=== PATIENT | male | born 1955 | race Caucasian/White ===

== ENCOUNTER 2019-11-07 12:30 | Outpatient (RCR) | payer MEDICARE, OTHER, SELFPAY ==
[2019-09-12 13:31] VITALS: BP_SYST 85
--- NOTE | 2019-09-12 14:54 | OTOPEVAL ---
OT EVALUATION SUMMARY 09/12/19 Thank you for referring this patient to [facility]. Skilled OT is recommended 2x/week for 4 weeks. Please review, sign, date and return this plan of care СВЕТЛАНА. I agree with and certify that the following plan of care is medically necessary. Referring Physician Date Attending Provider: Dwaine Soria, MD *OT Outpatient Evaluation Therapy Assessment Status Assessment Status Assessment Status Evaluation Evaluation Information Problem Diagnosis CVA, left side affected Onset 2016 Subjective Information Yair experienced a CVA in 2017. 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 Prior Level of Function Activity Level (Last 3 Months) Hand Dominance Right Home Setting Home Type House,Single Level Environmental Barriers Ramp Living Situation With Spouse Support Available Local Family Support Cargiver Responsibilities Comment (Jeanie), their son, and her siblings help in the care of this patient. Mobility Assistive Devices (Used Last 3 [place] cane,Wheelchair (Manual) Months) Toileting Equipment Commode, 3-in-1,Grab Bars Comments Additional Prior Level of Function - Patient is able to feed Comments himself and brush his teeth. Patient's assists with: sponge baths, toileting, all transfers, bed mobility, cutting up food with fork and knife, and dressing (LB completed in bed). - If he's leaving the house there are always two people with him to help with the car transfers. They are looking into getting a handicap van. - Hobbies: watching tv, coloring, playing with his dog Lionel, sitting outside when the weather permits, goes to [employer] with his Pain Assessment Pain Scale Pain Scale Used Numeric (1 - 10) Self Report Pain Assessment Left Shoulder(s) Reported Pain Level 2 Pain Description Tightness Pain Score Pain Score 2: Self Report Upper Extremity Range of Motion Scapular/ Shoulder Range of Motion Left Shoulder Flexio
--- NOTE | 2019-09-12 18:09 | PTOPEVAL ---
PHYSICAL THERAPY EVALUATION AND PLAN OF CARE Thank you for referring this patient to [facility]. Yair is scheduled to be seen 2x/week for 4 weeks. Please review, sign, date and return this plan of care СВЕТЛАНА. I agree with and certify that the following plan of care is medically necessary. Referring Physician Date Attending Provider: Dwaine Soria, MD Evaluation Outpatient Past Medical History Neurological History Hx Cerebrovascular Accident (CVA) Yes Hx Other Neurological Disorders Yes: frequent headaches: Tylenol; hemianopia left Cardiovascular History Hx Hypertension Yes: medication as well as aspirin Endocrine History Hx Diabetes Yes: medication Psychosocial History Hx Psychiatric Disorders depression/anxiety Pain History Evaluation Information Problem Diagnosis CVA affecting left limbs Onset 2017 Subjective Information Yair experienced a CVA in 2017 Query Text:As Reported By Patient/ . 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 He was most recently at [facility] where he states he was able to do a little walking in the parallel bars, walked a little with a lobo-walker. At home he states he tries to stand as much as he can with a little bit of help. 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 Hand Dominance Right Activity of Daily Living Ability Needs Some Help Indoor/Home Mobility Dependent Pain Assessment Self Report Pain Level 0 Hip Strength Left Hip Flexion Strength 2+ Poor + Hip Extension Strength 2 Poor Right Hip Flexion Strength 5 Normal Hip Extension Strength 4- Good - Knee Strength Left Knee Flexion Strength 2- Poor - Knee Extension Strength 2- Poor - Right Knee Flexion Strength 5 Normal Knee Extension Strength 5 Normal Posture Sitting Position Posture Evaluation View Anterior Head/C-Spine Posture Rotated Right,Side Bent Right Thoracic Spine Posture Flexible Scoliosis on (R), Increased Kyphosis Lumbar Spine Posture Flexed Shoulder Posture (R) Rounded Hip Posture (R) Neutral,(R) Externally
[2019-09-19 13:51] VITALS: BMI 10.0
--- NOTE | 2019-10-02 14:27 | PCPTNOTE ---
Patient did not show up for scheduled appointment this date. Called & spoke to patient's , and she stated she thought he only had Wednesday this week.
--- NOTE | 2019-10-02 14:55 | PCOTNOTE ---
Pt did not show for regular scheduled appt this date. Pt nor spouse called or cancelled appt.
[2019-10-06 11:56] VITALS: BMI 10.0
[2019-10-12 11:13] VITALS: BP_SYST 110
--- NOTE | 2019-10-12 12:03 | OTOPEVAL ---
OT DISCHARGE NOTE 10/12/19 Thank you for referring this patient to [facility]. No further skilled OT is indicated at this time. Please review, sign, date and return this plan of care СВЕТЛАНА. I agree with and certify that the following plan of care is medically necessary. Referring Physician Date Attending Provider: Dwaine Soria, *OT Outpatient Re-Evaluation Re-Evaluation Information Problem Diagnosis s/p CVA Onset 2016 Additional Evaluation Detail Yair has participated in outpatient OT x1 month. OT has focused on PROM and splinting to increase ROM and reduce tone. Patient has an elbow extension splint and a prefabricated resting hand splint that was modified to increase comfort and wear compliance. Goals for splinting were to increase armit, elbow crease, and hand hygiene as these areas are moist with skin maceration. At this time he and his are independent with PROM HEP and splint schedule. Subjective Information Patient reports improvements Query Text:As Reported By Patient/ since SOC. He no longer having Family left shoulder pain all the time , but occasionally . He states his has been doing their PROM HEP and he feels as though his left hand is more flexible. Pain Assessment Timing of Pain Assessment Timing of Pain Assessment Re-assessment Self Report Self Report Pain Level 0 Pain Scale Pain Scale Used Numeric (1 - 10) Self Report Pain Assessment Right Shoulder(s) Reported Pain Level 0 Pain Score Pain Score 0: Self Report Upper Extremity Range of Motion Scapular/ Shoulder Range of Motion Left Shoulder Flexion - Active 0 Shoulder Flexion - Passive 110 Shoulder Extension - Active 0 Shoulder Extension - Passive 35 Shoulder Abduction - Active 0 Shoulder Abduction - Passive 110 Scapular/Shoulder Range of Motion (L) UE rests in: shoulder Comments adduction and IR with elbow flexed, forearm pronated, wrist and hand flexed. Improvements noted in passive shoulder flexion and abduction
--- NOTE | 2019-10-12 12:51 | PTOPEVAL ---
PHYSICAL THERAPY PLAN OF CARE UPDATE AND PROGRESS REPORT Thank you for referring this patient to [facility]. Yair is scheduled to continue PT 2x/week for 4 weeks. Please review, sign, date and return this plan of care СВЕТЛАНА. I agree with and certify that the following plan of care is medically necessary. Referring Physician Date Attending Provider: Dwaine Soria, Re-evaluation Outpatient Past Medical History Neurological History Hx Cerebrovascular Accident (CVA) Yes Hx Seizures Yes Hx Other Neurological Disorders Yes: frequent headaches: Tylenol; hemianopia left Cardiovascular History Hx Hypertension Yes: medication as well as aspirin Endocrine History Hx Diabetes Yes: medication Evaluation Information Problem Diagnosis s/p CVA Onset 2016 Additional Evaluation Detail Yair has been participating in PT 2x/week for 4 weeks with several cancellations resulting in a total of 1 evaluation and 3 treatments. He is having a difficult time managing his bowels and he often feels sick to his stomach limiting his ability to come to PT. Subjective Information Is able to report to PT his OT Query Text:As Reported By Patient/ HEP. Otherwise is not able to Family describe changes. Self Report Self Report Pain Level 0 Pain Score Pain Score 0: Self Report Lower Extremity Muscle Strength Testing Hip Strength Left Hip Flexion Strength 2- Poor - Hip Extension Strength 2 Poor Right Hip Flexion Strength 5 Normal Hip Extension Strength 4- Good - Knee Strength Left Knee Flexion Strength 2- Poor - Knee Extension Strength 2- Poor - Knee Strength Comments likely all strength is residual from increased tone Right Knee Flexion Strength 5 Normal Knee Extension Strength 5 Normal Posture Sitting Position Posture Evaluation View Anterior Head/C-Spine Posture Rotated Right,Side Bent Right Thoracic Spine Posture Flexible Scoliosis on (R), Increased Kyphosis Lumbar Spine Posture Flexed Shoulder Posture (R) Elevated Hip Posture (R) Externally Rotated,(R) Abducted Additional Posture Comments all posture is flexible except left knee posturing which is
--- NOTE | 2019-11-01 14:57 | PCPTNOTE ---
PHYSICAL THERAPY WHEELCHAIR EVALUATION Attending Provider: Dwaine Soria, Patient:Yair Philippe Date of :1955 Yair Philippe is currently participating in PT for rehabilitation following CVA affecting left extremities. He arrived today to participate in a wheelchair evaluation in conjunction with [facility] in order to determine best needs for patient. His current seating arrangement is ill-fitting and inappropriate for pressure distribution, edema management, and patient posturing. He would benefit from a new seating device, the details of which can be seen in the scanned wheelchair evaluation. Yair will otherwise continue care in physical therapy for rehabilitation purposes to gain and promote optimal independence despite current limitations. Thank you for referring this patient to [facility]. Please review, sign, date and return this wheelchair evaluation summary СВЕТЛАНА. I have been updated about the patient's current status and I agree with wheelchair recommendations at this time. Referring Physician Date
--- NOTE | 2019-11-07 14:49 | PTOPEVAL ---
PHYSICAL THERAPY DISCHARGE REPORT Thank you for referring this patient to [facility]. Yair will be discharged from our facility at this time. If there is a change in status in which we are able to provide further assistance we would be happy to work with him again. Please review, sign, date and return this plan of care СВЕТЛАНА. I agree with and certify that the following plan of care is medically necessary. Referring Physician Date Attending Provider: Dwaine Soria, MD Diagnosis s/p CVA Onset 2016 Subjective Information Yair and report no Query Text:As Reported By Patient/ changes in status at this time Family . Saw the neurologist yesterday and reports good health. Reports that neurologist confirmed that seizures are not caused by looking to the left, but by other overstimulation events. Yair does report he has fairly high anxiety and panic toward balance and gait and standing activiities. He and are trying to find a counselo and/ or pyschiatrist in order to reduce anxieties, but due to insurance changes they have not found one yet. is with us during re- evaluation. Previous Treatments Previous Treatments For This Problem physical therapy and rehab in [place], PT, OP PT Pain Assessment Timing of Pain Assessment Timing of Pain Assessment Post-Treatment Self Report Self Report Pain Level 0 Pain Score Pain Score 0: Self Report Additional Pain Score Comments Pt reported pain at 3/10 at end of tx session. Posture Posture Sitting Position Posture Evaluation View Anterior Head/C-Spine Posture Rotated Right,Side Bent Right Thoracic Spine Posture Flexible Scoliosis on (R), Increased Kyphosis Lumbar Spine Posture Flexed Shoulder Posture (R) Elevated Hip Posture (R) Externally Rotated,(R) Abducted Additional Posture Comments all posture is flexible except left knee posturing which is influenced by tone - left knee posturing can be overcome with passive placement, but he is unable to correct positioning; while sitting with wide base of support, he is able to correct head posture and shoulder posture for <20second before needing next cue to correct Yair's perception, as stated, is that he feels he is crooked to the left therefore, it can be said that he is pushing to the right in orde
== END 2019-11-08 08:55 | disposition home or self-care (01) ==
LOC: ANHPT 12:30
PROVIDERS: PCP Internal Medicine; Visit Provider Internal Medicine
DX: I63.9 Cerebral infarction, unspecified (principal)
CPT/HCPCS: 97110; 97140; 97163; 97165; 97530; 97535; 97760; L3702

== ENCOUNTER 2020-05-12 11:31 | Emergency (ER) | payer MEDICARE, OTHER, SELFPAY ==
--- NOTE | ~2020-05-12 | XR_ITS ---
EXAMINATION: XR chest 1V portable EXAM DATE: 05/12/2020 12:22 INDICATION: Cough. TECHNIQUE: Portable AP frontal chest x-ray was obtained. Comparison is made to prior examination from 10/04/2019. FINDINGS: The The lungs are clear. There are no pleural effusions. Cardiac silhouette is prominent but magnified on this AP technique. There is no pneumothorax suspected. The bones and soft tissues are unremarka ble. IMPRESSION: No acute cardiopulmonary findings. Reviewed, dictated and finalized at location A.
[2020-05-12 11:35] VITALS: BP 125/80; PULSE 88; RESP 18; TEMP 37.9; O2SAT 96
[2020-05-12 11:54] VITALS: BP 135/88; PULSE 90; RESP 26; TEMP 37.9; O2SAT 96
--- NOTE | 2020-05-12 11:56 | ED.URI ---
HPI - URI/Sore Throat General Chief Complaint: Upper Respiratory Infection Stated Complaint: cough/covid exposure Time Seen by Provider: 05/12/20 11:46 History of Present Illness HPI Narrative: Exposed to someone with COVID previously. Cough for the past week. Associated with fatigue and malaise. Developed fever today. No SOB Related Data Home Medications Medication Instructions Recorded Confirmed atorvastatin 80 mg PO DAILY 05/12/20 clonazepam 05/12/20 escitalopram oxalate mg 05/12/20 esomeprazole magnesium mg 05/12/20 gabapentin 05/12/20 glipizide mg PO 05/12/20 hydrochlorothiazide 05/12/20 levetiracetam [Keppra] 1,000 mg PO DAILY 05/12/20 levetiracetam [Keppra] 2,000 mg PO HS 05/12/20 metoprolol succinate PO 05/12/20 nystatin [Nystop] TOPICAL 05/12/20 pramipexole mg 05/12/20 Allergies Allergy/AdvReac Type Severity Reaction Status Date / Time Penicillins Allergy Unknown Rash Verified 05/12/20 11:47 Review of Systems Review of Systems: All systems reviewed & are unremarkable except as noted in HPI and below Constitutional: Constitutional: Reports fever(s) Cardiovascular: Cardiovascular: Denies chest pain Respiratory: Respiratory: Reports cough, Denies dyspnea and Denies wheezing Gastrointestinal: Gastrointestinal: Denies abdominal pain PMF Past Medical History Medical History Anxiety Carcinoid tumor 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 Occurred on 09/30/17. HTN (hypertension) Hyperlipidemia Ruptured aneurysm of intracranial region Seizure since his CVA Sleep apnea Type II diabetes mellitus Surgical History Surgical History History of colon resection 18 inches Social History Social History Smoking status: Never smoker Gender identity (if verbalized by the patient): Male Exam Const: General: no acute distress and alert Orientation/consciousness: patient oriented x3 HENMT: Head: normal to inspection Resp: Effort & Inspection: normal respiratory effort Auscultation: clear to auscultation bilaterally Cardio: Rate: regular rate Rhythm: regular rhythm GI: GI Palp: Yes Soft to palpation and No Tenderness to palpation present (GI) Skin: General skin exam: normal color Rashes: no rashes Neuro: General: patient oriented x3 Extrem: General: normal to inspection Course Vital Signs Vital signs: Vital Signs Temperature 37.9 C H 05/12/20 11:35 Pulse Rate 88 05/12/20 11:35 Respiratory Rate 18 05/12/20 11:35 Blood Pressure 125/80 05/12/20 11:35 Pulse Oximetry 96 05/12/20 11:35 Temperature 37.4 C 05/12/20 14:58 Pulse Rate 87 05/12/20 14:58 Respiratory Rate 18 05/12/20 14:58 Blood Pressure 141/87 H 05/12/20 14:58 Pulse Oximetry 96 05/12/20 14:58 MDM - URI/Sore Throat MDM Narrative Medical decision making narrative: He likely has COVID-19. No indication for admission at this time. Medical Records Attestation: I reviewed the patient's medical records. Lab Data Attestation: I reviewed the patient's lab results. Result diagrams: 05/12/20 11:57 05/12/20 11:57 Labs: Lab Results 05/12/20 05/12/20 05/12/20 Range/Units 11:57 11:57 11:57 WBC 5.4 (4.5-10.0) K/mm3 RBC 5.13 (4.6-6.20) M/mm3 Hgb 15.9 (14.0-18.0) g/dL Hct 44.9 (42.0-52.0) % MCV 87.5 (80-100) fl MCH 31.0 (26-34) pg MCHC 35.4 (32-36) g/dl RDW 12.5 (11.5-14.5) % Plt Count 189 (150-375) k/mm3 MPV 10.7 H (7.4-10.4) fl Immature Gran % (Auto) 0.2 (0-0.5) % Neut % (Auto) 75.5 H (45.5-73.1) % Lymph % (Auto) 11.5 L (18.3-44.2) % [place] % (Auto) 12.2 H (2.6-8.5) % Eos % (Auto) 0.4 (0-4.4) % Baso % (Auto) 0.2 (0.2-1.2) % Lymph # (Auto) 0.62 L (0.9-3.2) K/mm3 [place] # (Auto
[2020-05-12 12:27] LABS: Basophils Percent Auto 0.2 % (0.2-1.2); Eosinophils Percent Auto 0.4 % (0-4.4); Hematocrit 44.9 % (42.0-52.0); Hemoglobin 15.9 g/dL (14.0-18.0); Immature Granulocyte Absolute 0.01 K/mm3 (0.00-0.031); Immature Granulocyte Percent A 0.2 % (0-0.5); Lymphocytes Absolute Auto 0.62 K/mm3 (0.9-3.2); Lymphocytes Percent Auto 11.5 % (18.3-44.2); Mean Corpuscular HGB Conc 35.4 g/dl (32-36); Mean Corpuscular Volume 87.5 fl (80-100); Mean Platelet Volume 10.7 fl (7.4-10.4); Monocytes Absolute Auto 0.7 K/mm3 (0.1-0.6); Monocytes Percent Auto 12.2 % (2.6-8.5); Neutrophils Absolute Auto 4.1 K/mm3 (1.3-6.7); Neutrophils Percent Auto 75.5 % (45.5-73.1); Platelet Count Result 189 k/mm3 (150-375); Red Blood Count 5.13 M/mm3 (4.6-6.20); Red Cell Distribution Width 12.5 % (11.5-14.5); White Blood Count 5.4 K/mm3 (4.5-10.0)
[2020-05-12 12:32] LABS: INR 1.1; Partial Thromboplastin Time 26.3 SECONDS (22.3-36.8); Prothrombin Time 13.5 Seconds (11.1-14.7)
[2020-05-12 12:37] LABS: Lactic Acid Reflex 2.4 mmol/L (0.7-2.1)
[2020-05-12 12:39] LABS: Alanine Aminotransferase 43 U/L (4-50); Albumin Level 3.8 g/dL (3.5-5.1); Alkaline Phosphatase 95 U/L (38-126); Anion Gap 11.3 mmol/L (7-16); Aspartate Amino Transferase 44 U/L (17-59); Bilirubin,Total 0.9 mg/dL (0.2-1.3); Blood Urea Nitrogen 16 mg/dL (9-20); CRP 2.6 mg/dL (<1.0); Calcium 8.6 mg/dL (8.4-10.2); Carbon Dioxide 29 mmol/L (22-30); Chloride 99 mmol/L (98-107); Estimated CRCL calculation 98 ml/min; Estimated Glomerular Filt Rate > 60; Glucose 236 mg/dL (75-110); Potassium 3.3 mmol/L (3.4-5.0); Sodium 136 mmol/L (137-145)
[2020-05-12 12:41] LABS: Add Urine Microscopic? YES; Appearance Urine Clear (Clear); Bacteria Urine Trace /hpf; Bilirubin Urine Negative (Negative); Blood Urine 1+ (Negative); Color Urine Yellow (Yellow); Glucose Urine UA Negative (Negative); Ketones Urine Negative (Negative); Leukocyte Esterase Ur Negative LEU/UL (Negative); Mucus Urine Few /lpf; Nitrate Urine Negative (Negative); Protein Urine 1+ mg/dL (Negative); Specific Grav Ur 1.028 (1.001-1.035); Squamous Epithelial Cell Urine Rare /hpf (Few); Urobilinogen Urine Negative mg/dL (<2.0)
[2020-05-12 13:05] VITALS: BP 125/99; PULSE 88; RESP 18; O2SAT 94
[2020-05-12 13:48] VITALS: BP 129/87; PULSE 87; RESP 16; O2SAT 95
--- NOTE | 2020-05-12 14:26 | PC.NURSE ---
MARIBEL Moulton at bedside to update pt.
[2020-05-12 14:58] VITALS: BP 141/87; PULSE 87; RESP 18; TEMP 37.4; O2SAT 96
[2020-05-12 15:27] LABS: Reflex Lactic Acid Yes or No Add Lactic
[2020-05-13 12:00] LABS: SARS-CoV-2 RNA PCR Positive
== END 2020-05-12 14:59 | disposition home or self-care (01) ==
PROVIDERS: Physician Assistant; Emergency Provider Emergency Medicine; PCP Internal Medicine
DX: U07.1 COVID-19 (principal); F41.9 Anxiety disorder, unspecified; E78.5 Hyperlipidemia, unspecified; I69.954 Hemiplegia and hemiparesis following unspecified cerebrovascular disease affecting left non-dominant side; G47.30 Sleep apnea, unspecified; E11.9 Type 2 diabetes mellitus without complications; Z79.84 Long term (current) use of oral hypoglycemic drugs; Z79.82 Long term (current) use of aspirin
CPT/HCPCS: 36415; 71045; 80053; 81001; 83605; 85025; 85610; 85730; 86140; 87040; 87635; 99283; C9803; U0003

== ENCOUNTER 2020-05-16 20:12 | Inpatient (IN) | payer MEDICARE, OTHER, SELFPAY ==
--- NOTE | ~2020-05-16 | XR_ITS ---
EXAMINATION: XR chest 1V portable EXAM DATE: 05/18/2020 16:20 INDICATION: COVID follow-up. TECHNIQUE: Portable AP frontal chest x-ray was obtained. Comparison is made to prior examination from 05/16/2020. FINDINGS: The lungs are clear. There are no pleural effusions. Cardiac silhouette is prominent but magnified on this AP technique. There is no pneumothorax suspected. The bones and soft tissues are unremarkable. IMPRESSION: No acute cardiopulmonary findings. Reviewed, dictated and finalized at location A.
--- NOTE | ~2020-05-16 | XR_ITS ---
EXAMINATION: XR chest 1V portable DATE: 05/20/2020 06:33 INDICATION: COVID 19 TECHNIQUE: frontal view of the chest was obtained. COMPARISON: Chest radiograph dated 05/18/2020 FINDINGS: Vertical band of linear discoid atelectasis at the right lower lung zone. No other airspace opacities , pulmonary edema, pleural effusion or pneumothorax. The cardiomediastinal silhouette is normal. Visu alized bones and soft tissues are unremarkable. IMPRESSION: 1. Mild discoid atelectasis in the right lower lung zone. Reviewed, dictated and finalized at location A.
--- NOTE | ~2020-05-16 | CT_ITS ---
EXAMINATION: CT brain wo con EXAM DATE: 05/16/2020 21:48 INDICATION: Fever, cough, shortness of breath. Stroke. TECHNIQUE: Spiral CT of the head was performed without contrast. Axial, coronal and sagittal images were reviewed. The dose-length product (DLP) for this examination was 756.67 mGy-cm. The exposure w as tailored according to patient size, and iterative reconstruction (ASIR) was used as additional dos e reduction technique. Comparison is made to prior examination from 06/23/2018. FINDINGS: There is no acute intraparenchymal hemorrhage. No evidence of intraparenchymal brain mass lesion. No evidence of acute infarction. Please note that initial head CT has limited sensitivity f or small or acute infarctions. There is large old right middle cerebral artery distribution infarcti on. There is mild to moderate periventricular and subcortical hypodensity, nonspecific but probably related to small vessel ischemic disease. There is mild prominence of the sulci and ventricles rela rodo to cerebral atrophy. There is intracranial carotid arteriosclerosis. There are no extra-axial collections. There is no mass effect or midline shift. The orbits are unremarkable. Soft tissue is unremarkable. The visualized sinuses and mastoid air cells are well aerated. IMPRESSION: 1. Large old right MCA distribution infarction. 2. Chronic age related findings. Reviewed, dictated and finalized at location A.
--- NOTE | ~2020-05-16 | XR_ITS ---
EXAMINATION: XR chest 1V portable EXAM DATE: 05/16/2020 21:46 INDICATION: COVID 19. TECHNIQUE: Portable AP frontal chest x-ray was obtained. Comparison is made to prior examination from 05/12/2020. FINDINGS: The lungs are clear. There are no pleural effusions. Cardiac silhouette is prominent but magnified on this AP technique. There is no pneumothorax suspected. The bones and soft tissues are unremarkable. IMPRESSION: No acute cardiopulmonary findings. Reviewed, dictated and finalized at location A.
[2020-05-16 20:11] VITALS: BP 133/88; PULSE 98; RESP 27; TEMP 37.7; O2SAT 99
--- NOTE | 2020-05-16 20:14 | ED.SOB ---
HPI - SOB/Dyspnea General Chief Complaint: Shortness of Breath/Dyspnea Stated Complaint: sob, fever Time Seen by Provider: 05/16/20 20:14 History of Present Illness HPI Narrative: Brought in by EMS from home for altered mental status and generalized weakness. He was seen here 4 days ago for fever and cough. COVID testing was done at that time. They say that they never heard the result and has not been isolating. On review of the chart he is COVID positive. Since last time he was here he has had increasing weakness. No SOB. Today his could not get him out of bed so she called EMS. Related Data Home Medications Medication Instructions Recorded Confirmed aspirin 81 mg PO QAM 05/16/20 05/17/20 atorvastatin 80 mg PO HS 05/16/20 05/17/20 clonazepam 0.5 mg PO QPM 05/16/20 05/17/20 escitalopram oxalate 40 mg PO QAM 05/16/20 05/17/20 esomeprazole magnesium 40 mg PO QAM 05/16/20 05/17/20 gabapentin 300 mg PO HS 05/16/20 05/17/20 glipizide 5 mg PO DAILY 05/16/20 05/17/20 hydrochlorothiazide 25 mg PO QAM 05/16/20 05/17/20 levetiracetam 1,000 mg PO QAM 05/16/20 05/17/20 metoprolol succinate 50 mg PO BID 05/16/20 05/17/20 pramipexole 0.75 mg PO QPM 05/16/20 05/17/20 cholecalciferol (vitamin D3) 50 mcg PO DAILY 05/17/20 05/17/20 [Vitamin D3] cyanocobalamin (vitamin B-12) 1,000 mcg PO BID 05/17/20 05/17/20 [Vitamin B-12] levetiracetam 2,000 mg PO QPM 05/17/20 05/17/20 Allergies Allergy/AdvReac Type Severity Reaction Status Date / Time Penicillins Allergy Unknown Verified 05/16/20 20:51 Review of Systems Review of Systems: ROS unobtainable: Yes unobtainable due to medical condition PMFSH Past Medical History Medical History (Updated 05/17/20 @ 06:22 by Vj Moulton MD) COVID-19 virus detected CVA (cerebral vascular accident) Family History Family History (Updated 05/17/20 @ 02:58 by Amanda Metcalf RN) Other Unknown family medical history Social History Social History Smoking status: Never smoker Alcohol intake: never Substance use: never Gender identity (if verbalized by the patient): Male Spiritual care concerns: No Exam Const: General: ill appearing Nutritional Appearance: obese Other: oriented x2. Somnolent, but arousable. HENMT: Head: normal to inspection Eyes: Pupils: Equal, round and reactive pupils present Resp: Effort & Inspection: normal respiratory effort Auscultation: clear to auscultation bilaterally Cardio: Rate: regular rate Rhythm: regular rhythm GI: Inspection: non-distended GI Palp: Yes Soft to palpation and No Tenderness to palpation present (GI) Skin: General skin exam: normal color Rashes: no rashes Wounds: no wounds Neuro: Other: Chronic paraplegia Extrem: General: normal to inspection Course Vital Signs Vital signs: Vital Signs Temperature 37.7 C H 05/16/20 20:11 Pulse Rate 98 05/16/20 20:11 Respiratory Rate 27 H 05/16/20 20:11 Blood Pressure 133/88 05/16/20 20:11 Pulse Oximetry 99 05/16/20 20:11 Temperature 38.1 C H 05/17/20 01:40 Pulse Rate 88 05/17/20 04:00 Respiratory Rate 28 H 05/17/20 01:40 Blood Pressure 125/70 05/17/20 01:40 Pulse Oximetry 95 05/17/20 01:40 MDM - SOB/Dyspnea Lab Data Attestation: I reviewed the patient's lab results. Result diagrams: 05/16/20 21:11 05/16/20 21:11 Labs: Lab Results 05/16/20 05/16/20 05/16/20 Range/Units 21:11 21:11 21:11 WBC (4.5-10.0) K/mm3 RBC (4.6-6.20) M/mm3 Hgb (14.0-18.0) g/dL Hct (42.0-52.0) % MCV (80-100) fl MCH (26-34) pg MCHC (32-36) g/dl RDW (11.5-14.5) % Plt Count (150-375) k/mm3 MPV (7.4-10.4) fl Immature Gran % (Auto) (0-0.5) % Neut % (Auto) (45.5-73.1) % Lymph % (Auto) (18.3-44.2) % [place] % (Auto) (2.6-8.5) % Eos % (Auto) (0-4.4) % Baso % (Auto) (0.2-1.2) % Ly
--- NOTE | 2020-05-16 20:25 | ECG_ITS ---
Measurements Intervals [place] Rate: 97 P: -30 OK: 144 QRS: -28 QRSD: 117 T: -30 QT: 382 QTc: 487 Interpretive Statements SINUS OR ECTOPIC ATRIAL RHYTHM ATRIAL PREMATURE COMPLEX INTRAVENTRICULAR CONDUCTION DELAY POOR R WAVE PROGRESSION, ANTERIOR LEADS NONSPECIFIC T-WAVE ABNORMALITY- ANT/INF LEADS BASELINE WANDER- I, II, AVR, AVL, AVF, V1-V6 ABNORMAL ECG Electronically Signed On 05-20-2020 11:37:25 CDT by Harsha Prieto D.O.
--- NOTE | 2020-05-16 21:04 | PC.NURSE ---
pt history is in his other chart.
[2020-05-16 21:34] LABS: Basophils Percent Auto 0.2 % (0.2-1.2); Eosinophils Percent Auto 0.2 % (0-4.4); Hematocrit 44.4 % (42.0-52.0); Hemoglobin 15.9 g/dL (14.0-18.0); Immature Granulocyte Absolute 0.02 K/mm3 (0.00-0.031); Immature Granulocyte Percent A 0.3 % (0-0.5); Lymphocytes Absolute Auto 0.84 K/mm3 (0.9-3.2); Lymphocytes Percent Auto 12.8 % (18.3-44.2); Mean Corpuscular HGB Conc 35.8 g/dl (32-36); Mean Corpuscular Hemoglobin 31.2 pg (26-34); Mean Corpuscular Volume 87.2 fl (80-100); Mean Platelet Volume 10.3 fl (7.4-10.4); Monocytes Absolute Auto 0.6 K/mm3 (0.1-0.6); Neutrophils Absolute Auto 5.1 K/mm3 (1.3-6.7); Neutrophils Percent Auto 77.5 % (45.5-73.1); Platelet Count Result 177 k/mm3 (150-375); Red Blood Count 5.09 M/mm3 (4.6-6.20); Red Cell Distribution Width 12.4 % (11.5-14.5); White Blood Count 6.6 K/mm3 (4.5-10.0)
[2020-05-16 21:44] LABS: INR 1.1
[2020-05-16 21:45] LABS: Partial Thromboplastin Time 26.8 SECONDS (22.3-36.8)
[2020-05-16 21:49] LABS: Lactate Dehydrogenase 466 U/L (313-618)
[2020-05-16 21:52] LABS: Alanine Aminotransferase 30 U/L (4-50); Albumin Level 3.8 g/dL (3.5-5.1); Alkaline Phosphatase 99 U/L (38-126); Anion Gap 10.9 mmol/L (7-16); Aspartate Amino Transferase 23 U/L (17-59); Bilirubin,Total 0.9 mg/dL (0.2-1.3); Blood Urea Nitrogen 14 mg/dL (9-20); CRP 4.2 mg/dL (<1.0); Calcium 8.7 mg/dL (8.4-10.2); Carbon Dioxide 30 mmol/L (22-30); Chloride 100 mmol/L (98-107); Estimated CRCL calculation 91 ml/min; Estimated Glomerular Filt Rate > 60; Glucose 142 mg/dL (75-110); Potassium 2.9 mmol/L (3.4-5.0); Sodium 138 mmol/L (137-145)
[2020-05-16 22:20] LABS: Add Urine Microscopic? YES; Appearance Urine Clear (Clear); Bacteria Urine Trace /hpf; Bilirubin Urine Negative (Negative); Blood Urine 1+ (Negative); Color Urine Yellow (Yellow); Glucose Urine UA Negative (Negative); Ketones Urine Negative (Negative); Leukocyte Esterase Ur Negative LEU/UL (Negative); Mucus Urine Few /lpf; Nitrate Urine Negative (Negative); Protein Urine 1+ mg/dL (Negative); Specific Grav Ur 1.025 (1.001-1.035); Squamous Epithelial Cell Urine Rare /hpf (Few); Urobilinogen Urine Negative mg/dL (<2.0)
[2020-05-16 23:03] VITALS: BP 120/91; PULSE 100; RESP 36; O2SAT 96
[2020-05-16] MEDS: SODIUM CHLORIDE 0.9% IV 500 ML 999 ML IV CONT (23:10)
--- NOTE | 2020-05-16 23:12 | PC.NURSE ---
vorb from dr ko 2 mg ativan to be administered to patient, the original order was for 1 mg. pt was actively seizing.
[2020-05-16 23:56] VITALS: BP 103/80; PULSE 102; RESP 30; TEMP 38.8; O2SAT 97
[2020-05-17] VITALS (14 sets, daily range): BP systolic 115–141; BP diastolic 70–91; PULSE 88–110; RESP 18–28; TEMP 37.2–38.7; O2SAT 92–100; BMI 41.6
[2020-05-17 00:04] LABS: Alveolar/Arterial O2 Gradient 97.4 mmHg; Base Excess ABG 4.8 mEq/l (+/-2.0); Fractional Inspired Oxygen 32 %; HCO3 ABG 29.6 mEq/l (22.0-26.0); Oxygen Content ABG 20.9 %vol (16.0-22.0); Oxygen Saturation ABG 96.2 % (95.0-100.0); Oxyhemoglobin 94.8 % THb (90.0-100.0); PCO2 ABG 43.7 mmHg (35.0-45.0); PO2 ABG 79.6 mmHg (80.0-100.0); PO2 FiO2 Ratio Arterial Blood 2.49 %; Total Hemoglobin 15.7 g/dL (12.0-18.0); pH ABG 7.448 (7.350-7.450)
[2020-05-17 00:07] LABS: Device NASAL CANNULA; Modified Allen's Test Pass; Site Drawn RIGHT RADIAL
--- NOTE | 2020-05-17 02:34 | ADMGEN ---
This patient, Yair Philippe, was admitted to [facility] Surg Room 329-01. Patient/family oriented to hospital policies and general routines including ID bracelet, bed and alarms, visiting hours, pain management, procedures, bathroom and other care routines, personal items, smoking policy, room service/diet, and visiting hours. Valuables list has been completed. Information on how to activate the Rapid Response Team has been discussed. Patient/Family are encouraged to report perceived risks to care and to ask questions if they do not understand what they are told or what they should do.
[2020-05-17 06:16] LABS: Hematocrit 41.7 % (42.0-52.0); Hemoglobin 14.6 g/dL (14.0-18.0); Mean Corpuscular Volume 88.5 fl (80-100); Mean Platelet Volume 10.3 fl (7.4-10.4); Platelet Count Result 143 k/mm3 (150-375); Red Blood Count 4.71 M/mm3 (4.6-6.20); Red Cell Distribution Width 12.4 % (11.5-14.5); White Blood Count 5.1 K/mm3 (4.5-10.0)
[2020-05-17 06:25] LABS: D Dimer 0.24 ug/mL (<0.48)
[2020-05-17 06:58] LABS: Alanine Aminotransferase 26 U/L (4-50); Albumin Level 3.4 g/dL (3.5-5.1); Alkaline Phosphatase 79 U/L (38-126); Anion Gap 10.7 mmol/L (7-16); Aspartate Amino Transferase 22 U/L (17-59); Blood Urea Nitrogen 16 mg/dL (9-20); Carbon Dioxide 29 mmol/L (22-30); Chloride 100 mmol/L (98-107); Estimated CRCL calculation 96 ml/min; Estimated Glomerular Filt Rate > 60; Glucose 228 mg/dL (75-110); Lactate Dehydrogenase 502 U/L (313-618); Potassium 3.7 mmol/L (3.4-5.0); Sodium 136 mmol/L (137-145)
[2020-05-17] MEDS: ONDANSETRON INJ 4 MG/2 ML VIAL IV PUSH (11:36)
--- NOTE | 2020-05-17 15:16 | PM.IMHP ---
H&P: HPI History of Present Illness Date/Time: 05/17/20 15:16 Chief complaint: COVID-19 Narrative: Yair Philippe is a 64 year old male with hx of CVA and left hemiplegia here for weakness after being diagnosed with COVID. Patient states he became ill last week. He was exposed to someone with COVID. He has been having a headache and fever. She also complains of nausea and diarrhea. No abdominal pain. No sore throat. He has a nonproductive cough. Also having malaise and taste disturbance. Mild shortness of breath. He presented to the emergency room on May 12 with these symptoms. He was noted to have a low-grade fever. Chest x-ray was clear. He was tested for COVID and discharged with diagnosis of URI. He states he never received a call about the results. The COVID test was positive. Patient's symptoms have worsened. He is very weak and tired. He falls asleep easily during the day. He does have sleep apnea and is compliant with wearing his mask. Some mild right otalgia but that symptom has improved. No dysuria or hematuria. No Chest pain. No palpitations. He presented back to the emergency room due to generalized weakness, continued fevers and malaise. His has been having difficulty getting him out of bed. Patient normally helps with transfers to the wheelchair. He has been unable to do so since being ill. In the emergency room, patient was tachypneic, febrile and tachycardic. CBC was normal. ABG was normal with the exception of a PO2 of 80 on 3 L. Potassium was low and this was replaced. CRP is 4.2. Mild changes noted in the urinalysis. CT of the brain showed large old right MCA distribution infarct. Chest x-ray again shows no acute cardiopulmonary disease. Patient admitted for further care Review of Systems Review of Systems: Narrative: Checks glucose once in the morning and it is well controlled. He has crying spells that he feels may be worsening. 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 Occurred on 09/30/17. Depression with anxiety HTN (hypertension) Hyperlipidemia Ruptured aneurysm of intracranial region Seizure since his CVA Sleep apnea Type II diabetes mellitus Surgical History Surgical History (Updated 05/17/20 @ 17:31 by Smooth Leiva MD) History of colon resection 18 inches due to carcinoid tumor Hx of tonsillectomy Family History Family History (Updated 05/17/20 @ 17:36 by Smooth Leiva MD) Mother Hypertension Social History Social History (Updated 05/17/20 @ 17:35 by Smooth Leiva MD) Social History: lifelong nonsmoker. Rare alcohol use. No drug use. Lives at home with his and [id number]. Full code. He nominates his to be the individual would make medical decisions for him if he is not able. Smoking status: Never smoker Alcohol intake: never Substance use: never Gender identity (if verbalized by the patient): Male Spiritual care concerns: No Meds Home Medications and Allergies Home Medications Medication Instructions Recorded Confirmed Type aspirin 81 mg PO QAM 05/16/20 05/17/20 History atorvastatin 80 mg PO HS 05/16/20 05/17/20 History clonazepam 0.5 mg PO QPM 05/16/20 05/17/20 History escitalopram oxalate 40 mg PO QAM 05/16/20 05/17/20 History esomeprazole magnesium 40 mg PO QAM 05/16/20 05/17/20 History gabapentin 300 mg PO HS 05/16/20 05/17/20 History glipizide 5 mg PO DAILY 05/16/20 05/17/20 History hydrochlorothiazide 25 mg PO QAM 05/16/20 05/17/20 History levetiracetam 1,000 mg PO QAM 05/16/20 05/17/20 History metoprolol succinate 50 mg PO BID 05/16/20 05/17/20 History pramipexole 0.75 mg PO QPM 05/16/20 05/17/20 History cholecalciferol (vitamin D3) 50 mcg PO DAILY 05/17/20 0
[2020-05-17] MEDS: PRAMIPEXOLE 0.25 MG TABLET 0.75 MG PO (18:11)
[2020-05-17] MEDS: ENOXAPARIN 40 MG/0.4 ML SYRINGE SUB-Q (18:11)
[2020-05-17] MEDS: clonazePAM 0.5 MG TABLET PO (18:11)
[2020-05-17 18:27] LABS: Glucose Point of Care 156 (65-105)
[2020-05-17] MEDS: CYANOCOBALAMIN 1,000 MCG TABLET 1000 MCG PO (21:28)
[2020-05-17] MEDS: levETIRAcetam 500 MG TABLET 2000 MG PO (21:28)
[2020-05-17] MEDS: METOPROLOL SUCCINATE EXT REL 50 MG TABCR PO (21:28)
[2020-05-17] MEDS: ATORVASTATIN 40 MG TABLET 80 MG PO (21:28)
[2020-05-17] MEDS: GABAPENTIN 300 MG CAPSULE PO (21:28)
[2020-05-17 21:31] LABS: Glucose Point of Care 193 (65-105)
[2020-05-18] VITALS (11 sets, daily range): BP systolic 113–135; BP diastolic 74–95; PULSE 85–102; RESP 18–22; TEMP 36.9–38.9; O2SAT 92–94; BMI 11.0
[2020-05-18] MEDS: ACETAMINOPHEN 325 MG TABLET 650 MG PO ×3 (01:49→20:53)
[2020-05-18 06:42] LABS: Hematocrit 43.1 % (42.0-52.0); Mean Corpuscular HGB Conc 34.8 g/dl (32-36); Mean Corpuscular Hemoglobin 31.1 pg (26-34); Mean Corpuscular Volume 89.4 fl (80-100); Mean Platelet Volume 10.6 fl (7.4-10.4); Platelet Count Result 158 k/mm3 (150-375); Red Blood Count 4.82 M/mm3 (4.6-6.20); Red Cell Distribution Width 12.5 % (11.5-14.5); White Blood Count 5.5 K/mm3 (4.5-10.0)
[2020-05-18 06:45] LABS: Hemoglobin A1C 7.6 % (<5.7)
[2020-05-18 06:47] LABS: Anion Gap 6 mmol/L (8-16); Blood Urea Nitrogen 15 mg/dL (9-20); CRP 6.6 mg/dL (<1.0); Calcium 8.2 mg/dL (8.4-10.2); Carbon Dioxide 33 mmol/L (22-30); Chloride 98 mmol/L (98-107); Estimated CRCL calculation 78 ml/min; Estimated Glomerular Filt Rate > 60; Glucose 188 mg/dL (75-110); Magnesium 1.7 mg/dL (1.6-2.3); Potassium 3.7 mmol/L (3.4-5.0); Sodium 137 mmol/L (137-145)
[2020-05-18 08:37] LABS: Glucose Point of Care 164 (65-105)
[2020-05-18] MEDS: ESCITALOPRAM OXALATE 10 MG TABLET 40 MG PO (09:01)
[2020-05-18] MEDS: glipiZIDE 5 MG TABLET PO (09:01)
[2020-05-18] MEDS: ASPIRIN 81 MG CHEWABLE TABLET PO (09:01)
[2020-05-18] MEDS: CHOLECALCIFEROL 1,000 UNIT TABLET 2000 UNITS PO (09:01)
[2020-05-18] MEDS: METOPROLOL SUCCINATE EXT REL 50 MG TABCR PO ×2 (09:01→20:53)
[2020-05-18] MEDS: levETIRAcetam 500 MG TABLET 1000 MG PO (09:02)
[2020-05-18] MEDS: CYANOCOBALAMIN 1,000 MCG TABLET 1000 MCG PO ×2 (09:02→20:52)
[2020-05-18] MEDS: ENOXAPARIN 40 MG/0.4 ML SYRINGE SUB-Q (09:02)
[2020-05-18] MEDS: hydroCHLOROthiazide 25 MG TABLET PO (09:02)
[2020-05-18] MEDS: PANTOPRAZOLE 40 MG TABLET PO (09:02)
[2020-05-18 11:46] LABS: Glucose Point of Care 210 (65-105)
[2020-05-18] MEDS: INSULIN ASPART (*BKC) 100 UNITS/ML SUB-Q (12:03)
--- NOTE | 2020-05-18 15:09 | PM.IMPN ---
Progress Note: A&P Assessment and Plan (1) Generalized weakness: Code(s): R53.1 - Weakness Status: Acute Assessment and Plan: Patient with generalized weakness related to his history of CVA and now COVID. Continue PT and OT. Increase activity as he tolerates. Care coordination to arrange for SNF placement. (2) Hypokalemia: Code(s): E87.6 - Hypokalemia Status: Acute Assessment and Plan: Patient with mild hypokalemia related to his hydrochlorothiazide. This has been replaced. HCTZ stopped per family wishes. Repeat potassium normal. Continue to monitor. Okay to stop tele. (3) COVID-19 virus detected: Code(s): U07.1 - COVID-19 Status: Acute Assessment and Plan: Patient began to have symptoms sometime last week. He is probably about 7-8 days out from onset of symptoms. Chest x-ray clear on admission (05/16). Still not requiring oxygen at this time. Ferritin 484 but LDH normal on admission. CRP 4.2 on admission but now at 6.6. Will continue to monitor. Repeat chest x-ray given the persistent fevers. Dexamethasone and Remdesivir not given due to no O2 requirement. Continue supportive care CXR clear still (4) HTN (hypertension): Code(s): I10 - Essential (primary) hypertension Status: Acute Assessment and Plan: Patient's blood pressure was reviewed on 05/18/20. Blood pressure remains well controlled. Will continue current medications with Metoprolol. HCTZ stopped per family wishes. (5) Type II diabetes mellitus: Code(s): E11.9 - Type 2 diabetes mellitus without complications Status: Acute Assessment and Plan: A1c 7.6. The patient's blood glucose was reviewed on 05/18/20. Glucose remains reasonably well controlled. Continue AccuCheks covering with sliding scale. Hypoglycemia protocol available as needed. Continue current medications with Glipizide. (6) Seizure: Code(s): R56.9 - Unspecified convulsions Status: Acute Assessment and Plan: Last seizure was in September. He has been stable on his Keppra. Keppra resumed. (7) Sleep apnea: Code(s): G47.30 - Sleep apnea, unspecified Status: Acute Assessment and Plan: Patient is compliant with his CPAP. This will be on hold because he is COVID positive. (8) DVT prophylaxis: Code(s): Z29.9 - Encounter for prophylactic measures, unspecified Status: Acute Assessment and Plan: [place] Subjective Date/time seen: 05/18/20 15:09 Interval history: 64yo male with hx of CVA here for weakness and known to be recently diagnosed with COVID. patient slept well last night. Feels better today. He was up the chair earlier. He states he is helping with the therapist when he transfers from bed to chair. he denies any chest pain or shortness of breath. No nausea, vomiting or diarrhea. Discussed with by phone with patient permission. She is requesting he go to a rehab facility prior to coming back. Exam Narrative: Exam Narrative: Tm 102.1 98.9 134/79 85 18 93% ra Gen - NARD sititng up in bed feeding himself lunch Chest - distant but clear BS anteriorly and in the flanks CV - RRR S1/S2; Tele showing no dysrhythmias or alarms Abd - Soft, obese, NT, +BS Ext - Left pitting pedal edema Psych - depressed mood Skin - Warm and dry Objective Data Vital Signs Vital Signs: Vital Signs - 24 hr 05/17/20 16:00 05/17/20 16:06 05/17/20 17:00 Temperature 101.6 F H Pulse Rate 100 104 H 101 H Respiratory Rate 19 18 Blood Pressure 138/89 Pulse Oximetry 96 95 05/17/20 17:23 05/17/20 18:23 05/17/20 20:00 Temperature 101.6 F H 100.3 F H Pulse Rate 108 H Respiratory Rate Blood Pressure Pulse Oximetry 05/17/20 21:28 05/17/20 22:00 05/18/20 00:00 Temperature 99.4 F 102.1 F H Pulse Rate 110 H 109 H 99 Respiratory Rate 20 20 Blood Pressure 141/91 H 135/91 H Pulse Oximetr
[2020-05-18] MEDS: clonazePAM 0.5 MG TABLET PO (17:36)
[2020-05-18] MEDS: PRAMIPEXOLE 0.25 MG TABLET 0.75 MG PO (17:36)
[2020-05-18 17:59] LABS: Glucose Point of Care 107 (65-105)
[2020-05-18] MEDS: levETIRAcetam 500 MG TABLET 2000 MG PO (20:52)
[2020-05-18] MEDS: GABAPENTIN 300 MG CAPSULE PO (20:52)
[2020-05-18] MEDS: ATORVASTATIN 40 MG TABLET 80 MG PO (20:52)
[2020-05-18 21:15] LABS: Glucose Point of Care 146 (65-105)
[2020-05-19] VITALS (10 sets, daily range): BP systolic 108–143; BP diastolic 45–84; PULSE 86–95; RESP 19–20; TEMP 37.1–38.6; O2SAT 90–98
[2020-05-19 06:53] LABS: Anion Gap 9 mmol/L (8-16); Blood Urea Nitrogen 16 mg/dL (9-20); CRP 7.5 mg/dL (<1.0); Calcium 8.1 mg/dL (8.4-10.2); Carbon Dioxide 29 mmol/L (22-30); Chloride 97 mmol/L (98-107); Estimated CRCL calculation 86 ml/min; Estimated Glomerular Filt Rate > 60; Glucose 149 mg/dL (75-110); Magnesium 1.7 mg/dL (1.6-2.3); Potassium 3.3 mmol/L (3.4-5.0); Sodium 135 mmol/L (137-145)
[2020-05-19] MEDS: CYANOCOBALAMIN 1,000 MCG TABLET 1000 MCG PO ×2 (08:24→21:02)
[2020-05-19] MEDS: levETIRAcetam 500 MG TABLET 1000 MG PO (08:24)
[2020-05-19] MEDS: ESCITALOPRAM OXALATE 10 MG TABLET 40 MG PO (08:24)
[2020-05-19] MEDS: ASPIRIN 81 MG CHEWABLE TABLET PO (08:24)
[2020-05-19] MEDS: glipiZIDE 5 MG TABLET PO (08:24)
[2020-05-19] MEDS: CHOLECALCIFEROL 1,000 UNIT TABLET 2000 UNITS PO (08:24)
[2020-05-19] MEDS: PANTOPRAZOLE 40 MG TABLET PO (08:25)
[2020-05-19] MEDS: ENOXAPARIN 40 MG/0.4 ML SYRINGE SUB-Q (08:25)
[2020-05-19] MEDS: METOPROLOL SUCCINATE EXT REL 50 MG TABCR PO ×2 (08:25→21:02)
[2020-05-19] MEDS: ACETAMINOPHEN 325 MG TABLET 650 MG PO ×3 (08:35→21:04)
[2020-05-19 09:33] LABS: Glucose Point of Care 152 (65-105)
[2020-05-19 13:25] LABS: Glucose Point of Care 126 (65-105)
[2020-05-19 14:01] LABS: Procalcitonin <0.10 ng/mL (<0.10)
--- NOTE | 2020-05-19 14:05 | PM.IMPN ---
Progress Note: A&P Assessment and Plan (1) Generalized weakness: Code(s): R53.1 - Weakness Status: Acute Assessment and Plan: Patient with generalized weakness related to his history of CVA and now COVID. Patient also depressed wit crying spells. Continue PT and OT. Increase activity as he tolerates. Care coordination to arrange for SNF placement. Add Remeron low dose (2) Hypokalemia: Code(s): E87.6 - Hypokalemia Status: Acute Assessment and Plan: Patient with mild hypokalemia related to his hydrochlorothiazide. This has been replaced. HCTZ stopped per family wishes. Repeat potassium3.3 and replacement ordered again. Continue to monitor. (3) COVID-19 virus detected: Code(s): U07.1 - COVID-19 Status: Acute Assessment and Plan: Patient began to have symptoms sometime last week. He is probably about 8-9 days out from onset of symptoms. Chest x-ray clear on admission (05/16). Still not requiring oxygen at this time but still having fevers. Ferritin 484 but LDH normal on admission. CRP 4.2 on admission but now at 7.5. Repeat CXR clear (05/18). Will continue to monitor. Repeat chest x-ray tomorrow. Dexamethasone and Remdesivir not given due to no O2 requirement. Continue supportive care (4) HTN (hypertension): Code(s): I10 - Essential (primary) hypertension Status: Acute Assessment and Plan: Patient's blood pressure was reviewed on 05/19/20. Blood pressure remains well controlled. Will continue current medications with Metoprolol. HCTZ stopped per family wishes. (5) Type II diabetes mellitus: Code(s): E11.9 - Type 2 diabetes mellitus without complications Status: Acute Assessment and Plan: A1c 7.6. The patient's blood glucose was reviewed on 05/19/20. Glucose remains well controlled. Continue AccuCheks covering with sliding scale. Hypoglycemia protocol available as needed. Continue current medications with Glipizide. (6) Seizure: Code(s): R56.9 - Unspecified convulsions Status: Acute Assessment and Plan: Last seizure was in September. He has been stable on his Keppra. Keppra has been resumed. (7) Sleep apnea: Code(s): G47.30 - Sleep apnea, unspecified Status: Acute Assessment and Plan: Patient is compliant with his CPAP. This will be on hold because he is COVID positive. (8) DVT prophylaxis: Code(s): Z29.9 - Encounter for prophylactic measures, unspecified Status: Acute Assessment and Plan: Lovenox Subjective Date/time seen: 05/19/20 14:05 Interval history: 64yo male with hx of CVA here for weakness and known to be recently diagnosed with COVID. No issues. No n/v. Tmax 100. Feels depressed. no CP or SOB. Decreased appetitie. Exam Narrative: Exam Narrative: Tm 100.5 99.5 125/80 94 91% RA Gen - NARD Chest - distant but clear BS anteriorly and in the flanks CV - RRR S1/S2 Abd - Soft, obese, NT, +BS Ext - rodo hose in place Psych - depressed mood Neuro - left hemiplegia Skin - Warm and dry Objective Data Vital Signs Vital Signs: Vital Signs - 24 hr 05/18/20 16:00 05/18/20 20:00 05/18/20 20:53 Temperature 99.4 F 100.5 F H 100.5 F H Pulse Rate 96 96 98 Respiratory Rate 20 20 Blood Pressure 130/91 H 113/74 Pulse Oximetry 92 92 05/18/20 21:53 05/19/20 00:00 05/19/20 04:00 Temperature 98.9 F 98.7 F 98.9 F Pulse Rate 86 86 Respiratory Rate 20 20 Blood Pressure 116/45 L 127/73 Pulse Oximetry 92 92 05/19/20 08:00 05/19/20 08:25 Temperature 99.5 F Pulse Rate 95 94 Respiratory Rate 20 Blood Pressure 125/80 Pulse Oximetry 91 Intake/Output Intake/Output: Intake & Output 05/16/20 05/17/20 05/18/20 05/19/20 23:59 23:59 23:59 23:59 Intake Total 500 1150 510 370 Output Total 200 Balance 500 1150 310 370 Meds/Results Medications: Active Medications Generic Name Dose
[2020-05-19] MEDS: DOCUSATE SODIUM 100 MG CAPSULE PO ×2 (14:45→21:02)
[2020-05-19] MEDS: POTASSIUM CHLORIDE 20 MEQ TABLET PO (14:45)
[2020-05-19] MEDS: PRAMIPEXOLE 0.25 MG TABLET 0.75 MG PO (17:32)
[2020-05-19] MEDS: clonazePAM 0.5 MG TABLET PO (17:32)
[2020-05-19 18:14] LABS: Glucose Point of Care 108 (65-105)
[2020-05-19] MEDS: levETIRAcetam 500 MG TABLET 2000 MG PO (21:01)
[2020-05-19] MEDS: ATORVASTATIN 40 MG TABLET 80 MG PO (21:02)
[2020-05-19] MEDS: GABAPENTIN 300 MG CAPSULE PO (21:03)
[2020-05-19] MEDS: MIRTAZAPINE 7.5 MG TABLET PO (21:48)
[2020-05-19 22:02] LABS: Glucose Point of Care 142 (65-105)
[2020-05-20] VITALS (10 sets, daily range): BP systolic 106–134; BP diastolic 61–74; PULSE 84–109; RESP 16–24; TEMP 36.9–39.4; O2SAT 91–95
[2020-05-20] MEDS: ACETAMINOPHEN 325 MG TABLET 650 MG PO ×3 (01:22→21:55)
[2020-05-20 07:37] LABS: Hematocrit 41.7 % (42.0-52.0); Hemoglobin 14.7 g/dL (14.0-18.0); Immature Platelet Fraction Pct 6.6 % (0.9-11.2); Mean Corpuscular HGB Conc 35.3 g/dl (32-36); Mean Corpuscular Hemoglobin 30.9 pg (26-34); Mean Corpuscular Volume 87.8 fl (80-100); Platelet Count Result 123 k/mm3 (150-375); Red Blood Count 4.75 M/mm3 (4.6-6.20); Red Cell Distribution Width 12.7 % (11.5-14.5); White Blood Count 4.4 K/mm3 (4.5-10.0)
[2020-05-20 07:50] LABS: Alanine Aminotransferase 22 U/L (4-50); Albumin Level 3.3 g/dL (3.5-5.1); Alkaline Phosphatase 73 U/L (38-126); Anion Gap 8 mmol/L (8-16); Aspartate Amino Transferase 35 U/L (17-59); Bilirubin,Total 0.8 mg/dL (0.2-1.3); Blood Urea Nitrogen 14 mg/dL (9-20); CRP 7.6 mg/dL (<1.0); Carbon Dioxide 28 mmol/L (22-30); Chloride 97 mmol/L (98-107); Estimated CRCL calculation 109 ml/min; Estimated Glomerular Filt Rate > 60; Glucose 145 mg/dL (75-110); Lactate Dehydrogenase 687 U/L (313-618); Magnesium 1.8 mg/dL (1.6-2.3); Potassium 3.1 mmol/L (3.4-5.0); Sodium 133 mmol/L (137-145)
[2020-05-20] MEDS: POTASSIUM CHLORIDE 20 MEQ TABLET 40 MEQ PO (08:58)
[2020-05-20] MEDS: PANTOPRAZOLE 40 MG TABLET PO (08:59)
[2020-05-20] MEDS: ESCITALOPRAM OXALATE 10 MG TABLET 40 MG PO (08:59)
[2020-05-20] MEDS: CHOLECALCIFEROL 1,000 UNIT TABLET 2000 UNITS PO (08:59)
[2020-05-20] MEDS: levETIRAcetam 500 MG TABLET 1000 MG PO (09:00)
[2020-05-20] MEDS: ENOXAPARIN 40 MG/0.4 ML SYRINGE SUB-Q (09:00)
[2020-05-20] MEDS: METOPROLOL SUCCINATE EXT REL 50 MG TABCR PO ×2 (09:00→21:55)
[2020-05-20] MEDS: CYANOCOBALAMIN 1,000 MCG TABLET 1000 MCG PO ×2 (09:01→21:54)
[2020-05-20] MEDS: ASPIRIN 81 MG CHEWABLE TABLET PO (09:01)
[2020-05-20] MEDS: DOCUSATE SODIUM 100 MG CAPSULE PO (09:01)
[2020-05-20] MEDS: glipiZIDE 5 MG TABLET PO (09:01)
--- NOTE | 2020-05-20 12:13 | PM.IMPN ---
Progress Note: A&P Assessment and Plan (1) Generalized weakness: Code(s): R53.1 - Weakness Status: Acute Assessment and Plan: Patient with generalized weakness related to his history of CVA and now COVID. Patient also depressed wit crying spells. Continue PT and OT. Increase activity as he tolerates. Care coordination to arrange for SNF placement. Add Remeron low dose (2) Hypokalemia: Code(s): E87.6 - Hypokalemia Status: Acute Assessment and Plan: Patient with mild hypokalemia related to his hydrochlorothiazide. This has been replaced. HCTZ stopped per family wishes. Repeat potassium still low at times requiring replacement. Contnue to supplement. Mag 1.8 so will replace this as well. Continue to monitor. (3) COVID-19 virus detected: Code(s): U07.1 - COVID-19 Status: Acute Assessment and Plan: Patient began to have symptoms sometime around May 11. He is probably about 9-10 days out from onset of symptoms. Chest x-ray clear on admission (05/16). Still not requiring oxygen at this time but still having fevers. Ferritin 484 on admission and higher at 585 today. LDH normal on admission(466) but higher today at 687. CRP 4.2 on admission but now at 7.6 (but appears to be at a plateau. Repeat CXR clear (05/18) with RLL atelectasis noted 05/20. Dexamethasone and Remdesivir not given due to no O2 requirement. Will continue to monitor. Continue supportive care. (4) HTN (hypertension): Code(s): I10 - Essential (primary) hypertension Status: Acute Assessment and Plan: Patient's blood pressure was reviewed on 05/20/20. Blood pressure remains well controlled. Will continue current medications with Metoprolol. HCTZ stopped per family wishes. (5) Type II diabetes mellitus: Code(s): E11.9 - Type 2 diabetes mellitus without complications Status: Acute Assessment and Plan: A1c 7.6. The patient's blood glucose was reviewed on 05/20/20. Glucose remains well controlled. Continue AccuCheks covering with sliding scale. Hypoglycemia protocol available as needed. Continue current medications with Glipizide. (6) Seizure: Code(s): R56.9 - Unspecified convulsions Status: Acute Assessment and Plan: Last seizure was in September. He has been stable on his Keppra. Keppra has been resumed. (7) Sleep apnea: Code(s): G47.30 - Sleep apnea, unspecified Status: Acute Assessment and Plan: Patient is compliant with his CPAP. This will be on hold because he is COVID positive. (8) DVT prophylaxis: Code(s): Z29.9 - Encounter for prophylactic measures, unspecified Status: Acute Assessment and Plan: Lovenox Subjective Date/time seen: 05/20/20 12:13 Interval history: 64yo male with hx of CVA here for weakness and known to be recently diagnosed with COVID. Slept okay. Eating well. Mood better today. Complains of right shoulder pain but this is chronic. Having loose stool today. Exam Narrative: Exam Narrative: Tm 101.5 100.6 107/65 84 16 95% ra Gen - NARD Chest - distant but clear BS, nml RR CV - RRR S1/S2 Abd - Soft, obese, NT, +BS Ext - rodo hose in place, L>R LE edema Psych - slightly more interactive today. Neuro - left hemiplegia Objective Data Vital Signs Vital Signs: Vital Signs - 24 hr 05/19/20 16:00 05/19/20 16:08 05/19/20 17:08 Temperature 101.5 F H 101.5 F H 100.1 F H Pulse Rate 92 Respiratory Rate 20 Blood Pressure 132/84 Pulse Oximetry 95 05/19/20 20:00 05/19/20 21:02 05/20/20 00:00 Temperature 99.3 F 99.5 F Pulse Rate 95 95 87 Respiratory Rate 20 20 Blood Pressure 143/70 H 110/61 Pulse Oximetry 98 92 05/20/20 04:00 05/20/20 08:00 05/20/20 09:00 Temperature 98.4 F 100.6 F H Pulse Rate 88 95 84 Respiratory Rate 20 16 Blood Pressure 128/73 107/65 Pulse Oximetry 92 95 05/20/20 09:39 T
[2020-05-20 12:42] LABS: Glucose Point of Care 138 (65-105)
[2020-05-20] MEDS: MAGNESIUM SULF 2 GM/WATER 50ML 2 GM/50 ML BAG IVPB (13:14)
[2020-05-20] MEDS: clonazePAM 0.5 MG TABLET PO (17:52)
[2020-05-20] MEDS: PRAMIPEXOLE 0.25 MG TABLET 0.75 MG PO (17:53)
[2020-05-20 18:49] LABS: Glucose Point of Care 134 (65-105)
[2020-05-20] MEDS: GABAPENTIN 300 MG CAPSULE PO (21:54)
[2020-05-20] MEDS: levETIRAcetam 500 MG TABLET 2000 MG PO (21:54)
[2020-05-20] MEDS: ATORVASTATIN 40 MG TABLET 80 MG PO (21:54)
[2020-05-20] MEDS: MIRTAZAPINE 7.5 MG TABLET PO (21:55)
[2020-05-20 23:24] LABS: Glucose Point of Care 158 (65-105)
[2020-05-21] VITALS (8 sets, daily range): BP systolic 121–157; BP diastolic 57–94; PULSE 91–103; RESP 18–22; TEMP 37.1–39.5; O2SAT 93–98; BMI 11.0
[2020-05-21] MEDS: ACETAMINOPHEN 325 MG TABLET 650 MG PO ×2 (01:58→12:42)
[2020-05-21 05:22] LABS: Glucose Point of Care 158 (65-105)
[2020-05-21 07:14] LABS: Anion Gap 7 mmol/L (8-16); Blood Urea Nitrogen 14 mg/dL (9-20); CRP 14.4 mg/dL (<1.0); Calcium 8.2 mg/dL (8.4-10.2); Carbon Dioxide 26 mmol/L (22-30); Chloride 99 mmol/L (98-107); Estimated CRCL calculation 109 ml/min; Estimated Glomerular Filt Rate > 60; Glucose 165 mg/dL (75-110); Magnesium 2.2 mg/dL (1.6-2.3); Potassium 3.6 mmol/L (3.4-5.0); Sodium 132 mmol/L (137-145)
[2020-05-21] MEDS: glipiZIDE 5 MG TABLET PO (08:10)
[2020-05-21] MEDS: ASPIRIN 81 MG CHEWABLE TABLET PO (08:11)
[2020-05-21] MEDS: ENOXAPARIN 40 MG/0.4 ML SYRINGE SUB-Q ×2 (08:12→20:09)
[2020-05-21] MEDS: CHOLECALCIFEROL 1,000 UNIT TABLET 2000 UNITS PO (08:12)
[2020-05-21] MEDS: DOCUSATE SODIUM 100 MG CAPSULE PO ×2 (08:12→20:09)
[2020-05-21] MEDS: CYANOCOBALAMIN 1,000 MCG TABLET 1000 MCG PO ×2 (08:12→20:09)
[2020-05-21] MEDS: ESCITALOPRAM OXALATE 10 MG TABLET 40 MG PO (08:13)
[2020-05-21] MEDS: PANTOPRAZOLE 40 MG TABLET PO (08:33)
[2020-05-21] MEDS: METOPROLOL SUCCINATE EXT REL 50 MG TABCR PO ×2 (08:33→20:10)
[2020-05-21] MEDS: levETIRAcetam 500 MG TABLET 1000 MG PO (08:33)
[2020-05-21] MEDS: POTASSIUM CHLORIDE 20 MEQ TABLET 40 MEQ PO (12:41)
--- NOTE | 2020-05-21 16:39 | PM.IMPN ---
Progress Note: A&P Assessment and Plan (1) Generalized weakness: Code(s): R53.1 - Weakness Status: Acute Assessment and Plan: Patient with generalized weakness related to his history of CVA and now COVID. Patient also depressed . Continue PT and OT. Increase activity as he tolerates. Care coordination to arrange for SNF placement. Remeron low dose (2) Hypokalemia: Code(s): E87.6 - Hypokalemia Status: Acute Assessment and Plan: Patient with mild hypokalemia related to his hydrochlorothiazide. This has been replaced. HCTZ stopped per family wishes. Repeat potassium still low at times requiring replacement. Contnue to supplement. Mag 1.8 so will replace this as well. Continue to monitor. (3) COVID-19 virus detected: Code(s): U07.1 - COVID-19 Status: Acute Assessment and Plan: Patient began to have symptoms sometime around May 11. He is probably about 10 days out from onset of symptoms. Chest x-ray clear on admission (05/16). Still not requiring oxygen at this time but still having fevers. Repeat CXR clear (05/18) with RLL atelectasis noted 05/20. Dexamethasone and Remdesivir not given due to no O2 requirement. Will continue to monitor. Continue supportive care. repeat markers (4) HTN (hypertension): Code(s): I10 - Essential (primary) hypertension Status: Acute Assessment and Plan: Patient's blood pressure was reviewed on 05/21/20. Blood pressure remains well controlled. Will continue current medications with Metoprolol. HCTZ stopped per family wishes. (5) Type II diabetes mellitus: Code(s): E11.9 - Type 2 diabetes mellitus without complications Status: Acute Assessment and Plan: A1c 7.6. The patient's blood glucose was reviewed on 05/21/20. Glucose remains well controlled. Continue AccuCheks covering with sliding scale. Hypoglycemia protocol available as needed. Continue current medications . FBS 158 (6) Seizure: Code(s): R56.9 - Unspecified convulsions Status: Acute Assessment and Plan: Last seizure was in September. He has been stable on his Keppra. Keppra has been resumed. (7) Sleep apnea: Code(s): G47.30 - Sleep apnea, unspecified Status: Acute Assessment and Plan: Patient is compliant with his CPAP. This will be on hold because he is COVID positive. (8) DVT prophylaxis: Code(s): Z29.9 - Encounter for prophylactic measures, unspecified Status: Acute Assessment and Plan: [place] Subjective Date/time seen: 05/21/20 16:39 Interval history: DAte of visit 05/21. 64yo male with hx of CVA here for weakness and known to be recently diagnosed with COVID. Slept okay. Eating fair . spiked temp this am and feelling bad.. . Exam Narrative: Exam Narrative: Tm 39.9 39.3 154/60 100 16 95% ra Gen - NARD Chest - distant but clear BS, nml RR CV - RRR S1/S2 Abd - Soft, obese, NT, +BS Ext - rodo hose in place, L>R LE edema Psych - withdrawn Neuro - left hemiplegia Objective Data Vital Signs Vital Signs: Vital Signs - 24 hr 05/20/20 20:00 05/20/20 21:55 05/20/20 22:55 Temperature 39.4 C H 39.4 C H 38.4 C H Pulse Rate 109 H 109 H Respiratory Rate 24 H Blood Pressure 113/63 Pulse Oximetry 94 05/21/20 00:00 05/21/20 01:58 05/21/20 04:00 Temperature 38.3 C H 38.3 C H 37.4 C Pulse Rate 93 91 Respiratory Rate 22 H 20 Blood Pressure 121/75 151/88 H Pulse Oximetry 94 94 05/21/20 08:00 05/21/20 12:00 Temperature 37.1 C 39.5 C H Pulse Rate 94 103 H Respiratory Rate 18 18 Blood Pressure 157/94 H 155/57 H Pulse Oximetry 98 98 Intake/Output Intake/Output: Intake & Output 05/18/20 05/19/20 05/20/20 05/21/20 23:59 23:59 23:59 23:59 Intake Total 510 1045 950 660 Output Total 200 Balance 310 1045 950 660 Meds/Results Medications: Active Medications Generic Name Dose Route S
[2020-05-21 17:25] LABS: Glucose Point of Care 139 (65-105)
[2020-05-21] MEDS: clonazePAM 0.5 MG TABLET PO (17:27)
[2020-05-21] MEDS: PRAMIPEXOLE 0.25 MG TABLET 0.75 MG PO (17:27)
[2020-05-21] MEDS: traMADol HCL 50 MG TABLET PO (19:20)
[2020-05-21] MEDS: levETIRAcetam 500 MG TABLET 2000 MG PO (20:09)
[2020-05-21] MEDS: ATORVASTATIN 40 MG TABLET 80 MG PO (20:09)
[2020-05-21] MEDS: GABAPENTIN 300 MG CAPSULE PO (20:09)
[2020-05-21] MEDS: MIRTAZAPINE 7.5 MG TABLET PO (20:10)
[2020-05-21 21:33] LABS: Glucose Point of Care 145 (65-105)
[2020-05-22] VITALS (13 sets, daily range): BP systolic 100–162; BP diastolic 57–89; PULSE 82–94; RESP 18–22; TEMP 36.7–37.8; O2SAT 91–96
[2020-05-22] MEDS: ACETAMINOPHEN 325 MG TABLET 650 MG PO ×2 (03:15→15:10)
[2020-05-22 04:11] LABS: Glucose Point of Care 173 (65-105)
[2020-05-22 06:06] LABS: Basophils Percent Auto 0.2 % (0.2-1.2); Hematocrit 40.6 % (42.0-52.0); Immature Granulocyte Absolute 0.02 K/mm3 (0.00-0.031); Immature Granulocyte Percent A 0.4 % (0-0.5); Lymphocytes Absolute Auto 0.87 K/mm3 (0.9-3.2); Lymphocytes Percent Auto 15.8 % (18.3-44.2); Mean Corpuscular HGB Conc 34.5 g/dl (32-36); Mean Corpuscular Hemoglobin 30.4 pg (26-34); Mean Corpuscular Volume 88.3 fl (80-100); Mean Platelet Volume 11.1 fl (7.4-10.4); Monocytes Absolute Auto 0.3 K/mm3 (0.1-0.6); Monocytes Percent Auto 6.2 % (2.6-8.5); Neutrophils Absolute Auto 4.3 K/mm3 (1.3-6.7); Neutrophils Percent Auto 77.4 % (45.5-73.1); Platelet Count Result 169 k/mm3 (150-375); Red Cell Distribution Width 12.9 % (11.5-14.5); White Blood Count 5.5 K/mm3 (4.5-10.0)
[2020-05-22 06:17] LABS: D Dimer 0.28 ug/mL (<0.48)
[2020-05-22 06:21] LABS: Anion Gap 7 mmol/L (8-16); Blood Urea Nitrogen 16 mg/dL (9-20); Calcium 8.1 mg/dL (8.4-10.2); Carbon Dioxide 29 mmol/L (22-30); Chloride 98 mmol/L (98-107); Estimated CRCL calculation 78 ml/min; Estimated Glomerular Filt Rate > 60; Glucose 168 mg/dL (75-110); Potassium 3.7 mmol/L (3.4-5.0); Sodium 134 mmol/L (137-145)
[2020-05-22 06:35] LABS: Lactate Dehydrogenase 779 U/L (313-618)
[2020-05-22 06:45] LABS: CRP 15.8 mg/dL (<1.0)
[2020-05-22] MEDS: DOCUSATE SODIUM 100 MG CAPSULE PO ×2 (09:30→21:07)
[2020-05-22] MEDS: CHOLECALCIFEROL 1,000 UNIT TABLET 2000 UNITS PO (09:30)
[2020-05-22] MEDS: levETIRAcetam 500 MG TABLET 1000 MG PO (09:30)
[2020-05-22] MEDS: CYANOCOBALAMIN 1,000 MCG TABLET 1000 MCG PO ×2 (09:31→21:07)
[2020-05-22] MEDS: ASPIRIN 81 MG CHEWABLE TABLET PO (09:31)
[2020-05-22] MEDS: ENOXAPARIN 40 MG/0.4 ML SYRINGE SUB-Q ×2 (09:32→21:09)
[2020-05-22] MEDS: PANTOPRAZOLE 40 MG TABLET PO (09:32)
[2020-05-22] MEDS: ESCITALOPRAM OXALATE 10 MG TABLET 40 MG PO (09:32)
[2020-05-22] MEDS: METOPROLOL SUCCINATE EXT REL 50 MG TABCR PO ×2 (09:33→21:07)
[2020-05-22 10:27] LABS: Glucose Point of Care 172 (65-105)
--- NOTE | 2020-05-22 15:59 | PM.IMPN ---
Progress Note: A&P Assessment and Plan (1) Generalized weakness: Code(s): R53.1 - Weakness Status: Acute Assessment and Plan: Patient with generalized weakness related to his history of CVA and now COVID. Patient also depressed . Continue PT and OT. Increase activity as he tolerates. Care coordination to arrange for SNF placement. Remeron low dose added 05/20 (2) Hypokalemia: Code(s): E87.6 - Hypokalemia Status: Acute Assessment and Plan: Patient with mild hypokalemia related to his hydrochlorothiazide. This has been replaced. HCTZ stopped per family wishes. Repeat potassium still low at times requiring replacement. Contnue to supplement. Mag 1.8 so will replace this as well. Continue to monitor. (3) COVID-19 virus detected: Code(s): U07.1 - COVID-19 Status: Acute Assessment and Plan: Patient began to have symptoms sometime around May 11. He is probably about 10 days out from onset of symptoms. Chest x-ray clear on admission (05/16). Still not requiring oxygen at this time but still having fevers. Repeat CXR clear (05/18) with RLL atelectasis noted 05/20. Dexamethasone and Remdesivir not given due to no O2 requirement. Will continue to monitor. Continue supportive care. repeat markers 05/24 stable to slight increased today 05/22 (4) HTN (hypertension): Code(s): I10 - Essential (primary) hypertension Status: Acute Assessment and Plan: Patient's blood pressure was reviewed on 05/22/20. Blood pressure remains well controlled. Will continue current medications with Metoprolol. HCTZ stopped per family wishes. (5) Type II diabetes mellitus: Code(s): E11.9 - Type 2 diabetes mellitus without complications Status: Acute Assessment and Plan: A1c 7.6. The patient's blood glucose was reviewed on 05/22/20. Glucose remains well controlled. Continue AccuCheks covering with sliding scale. Hypoglycemia protocol available as needed. Continue current medications . FBS 168 (6) Seizure: Code(s): R56.9 - Unspecified convulsions Status: Acute Assessment and Plan: Last seizure was in September. He has been stable on his Keppra. Keppra has been resumed. (7) Sleep apnea: Code(s): G47.30 - Sleep apnea, unspecified Status: Acute Assessment and Plan: Patient is compliant with his CPAP. This will be on hold because he is COVID positive. (8) DVT prophylaxis: Code(s): Z29.9 - Encounter for prophylactic measures, unspecified Status: Acute Assessment and Plan: Lovenox q12h with covid Subjective Date/time seen: 05/22/20 15:59 Interval history: DAte of visit 05/22. 64yo male with hx of CVA here for weakness and known to be recently diagnosed with COVID. Slept okay. Eating fair . Feels a little better today.. . Exam Narrative: Exam Narrative: Tm 39.5 37 now 156/60 84 16 93% ra Gen - NARD Chest - distant but clear BS, nml RR CV - RRR S1/S2 Abd - Soft, obese, NT, +BS Ext - rodo hose in place, L>R LE edema Psych - withdrawn but states feels better today Neuro - left hemiplegia Objective Data Vital Signs Vital Signs: Vital Signs - 24 hr 05/21/20 16:00 05/21/20 20:00 05/21/20 20:10 Temperature 38.2 C H 38.2 C H Pulse Rate 101 H 97 98 Respiratory Rate 20 20 Blood Pressure 138/64 135/74 Pulse Oximetry 94 93 05/22/20 00:00 05/22/20 03:15 05/22/20 04:00 Temperature 37.8 C H 37.8 C H 37.0 C Pulse Rate 94 89 Respiratory Rate 22 H 22 H Blood Pressure 162/89 H 157/62 H Pulse Oximetry 96 91 05/22/20 04:15 05/22/20 08:00 05/22/20 09:33 Temperature 37.0 C 36.8 C Pulse Rate 89 88 Respiratory Rate 18 Blood Pressure 100/60 Pulse Oximetry 93 05/22/20 10:30 05/22/20 15:10 Temperature 37.6 C H Pulse Rate Respiratory Rate Blood Pressure Pulse Oximetry 94 Intake/Output Intake/Output: Intak
[2020-05-22] MEDS: clonazePAM 0.5 MG TABLET PO (17:46)
[2020-05-22] MEDS: PRAMIPEXOLE 0.25 MG TABLET 0.75 MG PO (17:52)
[2020-05-22 17:58] LABS: Glucose Point of Care 168 (65-105)
[2020-05-22] MEDS: traMADol HCL 50 MG TABLET PO (18:53)
[2020-05-22] MEDS: ATORVASTATIN 40 MG TABLET 80 MG PO (21:07)
[2020-05-22] MEDS: MIRTAZAPINE 7.5 MG TABLET PO (21:08)
[2020-05-22] MEDS: levETIRAcetam 500 MG TABLET 2000 MG PO (21:09)
[2020-05-22] MEDS: GABAPENTIN 300 MG CAPSULE PO (21:09)
[2020-05-22 23:20] LABS: Glucose Point of Care 180 (65-105)
[2020-05-23] VITALS (10 sets, daily range): BP systolic 87–125; BP diastolic 51–77; PULSE 68–86; RESP 16–20; TEMP 36.7–37.5; O2SAT 91–97
[2020-05-23 02:23] LABS: Glucose Point of Care 157 (65-105)
[2020-05-23] MEDS: traMADol HCL 50 MG TABLET PO ×2 (06:50→22:54)
[2020-05-23] MEDS: CHOLECALCIFEROL 1,000 UNIT TABLET 2000 UNITS PO (10:13)
[2020-05-23] MEDS: levETIRAcetam 500 MG TABLET 1000 MG PO (10:13)
[2020-05-23] MEDS: ASPIRIN 81 MG CHEWABLE TABLET PO (10:13)
[2020-05-23] MEDS: ESCITALOPRAM OXALATE 10 MG TABLET 40 MG PO (10:14)
[2020-05-23] MEDS: PANTOPRAZOLE 40 MG TABLET PO (10:14)
[2020-05-23] MEDS: ENOXAPARIN 40 MG/0.4 ML SYRINGE SUB-Q ×2 (10:14→22:00)
[2020-05-23] MEDS: METOPROLOL SUCCINATE EXT REL 50 MG TABCR PO ×2 (10:15→22:00)
[2020-05-23] MEDS: CYANOCOBALAMIN 1,000 MCG TABLET 1000 MCG PO ×2 (10:15→22:00)
[2020-05-23] MEDS: DOCUSATE SODIUM 100 MG CAPSULE PO ×2 (10:19→22:00)
[2020-05-23 11:55] LABS: Glucose Point of Care 156 (65-105)
[2020-05-23] MEDS: INSULIN ASPART (*BKC) 100 UNITS/ML SUB-Q ×2 (13:07→17:37)
[2020-05-23] MEDS: ACETAMINOPHEN 325 MG TABLET 650 MG PO (13:09)
--- NOTE | 2020-05-23 16:39 | PM.IMPN ---
Progress Note: A&P Assessment and Plan (1) Generalized weakness: Code(s): R53.1 - Weakness Status: Acute Assessment and Plan: Patient with generalized weakness related to his history of CVA and now COVID. Patient also depressed . Continue PT and OT. Increase activity as he tolerates. Care coordination to arrange for SNF placement possibly 05/24. Remeron low dose added 05/20 (2) Hypokalemia: Code(s): E87.6 - Hypokalemia Status: Acute Assessment and Plan: Patient with mild hypokalemia related to his hydrochlorothiazide. This has been replaced. HCTZ stopped per family wishes. Repeat potassium still low at times requiring replacement. Contnue to supplement. Mag 1.8 so will replace this as well. Continue to monitor. (3) COVID-19 virus detected: Code(s): U07.1 - COVID-19 Status: Acute Assessment and Plan: Patient began to have symptoms sometime around May 11. He is probably about 10 days out from onset of symptoms. Chest x-ray clear on admission (05/16). Still not requiring oxygen at this time but still having fevers. Repeat CXR clear (05/18) with RLL atelectasis noted 05/20. Dexamethasone and Remdesivir not given due to no O2 requirement. Will continue to monitor. Continue supportive care. repeat markers 05/24 stable to slight increased 05/22 (4) HTN (hypertension): Code(s): I10 - Essential (primary) hypertension Status: Acute Assessment and Plan: Patient's blood pressure was reviewed on 05/23/20. Blood pressure remains well controlled. Will continue current medications with Metoprolol. HCTZ stopped per family wishes. (5) Type II diabetes mellitus: Code(s): E11.9 - Type 2 diabetes mellitus without complications Status: Acute Assessment and Plan: A1c 7.6. The patient's blood glucose was reviewed on 05/23/20. Glucose remains well controlled. Continue AccuCheks covering with sliding scale. Hypoglycemia protocol available as needed. Continue current medications . FBS 172 (6) Seizure: Code(s): R56.9 - Unspecified convulsions Status: Acute Assessment and Plan: Last seizure was in September. He has been stable on his Keppra. Keppra has been resumed. (7) Sleep apnea: Code(s): G47.30 - Sleep apnea, unspecified Status: Acute Assessment and Plan: Patient is compliant with his CPAP. This will be on hold because he is COVID positive. (8) DVT prophylaxis: Code(s): Z29.9 - Encounter for prophylactic measures, unspecified Status: Acute Assessment and Plan: Lovenox q12h with covid Subjective Date/time seen: 05/23/20 16:39 Interval history: DAte of visit 05/23 . 64yo male with hx of CVA here for weakness and known to be recently diagnosed with COVID. Slept okay. Eating better and . Feels a little better today.. . Exam Narrative: Exam Narrative: Tm 37.8 37 now 112/74 84 16 94% ra Gen - NARD Chest - distant but clear BS, nml RR CV - RRR S1/S2 Abd - Soft, obese, NT, +BS Ext - rodo hose in place, L>R LE edema Psych - withdrawn but states feels a little better each day Neuro - left hemiplegia Objective Data Vital Signs Vital Signs: Vital Signs - 24 hr 05/22/20 19:45 05/22/20 20:00 05/22/20 21:07 Temperature 36.7 C Pulse Rate 82 90 Respiratory Rate 20 Blood Pressure 101/57 L Pulse Oximetry 93 93 05/23/20 00:00 05/23/20 04:00 05/23/20 08:00 Temperature 37.5 C 37.2 C 36.8 C Pulse Rate 79 75 72 Respiratory Rate 20 20 16 Blood Pressure 110/64 112/66 87/51 L Pulse Oximetry 93 97 91 05/23/20 10:00 05/23/20 10:15 05/23/20 12:00 Temperature 36.7 C Pulse Rate 68 68 86 Respiratory Rate 16 18 Blood Pressure 111/74 Pulse Oximetry 91 94 Intake/Output Intake/Output: Intake & Output 05/20/20 05/21/20 05/22/20 05/23/20 23:59 23:59 23:59 23:59 Intake Total 950 1135 1230 560 Output Tota
[2020-05-23] MEDS: PRAMIPEXOLE 0.25 MG TABLET 0.75 MG PO (17:38)
[2020-05-23] MEDS: clonazePAM 0.5 MG TABLET PO (17:41)
[2020-05-23] MEDS: levETIRAcetam 500 MG TABLET 2000 MG PO (22:00)
[2020-05-23] MEDS: ATORVASTATIN 40 MG TABLET 80 MG PO (22:00)
[2020-05-23] MEDS: GABAPENTIN 300 MG CAPSULE PO (22:00)
[2020-05-23] MEDS: MIRTAZAPINE 7.5 MG TABLET PO (22:00)
[2020-05-23 23:28] LABS: Glucose Point of Care 205 (65-105)
[2020-05-24] VITALS: BP 109/76; PULSE 76; RESP 20; TEMP 36.5; O2SAT 91
[2020-05-24 02:22] LABS: Glucose Point of Care 205 (65-105)
[2020-05-24 02:22] LABS: Glucose Point of Care 271 (65-105)
[2020-05-24 04:00] VITALS: BP 123/77; PULSE 74; RESP 20; TEMP 37.2; O2SAT 94
[2020-05-24 06:33] LABS: Basophils Percent Auto 0.3 % (0.2-1.2); Eosinophils Percent Auto 1.1 % (0-4.4); Hematocrit 41.2 % (42.0-52.0); Hemoglobin 14.2 g/dL (14.0-18.0); Immature Granulocyte Absolute 0.01 K/mm3 (0.00-0.031); Immature Granulocyte Percent A 0.3 % (0-0.5); Lymphocytes Absolute Auto 1.12 K/mm3 (0.9-3.2); Lymphocytes Percent Auto 30.4 % (18.3-44.2); Mean Corpuscular HGB Conc 34.5 g/dl (32-36); Mean Corpuscular Hemoglobin 30.8 pg (26-34); Mean Corpuscular Volume 89.4 fl (80-100); Mean Platelet Volume 11.1 fl (7.4-10.4); Monocytes Absolute Auto 0.3 K/mm3 (0.1-0.6); Monocytes Percent Auto 7.3 % (2.6-8.5); Neutrophils Absolute Auto 2.2 K/mm3 (1.3-6.7); Neutrophils Percent Auto 60.6 % (45.5-73.1); Platelet Count Result 226 k/mm3 (150-375); Red Blood Count 4.61 M/mm3 (4.6-6.20); Red Cell Distribution Width 12.8 % (11.5-14.5); White Blood Count 3.7 K/mm3 (4.5-10.0)
[2020-05-24 06:46] LABS: D Dimer 0.33 ug/mL (<0.48)
[2020-05-24 06:49] LABS: Anion Gap 7 mmol/L (8-16); Blood Urea Nitrogen 17 mg/dL (9-20); Calcium 8.4 mg/dL (8.4-10.2); Carbon Dioxide 29 mmol/L (22-30); Chloride 100 mmol/L (98-107); Estimated CRCL calculation 109 ml/min; Estimated Glomerular Filt Rate > 60; Glucose 164 mg/dL (75-110); Lactate Dehydrogenase 866 U/L (313-618); Potassium 3.1 mmol/L (3.4-5.0); Sodium 136 mmol/L (137-145)
[2020-05-24 08:00] VITALS: BP 107/63; PULSE 77; RESP 16; TEMP 36.2; O2SAT 94
[2020-05-24] MEDS: POTASSIUM CHLORIDE 20 MEQ TABLET 40 MEQ PO (09:05)
[2020-05-24] MEDS: ASPIRIN 81 MG CHEWABLE TABLET PO (09:05)
[2020-05-24 09:06] VITALS: PULSE 77
[2020-05-24] MEDS: ESCITALOPRAM OXALATE 10 MG TABLET 40 MG PO (09:06)
[2020-05-24] MEDS: DOCUSATE SODIUM 100 MG CAPSULE PO (09:06)
[2020-05-24] MEDS: ENOXAPARIN 40 MG/0.4 ML SYRINGE SUB-Q (09:06)
[2020-05-24] MEDS: METOPROLOL SUCCINATE EXT REL 50 MG TABCR PO (09:06)
[2020-05-24] MEDS: CYANOCOBALAMIN 1,000 MCG TABLET 1000 MCG PO (09:06)
[2020-05-24] MEDS: levETIRAcetam 500 MG TABLET 1000 MG PO (09:06)
[2020-05-24] MEDS: PANTOPRAZOLE 40 MG TABLET PO (09:07)
[2020-05-24 12:00] VITALS: BP 116/73; PULSE 75; RESP 16; TEMP 36.8; O2SAT 92
--- NOTE | 2020-05-24 12:47 | PCNWS ---
Weekly nutritional screen. Patient is tolerating current diet with adequate intake. BMI:41.6. No nutritional needs at this time.
[2020-05-24] MEDS: CHOLECALCIFEROL 1,000 UNIT TABLET 2000 UNITS PO (13:06)
[2020-05-24 13:21] LABS: Glucose Point of Care 156 (65-105)
[2020-05-24 13:21] LABS: Glucose Point of Care 183 (65-105)
[2020-05-24 14:00] LABS: SARS-CoV-2 RNA PCR Negative
--- NOTE | 2020-05-24 14:05 | PCPTNOTE ---
PT attempted to see patient in A.M., however patient on phone with his . Attempt made this afternoon and patient with OT. PT will continue to follow per plan of care.
--- NOTE | 2020-05-30 10:23 | PM.DS ---
DS: Admitting Diagnosis Admitting Diagnosis Admitting Diagnosis: COVID-19 DS: Discharge Diagnosis Discharge Diagnosis (1) Generalized weakness: Code(s): R53.1 - Weakness Status: Acute Assessment and Plan: Patient with generalized weakness related to his history of CVA and now COVID. Patient also depressed . Continued PT and OT while here. Increased activity as he tolerates. Care coordination arranged for SNF placement 05/24. (2) Hypokalemia: Code(s): E87.6 - Hypokalemia Status: Acute Assessment and Plan: Patient with mild hypokalemia related to his hydrochlorothiazide. This has been replaced. HCTZ stopped per family wishes. Repeat potassium still low at times requiring replacement. BMP nest week at SNF (3) COVID-19 virus detected: Code(s): U07.1 - COVID-19 Status: Acute Assessment and Plan: Patient began to have symptoms sometime around May 11. He is probably about 10 days out from onset of symptoms. Chest x-ray clear on admission (05/16). Still not requiring oxygen any time here and fevers subsided 36-48 hrs prior to d/c. Repeat CXR clear (05/18) with RLL atelectasis noted 05/20. Dexamethasone and Remdesivir not given due to no O2 requirement. Will continue to monitor. repeat markers 05/24 stable and significantly repeat covid test negative before d/c (4) HTN (hypertension): Code(s): I10 - Essential (primary) hypertension Status: Acute Assessment and Plan: Patient's blood pressure was reviewed each day. Blood pressure remained well controlled. Will continue current medications with Metoprolol. HCTZ stopped per family wishes and bp good without. (5) Type II diabetes mellitus: Code(s): E11.9 - Type 2 diabetes mellitus without complications Status: Acute Assessment and Plan: A1c 7.6. The patient's blood glucose was reviewed each day. Glucose remained well controlled. Continud AccuCheks covering with sliding scale. continued glipizide on discharge (6) Seizure: Code(s): R56.9 - Unspecified convulsions Status: Acute Assessment and Plan: Last seizure was in September. He has been stable on his Keppra. Keppra was continued. (7) Sleep apnea: Code(s): G47.30 - Sleep apnea, unspecified Status: Acute Assessment and Plan: Patient is compliant with his CPAP. This will be on hold because he is COVID positive. but can be restarted at N (8) DVT prophylaxis: Code(s): Z29.9 - Encounter for prophylactic measures, unspecified Status: Acute Assessment and Plan: Lovenox q12h with covid while here DS: Summary Hospital Course Hospital Course: 64-year-old hypertensive type 2 diabetic recent CVA admitted with COVID infection. Chest x-ray was clear and he never developed any hypoxia in did not receive any medication Specifically for the COVID. he was afebrile some 36-48 hours prior to discharge taking a diet well and significantly repeat COVID testing was negative. he returned to SNF for further rehab Time Spent with Patient Time attestation: Total time spent providing and/or coordinating discharge services: 35 minutes Exam Narrative: Exam Narrative: condition on discharge blood pressure 120/50 pulse is 60 saturating 92% on room air afebrile lungs clear CV regular rate rhythm abdomen soft nontender no masses extremities without edema neuro alert taking a diet fairly well with still left hemiparesis Discharge Plan Discharge Attending physician on discharge: Luis F Martinez Consulting providers: Smooth Leiva ; Jorge Leija ; Oz Hurley ; Harsha Prieto Discharging Clinician: Luis F Martinez Patient Disposition: SNF Activity: as tolerated Diet: diabetic and low sodium Patient Instructions: Antibiotic Form, Pain Management in Older Adults (DC), How To Wash Your Hands (DC), Droplet Preca
== END 2020-05-24 16:35 | DRG 178 ==
LOC: ANHED 05-17 00:25 → ANH3MEDSUR 05-17 06:22
PROVIDERS: Internal Medicine; Admitting Provider Internal Medicine; Emergency Provider Emergency Medicine; PCP Internal Medicine; Visit Provider Internal Medicine
DX: U07.1 COVID-19 (principal); I69.354 Hemiplegia and hemiparesis following cerebral infarction affecting left non-dominant side; G40.89 Other seizures; I69.398 Other sequelae of cerebral infarction; E87.6 Hypokalemia; T50.2X5A Adverse effect of carbonic-anhydrase inhibitors, benzothiadiazides and other diuretics, initial encounter; I10 Essential (primary) hypertension; E11.9 Type 2 diabetes mellitus without complications; G47.30 Sleep apnea, unspecified; F41.8 Other specified anxiety disorders; E78.5 Hyperlipidemia, unspecified
CPT/HCPCS: 36415; 36600; 51701; 70450; 71045; 80048; 80053; 81001; 82728; 82805; 83036; 83605; 83615; 83735; 84145; 85025; 85027; 85055; 85380; 85610; 85730; 86140; 87040; 87635; 93005; 96361; 96365; 96375; 97110; 97162; 97166; 97530; 97535; 99285; A9270; C9803; J0131; J1650; J1815; J2405; J3475; J3480; J7040; U0003

== ENCOUNTER 2020-07-30 07:10 | Inpatient (IN) | payer MEDICARE, OTHER, SELFPAY ==
[2020-07-30] VITALS (15 sets, daily range): BP systolic 114–156; BP diastolic 78–100; PULSE 91–144; RESP 15–36; TEMP 36.3–40; O2SAT 91–98; BMI 36.9
--- NOTE | ~2020-07-30 | CT_ITS ---
EXAMINATION: CT abdomen pelvis wo/w con DATE: 08/03/2020 09:49 INDICATION: Klebsiella bacteremia. Renal abnormality on prior CT. TECHNIQUE: Computed tomography (CT) of the abdomen and pelvis was performed without intravenous contr ast. CT of the abdomen and pelvis was then performed with a total of 130 mL Omnipaque-350 intravenous contrast using a double-bolus technique for simultaneous opacification of the renal parenchyma and r enal collecting system. Automated exposure control and iterative reconstruction technique were employ ed. The dose-length product was 2793.23 mGy-cm. COMPARISON: CT dated 07/31/2020 FINDINGS: Small bilateral pleural effusions with dependent atelectasis in the bilateral lower lobes. Cardiomega ly with small pericardial effusion. There are a few low-attenuation nonenhancing hepatic cysts the la rgest measuring 3.5 cm in the left hepatic lobe. There are few gallstones in the dependent aspect of the normal gallbladder with no wall thickening or pericholecystic inflammatory change to suggest acut e cholecystitis. No intra or extrahepatic biliary ductal dilation. Spleen, pancreas and left adrenal gland are normal. 1.5 cm low density right adrenal adenoma. Postoperative change of prior right hemic olectomy with ileocolic anastomosis in the right abdomen. No abnormal bowel wall thickening or obstru ction. Randolph catheter in the bladder. Bilateral nephrolithiasis. There is a collection of obstructing stones extending for approximately 2.5 cm in the distal left ureter which includes up to [address] and most caudal measuring 8 mm in maximal diameter. There is moderate left hydroureteronephrosis w ith delay in contrast excretion with only minimal excreted contrast in the dependent aspect of the di lated calyces and with no contrast in the ureter as compared to the right renal collecting system and ureter which are fully opacified with contrast as is a portion of the bladder on the delayed images. There is swelling of the left kidney with thickened parenchyma with geographic regions demonstrating decreased attenuation and with prominent surrounding inflammatory stranding which given the clinical history of septicemia this concerning for urosepsis with left pyelonephritis. There is however some superimposed streak artifact which exaggerates the decreased attenuation in the posterior left kidney . No enhancement at a soft tissue density 2.5 cm lesion at the upper pole of the left kidney consiste nt with a proteinaceous/hemorrhagic cyst. No right-sided hydronephrosis or definitive urothelial irre gularities in the contrast opacified right renal collecting system and ureter although sensitivity is decreased by some motion artifact which also limits assessment for the size of the at least 3 stones in the right kidney. Prostate is unremarkable. There is retroperitoneal edema tracking inferiorly fr om the left pararenal space into the pelvis. No abscess, free intraperitoneal gas or fluid. No pathol ogically enlarged abdominal or pelvic lymphadenopathy. Mild scattered degenerative skeletal changes. IMPRESSION: 1. Bilateral nephrolithiasis with collection of obstructing stones in the distal left ureter steinst rasse resulting in moderate left hydroureteronephrosis and likely left pyelonephritis. Recommend uro logic consultation. 2. 2.5 cm left renal lesion of concern without evident enhancement consistent with benign complex pro teinaceous/hemorrhagic cyst. 3. 1.5 cm right adrenal adenoma with diagnostic low-attenuation on noncontrast imaging. 4. Small bilateral pleural effusions with dependent compressive atelectasis in the bilateral lower lo bes. 5. Mild cardiomegaly with small pericardial effusion. Reviewed, dictated and finalized at location A. IMPRESSION: 1.
--- NOTE | ~2020-07-30 | XR_ITS ---
EXAMINATION: XR chest 1V portable EXAM DATE: 07/30/2020 23:04 INDICATION: Shortness of breath, tachypnea TECHNIQUE: Portable AP frontal chest x-ray was obtained. Comparison is made to prior examination from earlier same date. FINDINGS: No confluent consolidation, pneumothorax or pleural effusion suspected. The cardiomediastin al silhouette is prominent but magnified on this AP technique. Cardiac silhouette is stable in size c ompared to prior exam. There are mild bony degenerative changes. There is no significant interval chiara nge. IMPRESSION: No acute cardiopulmonary findings. Reviewed, dictated and finalized at location G.
--- NOTE | ~2020-07-30 | CT_ITS ---
EXAMINATION: CTA chest PE protocol DATE: 07/31/2020 01:55 INDICATION: Shortness of breath. Tachycardia. TECHNIQUE: Computed tomography (CT) pulmonary angiogram of the chest was performed with 100 mL Omnipa que-350 intravenous contrast. Additional 3D reconstructions utilizing coronal maximum intensity proje ction (MIP) were performed. Automated exposure control and iterative reconstruction technique were em ployed. The dose-length product was 919.99 mGy-cm. COMPARISON: None FINDINGS: Good contrast opacification of the pulmonary arteries. There is mild streak artifact from dense contr ast in the superior vena cava and right atrium. Prominent scattered motion artifact which significant ly decreases sensitivity in the segmental and subsegmental pulmonary arteries. No definitive pulmonar y emboli identified. Mild dependent atelectasis in bilateral lower lobes. No pneumonia, pulmonary omaira ma, pleural effusion or pneumothorax. Cardiomegaly. Small pericardial effusion. Ectatic ascending tho racic aorta measuring up to 4.1 cm in maximal diameter. No dissection. No pathologically enlarged tho racic lymphadenopathy. A couple cysts in the left hepatic lobe, the largest measuring 3.7 cm. Bilater al nephrolithiasis largest on the right measuring up to 10 mm although persistent measurement is limi rodo by motion. The left kidney appears enlarged with moderate hydronephrosis and prominent perinephric stranding sug gesting distal ureteral stone. There is increased attenuation within the renal collecting system and pelvis which could be related to hematuria or pyonephrosis. Indeterminate 2.5 cm soft tissue density exophytic lesion at the anterior upper pole of the right kidney which could represent either a protei naceous/hemorrhagic cyst or renal cell carcinoma. Small fluid collection at the anterior left pararen al space near the tail of the pancreas most likely related to the renal disease but would correlate w ith amylase and lipase levels. Air-fluid levels in the visualized colon consistent with diarrhea. 1.5 cm right adrenal nodule statistically most likely to represent an adenoma. Thoracic kyphosis with mi ld anterior wedging of multiple mid and lower thoracic vertebral bodies. There is also mild thoracic dextrocurvature with moderate spondylosis and bridging osteophytes at multiple levels consistent with diffuse idiopathic skeletal hyperostosis (DISH). IMPRESSION: 1. No definitive pulmonary emboli. Evaluation significantly limited in the segmental and subsegmental pulmonary arteries due to prominent respiratory motion. 2. Cardiomegaly with small pericardial effusion. 3. Bilateral nephrolithiasis with left hydronephrosis with dense material within the dilated collecti ng system and pelvis which could be due to hematuria, pyonephrosis or less likely neoplasm. Correlate with urinalysis and with amylase/lipase levels is a small collection of fluid along the anterior lef t pararenal space does abut the tail of the pancreas. 4. Indeterminant 2.5 cm soft tissue density right renal lesion which could represent a complex cyst o r renal cell carcinoma. Recommend follow-up pre and postcontrast MRI or CT. 5. 1.5 cm right adrenal nodule statistically most likely to represent an adenoma. This could be furth er evaluated at the same time as the renal lesion with pre and postcontrast CT or MRI. Reviewed, dictated and finalized at location A. IMPRESSION: 1. No definitive pulmonary emboli. Evaluation significantly limited in the segm ental and subsegmental pulmonary arteries due to prominent respiratory motion. 2. Cardiomegaly with small pericardial effusion. 3. Bilateral nephrolithiasis with left hydronephrosis with dense material withi n the dilated collecting system and pelvis which could be due to hemat
--- NOTE | ~2020-07-30 | XR_ITS ---
EXAMINATION: XR chest port-a-cath/central DATE: 08/01/2020 14:45 INDICATION: Central line placement TECHNIQUE: frontal view of the chest was obtained. COMPARISON: Chest radiograph dated 07/31/2020 FINDINGS: Right internal jugular central venous catheter with distal tip in the right atrium approximately 2 cm below the expected location of the superior cavoatrial junction. Lungs are clear. No airspace opacit ies, pulmonary edema, pleural effusion or pneumothorax. The cardiomediastinal silhouette is normal. IMPRESSION: 1. Right internal jugular central venous catheter in the right atrium. Consider withdrawal by [address] the tip near the superior cavoatrial junction. 2. No pneumothorax or other acute cardiopulmonary disease. Reviewed, dictated and finalized at location A.
--- NOTE | ~2020-07-30 | XR_ITS ---
EXAMINATION: XR chest 1V DATE: 07/30/2020 07:39 INDICATION: Fever. Altered mental status. TECHNIQUE: frontal view of the chest was obtained. COMPARISON: Chest radiograph dated 05/20/2020 FINDINGS: Mild elevation of the left hemidiaphragm. Minimal streaky opacity left costophrenic angle. No other a irspace opacities, pulmonary edema, pleural effusion or pneumothorax. Cardiomegaly. Visualized bones and soft tissues are unremarkable. IMPRESSION: 1. Minimal opacities at the left costophrenic angle and favor atelectasis over pneumonia. 2. Cardiomegaly. Reviewed, dictated and finalized at location A.
--- NOTE | ~2020-07-30 | XR_ITS ---
EXAMINATION: XR abdomen NG/feed tube insert EXAM DATE: 08/03/2020 15:02 INDICATION: Feeding tube placement. TECHNIQUE: Frontal projection(s) of the abdomen for interpretation. Comparison is made to prior exami nation from 08/01/2020. FINDINGS: Feeding tube tip and side-port project over gastric bubble, expected position. Moderate am ount of transverse colonic gas in the upper abdomen. No evidence of small bowel obstruction. Evidence of right infrahilar atelectasis. IMPRESSION: Feeding tube in position. Reviewed, dictated and finalized at location A. IMPRESSION: Feeding tube in position.
--- NOTE | ~2020-07-30 | XR_ITS ---
EXAMINATION: XR chest 1V portable EXAM DATE: 07/31/2020 17:20 INDICATION: Shortness of breath and sweating. TECHNIQUE: Portable AP frontal chest x-ray was obtained. Comparison is made to prior examination from 07/30/2020. FINDINGS: Suspect developing small amount of right-sided nonspecific airspace disease, could be acute infectious process. Early acute lung injury from SARS-CoV-2 not excludable. No confluent consolidation, pneumothorax or pleural effusion suspected. The cardiomediastinal silhoue tte is prominent but magnified on this AP technique. Relatively low lung volume. There are bony degen erative changes. IMPRESSION: Suspect small amount of developing acute right-sided airspace disease. Clinical correlati on indicated. COVID-19 not excludable. Reviewed, dictated and finalized at location A. IMPRESSION: Suspect small amount of developing acute right-sided airspace disea se. Clinical correlation indicated. COVID-19 not excludable.
--- NOTE | ~2020-07-30 | US_ITS ---
EXAMINATION: US venous doppler LE EXAM DATE: 07/31/2020 16:37 INDICATION: Bilateral leg edema. TECHNIQUE: Multiple grayscale, color flow and Doppler images of the lower extremity deep venous syste ms bilaterally were obtained and reviewed. There is no prior study for comparison. FINDINGS: Right side: The right common femoral, femoral and profunda veins demonstrate normal color flow, respi ratory variation, augmentation and compressibility. Compressibility, color flow confirmed within the right popliteal, posterior tibial, peroneal, and greater saphenous veins. Left side: The left common femoral, femoral and profunda veins demonstrate normal color flow, respira tory variation, augmentation and compressibility. Compressibility, color flow confirmed within the l eft popliteal, posterior tibial, peroneal, and greater saphenous veins. IMPRESSION: No lower extremity deep venous thrombosis bilaterally. Reviewed, dictated and finalized at location A.
--- NOTE | ~2020-07-30 | XR_ITS ---
EXAMINATION: XR abdomen NG/feed tube insert EXAM DATE: 08/01/2020 18:03 INDICATION: NG tube placement TECHNIQUE: Frontal projection(s) of the abdomen for interpretation. Comparison is made to prior exami nation from 03/13/2019. FINDINGS: Feeding tube tip and side-port both project over the gastric body, gastric bubble, expecte d location. Unremarkable upper abdominal bowel gas pattern. Low lung volume. IMPRESSION: Feeding tube in position. Reviewed, dictated and finalized at location A. IMPRESSION: Feeding tube in position.
--- NOTE | ~2020-07-30 | CT_ITS ---
EXAMINATION: CT brain wo con DATE: 07/30/2020 07:35 INDICATION: Altered mental status TECHNIQUE: Computed tomography (CT) of the head was performed without intravenous contrast. Sagittal and coronal reconstructions were performed. The mA was adjusted according to patient size. Iterative reconstruction technique was employed. The dose-length product was 681.00 mGy-cm. COMPARISON: head CT dated 05/16/2020 FINDINGS: Large region of encephalomalacia involving the right middle cerebral artery vascular distribution con sistent with chronic infarct. There is associated wallerian degeneration with asymmetric decrease in size of the right thalamus and cerebral peduncle. Additional small old infarct in the left cerebellar hemisphere. No acute intracranial hemorrhage, acute infarction or abnormal extra axial fluid collect ion. There is mild to moderate scattered white matter hypoattenuation consistent with chronic small v essel ischemic disease. Symmetric prominence of the sulci and ventricles consistent with mild age-ap propriate diffuse cerebral volume loss. No mass/mass effect. Changes of left intraocular lens replace ment. The orbits, paranasal sinuses and mastoid air cells are normal. IMPRESSION: 1. Stable appearance of large old infarct involving the right middle cerebral artery vascular distrib ution with secondary atrophy of the right thalamus and right cerebral peduncle. 2. Additional small old left cerebellar infarct. 3. Age-related changes including mild diffuse volume loss and mild to moderate scattered white matter hypoattenuation consistent with chronic small vessel ischemic disease. Reviewed, dictated and finalized at location A. IMPRESSION: 1. Stable appearance of large old infarct involving the right middle cerebral a rtery vascular distribution with secondary atrophy of the right thalamus and ri ght cerebral peduncle. 2. Additional small old left cerebellar infarct. 3. Age-related changes including mild diffuse volume loss and mild to moderate scattered white matter hypoattenuation consistent with chronic small vessel isc hemic disease.
--- NOTE | ~2020-07-30 | XR_ITS ---
EXAMINATION: XR retrograde pyelo w/stent LT DATE: 08/05/2020 12:32 INDICATION: Left ureteral stones with hydronephrosis. TECHNIQUE: 49 fluoroscopic images of the abdomen and pelvis were obtained during procedure performed by Dr. Caba. Radiologist was not present for the imaging or procedure. The amount of fluoroscopy t shirin used during this procedure was 0.5 minutes. COMPARISON: CT dated 08/03/2020 FINDINGS: Images demonstrate cannulation of the left ureter which is mildly dilated with cluster of stones in t he distal most aspect of the ureter. Subsequent images demonstrate moderate left hydronephrosis and a wire and catheter advanced into the superior calyx of the left kidney. Final images demonstrate plac ement of a left internal ureteral stent with loops formed in a superior calyx of the left kidney and in the bladder. Surgical clip in the inferior left pelvis. Retained oral contrast material in the col on from prior modified barium swallow study. IMPRESSION: 1. Distal left ureteral stones resulting in moderate left hydroureteronephrosis with placement of a l eft internal ureteral stent in expected position. See procedure note for further detail. Reviewed, dictated and finalized at location B. IMPRESSION: 1. Distal left ureteral stones resulting in moderate left hydroureteronephrosis with placement of a left internal ureteral stent in expected position. See pro cedure note for further detail.
--- NOTE | ~2020-07-30 | XR_ITS ---
MODIFIED ESOPHAGRAM HISTORY: Possible aspiration TECHNIQUE: Modified barium esophagram was performed on 08/04/2020. I administered fluoroscopy and per formed the exam with speech pathologist. Patient was seated for lateral fluoroscopic imaging for ing estion of thin liquids, pudding, solids and quantified amounts, followed by thin liquids in uncontrol led amounts. This was recorded on tape. A single fluoroscopic spot image was also recorded. The DAP f or this procedure was 2.114 Gycm2. The amount of fluoroscopy time used during this procedure was 1.6 minutes. FINDINGS: Nasogastric tube extends through the pharynx into the esophagus. Oral stage: Adequate function. Pharyngeal stage: Laryngeal penetration without aspiration with larger volumes of thin liquids. Cervical/esophageal stage: Adequate function. IMPRESSION: Laryngeal penetration without aspiration. Please correlate with speech pathologist findi ngs and specific feeding recommendations. Reviewed, dictated and finalized at location A. IMPRESSION: Laryngeal penetration without aspiration. Please correlate with sp eech pathologist findings and specific feeding recommendations.
--- NOTE | ~2020-07-30 | MR_ITS ---
EXAMINATION: MR brain/brain stem wo/w con EXAM DATE: 07/30/2020 15:16 INDICATION: Stroke. Altered mental status. Seizure. TECHNIQUE: Magnetic resonance imaging (MRI) of the brain/brain stem obtained without contrast. Sagit clementina T1, axial diffusion, gradient echo (T2*), T1, T2, FLAIR sequences obtained. Patient was then inj ected with 20 cc intravenous Multihance contrast. Axial and coronal postcontrast T1 weighted sequence s obtained. Correlation is made to Head CT from earlier same date FINDINGS: Small old left cerebellar infarction. There is large old right middle cerebral artery distr ibution infarction. There are no areas of restricted diffusion to suggest acute infarction. There is no acute hemorrhage seen on the T2*, a hemosiderin sensitive sequence. No intraparenchymal brain ma ss lesion. There is mild periventricular and subcortical T2/FLAIR signal hyperintensity, nonspecific but probably related to small vessel ischemic disease (microangiopathy). There is mild prominence o f the sulci and ventricles related to cerebral atrophy. There are no extra-axial collections. Flow voids are seen in the cerebral arteries on the T2-weighted sequences consistent with their expected patency. The orbits are unremarkable. Soft tissue is unremarkable. There are no areas of abnormal enhancement on the postcontrast images. IMPRESSION: 1. Old infarctions. 2. Chronic age related findings. Reviewed, dictated and finalized at location A.
--- NOTE | 2020-07-30 07:12 | ECG_ITS ---
Measurements Intervals [place] Rate: 122 P: 25 NV: 174 QRS: -71 QRSD: 114 T: 8 QT: 355 QTc: 507 Interpretive Statements SINUS TACHYCARDIA INCOMPLETE RIGHT BUNDLE BRANCH BLOCK LEFT ANTERIOR FASCICULAR BLOCK BORDERLINE T WAVE ABNORMALITY- INFERIOR LEADS BASELINE WANDER- V1-V4, V6 ABNORMAL ECG Electronically Signed On 07-30-2020 8:34:07 CDT by Harsha Prieto D.O.
--- NOTE | 2020-07-30 07:14 | ED.AMS ---
HPI - Altered Mental Status General Chief Complaint: Seizure Stated Complaint: ALTERED MS History of Present Illness HPI narrative: 64 yo male w/ h/o stroke, COVID-19 brought in by EMS from home for altered mental status. apparently noticed at about 2 AM that he was not acting normal. At that time she awoke to find that he had vomited into his CPAP and was unresponsive. She thought that he had probably had a seizure, because he recently had his keppra dose reduced. He reportedly had COVID-19 about 1 1/2 months ago. On arrival here he is awake, but not able to provide history. History limited by medical cndition. Related Data Home Medications Medication Instructions Recorded Confirmed aspirin 81 mg PO QAM 05/16/20 07/30/20 atorvastatin 80 mg PO HS 05/16/20 07/30/20 escitalopram oxalate 40 mg PO QAM 05/16/20 07/30/20 esomeprazole magnesium 40 mg PO QAM 05/16/20 07/30/20 gabapentin 300 mg PO HS 05/16/20 07/30/20 levetiracetam 1,000 mg PO QAM 05/16/20 07/30/20 metoprolol succinate 50 mg PO BID 05/16/20 07/30/20 pramipexole 1 mg PO QPM 05/16/20 07/30/20 cholecalciferol (vitamin D3) 25 mcg PO DAILY 05/17/20 07/30/20 [Vitamin D3] cyanocobalamin (vitamin B-12) 1,000 mcg PO DAILY 05/17/20 07/30/20 [Vitamin B-12] levetiracetam 2,000 mg PO QPM 05/17/20 07/30/20 clonazepam 0.5 mg PO QPM PRN 07/30/20 07/30/20 glipizide 5 mg PO QAM 07/30/20 07/30/20 hydrochlorothiazide 25 mg PO DAILY 07/30/20 07/30/20 tamsulosin 0.4 mg PO DAILY 07/30/20 07/30/20 venlafaxine 75 mg PO DAILY 07/30/20 07/30/20 Allergies Allergy/AdvReac Type Severity Reaction Status Date / Time Penicillins Allergy Severe Stopped Verified 07/30/20 11:14 Breathing Review of Systems Review of Systems: ROS unobtainable: Yes unobtainable due to medical condition and unobtainable due to mental status [facility] Past Medical History Medical History Carcinoid tumor COVID-19 virus detected 05/12/20 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 Occurred on 09/30/17. Depression with anxiety HTN (hypertension) Hyperlipidemia Ruptured aneurysm of intracranial region Seizure since his CVA Sleep apnea Type II diabetes mellitus Surgical History Surgical History History of colon resection 18 inches due to carcinoid tumor Hx of tonsillectomy Family History Family History Mother Hypertension Social History Social History Social History: lifelong nonsmoker. Rare alcohol use. No drug use. Lives at home with his and [id number]. Full code. He nominates his to be the individual would make medical decisions for him if he is not able. Smoking status: Unknown if ever smoked Second hand tobacco smoke exposure: Yes Alcohol intake: never Substance use: never Gender identity (if verbalized by the patient): Male Spiritual care concerns: No Exam Const: General: ill appearing Nutritional Appearance: well nourished Limitations: altered mental status HENMT: Head: normal to inspection Eyes: Pupils: Equal, round and reactive pupils present Resp: Effort & Inspection: tachypneic Auscultation: clear to auscultation bilaterally Cardio: Rate: tachycardic Rhythm: regular rhythm GI: Inspection: non-distended GI Palp: Yes Soft to palpation Skin: General skin exam: normal color Neuro: Other: Leaning to the left. Left gaze preference. Not following commands. Extrem: General: no edema Course Vital Signs Vital signs: Vital Signs Temperature 40.0 C H 07/30/20 07:28 Pulse Rate 143 H 07/30/20 07:28 Respiratory Rate 20 07/30/20 07:28 Blood Pressure 156/100 H 07/30/20 07:28 Pulse Oximetry 91 07/30/20 07:28 Temperature 36.3 C L 07/30/20 11:38 Pulse Rate 118 H 07/30/20 11:38 Resp
[2020-07-30] MEDS: SODIUM CHLORIDE 0.9% IV 1,000 ML 999 ML IV CONT ×2 (07:26→09:41)
[2020-07-30 07:27] LABS: Alveolar/Arterial O2 Gradient 104.5 mmHg; Base Excess ABG -0.4 mEq/l (+/-2.0); Device NASAL CANNULA; Fractional Inspired Oxygen 28 %; HCO3 ABG 21.1 mEq/l (22.0-26.0); Modified Allen's Test Pass; Oxygen Content ABG 20.7 %vol (16.0-22.0); Oxygen Saturation ABG 94.3 % (95.0-100.0); Oxyhemoglobin 92.1 % THb (90.0-100.0); PCO2 ABG 27.2 mmHg (35.0-45.0); PO2 FiO2 Ratio Arterial Blood 2.25 %; Site Drawn RIGHT RADIAL; pH ABG 7.507 (7.350-7.450)
[2020-07-30 08:20] LABS: Basophils Percent Auto 0.2 % (0.2-1.2); Eosinophils Percent Auto 0.1 % (0-4.4); Hematocrit 46.6 % (42.0-52.0); Hemoglobin 15.9 g/dL (14.0-18.0); Immature Granulocyte Absolute 0.05 K/mm3 (0.00-0.031); Immature Granulocyte Percent A 0.4 % (0-0.5); Lymphocytes Percent Auto 5.1 % (18.3-44.2); Mean Corpuscular HGB Conc 34.1 g/dl (32-36); Mean Corpuscular Hemoglobin 31.2 pg (26-34); Mean Corpuscular Volume 91.6 fl (80-100); Mean Platelet Volume 11.3 fl (7.4-10.4); Monocytes Absolute Auto 0.2 K/mm3 (0.1-0.6); Monocytes Percent Auto 1.9 % (2.6-8.5); Neutrophils Percent Auto 92.3 % (45.5-73.1); Platelet Count Result 206 k/mm3 (150-375); Red Blood Count 5.09 M/mm3 (4.6-6.20); Red Cell Distribution Width 13.2 % (11.5-14.5); White Blood Count 11.9 K/mm3 (4.5-10.0)
[2020-07-30 08:29] LABS: INR 1.3; Partial Thromboplastin Time 31.7 SECONDS (22.3-36.8); Prothrombin Time 15.5 Seconds (11.1-14.7)
[2020-07-30 08:45] LABS: Alanine Aminotransferase 101 U/L (4-50); Albumin Level 3.4 g/dL (3.5-5.1); Alkaline Phosphatase 220 U/L (38-126); Anion Gap 9 mmol/L (8-16); Aspartate Amino Transferase 45 U/L (17-59); Bilirubin,Total 1.8 mg/dL (0.2-1.3); Blood Urea Nitrogen 14 mg/dL (9-20); Calcium 9.2 mg/dL (8.4-10.2); Carbon Dioxide 24 mmol/L (22-30); Chloride 107 mmol/L (98-107); Estimated CRCL calculation 95 ml/min; Estimated Glomerular Filt Rate > 60; Glucose 183 mg/dL (75-110); Potassium 3.4 mmol/L (3.4-5.0); Sodium 140 mmol/L (137-145)
[2020-07-30 08:47] LABS: Add Urine Microscopic? YES; Appearance Urine Clear (Clear); Bilirubin Urine Negative (Negative); Blood Urine Negative (Negative); Color Urine Yellow (Yellow); Glucose Urine UA Negative (Negative); Ketones Urine Negative (Negative); Leukocyte Esterase Ur Negative LEU/UL (Negative); Mucus Urine Rare /lpf; Nitrate Urine Negative (Negative); Protein Urine 1+ mg/dL (Negative); RBC Urine 0-2 /hpf (0-2); Specific Grav Ur 1.018 (1.001-1.035); Squamous Epithelial Cell Urine Rare /hpf (Few); Urobilinogen Urine Negative mg/dL (<2.0)
[2020-07-30 08:50] LABS: Troponin I 0.027 ng/mL (0.000-0.034)
[2020-07-30 08:53] LABS: CRP 16.7 mg/dL (<1.0)
[2020-07-30] MEDS: levETIRAcetam 1000MG/NACL100ML 1,000 MG/100 ML BAG 400 MG IVPB ×2 (09:01→20:00)
--- NOTE | 2020-07-30 11:13 | PC.NURSE ---
This patient, Yair Philippe, was admitted to IMU Room 204-01. Patient/family oriented to hospital policies and general routines including ID bracelet, bed and alarms, visiting hours, pain management, procedures, bathroom and other care routines, personal items, smoking policy, room service/diet, and visiting hours. Information on how to activate the Rapid Response Team has been discussed. Patient/Family are encouraged to report perceived risks to care and to ask questions if they do not understand what they are told or what they should do.
--- NOTE | 2020-07-30 14:02 | WPDNEURCNPN ---
Assessment and Plan Assessment and plan (1) Sepsis: Qualifiers: Sepsis acute organ dysfunction status: without acute organ dysfunction Sepsis type: sepsis due to unspecified organism Qualified Code(s): A41.9 - Sepsis, unspecified organism Code(s): A41.9 - Sepsis, unspecified organism Status: Acute (2) Type II diabetes mellitus: Code(s): E11.9 - Type 2 diabetes mellitus without complications Status: Acute (3) Sleep apnea: Code(s): G47.30 - Sleep apnea, unspecified Status: Acute (4) Seizure: Code(s): R56.9 - Unspecified convulsions Status: Acute (5) DVT prophylaxis: Code(s): Z29.9 - Encounter for prophylactic measures, unspecified Status: Acute (6) HTN (hypertension): Code(s): I10 - Essential (primary) hypertension Status: Acute (7) Generalized weakness: Code(s): R53.1 - Weakness Status: Acute (8) Hypokalemia: Code(s): E87.6 - Hypokalemia Status: Acute (9) COVID-19 virus antibody negative: Code(s): Z01.84 - Encounter for antibody response examination Status: Acute (10) COVID-19 virus detected: Code(s): U07.1 - COVID-19 Status: Acute Additional Plan patient's COVID-19 was negative in May 23 it was positive on May 12 however once we find out the exact dose of the Keppra that can be resumed a brain MRI with and without contrast will be obtained and depending upon his clinical course further management according Consult date: 07/30/20 Time Seen: 13:30 HPI: Yair Philippe is a 64 year old male who is either postictal or else he might have suffered from an other stroke was admitted because of probable seizure for which she has a history of and also with a history of having had stroke which has left him with a rather large encephalomalacia in the right middle cerebral artery distribution the patient is unable to offer much of a history his eyes are deviated to the left which is the spastic paralysis side and that makes me think that this could be a postictal phenomenon related to seizure while the eyes are deviated to the left or else it could be a brainstem stroke the patient looking to the paralyzed side in any event he does not seem to be any distress I have reviewed his previous record when he was admitted a few months ago when he was initially May 12 was positive for COVID-19 however was negative on May 23 Diligently nurse Geovanna is looking into the Keppra [facility] which I am told it was reduced does something was changed that might have prompted the seizure it will not be unusual for person who have had a rather large stroke of the right or left so cerebral hemisphere to have seizures somewhere down the line whether or not he has underlying sepsis or aspiration pneumonia we will figure it out however I told Geovanna to go head and os for a brain MRI with and without contrast and once we find out the exact dose of Keppra we can resume it he already received a gram of Keppra in the emergency room and his renal function is quite good Review of Systems Review of Systems: All systems reviewed & are unremarkable except as noted in HPI and below PMFSH Past Medical History Medical History Carcinoid tumor COVID-19 virus detected 05/12/20 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 Occurred on 09/30/17. Depression with anxiety HTN (hypertension) Hyperlipidemia Ruptured aneurysm of intracranial region Seizure since his CVA Sleep apnea Type II diabetes mellitus Surgical History Surgical History History of colon resection 18 inches due to carcinoid tumor Hx of tonsillectomy Family History Family History Mother Hypertension Social History Social History (Reviewed 07/30/20 @ 14:05 by Carlos Watkins
--- NOTE | 2020-07-30 15:10 | PCOTNOTE ---
Attempted OT evaluation, but unable to complete as patient gone for a MRI. Will attempt again at another time.
[2020-07-30] MEDS: METOPROLOL TARTRATE INJ 5 MG/5 ML VIAL IV PUSH ×2 (16:01→23:13)
--- NOTE | 2020-07-30 16:05 | PC.NURSE ---
This patient, Yair Philippe, was transferred to [[id number] ] on 07/30/20 at 1605. Personal belongings sent with patient. Report given to [ ]. Appropriate documentation sent with patient. Report given to ERLIN Frazier @ [phone]
--- NOTE | 2020-07-30 16:12 | PC.NURSE ---
This patient, Yair Philippe, was received from ICU on 07/30/20 at 1600. Personal belongings list checked and signed. Patient/family oriented to unit policies and routines
--- NOTE | 2020-07-30 16:28 | PCSTNOTE ---
Please refer to the Bedside Swallow Evaluation in the EMR. Please note, silent aspiration cannot be ruled out at bedside.
--- NOTE | 2020-07-30 16:31 | PM.IMHP ---
H&P: HPI History of Present Illness Date/Time: 07/30/20 16:31 Chief complaint: Sepsis/Aspiration/possible seizure Narrative: Yair Philippe is a 64 year old male with a past medical history of recent stroke CT scan of the head showed significant injury. Stable appearance of large old infarct involving the right middle cerebral artery vascular distribution with secondary atrophy of the right thalamus and right cerebral peduncle. and patient has history of seizure had been taking Keppra 1000 mg t.i.d. patient is unable to provide any history or review of symptom, history is recorded from after discussing with the ER physician and patient's unfortunately she is a poor historian, [facility] his medications were changed, patient states the last night patient did not feel very well, he went to bed early, and this morning patient's put the patient on CPAP later he was breathing erratically and when his went to see patient had vomited any CPAP and he was quite somnolent and confused and patient was brought to the emergency department for further evaluation, most likely patient had aspirated and and suspect has a aspiration pneumonia, patient states that patient had been taking Keppra 1000 mg t.i.d. for quite some however recently dose was reduced to 1000 mg b.i.d. and this may have led the patient to have a seizure, and currently patient is a postictal was unable to communicate. patient is quite somnolent. patient was seen by neurologist MRI of the brain was ordered to further evaluate which did not show any acute injury, however neurologist suspect patient had a seizure is currently postictal. patient is treated with Zosyn for aspiration pneumonia. Review of Systems Review of Systems: ROS unobtainable: Yes unobtainable due to medical condition [facility] Past Medical History Medical History Carcinoid tumor COVID-19 virus detected 05/12/20 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 Occurred on 09/30/17. Depression with anxiety HTN (hypertension) Hyperlipidemia Ruptured aneurysm of intracranial region Seizure since his CVA Sleep apnea Type II diabetes mellitus Surgical History Surgical History History of colon resection 18 inches due to carcinoid tumor Hx of tonsillectomy Family History Family History Mother Hypertension Social History Social History Social History: lifelong nonsmoker. Rare alcohol use. No drug use. Lives at home with his and [id number]. Full code. He nominates his to be the individual would make medical decisions for him if he is not able. Smoking status: Unknown if ever smoked Second hand tobacco smoke exposure: Yes Alcohol intake: never Substance use: never Gender identity (if verbalized by the patient): Male Spiritual care concerns: No Meds Home Medications and Allergies Home Medications Medication Instructions Recorded Confirmed Type aspirin 81 mg PO QAM 05/16/20 07/30/20 History atorvastatin 80 mg PO HS 05/16/20 07/30/20 History escitalopram oxalate 40 mg PO QAM 05/16/20 07/30/20 History esomeprazole magnesium 40 mg PO QAM 05/16/20 07/30/20 History gabapentin 300 mg PO HS 05/16/20 07/30/20 History levetiracetam 1,000 mg PO QAM 05/16/20 07/30/20 History metoprolol succinate 50 mg PO BID 05/16/20 07/30/20 History pramipexole 1 mg PO QPM 05/16/20 07/30/20 History cholecalciferol (vitamin D3) 25 mcg PO DAILY 05/17/20 07/30/20 History [Vitamin D3] cyanocobalamin (vitamin B-12) 1,000 mcg PO DAILY 05/17/20 07/30/20 History [Vitamin B-12] levetiracetam 1,000 mg PO QPM 05/17/20 07/30/20 History clonazepam 0.5 mg PO QPM PRN 07/30/20 07/30/20 History glipizide 5 mg PO QAM 07/30/20 07/30/20 Hist
[2020-07-30 18:26] LABS: Glucose Point of Care 179 (65-105)
[2020-07-30] MEDS: metroNIDAZOLE 500 MG/ISO 100ML 500 MG/100 ML BAG 100 MG IVPB (18:56)
[2020-07-30] MEDS: PANTOPRAZOLE SODIUM IV 40 MG VIAL IV PUSH (20:00)
--- NOTE | 2020-07-30 22:53 | ECG_ITS ---
Measurements Intervals [place] Rate: 124 P: 39 NE: 154 QRS: -66 QRSD: 88 T: 20 QT: 321 QTc: 462 Interpretive Statements SINUS TACHYCARDIA LEFT ANTERIOR FASCICULAR BLOCK BASELINE ARTIFACT- I, II, III, AVR, AVL, AVF, V1-V6 ABNORMAL ECG Electronically Signed On 07-31-2020 6:46:11 CDT by Harsha Prieto D.O.
[2020-07-30] MEDS: IPRATROPIUM BR 0.02% INH SOLN 0.5 MG/2.5 ML VIAL INHALATION (23:13)
--- NOTE | 2020-07-30 23:30 | P.PNCROSS_ITS ---
Event Note Event Note Event Note: S: I received a call from the patient's nurse at approximately 22: 45 with an update on condition. She went to check on the patient he was noted to be diaphoretic and tachypneic. Telemetry demonstrated tachycardia in the low 100s. Patient is alert but has underlying cognitive deficit and expressive aphasia as well as left hemiparesis from previous stroke and thus he is not a great historian. He reports feeling warm, nauseated, and slightly short of breath. He denies other complaints, specifically denying fever, headache, chest pain, and abdominal pain. O: Nontoxic-appearing male lying in the semi-Brown position in bed. He seems to have right lobo-neglect. He is oriented to name. He speaks in 1 to 2 word sentences but I believe that is his baseline. Respiration seem nonlabored but he is tachypneic with shallow respirations. He does not appear anxious. Faint expiratory wheezing. Heart is tachycardic with S1-S2. Abdomen is protuberant and obese. Bladder does not seem distended. He has good coloring and is slightly diaphoretic. Left upper extremity contracted. Pitting edema of the legs bilaterally. Equivocal [place] sign. A: Tachycardia and tachypnea. Etiology unclear with a differential to include aspiration, pulmonary embolism, anxiety, urinary retention, pain, OR. P: Stat nebulizer treatment, chest x-ray, labs, EKG, and possible chest CTA pending D-dimer.
[2020-07-31] VITALS (29 sets, daily range): BP systolic 98–121; BP diastolic 62–88; PULSE 91–144; RESP 20–40; TEMP 35.6–39.4; O2SAT 88–100
[2020-07-31] MEDS: metroNIDAZOLE 500 MG/ISO 100ML 500 MG/100 ML BAG 100 MG IVPB ×3 (00:39→12:51)
[2020-07-31 00:43] LABS: D Dimer 3.68 ug/mL (<0.48)
[2020-07-31 00:57] LABS: Alanine Aminotransferase 81 U/L (4-50); Albumin Level 3.4 g/dL (3.5-5.1); Alkaline Phosphatase 164 U/L (38-126); Anion Gap 18 mmol/L (8-16); Aspartate Amino Transferase 41 U/L (17-59); Bilirubin,Total 1.2 mg/dL (0.2-1.3); Blood Urea Nitrogen 18 mg/dL (9-20); Calcium 8.8 mg/dL (8.4-10.2); Carbon Dioxide 18 mmol/L (22-30); Chloride 107 mmol/L (98-107); Estimated CRCL calculation 62 ml/min; Estimated Glomerular Filt Rate > 60; Glucose 110 mg/dL (75-110); Magnesium 1.4 mg/dL (1.6-2.3); NT Pro B Type Natriuretic Pept 6330 PG/ML (5-100); Potassium 3.3 mmol/L (3.4-5.0); Sodium 143 mmol/L (137-145); Troponin I 0.052 ng/mL (0.000-0.034)
--- NOTE | 2020-07-31 01:35 | PC.NURSE ---
Updated on patient's current status. was very thankful
[2020-07-31] MEDS: SODIUM CHLORIDE 0.9% IV 500 ML IV CONT (03:01)
[2020-07-31] MEDS: MAGNESIUM SULFATE 3GM/D5W100ML 3 GM/100 ML BAG IVPB (03:07)
[2020-07-31] MEDS: KCL 20 MEQ/SW 100 ML 100 ML 50 MEQ IVPB (03:44)
[2020-07-31 04:26] LABS: Troponin I 0.051 ng/mL (0.000-0.034)
[2020-07-31] MEDS: METOPROLOL TARTRATE INJ 5 MG/5 ML VIAL IV PUSH ×5 (04:35→23:16)
--- NOTE | 2020-07-31 04:45 | PM.SEPSIS ---
Severe Sepsis Evaluation Current stage of sepsis: severe sepsis If septic shock, document one of the following three assessments within 6 hrs of determining septic shock. 2) Focused Exam Need to answer all in this section. Vital signs: Vital Signs Temp Pulse Resp BP Pulse Ox 07/31/20 04:37 38.2 C H 07/31/20 04:35 140 H 07/31/20 04:00 32 H 93 07/31/20 03:50 38.2 C H 140 H 32 H 121/88 94 07/31/20 00:00 134 H 07/30/20 23:22 125 H 28 H 07/30/20 23:14 144 H 36 H 07/30/20 23:13 134 H 07/30/20 21:46 36.9 C 106 H 18 114/78 94 07/30/20 20:00 109 H 07/30/20 18:26 37.6 C 07/30/20 16:55 38.4 C H Reviewed patient cart. He is found to be bacteremic with GNR. Will move patient to IMU for closer observation and start sepsis protocol, labs drawn, obtaining CBC, BMP, lactic acid. Patient has significant penicillin allergy, will start meropenam. LA elevated at 5. Starting fluid sepsis bundle 30ml/kg, 3L total, starting meropenam antibiotic as he has severe PCN allergy with anaphylaxis, drawing new blood cultures. Date exam was performed: 07/31/20 Time exam was performed: 05:33
[2020-07-31 04:59] LABS: Anion Gap 12 mmol/L (8-16); Blood Urea Nitrogen 21 mg/dL (9-20); Carbon Dioxide 18 mmol/L (22-30); Chloride 111 mmol/L (98-107); Estimated CRCL calculation 62 ml/min; Estimated Glomerular Filt Rate > 60; Glucose 140 mg/dL (75-110); Magnesium 2.2 mg/dL (1.6-2.3); Potassium 3.2 mmol/L (3.4-5.0); Sodium 141 mmol/L (137-145)
[2020-07-31] MEDS: SODIUM CHLORIDE 0.9% IV 1,000 ML 999 ML IV CONT (05:08)
--- NOTE | 2020-07-31 05:20 | PC.NURSE ---
Patient transferred to [facility] [place] via bed. was notified of transfer.
[2020-07-31 05:53] LABS: Glucose Point of Care 140 (65-105)
[2020-07-31] MEDS: SODIUM CHLORIDE 0.9% IV 1,500 ML 999 ML IV CONT (06:16)
[2020-07-31 06:28] LABS: Hemoglobin 14.4 g/dL (14.0-18.0); Immature Platelet Fraction Pct 5.1 % (0.9-11.2); Mean Corpuscular HGB Conc 34.3 g/dl (32-36); Mean Corpuscular Hemoglobin 31.4 pg (26-34); Mean Corpuscular Volume 91.5 fl (80-100); Mean Platelet Volume 11.2 fl (7.4-10.4); Platelet Count Result 74 k/mm3 (150-375); Red Blood Count 4.59 M/mm3 (4.6-6.20); Red Cell Distribution Width 13.5 % (11.5-14.5); White Blood Count 14.2 K/mm3 (4.5-10.0)
[2020-07-31 06:46] LABS: Troponin I 0.062 ng/mL (0.000-0.034)
[2020-07-31 07:22] LABS: Band Neutrophils Percent 8 % (0-6); Lymphocytes Absolute Manual 0.71 K/mm3 (1.1-4.5); Monocytes Absolute Manual 0.99 K/mm3 (0.1-0.90); Monocytes Percent Manual 7 % (3-9); Neutrophils Absolute Manual 12.49 K/mm3 (1.3-6.7); Neutrophils Percent Manual 80 % (46-73); Total Cells Counted 100
[2020-07-31 07:24] LABS: Burr Cells 2+ (NORMAL); Ovalocytes 1+ (NORMAL)
[2020-07-31 07:25] LABS: Platelet Estimate Decreased (Adequate); Poikilocytosis 1+ (NORMAL)
[2020-07-31 07:39] LABS: Reflex Lactic Acid Yes or No Add Lactic
[2020-07-31 08:03] LABS: Lactic Acid 3.4 mmol/L (0.7-2.1)
[2020-07-31 08:16] LABS: Anion Gap 10 mmol/L (8-16); Blood Urea Nitrogen 20 mg/dL (9-20); Calcium 7.1 mg/dL (8.4-10.2); Carbon Dioxide 17 mmol/L (22-30); Chloride 115 mmol/L (98-107); Estimated CRCL calculation 68 ml/min; Estimated Glomerular Filt Rate > 60; Glucose 142 mg/dL (75-110); Magnesium 1.7 mg/dL (1.6-2.3); Potassium 3.1 mmol/L (3.4-5.0); Sodium 142 mmol/L (137-145)
--- NOTE | 2020-07-31 08:59 | PCOTNOTE ---
Hold OT evaluation this AM per RN due to patient medical status. Will attempt OT evaluation when medically appropriate.
--- NOTE | 2020-07-31 09:04 | PCPTNOTE ---
Hold PT evaluation this AM per RN due to patient medical status. Will attempt PT evaluation when medically appropriate.
[2020-07-31] MEDS: PANTOPRAZOLE SODIUM IV 40 MG VIAL IV PUSH ×2 (09:39→20:56)
[2020-07-31] MEDS: levETIRAcetam 1000MG/NACL100ML 1,000 MG/100 ML BAG 400 MG IVPB ×2 (10:17→20:55)
[2020-07-31 11:34] LABS: Glucose Point of Care 158 (65-105)
--- NOTE | 2020-07-31 11:47 | PC.NURSE ---
Spoke with Dr. Carmen notified of consult
--- NOTE | 2020-07-31 13:09 | WPDNEUROPN ---
Progress Note: A&P Assessment and Plan (1) Aspiration pneumonia due to gastric secretions: Code(s): J69.0 - Pneumonitis due to inhalation of food and vomit Status: Acute (2) COVID-19 virus antibody negative: Code(s): Z01.84 - Encounter for antibody response examination Status: Acute (3) Sepsis: Qualifiers: Sepsis acute organ dysfunction status: without acute organ dysfunction Sepsis type: sepsis due to unspecified organism Qualified Code(s): A41.9 - Sepsis, unspecified organism Code(s): A41.9 - Sepsis, unspecified organism Status: Acute (4) Type II diabetes mellitus: Code(s): E11.9 - Type 2 diabetes mellitus without complications Status: Acute (5) Sleep apnea: Code(s): G47.30 - Sleep apnea, unspecified Status: Acute (6) Seizure: Code(s): R56.9 - Unspecified convulsions Status: Acute (7) DVT prophylaxis: Code(s): Z29.9 - Encounter for prophylactic measures, unspecified Status: Acute (8) HTN (hypertension): Code(s): I10 - Essential (primary) hypertension Status: Acute (9) Generalized weakness: Code(s): R53.1 - Weakness Status: Acute (10) Hypokalemia: Code(s): E87.6 - Hypokalemia Status: Acute (11) COVID-19 virus detected: Code(s): U07.1 - COVID-19 Status: Acute Additional Plan I discussed with the the continuation of the Keppra his renal status needs to be monitored as the Keppra is mostly cleared from the kidneys and if need be it might have to be increased with previous dosages in not too distant past when he was taking total of 3000 milligram per day of the Keppra rest of the management will be by the hospitalist and the other physicians involved with his care Review of Systems Review of Systems: All systems reviewed & are unremarkable except as noted in HPI and below Exam Narrative: Exam Narrative: patient is awake alert oriented partially fluent speech left-sided hemiparesis otherwise the examination of the chest heart and abdomen his as per the other physicians who have seeing him he is on antibiotic for possible sepsis and aspiration pneumonia Objective Data Vital Signs Vital Signs: Vital Signs - 24 hr 07/30/20 16:01 07/30/20 16:07 07/30/20 16:25 Temperature 39.4 C H 39.4 C H Pulse Rate 135 H 135 H Respiratory Rate 24 H Blood Pressure 119/82 Pulse Oximetry 92 07/30/20 16:55 07/30/20 18:26 07/30/20 20:00 Temperature 38.4 C H 37.6 C Pulse Rate 109 H Respiratory Rate Blood Pressure Pulse Oximetry 07/30/20 21:46 07/30/20 23:13 07/30/20 23:14 Temperature 36.9 C Pulse Rate 106 H 134 H 144 H Respiratory Rate 18 36 H Blood Pressure 114/78 Pulse Oximetry 94 07/30/20 23:22 07/31/20 00:00 07/31/20 03:50 Temperature 38.2 C H Pulse Rate 125 H 134 H 140 H Respiratory Rate 28 H 32 H Blood Pressure 121/88 Pulse Oximetry 94 07/31/20 04:00 07/31/20 04:35 07/31/20 04:37 Temperature 38.2 C H Pulse Rate 144 H 140 H Respiratory Rate 32 H Blood Pressure Pulse Oximetry 93 07/31/20 05:20 07/31/20 05:43 07/31/20 06:00 Temperature 37.7 C H Pulse Rate 125 H 123 H 106 H Respiratory Rate 40 H Blood Pressure 111/62 Pulse Oximetry 96 07/31/20 08:33 07/31/20 12:34 07/31/20 12:52 Temperature 35.8 C L 36.6 C Pulse Rate 102 H 103 H 103 H Respiratory Rate 20 22 H Blood Pressure 98/66 L 102/72 Pulse Oximetry 97 96 Intake/Output Intake/Output: Intake & Output 07/28/20 07/29/20 07/30/20 07/31/20 23:59 23:59 23:59 23:59 Intake Total 2650 3000 Output Total 200 5 Balance 2450 2995 Meds/Results Medications: Active Medications Generic Name Dose Route Start Last Admin Trade Name Freq PRN Reason Stop Dose Admin Levetiracetam 1,000 mg in 100 mls @ 400 mls/hr 07/30/20 21:00 07/31/20 10:17 Keppra Iv IVPB 400 mls/hr Q12HR HUDSON Administration Acetamino
--- NOTE | 2020-07-31 14:39 | PM.IMPN ---
Progress Note: A&P Assessment and Plan (1) Aspiration pneumonia due to gastric secretions: Code(s): J69.0 - Pneumonitis due to inhalation of food and vomit Status: Acute Assessment and Plan: 07/31/20 14:39 Yair Philippe is a 64 year old male with a past medical history of recent stroke CT scan of the head showed significant injury. Stable appearance of large old infarct involving the right middle cerebral artery vascular distribution with secondary atrophy of the right thalamus and right cerebral peduncle. and patient has history of seizure had been taking Keppra 1000 mg t.i.d. patient is unable to provide any history or review of symptom, history is recorded from after discussing with the ER physician and patient's unfortunately she is a poor historian, [facility], his medications were changed, patient states the last night patient did not feel very well, he went to bed early, and this morning patient's put the patient on CPAP later he was breathing erratically and when his went to see patient had vomited any CPAP and he was quite somnolent and confused and patient was brought to the emergency department for further evaluation, most likely patient had aspirated and and suspect has a aspiration pneumonia, patient states that patient had been taking Keppra 1000 mg t.i.d. for quite some however recently dose was reduced to 1000 mg b.i.d. and this may have led the patient to have a seizure, and currently patient is a postictal was unable to communicate. patient is quite somnolent. patient was seen by neurologist MRI of the brain was ordered to further evaluate which did not show any acute injury, however neurologist suspect patient had a seizure is currently postictal. patient is treated with levaquin and flagyl. on early of 07/31 patient was seen by digital marketing lead and suspected patient as developed sepsis due to Gram-negative bacilli, patient lactic acid was 5 and patient was hydrated and received over 3L fluids and lactic acid is trending down, patient had been treated with Levaquin and Flagyl, imipenem was added, unfortunately patient is very somnolent and unable to provide any review of system, will consult Dr. sims further recommendation, patient was seen by neurologist recommended to possibly increase Keppra to 3000 mg daily if patient can tolerate, will continue to monitor (2) Seizure: Code(s): R56.9 - Unspecified convulsions Status: Acute Assessment and Plan: plan is above (3) HTN (hypertension): Code(s): I10 - Essential (primary) hypertension Status: Acute Assessment and Plan: continue home regimen and monitor (4) Generalized weakness: Code(s): R53.1 - Weakness Status: Acute Assessment and Plan: will have a PT OT evaluate the patient (5) Sepsis: Qualifiers: Sepsis acute organ dysfunction status: without acute organ dysfunction Sepsis type: sepsis due to unspecified organism Qualified Code(s): A41.9 - Sepsis, unspecified organism Code(s): A41.9 - Sepsis, unspecified organism Status: Acute Assessment and Plan: plan is above most likely secondary to aspiration pneumonia Subjective Date/time seen: 07/31/20 14:39 Yair Philippe is a 64 year old male with a past medical history of recent stroke CT scan of the head showed significant injury. Stable appearance of large old infarct involving the right middle cerebral artery vascular distribution with secondary atrophy of the right thalamus and right cerebral peduncle. and patient has history of seizure had been taking Keppra 1000 mg t.i.d. patient is unable to provide any history or review of symptom, history is recorded from after discussing with the ER physician and patient's unfortunately she is a poor historian, [facility], his medications were c
[2020-07-31] MEDS: SODIUM CHLORIDE 0.9% IV 1,000 ML 125 ML IV CONT (15:36)
--- NOTE | 2020-07-31 15:43 | WPDINFPN2 ---
Progress Note: A&P Assessment and Plan (1) Gram negative septicemia: Code(s): A41.50 - Gram-negative sepsis, unspecified Status: Acute Assessment and Plan: gram negative bacteremia with infection, I suspect urine source despite UA REC Aztreonam # 1 and f/u Subjective Date/time seen: 07/31/20 15:43 Objective Data Vital Signs Vital Signs: Vital Signs - 24 hr 07/30/20 16:01 07/30/20 16:07 07/30/20 16:25 Temperature 39.4 C H 39.4 C H Pulse Rate 135 H 135 H Respiratory Rate 24 H Blood Pressure 119/82 Pulse Oximetry 92 07/30/20 16:55 07/30/20 18:26 07/30/20 20:00 Temperature 38.4 C H 37.6 C Pulse Rate 109 H Respiratory Rate Blood Pressure Pulse Oximetry 07/30/20 21:46 07/30/20 23:13 07/30/20 23:14 Temperature 36.9 C Pulse Rate 106 H 134 H 144 H Respiratory Rate 18 36 H Blood Pressure 114/78 Pulse Oximetry 94 07/30/20 23:22 07/31/20 00:00 07/31/20 03:50 Temperature 38.2 C H Pulse Rate 125 H 134 H 140 H Respiratory Rate 28 H 32 H Blood Pressure 121/88 Pulse Oximetry 94 07/31/20 04:00 07/31/20 04:35 07/31/20 04:37 Temperature 38.2 C H Pulse Rate 144 H 140 H Respiratory Rate 32 H Blood Pressure Pulse Oximetry 93 07/31/20 05:20 07/31/20 05:43 07/31/20 06:00 Temperature 37.7 C H Pulse Rate 125 H 123 H 106 H Respiratory Rate 40 H Blood Pressure 111/62 Pulse Oximetry 96 07/31/20 08:33 07/31/20 12:34 07/31/20 12:52 Temperature 35.8 C L 36.6 C Pulse Rate 102 H 103 H 103 H Respiratory Rate 20 22 H Blood Pressure 98/66 L 102/72 Pulse Oximetry 97 96 Intake/Output Intake/Output: Intake & Output 07/28/20 07/29/20 07/30/20 07/31/20 23:59 23:59 23:59 23:59 Intake Total 2650 3000 Output Total 200 5 Balance 2450 2995 Meds/Results Medications: Active Medications Generic Name Dose Route Start Last Admin Trade Name Freq PRN Reason Stop Dose Admin Levetiracetam 1,000 mg in 100 mls @ 400 mls/hr 07/30/20 21:00 07/31/20 10:17 Keppra Iv IVPB 400 mls/hr Q12HR HUDSON Administration Acetaminophen 1,000 mg in 100 mls @ 400 mls/hr 07/30/20 16:09 07/31/20 04:52 Ofirmev 1,000 Mg Ivpb IVPB 07/31/20 16:10 Infused Q6H PRN Infusion Fever Sodium Chloride 1,000 mls @ 125 mls/hr 07/31/20 09:20 07/31/20 15:36 Normal Saline Iv IV CONT 125 mls/hr .Q8H HUDSON Administration Metoprolol Tartrate 5 mg 07/30/20 18:00 07/31/20 12:52 Metoprolol Tartrate Inj 5 Mg/5 Ml Vial IV PUSH 5 mg Q6HR HUDSON Administration Pantoprazole Sodium 40 mg 07/30/20 21:00 07/31/20 09:39 Pantoprazole Sodium Iv 40 Mg Vial IV PUSH 40 mg Q12HR HUDSON Administration Radiology Results: ITS Impressions Head CT 07/30/20 07:44 IMPRESSION: 1. Stable appearance of large old infarct involving the right middle cerebral artery vascular distribution with secondary atrophy of the right thalamus and right cerebral peduncle. 2. Additional small old left cerebellar infarct. 3. Age-related changes including mild diffuse volume loss and mild to moderate scattered white matter hypoattenuation consistent with chronic small vessel ischemic disease. Brain MRI 07/30/20 15:36 IMPRESSION: 1. Old infarctions. 2. Chronic age related findings. Chest X-Ray 07/30/20 23:12 IMPRESSION: No acute cardiopulmonary findings. Chest CTA 07/31/20 07:41 IMPRESSION: 1. No definitive pulmonary emboli. Evaluation significantly limited in the segmental and subsegmental pulmonary arteries due to prominent respiratory motion. 2. Cardiomegaly with small pericardial effusion. 3. Bilateral nephrolithiasis with left hydronephrosis with dense material within the dilated collecting system and pelvis which could be due to hematuria, pyonephrosis or less likely neoplasm. Correlate with urinalysis and with amylase/lipase levels is a small collection of fluid along the anterior left pararenal space does abut the tail
--- NOTE | 2020-07-31 16:41 | PCSTNOTE ---
The patient treatment was not able to be completed on 07/31/20 due to scheduling conflicts. Will plan to continue treatment per plan of care.
[2020-07-31 16:58] LABS: Alveolar/Arterial O2 Gradient 55.3 mmHg; Base Excess ABG -3.9 mEq/l (+/-2.0); Fractional Inspired Oxygen 21 %; HCO3 ABG 17.3 mEq/l (22.0-26.0); Oxygen Content ABG 20.1 %vol (16.0-22.0); Oxygen Saturation ABG 94.9 % (95.0-100.0); Oxyhemoglobin 93.3 % THb (90.0-100.0); PO2 ABG 66.5 mmHg (80.0-100.0); PO2 FiO2 Ratio Arterial Blood 3.17 %; Total Hemoglobin 15.3 g/dL (12.0-18.0); pH ABG 7.488 (7.350-7.450)
[2020-07-31 17:01] LABS: Device ROOM AIR; Modified Allen's Test Pass; PCO2 ABG 23.3 mmHg (35.0-45.0); Site Drawn RIGHT RADIAL
[2020-07-31] MEDS: AZTREONAM 1 GM in DEXTROSE 5% IN WATER 50 ML IVPB ×2 (17:22→23:16)
[2020-07-31 18:53] LABS: Glucose Point of Care 136 (65-105)
--- NOTE | 2020-07-31 20:29 | CONS_ITS ---
DATE OF CONSULTATION: 07/31/2020 REASON FOR CONSULTATION: Gram-negative bacteremia. HISTORY OF PRESENT ILLNESS: A 64-year-old male who cannot provide a comprehensive history. His is at the bedside and provides information. The patient had a stroke several years ago and also in the last 2 years, he has had known nephrolithiasis, undergoing lithotripsy when he still lives in [place]. He moved here in early 2018 with his , he developed hathaway virus infection at the end of April, was living in the hospitals and nursing homes until he was admitted here on the . At that time, he had several hours of an intermittent seizure activity and followed by decreased level of consciousness and witnessed vomiting in his CPAP mask. His had removed the mask and then called an ambulance. The patient denies any discomfort. The patient has been on tamsulosin, but is unaware of the reason for that medication. He has never had any prostate difficulties he is aware of. No recent hematuria. The patient earlier in the month reportedly had some type of bladder outlet obstruction requiring brief catheterization. In the 8 days to 9 days at home since arrival from the senior living, the patient has urinated only once or twice a day, very small amounts. No fever, chills, or sweats. The seizures are not new. ALLERGIES: PENICILLIN CAUSED HIM TO STOP BREATHING. HABITS: Rare alcohol, nonsmoker. PRESENT MEDICATIONS: List reviewed in full. PAST MEDICAL HISTORY: Tonsillectomy, colon resection, diabetes mellitus, sleep apnea, seizure disorder, intracranial aneurysm, hyperlipidemia, hypertension, depression, anxiety, and carcinoid tumor. Has mesh in his abdominal wall. FAMILY HISTORY: Not pertinent to his present illness. SOCIAL HISTORY: He is a retired and lives with his and [id number]. REVIEW OF SYSTEMS: A 14-point review otherwise negative though compromised by the patient's memory, which is less than normal. PHYSICAL EXAMINATION: GENERAL: This is an elderly male who appears his actual age. No acute distress. VITAL SIGNS: Temperature on arrival was 40.0 and last 24 hours up to 39.4, now afebrile, 103, 22, 102/72. SKIN: No rashes. No skin breakdown or ulcerations. EENT: The conjunctivae are normal. LUNGS: Clear to auscultation and percussion. NECK: No masses, thyromegaly, or bruits. No meningismus. CARDIAC: Distant S1, S2. Regular rate and rhythm. No murmurs or gallops. ABDOMEN: Morbidly obese, nontender. No masses. EXTREMITIES: No clubbing, cyanosis, or edema. NEUROLOGIC: He is awake and responds to simple questions appropriately. LABORATORY DATA: Blood cultures 2/2 sets gram-negative rods to be identified and these have been repeated. Blood cultures from May 12 and May 16 found no growth. White blood cell count 14.2, 11.9 on admission, hemoglobin 14.4, platelets are 74, down from 206. Differential with a left shift, 8 bands. His blood gases 7.51, 27, 63 that is on new 2 L. Normal sodium, low potassium, BUN and creatinine normal. Glucose 142, A1c was 7.6 on 05/18/2020. Troponin elevated. BNP elevated. Urinalysis 1+ protein, 4 to 6 white cells, 3 to 4 hyaline casts. RADIOLOGY DATA: I personally reviewed his chest x-rays. This is a portable technique filmed. He shows no abnormalities. I also reviewed the radiologist's interpretation of the brain MRI and chest CT as well as a chest x-ray. ASSESSMENT: 1. Fever due to gram-negative bacteremia with infection. I suspect urinary source despite the urinalysis findings being relatively benign. Other sources of his fever are unlikely. Other source of the bacteremia could include carcinoid tumor, hepatobiliary infection, or lung infection. His exam and chest x-ray do not support as
[2020-07-31 23:34] LABS: Glucose Point of Care 120 (65-105)
[2020-07-31 23:44] LABS: Alveolar/Arterial O2 Gradient 122.5 mmHg; Base Excess ABG -5.4 mEq/l (+/-2.0); Fractional Inspired Oxygen 36 %; HCO3 ABG 17.6 mEq/l (22.0-26.0); Oxygen Content ABG 18.3 %vol (16.0-22.0); Oxygen Saturation ABG 97.9 % (95.0-100.0); Oxyhemoglobin 96.3 % THb (90.0-100.0); PCO2 ABG 27.5 mmHg (35.0-45.0); PO2 ABG 102.3 mmHg (80.0-100.0); PO2 FiO2 Ratio Arterial Blood 2.84 %; Total Hemoglobin 13.4 g/dL (12.0-18.0); pH ABG 7.423 (7.350-7.450)
[2020-07-31 23:45] LABS: Device NASAL CANNULA; Modified Allen's Test Pass; Site Drawn LEFT RADIAL
[2020-08-01] VITALS (18 sets, daily range): BP systolic 108–114; BP diastolic 55–79; PULSE 85–105; RESP 16–28; TEMP 35.7–36.8; O2SAT 93–100; BMI 10.0; BMI 40.1
[2020-08-01 04:48] LABS: Hematocrit 39.5 % (42.0-52.0); Hemoglobin 12.9 g/dL (14.0-18.0); Immature Platelet Fraction Pct 7.7 % (0.9-11.2); Mean Corpuscular HGB Conc 32.7 g/dl (32-36); Mean Corpuscular Hemoglobin 31.1 pg (26-34); Mean Corpuscular Volume 95.2 fl (80-100); Mean Platelet Volume 11.6 fl (7.4-10.4); Platelet Count Result 59 k/mm3 (150-375); Red Blood Count 4.15 M/mm3 (4.6-6.20); Red Cell Distribution Width 13.8 % (11.5-14.5)
[2020-08-01 05:50] LABS: Glucose Point of Care 106 (65-105)
[2020-08-01] MEDS: AZTREONAM 1 GM in DEXTROSE 5% IN WATER 50 ML IVPB ×3 (06:04→21:36)
[2020-08-01] MEDS: METOPROLOL TARTRATE INJ 5 MG/5 ML VIAL IV PUSH ×3 (06:04→23:06)
[2020-08-01 08:19] LABS: Anion Gap 6 mmol/L (8-16); Blood Urea Nitrogen 24 mg/dL (9-20); Calcium 7.4 mg/dL (8.4-10.2); Carbon Dioxide 20 mmol/L (22-30); Chloride 119 mmol/L (98-107); Estimated CRCL calculation 85 ml/min; Estimated Glomerular Filt Rate > 60; Glucose 114 mg/dL (75-110); Potassium 4.5 mmol/L (3.4-5.0); Sodium 145 mmol/L (137-145)
[2020-08-01] MEDS: SODIUM CHLORIDE 0.9% IV 1,000 ML 125 ML IV CONT (08:25)
[2020-08-01] MEDS: PANTOPRAZOLE SODIUM IV 40 MG VIAL IV PUSH ×2 (08:26→20:26)
[2020-08-01] MEDS: levETIRAcetam 1000MG/NACL100ML 1,000 MG/100 ML BAG 400 MG IVPB ×2 (08:28→20:25)
[2020-08-01 12:23] LABS: Glucose Point of Care 115 (65-105)
--- NOTE | 2020-08-01 13:29 | PCSTNOTE ---
Patient, Nursing, and ST discussed completing an MBS on patient. Nursing and ST agreed patient is too weak to tolerate a MBS as he couldn't even participate in tx; discussed alternate method of nutrition to help regain strength to tolerate a MBS.
[2020-08-01] MEDS: LIDOCAINE HCL 1% LOCAL INJ 2 ML AMPUL 5 ML INFILTRATE (14:20)
--- NOTE | 2020-08-01 16:59 | PM.IMPN ---
Progress Note: A&P Assessment and Plan (1) Aspiration pneumonia due to gastric secretions: Code(s): J69.0 - Pneumonitis due to inhalation of food and vomit Status: Acute Assessment and Plan: Yair Philippe is a 64 year old male with a past medical history of recent stroke CT scan of the head showed significant injury. Stable appearance of large old infarct involving the right middle cerebral artery vascular distribution with secondary atrophy of the right thalamus and right cerebral peduncle. and patient has history of seizure had been taking Keppra 1000 mg t.i.d. patient is unable to provide any history or review of symptom, history is recorded from after discussing with the ER physician and patient's unfortunately she is a poor historian, [facility], his medications were changed, patient states the last night patient did not feel very well, he went to bed early, and this morning patient's put the patient on CPAP later he was breathing erratically and when his went to see patient had vomited any CPAP and he was quite somnolent and confused and patient was brought to the emergency department for further evaluation, most likely patient had aspirated and and suspect has a aspiration pneumonia, patient states that patient had been taking Keppra 1000 mg t.i.d. for quite some however recently dose was reduced to 1000 mg b.i.d. and this may have led the patient to have a seizure, and currently patient is a postictal was unable to communicate. patient is quite somnolent. patient was seen by neurologist MRI of the brain was ordered to further evaluate which did not show any acute injury, however neurologist suspect patient had a seizure is currently postictal. patient is treated with levaquin and flagyl. Dr. sims further recommendation, for abx, as per previous notes. pt can start nutrition with ng tube and tube feeds. pt did not tolerate swallow test because if was so solment (2) Seizure: Code(s): R56.9 - Unspecified convulsions Status: Acute Assessment and Plan: plan is above (3) HTN (hypertension): Code(s): I10 - Essential (primary) hypertension Status: Acute Assessment and Plan: continue home regimen and monitor (4) Generalized weakness: Code(s): R53.1 - Weakness Status: Acute Assessment and Plan: will have a PT OT evaluate the patient (5) Sepsis: Qualifiers: Sepsis acute organ dysfunction status: without acute organ dysfunction Sepsis type: sepsis due to unspecified organism Qualified Code(s): A41.9 - Sepsis, unspecified organism Code(s): A41.9 - Sepsis, unspecified organism Status: Acute Assessment and Plan: plan is above most likely secondary to aspiration pneumonia Subjective Date/time seen: 08/01/20 16:59 Interval history: Yair Philippe is a 64 year old male with a past medical history of recent stroke CT scan of the head showed significant injury. Stable appearance of large old infarct involving the right middle cerebral artery vascular distribution with secondary atrophy of the right thalamus and right cerebral peduncle. and patient has history of seizure had been taking Keppra 1000 mg t.i.d. patient is unable to provide any history or review of symptom, history is recorded from after discussing with the ER physician and patient's unfortunately she is a poor historian, [facility], his medications were changed, patient states the last night patient did not feel very well. Pt continues to be unwell, tired fatigued. unable to tolerate swallow test today. Review of Systems Review of Systems: All systems reviewed & are unremarkable except as noted in HPI and below Exam Narrative: Exam Narrative: patient is quite somnolent HEENT: neck no retraction LUNGS:CTA HEART: RR S1S2 ABD: BS+, So
[2020-08-01 17:08] LABS: Glucose Point of Care 95 (65-105)
[2020-08-01] MEDS: CENTRAL LINE FLUSH 10 ML IV PUSH (23:04)
[2020-08-02] VITALS (22 sets, daily range): BP systolic 112–131; BP diastolic 71–81; PULSE 76–104; RESP 16–24; TEMP 36.1–38.3; O2SAT 99–100
[2020-08-02 00:04] LABS: Glucose Point of Care 109 (65-105)
[2020-08-02] MEDS: SODIUM CHLORIDE 0.9% IV 1,000 ML 125 ML IV CONT ×3 (02:19→20:29)
[2020-08-02] MEDS: METOPROLOL TARTRATE INJ 5 MG/5 ML VIAL IV PUSH ×4 (05:24→23:56)
[2020-08-02] MEDS: AZTREONAM 1 GM in DEXTROSE 5% IN WATER 50 ML IVPB ×3 (05:25→22:18)
[2020-08-02] MEDS: CENTRAL LINE FLUSH 10 ML IV PUSH ×4 (05:26→21:07)
[2020-08-02 05:38] LABS: Glucose Point of Care 103 (65-105)
[2020-08-02] MEDS: PANTOPRAZOLE SODIUM IV 40 MG VIAL IV PUSH ×2 (08:50→21:03)
[2020-08-02] MEDS: levETIRAcetam 1000MG/NACL100ML 1,000 MG/100 ML BAG 400 MG IVPB ×2 (08:50→21:01)
[2020-08-02 11:35] LABS: Glucose Point of Care 113 (65-105)
--- NOTE | 2020-08-02 11:52 | PCDIET ---
Nutrition Follow-Up Complete: Nutrition Diagnosis: Inadequate oral intake related to dysphagia as evidenced by NPO status. Nutrition Goal: Patient to meet estimated nutritional needs. Goal in progress. Patient tolerating Glucerna 1.2 which is currently at 40mL/hr - advancing toward goal of 65mL/hr. Patient reports not feeling well, but denies GI c/o. Sleeping throughout much of discussion; spoke with . Last recorded weight is 113.4 kg which is stable. Bowel Motility: Last documented BM on 07/31/20. Labs Reviewed: Glu (103) Meds Noted: Aztreonam, Protonix, NS at 125mL/hr Additional Notes: No documented skin breakdown. Will continue to monitor with same goal. Nutrition Monitoring and Evaluation: Follow up every Wednesday/Wednesday.
[2020-08-02 13:18] LABS: Hematocrit 33.3 % (42.0-52.0); Hemoglobin 11.1 g/dL (14.0-18.0); Immature Platelet Fraction Pct 5.3 % (0.9-11.2); Mean Corpuscular HGB Conc 33.3 g/dl (32-36); Mean Corpuscular Hemoglobin 31.4 pg (26-34); Mean Corpuscular Volume 94.1 fl (80-100); Mean Platelet Volume 11.9 fl (7.4-10.4); Platelet Count Result 54 k/mm3 (150-375); Red Blood Count 3.54 M/mm3 (4.6-6.20); Red Cell Distribution Width 14.2 % (11.5-14.5); White Blood Count 7.9 K/mm3 (4.5-10.0)
--- NOTE | 2020-08-02 13:25 | WPDNEUROPN ---
Progress Note: A&P Assessment and Plan (1) Gram negative septicemia: Code(s): A41.50 - Gram-negative sepsis, unspecified Status: Acute (2) Aspiration pneumonia due to gastric secretions: Code(s): J69.0 - Pneumonitis due to inhalation of food and vomit Status: Acute (3) COVID-19 virus antibody negative: Code(s): Z01.84 - Encounter for antibody response examination Status: Acute (4) Sepsis: Qualifiers: Sepsis acute organ dysfunction status: without acute organ dysfunction Sepsis type: sepsis due to unspecified organism Qualified Code(s): A41.9 - Sepsis, unspecified organism Code(s): A41.9 - Sepsis, unspecified organism Status: Acute (5) Type II diabetes mellitus: Code(s): E11.9 - Type 2 diabetes mellitus without complications Status: Acute (6) Sleep apnea: Code(s): G47.30 - Sleep apnea, unspecified Status: Acute (7) Seizure: Code(s): R56.9 - Unspecified convulsions Status: Acute (8) DVT prophylaxis: Code(s): Z29.9 - Encounter for prophylactic measures, unspecified Status: Acute (9) HTN (hypertension): Code(s): I10 - Essential (primary) hypertension Status: Acute (10) Generalized weakness: Code(s): R53.1 - Weakness Status: Acute (11) Hypokalemia: Code(s): E87.6 - Hypokalemia Status: Acute (12) COVID-19 virus detected: Code(s): U07.1 - COVID-19 Status: Acute Additional Plan the management needs to be continued as such I will follow him periodically Review of Systems Review of Systems: All systems reviewed & are unremarkable except as noted in HPI and below Exam Narrative: Exam Narrative: patient is a little bit sleepy arousable with left-sided spastic hemiparesis does not seem to be postictal lungs reveal little rhonchi cardiovascular examination is stable abdomen soft tender extremities revealed contracture of the left upper extremity and developing contracture of the left lower extremity from the previous stroke Objective Data Vital Signs Vital Signs: Vital Signs - 24 hr 08/01/20 14:00 08/01/20 16:00 08/01/20 16:22 Temperature 35.7 C L Pulse Rate 97 96 Respiratory Rate 16 Blood Pressure 114/71 Pulse Oximetry 98 93 08/01/20 18:00 08/01/20 19:38 08/01/20 20:00 Temperature 36.3 C L Pulse Rate 101 H 98 105 H Respiratory Rate 22 H 22 H Blood Pressure 113/79 Pulse Oximetry 94 94 08/01/20 21:32 08/01/20 22:00 08/01/20 23:06 Temperature Pulse Rate 85 98 Respiratory Rate Blood Pressure Pulse Oximetry 95 08/02/20 00:00 08/02/20 02:00 08/02/20 03:54 Temperature 36.3 C L 36.9 C Pulse Rate 88 97 100 Respiratory Rate 16 18 Blood Pressure 120/79 112/75 Pulse Oximetry 99 99 08/02/20 04:00 08/02/20 05:24 08/02/20 06:00 Temperature Pulse Rate 100 85 83 Respiratory Rate 18 Blood Pressure Pulse Oximetry 99 08/02/20 07:48 08/02/20 08:00 08/02/20 10:00 Temperature 36.3 C L Pulse Rate 90 92 104 H Respiratory Rate 24 H Blood Pressure 118/71 Pulse Oximetry 100 08/02/20 11:26 08/02/20 13:15 Temperature 36.1 C L Pulse Rate 100 82 Respiratory Rate 22 H Blood Pressure 130/76 Pulse Oximetry 100 Intake/Output Intake/Output: Intake & Output 07/30/20 07/31/20 08/01/20 08/02/20 23:59 23:59 23:59 23:59 Intake Total 2650 4500 1480 1458 Output Total 200 423 406 5175 Balance 2450 4040 915 98 Meds/Results Medications: Active Medications Generic Name Dose Route Start Last Admin Trade Name Freq PRN Reason Stop Dose Admin Levetiracetam 1,000 mg in 100 mls @ 400 mls/hr 07/30/20 21:00 08/02/20 09:05 Keppra Iv IVPB Infused Q12HR HUDSON Infusion Sodium Chloride 1,000 mls @ 125 mls/hr 07/31/20 09:20 08/02/20 10:20 Normal Saline Iv IV CONT 125 mls/hr .Q8H HUDSON Administration Aztreonam 1 gm/ Dextrose 50 mls @ 100 mls/hr 07/31/20 15:45
[2020-08-02 13:28] LABS: Anion Gap 2 mmol/L (8-16); Blood Urea Nitrogen 22 mg/dL (9-20); Calcium 7.4 mg/dL (8.4-10.2); Carbon Dioxide 26 mmol/L (22-30); Chloride 119 mmol/L (98-107); Estimated CRCL calculation 85 ml/min; Estimated Glomerular Filt Rate > 60; Glucose 123 mg/dL (75-110); Potassium 3.5 mmol/L (3.4-5.0); Sodium 147 mmol/L (137-145)
--- NOTE | 2020-08-02 14:13 | PM.IMPN ---
Progress Note: A&P Assessment and Plan (1) Aspiration pneumonia due to gastric secretions: Code(s): J69.0 - Pneumonitis due to inhalation of food and vomit Status: Acute Assessment and Plan: Yair Philippe is a 64 year old male with a past medical history of recent stroke CT scan of the head showed significant injury. Stable appearance of large old infarct involving the right middle cerebral artery vascular distribution with secondary atrophy of the right thalamus and right cerebral peduncle. and patient has history of seizure had been taking Keppra 1000 mg t.i.d. patient is unable to provide any history or review of symptom, history is recorded from after discussing with the ER physician and patient's unfortunately she is a poor historian, [facility], his medications were changed, patient states the last night patient did not feel very well, he went to bed early, and this morning patient's put the patient on CPAP later he was breathing erratically and when his went to see patient had vomited any CPAP and he was quite somnolent and confused and patient was brought to the emergency department for further evaluation, most likely patient had aspirated and and suspect has a aspiration pneumonia, patient states that patient had been taking Keppra 1000 mg t.i.d. for quite some however recently dose was reduced to 1000 mg b.i.d. and this may have led the patient to have a seizure, and currently patient is a postictal was unable to communicate. patient is quite somnolent. patient was seen by neurologist MRI of the brain was ordered to further evaluate which did not show any acute injury, however neurologist suspect patient had a seizure is currently postictal. patient is treated with levaquin and flagyl. Dr. sims further recommendation, for abx, as per previous notes. pt doing better today after starting tube feeds. (2) Seizure: Code(s): R56.9 - Unspecified convulsions Status: Acute Assessment and Plan: plan is above (3) HTN (hypertension): Code(s): I10 - Essential (primary) hypertension Status: Acute Assessment and Plan: continue home regimen and monitor (4) Generalized weakness: Code(s): R53.1 - Weakness Status: Acute Assessment and Plan: will have a PT OT evaluate the patient (5) Sepsis: Qualifiers: Sepsis acute organ dysfunction status: without acute organ dysfunction Sepsis type: sepsis due to unspecified organism Qualified Code(s): A41.9 - Sepsis, unspecified organism Code(s): A41.9 - Sepsis, unspecified organism Status: Acute Assessment and Plan: plan is above most likely secondary to aspiration pneumonia Subjective Date/time seen: 08/02/20 14:13 Interval history: Yair Philippe is a 64 year old male with a past medical history of recent stroke CT scan of the head showed significant injury. Stable appearance of large old infarct involving the right middle cerebral artery vascular distribution with secondary atrophy of the right thalamus and right cerebral peduncle. and patient has history of seizure had been taking Keppra 1000 mg t.i.d. patient is unable to provide any history or review of symptom, history is recorded from after discussing with the ER physician and patient's unfortunately she is a poor historian, [facility], his medications were changed, patient states the last night patient did not feel very well. Pt looks better, after starting tube feeds. Review of Systems Review of Systems: All systems reviewed & are unremarkable except as noted in HPI and below Exam Narrative: Exam Narrative: patient is quite somnolent HEENT: neck no retraction LUNGS:CTA HEART: RR S1S2 ABD: BS+, Soft and nontender Lower extremities: no edema SKIN: nonjaundiced Neuro: quite somnolent. Object
--- NOTE | 2020-08-02 16:51 | WPDINFPN2 ---
Progress Note: A&P Assessment and Plan (1) Gram negative septicemia: Code(s): A41.50 - Gram-negative sepsis, unspecified Status: Acute Assessment and Plan: 1. Klebsiella bacteremia with infection, I suspect urine source despite UA. Persistent + BCs. I doubt pulmonary source. 2. Prior CT with hydronephrosis and a renal abnormality -- cyst vs mass 3. Recent UTI as his NH, per REC Aztreonam # 3, proceed with CT with and without contrast as suggested by radiologist. Subjective Date/time seen: 08/02/20 16:51 Interval history: no new complaints, thirsty, on ice chips, NG TF in process Exam Narrative: Exam Narrative: afebrile Const: General: no acute distress Eyes: General: appearance normal, both eyes and all related structures Resp: Effort & Inspection: normal respiratory effort Auscultation: clear to auscultation bilaterally Cardio: Rate: regular rate Rhythm: regular rhythm Heart sounds: no gallops and no murmurs GI: Inspection: non-distended GI Palp: Yes Soft to palpation, No Tenderness to palpation present (GI) and No Guarding due to palpation present (GI) Auscultation: normal bowel sounds Skin: General skin exam: no rashes or lesions noted Objective Data Vital Signs Vital Signs: Vital Signs - 24 hr 08/01/20 18:00 08/01/20 19:38 08/01/20 20:00 Temperature 36.3 C L Pulse Rate 101 H 98 105 H Respiratory Rate 22 H 22 H Blood Pressure 113/79 Pulse Oximetry 94 94 08/01/20 21:32 08/01/20 22:00 08/01/20 23:06 Temperature Pulse Rate 85 98 Respiratory Rate Blood Pressure Pulse Oximetry 95 08/02/20 00:00 08/02/20 02:00 08/02/20 03:54 Temperature 36.3 C L 36.9 C Pulse Rate 88 97 100 Respiratory Rate 16 18 Blood Pressure 120/79 112/75 Pulse Oximetry 99 99 08/02/20 04:00 08/02/20 05:24 08/02/20 06:00 Temperature Pulse Rate 100 85 83 Respiratory Rate 18 Blood Pressure Pulse Oximetry 99 08/02/20 07:48 08/02/20 08:00 08/02/20 10:00 Temperature 36.3 C L Pulse Rate 90 92 104 H Respiratory Rate 24 H Blood Pressure 118/71 Pulse Oximetry 100 08/02/20 11:26 08/02/20 13:15 08/02/20 15:57 Temperature 36.1 C L 37.7 C H Pulse Rate 100 82 89 Respiratory Rate 22 H 22 H Blood Pressure 130/76 128/75 Pulse Oximetry 100 100 Intake/Output Intake/Output: Intake & Output 07/30/20 07/31/20 08/01/20 08/02/20 23:59 23:59 23:59 23:59 Intake Total 2650 4500 1480 1458 Output Total 200 624 499 5278 Balance 2450 4040 915 -402 Meds/Results Medications: Active Medications Generic Name Dose Route Start Last Admin Trade Name Freq PRN Reason Stop Dose Admin Levetiracetam 1,000 mg in 100 mls @ 400 mls/hr 07/30/20 21:00 08/02/20 09:05 Keppra Iv IVPB Infused Q12HR HUDSON Infusion Sodium Chloride 1,000 mls @ 125 mls/hr 07/31/20 09:20 08/02/20 10:20 Normal Saline Iv IV CONT 125 mls/hr .Q8H HUDSON Administration Aztreonam 1 gm/ Dextrose 50 mls @ 100 mls/hr 07/31/20 15:45 08/02/20 05:55 IVPB Infused Q8HR HUDSON Infusion Metoprolol Tartrate 5 mg 07/30/20 18:00 08/02/20 13:15 Metoprolol Tartrate Inj 5 Mg/5 Ml Vial IV PUSH 5 mg Q6HR HUDSON Administration Pantoprazole Sodium 40 mg 07/30/20 21:00 08/02/20 08:50 Pantoprazole Sodium Iv 40 Mg Vial IV PUSH 40 mg Q12HR HUDSON Administration Sodium Chloride 10 ml 08/01/20 22:00 08/02/20 05:26 Central Line Flush IV PUSH 10 ml Q8HR HUDSON Administration Sodium Chloride 10 ml 08/01/20 18:00 08/01/20 18:54 Central Line Flush IV PUSH Not Given DAILY@1800 HUDSON Sodium Chloride 20 ml 08/01/20 15:13 Central Line Flush IV PUSH PRN PRN after blood draws Radiology Results: ITS Impressions Head CT 07/30/20 07:44 IMPRESSION: 1. Stable appearance of large old infarct involving the right middle cerebral artery vascular distribution with secondary atrophy of the right thalamus and right cerebral peduncle. 2. Additional sma
[2020-08-02 17:18] LABS: Glucose Point of Care 103 (65-105)
[2020-08-03] VITALS (22 sets, daily range): BP systolic 121–146; BP diastolic 72–88; PULSE 75–101; RESP 18–28; TEMP 35.9–36.5; O2SAT 96–100; BMI 10.0
[2020-08-03 00:25] LABS: Glucose Point of Care 116 (65-105)
[2020-08-03] MEDS: CENTRAL LINE FLUSH 20 ML IV PUSH (04:24)
[2020-08-03 04:46] LABS: Hematocrit 33.1 % (42.0-52.0); Hemoglobin 10.7 g/dL (14.0-18.0); Immature Platelet Fraction Pct 5.7 % (0.9-11.2); Mean Corpuscular HGB Conc 32.3 g/dl (32-36); Mean Corpuscular Hemoglobin 30.7 pg (26-34); Mean Corpuscular Volume 95.1 fl (80-100); Mean Platelet Volume 11.9 fl (7.4-10.4); Platelet Count Result 49 k/mm3 (150-375); Red Blood Count 3.48 M/mm3 (4.6-6.20); Red Cell Distribution Width 14.5 % (11.5-14.5); White Blood Count 5.9 K/mm3 (4.5-10.0)
[2020-08-03] MEDS: SODIUM CHLORIDE 0.9% IV 1,000 ML 125 ML IV CONT ×2 (04:50→15:47)
[2020-08-03 05:06] LABS: Anion Gap 2 mmol/L (8-16); Blood Urea Nitrogen 20 mg/dL (9-20); Calcium 7.5 mg/dL (8.4-10.2); Carbon Dioxide 26 mmol/L (22-30); Chloride 119 mmol/L (98-107); Estimated CRCL calculation 86 ml/min; Estimated Glomerular Filt Rate > 60; Glucose 124 mg/dL (75-110); Potassium 3.5 mmol/L (3.4-5.0); Sodium 147 mmol/L (137-145)
[2020-08-03] MEDS: AZTREONAM 1 GM in DEXTROSE 5% IN WATER 50 ML IVPB ×3 (06:27→22:29)
[2020-08-03] MEDS: METOPROLOL TARTRATE INJ 5 MG/5 ML VIAL IV PUSH ×3 (06:27→23:43)
[2020-08-03] MEDS: CENTRAL LINE FLUSH 10 ML IV PUSH ×4 (06:27→21:44)
[2020-08-03 06:35] LABS: Glucose Point of Care 111 (65-105)
--- NOTE | 2020-08-03 09:26 | PCOTNOTE ---
Practitioner attempted to have patient perform therapy this date, but patient was gone for a test/procedure according to nursing. Will attempt therapy session at a later date.
--- NOTE | 2020-08-03 09:33 | PCSTNOTE ---
No treatment completed this date; patient was sleeping and not alert for safe swallow treatment
[2020-08-03] MEDS: levETIRAcetam 1000MG/NACL100ML 1,000 MG/100 ML BAG 400 MG IVPB ×2 (10:50→21:32)
[2020-08-03] MEDS: PANTOPRAZOLE SODIUM IV 40 MG VIAL IV PUSH ×2 (10:56→21:32)
[2020-08-03 11:52] LABS: Glucose Point of Care 90 (65-105)
--- NOTE | 2020-08-03 15:18 | PM.IMPN ---
Progress Note: A&P Assessment and Plan (1) Aspiration pneumonia due to gastric secretions: Code(s): J69.0 - Pneumonitis due to inhalation of food and vomit Status: Acute Assessment and Plan: Yair Philippe is a 64 year old male with a past medical history of recent stroke CT scan of the head showed significant injury. Stable appearance of large old infarct involving the right middle cerebral artery vascular distribution with secondary atrophy of the right thalamus and right cerebral peduncle. and patient has history of seizure had been taking Keppra 1000 mg t.i.d. patient is unable to provide any history or review of symptom, history is recorded from after discussing with the ER physician and patient's unfortunately she is a poor historian, [facility], his medications were changed. bacteriemia ? cause. believed intially to be related to aspiration, but now felt to be uti and renal abnormality. See ct abdo and pelvis for details. (2) Seizure: Code(s): R56.9 - Unspecified convulsions Status: Acute Assessment and Plan: plan is above (3) HTN (hypertension): Code(s): I10 - Essential (primary) hypertension Status: Acute Assessment and Plan: continue home regimen and monitor (4) Generalized weakness: Code(s): R53.1 - Weakness Status: Acute Assessment and Plan: will have a PT OT evaluate the patient (5) Sepsis: Qualifiers: Sepsis acute organ dysfunction status: without acute organ dysfunction Sepsis type: sepsis due to unspecified organism Qualified Code(s): A41.9 - Sepsis, unspecified organism Code(s): A41.9 - Sepsis, unspecified organism Status: Acute Assessment and Plan: plan is above most likely secondary to uti and renal abnormality - klebseilla in blood culture- pt is seen by id pt is on Aztreonam Subjective Date/time seen: 08/03/20 15:18 Interval history: Yair Philippe is a 64 year old male with a past medical history of recent stroke CT scan of the head showed significant injury. Stable appearance of large old infarct involving the right middle cerebral artery vascular distribution with secondary atrophy of the right thalamus and right cerebral peduncle. and patient has history of seizure had been taking Keppra 1000 mg t.i.d. patient is unable to provide any history or review of symptom, history is recorded from after discussing with the ER physician and patient's unfortunately she is a poor historian, patient was [facility], his medications were changed. bacteriemia ? cause. believed intially to be related to aspiration likely to be uti and renal abnormality. see ct abdo and pelvis for details. Pt was very lethargic had NG placed and tube feeds started, unfortunately NG tube fell out. Pt can have barium swallow test and ng tube reinserted and tube feeds restarted, discussion with in the room. Review of Systems Review of Systems: ROS unobtainable: Yes unobtainable due to mental status Exam Narrative: Exam Narrative: patient is quite somnolent HEENT: neck no retraction LUNGS:CTA HEART: RR S1S2 ABD: BS+, Soft and nontender Lower extremities: no edema SKIN: nonjaundiced Neuro: quite somnolent. Objective Data Vital Signs Vital Signs: Vital Signs - 24 hr 08/02/20 15:57 08/02/20 16:00 08/02/20 17:32 Temperature 37.7 C H Pulse Rate 89 82 98 Respiratory Rate 22 H Blood Pressure 128/75 Pulse Oximetry 100 08/02/20 18:00 08/02/20 19:22 08/02/20 20:00 Temperature 38.3 C H Pulse Rate 85 84 84 Respiratory Rate 22 H 22 H Blood Pressure 131/78 Pulse Oximetry 99 99 08/02/20 22:00 08/02/20 23:55 08/02/20 23:56 Temperature 36.4 C L Pulse Rate 76 91 93 Respiratory Rate 20 Blood Pressure 120/81 Pulse Oximetry 100 08/03/20 00:00 08/03/20 01:54 08/03/20 04:00 Temperature P
[2020-08-03 16:55] LABS: Glucose Point of Care 95 (65-105)
[2020-08-03 23:50] LABS: Glucose Point of Care 111 (65-105)
[2020-08-04] VITALS (17 sets, daily range): BP systolic 119–129; BP diastolic 65–74; PULSE 63–91; RESP 18–24; TEMP 35.8–36.9; O2SAT 97–100
[2020-08-04] MEDS: SODIUM CHLORIDE 0.9% IV 1,000 ML 125 ML IV CONT ×3 (01:24→20:41)
[2020-08-04] MEDS: AZTREONAM 1 GM in DEXTROSE 5% IN WATER 50 ML IVPB (05:22)
[2020-08-04] MEDS: CENTRAL LINE FLUSH 10 ML IV PUSH ×4 (05:23→20:44)
[2020-08-04] MEDS: CENTRAL LINE FLUSH 20 ML IV PUSH (05:23)
[2020-08-04] MEDS: METOPROLOL TARTRATE INJ 5 MG/5 ML VIAL IV PUSH ×4 (05:25→23:57)
[2020-08-04 05:36] LABS: Glucose Point of Care 131 (65-105)
[2020-08-04 05:47] LABS: Hematocrit 32.9 % (42.0-52.0); Hemoglobin 10.5 g/dL (14.0-18.0); Immature Platelet Fraction Pct 5.2 % (0.9-11.2); Mean Corpuscular HGB Conc 31.9 g/dl (32-36); Mean Corpuscular Hemoglobin 30.8 pg (26-34); Mean Corpuscular Volume 96.5 fl (80-100); Mean Platelet Volume 11.6 fl (7.4-10.4); Platelet Count Result 68 k/mm3 (150-375); Red Blood Count 3.41 M/mm3 (4.6-6.20); Red Cell Distribution Width 14.5 % (11.5-14.5); White Blood Count 4.8 K/mm3 (4.5-10.0)
[2020-08-04 05:58] LABS: Anion Gap 0 mmol/L (8-16); Blood Urea Nitrogen 20 mg/dL (9-20); Calcium 7.4 mg/dL (8.4-10.2); Carbon Dioxide 28 mmol/L (22-30); Chloride 120 mmol/L (98-107); Estimated CRCL calculation 78 ml/min; Estimated Glomerular Filt Rate > 60; Glucose 135 mg/dL (75-110); Potassium 3.5 mmol/L (3.4-5.0); Sodium 148 mmol/L (137-145)
[2020-08-04] MEDS: PANTOPRAZOLE SODIUM IV 40 MG VIAL IV PUSH ×2 (08:37→20:42)
[2020-08-04] MEDS: levETIRAcetam 1000MG/NACL100ML 1,000 MG/100 ML BAG 400 MG IVPB ×2 (08:37→20:44)
--- NOTE | 2020-08-04 11:15 | PCSTNOTE ---
Please refer to the Modified Barium Swallow Evaluation in the EMR.
--- NOTE | 2020-08-04 11:54 | PC.NURSE ---
Pt passed swallow study and is on a full liquid diet. No straws. Dr. Bhatti ordered NG tube to be removed.
[2020-08-04 12:33] LABS: Glucose Point of Care 129 (65-105)
[2020-08-04] MEDS: AZTREONAM 1 GM in DEXTROSE 5% IN WATER 50 ML 100 ML IVPB ×2 (13:22→20:42)
--- NOTE | 2020-08-04 15:05 | PM.IMPN ---
Progress Note: A&P Assessment and Plan (1) Seizure: Code(s): R56.9 - Unspecified convulsions Status: Acute Assessment and Plan: plan is below (2) HTN (hypertension): Code(s): I10 - Essential (primary) hypertension Status: Acute Assessment and Plan: continue home regimen and monitor (3) Generalized weakness: Code(s): R53.1 - Weakness Status: Acute Assessment and Plan: will have a PT OT evaluate the patient (4) Sepsis: Qualifiers: Sepsis acute organ dysfunction status: without acute organ dysfunction Sepsis type: sepsis due to unspecified organism Qualified Code(s): A41.9 - Sepsis, unspecified organism Code(s): A41.9 - Sepsis, unspecified organism Status: Acute Assessment and Plan: Yair Philippe is a 64 year old male with a past medical history of recent stroke CT scan of the head showed significant injury. Stable appearance of large old infarct involving the right middle cerebral artery vascular distribution with secondary atrophy of the right thalamus and right cerebral peduncle. and patient has history of seizure had been taking Keppra 1000 mg t.i.d. patient is unable to provide any history or review of symptom, history is recorded from after discussing with the ER physician and patient's unfortunately she is a poor historian, [facility], his medications were changed. bacteriemia ? cause. believed intially to be related to aspiration, but now felt to be uti and renal abnormality. See ct abdo and pelvis for details. Sepsis most likely secondary to uti and renal abnormality - klebseilla in blood culture- pt is seen by ID pt is on Aztreonam Pt passed swallow test can start full liquid diet Subjective Date/time seen: 08/04/20 15:05 Interval history: Yair Philippe is a 64 year old male with a past medical history of recent stroke CT scan of the head showed significant injury. Stable appearance of large old infarct involving the right middle cerebral artery vascular distribution with secondary atrophy of the right thalamus and right cerebral peduncle. and patient has history of seizure had been taking Keppra 1000 mg t.i.d. patient is unable to provide any history or review of symptom, history is recorded from after discussing with the ER physician and patient's unfortunately she is a poor historian, [facility], his medications were changed. bacteriemia ? cause. believed intially to be related to aspiration likely to be uti and renal abnormality. see ct abdo and pelvis for details. Pt was very lethargic had NG placed and tube feeds started, unfortunately NG tube fell out. Pt had barium swallow when he passed pt can try full liquid diet today. Review of Systems Review of Systems: All systems reviewed & are unremarkable except as noted in HPI and below Exam Narrative: Exam Narrative: patient is fatigued HEENT: neck no retraction LUNGS:CTA HEART: RR S1S2 ABD: BS+, Soft and nontender Lower extremities: no edema Neuro: fatigued but able to move Objective Data Vital Signs Vital Signs: Vital Signs - 24 hr 08/03/20 15:50 08/03/20 16:00 08/03/20 16:59 Temperature 36.2 C L Pulse Rate 75 80 80 Respiratory Rate 22 H Blood Pressure 130/72 Pulse Oximetry 97 08/03/20 17:42 08/03/20 18:00 08/03/20 18:55 Temperature 36.2 C L Pulse Rate 89 84 88 Respiratory Rate 28 H Blood Pressure 122/80 Pulse Oximetry 98 08/03/20 20:00 08/03/20 22:00 08/03/20 23:43 Temperature Pulse Rate 88 75 97 Respiratory Rate 28 H Blood Pressure Pulse Oximetry 98 08/03/20 23:48 08/04/20 00:00 08/04/20 02:00 Temperature 36.5 C Pulse Rate 101 H 74 87 Respiratory Rate 18 18 Blood Pressure 121/74 Pulse Oximetry 97 97 08/04/20 04:00 08/04/20 05:25 08/04/20 06:00 Temperature 35.8 C L Pulse Rate 63 74 63
[2020-08-04 16:41] LABS: Glucose Point of Care 141 (65-105)
[2020-08-04 20:24] LABS: Glucose Point of Care 118 (65-105)
[2020-08-04 23:58] LABS: Glucose Point of Care 108 (65-105)
[2020-08-05] VITALS (17 sets, daily range): BP systolic 126–146; BP diastolic 62–111; PULSE 61–128; RESP 16–24; TEMP 35.8–37.1; O2SAT 90–99
[2020-08-05] MEDS: AZTREONAM 1 GM in DEXTROSE 5% IN WATER 50 ML 100 ML IVPB ×3 (05:18→21:24)
[2020-08-05] MEDS: METOPROLOL TARTRATE INJ 5 MG/5 ML VIAL IV PUSH ×2 (05:19→17:33)
[2020-08-05] MEDS: SODIUM CHLORIDE 0.9% IV 1,000 ML 125 ML IV CONT ×3 (05:20→18:50)
[2020-08-05] MEDS: CENTRAL LINE FLUSH 10 ML IV PUSH ×4 (05:20→21:24)
[2020-08-05 05:34] LABS: Hematocrit 30.9 % (42.0-52.0); Hemoglobin 10.3 g/dL (14.0-18.0); Mean Corpuscular HGB Conc 33.3 g/dl (32-36); Mean Corpuscular Hemoglobin 30.8 pg (26-34); Mean Corpuscular Volume 92.5 fl (80-100); Mean Platelet Volume 11.5 fl (7.4-10.4); Platelet Count Result 90 k/mm3 (150-375); Red Blood Count 3.34 M/mm3 (4.6-6.20); Red Cell Distribution Width 13.8 % (11.5-14.5); White Blood Count 5.7 K/mm3 (4.5-10.0)
[2020-08-05 06:02] LABS: Anion Gap 3 mmol/L (8-16); Blood Urea Nitrogen 18 mg/dL (9-20); Calcium 7.4 mg/dL (8.4-10.2); Carbon Dioxide 25 mmol/L (22-30); Chloride 116 mmol/L (98-107); Estimated CRCL calculation 89 ml/min; Estimated Glomerular Filt Rate > 60; Glucose 120 mg/dL (75-110); Potassium 3.3 mmol/L (3.4-5.0); Sodium 144 mmol/L (137-145)
[2020-08-05] MEDS: PANTOPRAZOLE SODIUM IV 40 MG VIAL IV PUSH ×2 (09:25→20:45)
[2020-08-05] MEDS: levETIRAcetam 1000MG/NACL100ML 1,000 MG/100 ML BAG 400 MG IVPB ×2 (09:25→20:45)
--- NOTE | 2020-08-05 11:14 | WPDANESEPPF ---
Anes - Initial Pre Proc Eval Procedure: Operation Date: 08/05/20 12:00 Proposed Procedures p Cystoscopy Left Stent Placement - Tino Caba MD Date/Time: 08/05/20 11:14 Surgeon: Kyara Wu MD Pre Op Diagnosis: Sepsis/Aspiration/possible seizure Patient Data Age: 64 Gender: M Height: 1.68 m Weight: 124 kg Last Vital Signs Temp 36.2 C L 08/05/20 08:00 Pulse 73 08/05/20 08:00 Resp 22 H 08/05/20 08:00 BP 140/80 08/05/20 08:00 Pulse Ox 97 08/05/20 08:00 Allergies Allergy/AdvReac Type Severity Reaction Status Date / Time Penicillins Allergy Severe Stopped Verified 07/30/20 11:14 Breathing Home Medications Medication Instructions Recorded Confirmed Type aspirin 81 mg PO QAM 05/16/20 07/30/20 History atorvastatin 80 mg PO HS 05/16/20 07/30/20 History escitalopram oxalate 40 mg PO QAM 05/16/20 07/30/20 History esomeprazole magnesium 40 mg PO QAM 05/16/20 07/30/20 History gabapentin 300 mg PO HS 05/16/20 07/30/20 History levetiracetam 1,000 mg PO QAM 05/16/20 07/30/20 History metoprolol succinate 50 mg PO BID 05/16/20 07/30/20 History pramipexole 1 mg PO QPM 05/16/20 07/30/20 History cholecalciferol (vitamin D3) 25 mcg PO DAILY 05/17/20 07/30/20 History [Vitamin D3] cyanocobalamin (vitamin B-12) 1,000 mcg PO DAILY 05/17/20 07/30/20 History [Vitamin B-12] levetiracetam 1,000 mg PO QPM 05/17/20 07/30/20 History clonazepam 0.5 mg PO QPM PRN 07/30/20 07/30/20 History glipizide 5 mg PO QAM 07/30/20 07/30/20 History hydrochlorothiazide 25 mg PO DAILY 07/30/20 07/30/20 History tamsulosin 0.4 mg PO DAILY 07/30/20 07/30/20 History venlafaxine 75 mg PO DAILY 07/30/20 07/30/20 History Laboratory Tests 08/04/20 08/04/20 08/04/20 12:30 16:28 20:17 WBC RBC Hgb Hct MCV MCH MCHC RDW Plt Count MPV Sodium Potassium Chloride Carbon Dioxide Anion Gap BUN Creatinine Estim Creat Clear Calc Estimated GFR Glucose POC Capillary Glucose 129 mg/dl H mg/dl 141 mg/dl H mg/dl 118 mg/dl H mg/dl (65-105) (65-105) (65-105) Calcium 08/04/20 08/05/20 08/05/20 23:55 05:24 05:24 WBC 5.7 K/mm3 K/mm3 (4.5-10.0) RBC 3.34 M/mm3 L M/mm3 (4.6-6.20) Hgb 10.3 g/dL L g/dL (14.0-18.0) Hct 30.9 % L % (42.0-52.0) MCV 92.5 fl fl (80-100) MCH 30.8 pg pg (26-34) MCHC 33.3 g/dl g/dl (32-36) RDW 13.8 % % (11.5-14.5) Plt Count 90 k/mm3 L k/mm3 (150-375) MPV 11.5 fl H fl (7.4-10.4) Sodium 144 mmol/L mmol/L (137-145) Potassium 3.3 mmol/L L mmol/L (3.4-5.0) Chloride 116 mmol/L H mmol/L (98-107) Carbon Dioxide 25 mmol/L mmol/L (22-30) Anion Gap 3 mmol/L L mmol/L (8-16) BUN 18 mg/dL mg/dL (9-20) Creatinine 0.90 mg/dL mg/dL (0.7-1.3) Estim Creat Clear Calc 89 ml/min ml/min Estimated GFR > 60 (59 - ) Glucose 120 mg/dL H mg/dL (75-110) POC Capillary Glucose 108 mg/dl mg/dl (65-105) Calcium 7.4 mg/dL L mg/dL (8.4-10.2) ECG: Date of Service: 07/30/20 Procedure(s): CA 12 lead EKG Accession Number(s): [id number] cc: ~ Measurements Intervals [place] Rate: 124 P: 39 VT: 154 QRS: -66 QRSD: 88 T: 20 QT: 321 QTc: 462 Interpretive Statements SINUS TACHYCARDIA LEFT ANTERIOR FASCICULAR BLOCK
[2020-08-05 11:33] LABS: Glucose Point of Care 200 (65-105)
--- NOTE | 2020-08-05 11:43 | WPDURCON ---
Assessment and Plan Assessment and plan (1) Sepsis: Qualifiers: Sepsis acute organ dysfunction status: without acute organ dysfunction Sepsis type: sepsis due to unspecified organism Qualified Code(s): A41.9 - Sepsis, unspecified organism Code(s): A41.9 - Sepsis, unspecified organism Status: Acute Assessment and Plan: Continue broad-spectrum antibiotics based on Klebsiella in his blood culture (2) Bilateral kidney stones: Code(s): N20.0 - Calculus of kidney Status: Acute (3) Left ureteral stone: Code(s): N20.1 - Calculus of ureter Status: Acute Assessment and Plan: Will be taken to the operating room today for cysto and left ureteral stent placement to hopefully drain any undrained pyelonephritis. I spoke with him and his . They understand the risks, benefits, and alternatives. They also understand he may again get febrile. (4) Hydronephrosis: Code(s): N13.30 - Unspecified hydronephrosis Status: Acute Assessment and Plan: Secondary to several obstructing stones. (5) Renal lesion: Code(s): N28.9 - Disorder of kidney and ureter, unspecified Status: Acute Assessment and Plan: Further workup after acute situation resolves. Urology Consult Note HPI Date Seen: 08/05/20 Requesting Physician: Kyara Wu MD Primary Care Provider: Non applicable Consult Narrative Narrative: Yair Philippe is a 64 year old male with a history of nephrolithiasis. He has had stones treated at [facility] before. It sounds like he was treated with lithotripsy. He has a history of stroke. He is a poor historian. He was in the hospital over the summer with COVID-19. He was discharged to a care home. His recently took him home. He returned to the hospital 6 days ago with fever and sepsis. The thought was that it was aspiration. He has positive blood cultures for Klebsiella. CT scan done yesterday shows bilateral nephrolithiasis. Shows an intermediate renal lesion. More importantly it shows left hydronephrosis with several obstructing distal ureteral stones. There was also inflammation and stranding around the kidney concerning for pyelonephritis that is not being adequately drained. He has been in the hospital for several days on IV antibiotics. He overall appears stable at this point but again I suspect infection is not being adequately drained. I spoke to him and his . He be taken the operating room for left ureteral stent with definitive stone management to follow. His understands the risks of bleeding, worsening infection, inability to place the stent. His understands that manipulation with stent placement may exacerbate his septic state. They agreed to proceed. Review of Systems Review of Systems: All systems reviewed & are unremarkable except as noted in HPI and below PMFSH Past Medical History Medical History (Updated 08/05/20 @ 11:50 by Tino Caba MD) Anxiety Carcinoid tumor COVID-19 virus detected 05/12/20 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 Occurred on 09/30/17. 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 Rare alcohol use. No drug use. Lives at home with his and [id number]. Full code. He nominates his to be the individual would make medical decisions for him if he is not able. Smoking status: Unknown if ever smoked Second
[2020-08-05] MEDS: LACTATED RINGERS 1,000 ML 30 ML IV CONT (11:46)
--- NOTE | 2020-08-05 12:01 | PC.NURSE ---
This patient, Yair Philippe, was transferred to [facility] on 08/05/20 at 1155. Personal belongings sent to patient's room since patient is still having procdure with urology. Report given to No KERN. Appropriate documentation sent with patient.
[2020-08-05] MEDS: LIDOCAINE HCL 2% GEL UROJET 10 ML PKG MUCOUS MEM (12:14)
--- NOTE | 2020-08-05 12:29 | P.OP_ITS ---
Procedure Note - Detailed Date of procedure: 08/05/20 Pre-op diagnosis: Sepsis/Aspiration/possible seizure Left ureteral stones Hydronephrosis Post-op diagnosis: same Procedure performed: Cystoscopy, left retrograde pyelogram, left ureteral stent placement Description of procedure: He was correctly identified inform this is obtained. From the operating room. He is given general anesthesia. Placed in dorsal thigh position. Pressure points were padded. He was already on antibiotics. Time-out performed. Cystoscopy revealed a loculated. appearing bladder. He had a Samir tree pattern consistent with possible neurogenic bladder. There is also some redness consistent with infection. I did a gentle retrograde pyelogram on the left. He had hydronephrosis to the level of the bladder. I placed an angled Glidewire to the kidney. I placed the 8 Italian dilator over the Glidewire. I did retrograde pyelogram to outline renal anatomy. I placed a 4.8 variable length stent. Proximal coil was in the full kidney. Distal coil in the bladder. A Randolph catheter was placed. He was awakened and transferred to the PACU in stable condition. Implants: 4.8 variable length stent Anesthesia: GLMA Surgeon: Tino Caba MD Drains: Yes (Stent and Randolph) Complications: No immediate complications Condition: stable Disposition: PACU
--- NOTE | 2020-08-05 12:33 | PM.IMPN ---
Progress Note: A&P Assessment and Plan (1) Seizure: Code(s): R56.9 - Unspecified convulsions Status: Acute Assessment and Plan: plan is below (2) HTN (hypertension): Code(s): I10 - Essential (primary) hypertension Status: Acute Assessment and Plan: continue home regimen and monitor (3) Generalized weakness: Code(s): R53.1 - Weakness Status: Acute Assessment and Plan: will have a PT OT evaluate the patient (4) Sepsis: Qualifiers: Sepsis acute organ dysfunction status: without acute organ dysfunction Sepsis type: sepsis due to unspecified organism Qualified Code(s): A41.9 - Sepsis, unspecified organism Code(s): A41.9 - Sepsis, unspecified organism Status: Acute Assessment and Plan: Yair Philippe is a 64 year old male with a past medical history of recent stroke CT scan of the head showed significant injury. Stable appearance of large old infarct involving the right middle cerebral artery vascular distribution with secondary atrophy of the right thalamus and right cerebral peduncle. and patient has history of seizure had been taking Keppra 1000 mg t.i.d. patient is unable to provide any history or review of symptom, history is recorded from after discussing with the ER physician and patient's unfortunately she is a poor historian, [facility], his medications were changed. bacteriemia ? cause. believed intially to be related to aspiration, but now felt to be uti and renal abnormality. See ct abdo and pelvis for details. Sepsis most likely secondary to uti and renal abnormality - klebseilla in blood culture- pt is seen by ID pt is on Aztreonam Pt passed swallow test can start full liquid diet 08/05 interval history patient with Klebsiella bacteremia infection seen by Dr. sims suspect urinary source pt is on Aztreonam further evaluate patient had CT scan of the abdomen which showed 1. Bilateral nephrolithiasis with collection of obstructing stones in the distal left ureter steinstrasse resulting in moderate left hydroureteronephrosis and likely left pyelonephritis. Recommend urologic consultation. 2. 2.5 cm left renal lesion of concern without evident enhancement consistent with benign complex proteinaceous/hemorrhagic cyst. patient seen by Urology and is taken to urology lab for cystoscopy and further evaluation managed and further recommendation to follow. in terms of seizure patient is seen by neurologist and continue Keppra 1000 mg b.i.d. patient remained stable while in the hospital, today patient is able to provide some history states not feeling very well, his is present room, states he is feeling much better compared to when he arrived, Subjective Date/time seen: 08/05/20 12:33 Interval history: Yair Philippe is a 64 year old male with a past medical history of recent stroke CT scan of the head showed significant injury. Stable appearance of large old infarct involving the right middle cerebral artery vascular distribution with secondary atrophy of the right thalamus and right cerebral peduncle. and patient has history of seizure had been taking Keppra 1000 mg t.i.d. patient is unable to provide any history or review of symptom, history is recorded from after discussing with the ER physician and patient's unfortunately she is a poor historian, [facility], his medications were changed. bacteriemia ? cause. believed intially to be related to aspiration likely to be uti and renal abnormality. see ct abdo and pelvis for details. Pt was very lethargic had NG placed and tube feeds started, unfortunately NG tube fell out. Pt had barium swallow when he passed pt can try full liquid diet today. 08/05 interval history patient with Klebsiella bacteremia infection seen by Dr. sims suspect urinary source pt is on Aztreonam further evaluate pat
[2020-08-05 12:49] LABS: Glucose Point of Care 136 (65-105)
--- NOTE | 2020-08-05 13:36 | SUR.PHASEI ---
326 sbar faxed floor notified
--- NOTE | 2020-08-05 13:51 | PCSTNOTE ---
Attempted ST tx in room 259 however, pt went down to surgery and will be going to IMU after. Pt not available to tx.
--- NOTE | 2020-08-05 14:33 | PCDIET ---
Nutrition Follow-Up Complete: Nutrition Diagnosis: Inadequate oral intake related to dysphagia as evidenced by NPO status. Nutrition Goal: Patient to meet estimated nutritional needs. Goal in progress. Patient passed swallow evaluation, and diet has advanced to full liquid with intakes 10-100%. Recommend adding Glucerna Shake (220kcal, 10g protein) TID with meals until intakes consistently >75%. Recommend diabetic, carbohydrate controlled diet and potassium replacement, if medically appropriate. Last recorded weight is 124 kg which is increased from last review. I/O significantly positive. Recommend close tracking of I/O. Bowel Motility: Liquid BM documented this morning. Labs Reviewed: Hgb (10.3), Hct (30.9), Glu (120), K (3.3) Meds Noted: Aztreonam, Lopressor, Protonix, NS at 125mL/hr Additional Notes: POD #0 s/p cystoscopy, left retrograde pyelogram and left ureteral stent placement. No documented skin breakdown. Will continue to monitor with same goal. Nutrition Monitoring and Evaluation: Follow up every 3 days.
--- NOTE | 2020-08-05 15:07 | WPDINFPN2 ---
Progress Note: A&P Assessment and Plan (1) Gram negative septicemia: Code(s): A41.50 - Gram-negative sepsis, unspecified Status: Acute Assessment and Plan: 1. Klebsiella bacteremia with infection, urine source. CT reviewed. POD # 0 stent . 2. Renal cyst, probably not infected 3. Kidney stones --> ureter 4. Recent UTI as his NH, per 5. PCN --> apnea REC Aztreonam # 6, continue at least 2 days more. Disc with patient and at bedside. Subjective Date/time seen: 08/05/20 15:07 Interval history: post op, earlier noted some bladder irritation with the catheter Exam Narrative: Exam Narrative: afebrile Const: General: no acute distress Eyes: General: appearance normal, both eyes and all related structures Resp: Effort & Inspection: normal respiratory effort Auscultation: clear to auscultation bilaterally Cardio: Rate: regular rate Rhythm: regular rhythm Heart sounds: no gallops and no murmurs GI: Inspection: non-distended GI Palp: Yes Soft to palpation and No Tenderness to palpation present (GI) Skin: General skin exam: normal color and no rashes or lesions noted Objective Data Vital Signs Vital Signs: Vital Signs - 24 hr 08/04/20 16:00 08/04/20 16:22 08/04/20 17:21 Temperature 36.9 C Pulse Rate 75 71 73 Respiratory Rate 24 H Blood Pressure 124/65 Pulse Oximetry 97 08/04/20 18:00 08/04/20 20:00 08/04/20 22:00 Temperature 36.3 C L Pulse Rate 75 79 80 Respiratory Rate 22 H Blood Pressure 123/70 Pulse Oximetry 97 08/04/20 23:57 08/05/20 00:00 08/05/20 02:00 Temperature 36.1 C L Pulse Rate 91 76 90 Respiratory Rate 22 H Blood Pressure 132/72 Pulse Oximetry 90 08/05/20 04:00 08/05/20 05:19 08/05/20 06:00 Temperature 36.4 C L Pulse Rate 61 80 79 Respiratory Rate 22 H Blood Pressure 126/62 Pulse Oximetry 97 08/05/20 08:00 08/05/20 12:45 08/05/20 12:55 Temperature 36.2 C L 37.1 C Pulse Rate 73 128 H 113 H Respiratory Rate 22 H 22 H 24 H Blood Pressure 140/80 130/111 H Pulse Oximetry 97 99 98 08/05/20 13:10 08/05/20 13:25 08/05/20 13:40 Temperature Pulse Rate 114 H 111 H 110 H Respiratory Rate 20 20 16 Blood Pressure 135/97 H 128/92 H 137/90 Pulse Oximetry 95 92 96 08/05/20 14:10 Temperature 36.8 C Pulse Rate 101 H Respiratory Rate 24 H Blood Pressure 145/104 H Pulse Oximetry 98 Intake/Output Intake/Output: Intake & Output 08/02/20 08/03/20 08/04/20 08/05/20 23:59 23:59 23:59 23:59 Intake Total 3405 4024 4063 1570 Output Total 1860 1450 890 Balance 1545 2574 4063 680 Meds/Results Medications: Active Medications Generic Name Dose Route Start Last Admin Trade Name Freq PRN Reason Stop Dose Admin Artificial Tears 1 drop 08/04/20 16:57 08/04/20 18:09 Artificial Tears Op Soln 15 Ml Bottle EACH EYE 1 drop QID PRN Administration Dry Eye(s) Fentanyl Citrate 25 mcg 08/05/20 11:13 Fentanyl Citrate Inj (*Crx) 100 Mcg/2 Ml Vial IV PUSH Q2M PRN Pain Hydromorphone HCl 0.25 mg 08/05/20 11:13 Hydromorphone Hcl Inj (*Crx) 1 Mg/Ml Syr IV PUSH Q5M PRN Pain Levetiracetam 1,000 mg in 100 mls @ 400 mls/hr 07/30/20 21:00 08/05/20 09:25 Keppra Iv IVPB 400 mls/hr Q12HR HUDSON Administration Sodium Chloride 1,000 mls @ 125 mls/hr 07/31/20 09:20 08/05/20 05:20 Normal Saline Iv IV CONT 125 mls/hr .Q8H HUDSON Administration Aztreonam 1 gm/ Dextrose 50 mls @ 100 mls/hr 08/04/20 14:00 08/05/20 05:18 IVPB 100 mls/hr Q8HR HUDSON Administration Lactated Ringer's 1,000 mls @ 30 mls/hr 08/05/20 11:15 08/05/20 13:58 Lr - Lactated Ringers Iv IV CONT Infused .Q24H HUDSON Infusion Lactated Ringer's 1,000 mls @ 30 mls/hr 08/05/20 11:15 Lr - Lactated Ringers Iv IV CONT .Q24H HUDSON Metoprolol Tartrate 5 mg 07/30/20 18:00 08/05/20 05:19 Metoprolol Tartrate Inj 5 Mg/5 Ml Vial IV PUSH 5 mg Q6HR HUDSON Administration Ondansetron
[2020-08-05 15:52] LABS: Glucose Point of Care 144 (65-105)
[2020-08-06] VITALS (19 sets, daily range): BP systolic 110–140; BP diastolic 67–84; PULSE 49–88; RESP 18–24; TEMP 35.8–36.5; O2SAT 96–100
[2020-08-06 00:08] LABS: Glucose Point of Care 149 (65-105)
[2020-08-06] MEDS: SODIUM CHLORIDE 0.9% IV 1,000 ML 125 ML IV CONT ×3 (02:54→22:35)
[2020-08-06 05:35] LABS: Hematocrit 31.8 % (42.0-52.0); Hemoglobin 10.3 g/dL (14.0-18.0); Mean Corpuscular HGB Conc 32.4 g/dl (32-36); Mean Corpuscular Hemoglobin 30.5 pg (26-34); Mean Corpuscular Volume 94.1 fl (80-100); Mean Platelet Volume 11.1 fl (7.4-10.4); Platelet Count Result 123 k/mm3 (150-375); Red Blood Count 3.38 M/mm3 (4.6-6.20); Red Cell Distribution Width 13.6 % (11.5-14.5); White Blood Count 7.5 K/mm3 (4.5-10.0)
[2020-08-06] MEDS: AZTREONAM 1 GM in DEXTROSE 5% IN WATER 50 ML 100 ML IVPB ×2 (05:39→22:36)
[2020-08-06] MEDS: METOPROLOL TARTRATE INJ 5 MG/5 ML VIAL IV PUSH ×3 (05:39→18:18)
[2020-08-06] MEDS: CENTRAL LINE FLUSH 10 ML IV PUSH ×4 (05:39→22:37)
[2020-08-06 05:50] LABS: Anion Gap 2 mmol/L (8-16); Blood Urea Nitrogen 14 mg/dL (9-20); Calcium 7.2 mg/dL (8.4-10.2); Carbon Dioxide 29 mmol/L (22-30); Chloride 113 mmol/L (98-107); Estimated CRCL calculation 112 ml/min; Estimated Glomerular Filt Rate > 60; Glucose 114 mg/dL (75-110); Potassium 3.3 mmol/L (3.4-5.0); Sodium 144 mmol/L (137-145)
[2020-08-06 06:13] LABS: Glucose Point of Care 99 (65-105)
--- NOTE | 2020-08-06 07:25 | WPDUROPN2 ---
Progress Note: A&P Assessment and Plan (1) Sepsis: Qualifiers: Sepsis acute organ dysfunction status: without acute organ dysfunction Sepsis type: sepsis due to unspecified organism Qualified Code(s): A41.9 - Sepsis, unspecified organism Code(s): A41.9 - Sepsis, unspecified organism Status: Acute Assessment and Plan: Continue broad-spectrum antibiotics based on Klebsiella in his blood culture (2) Bilateral kidney stones: Code(s): N20.0 - Calculus of kidney Status: Acute (3) Left ureteral stone: Code(s): N20.1 - Calculus of ureter Status: Acute Assessment and Plan: Will be taken to the operating room today for cysto and left ureteral stent placement to hopefully drain any undrained pyelonephritis. I spoke with him and his . They understand the risks, benefits, and alternatives. They also understand he may again get febrile. (4) Hydronephrosis: Code(s): N13.30 - Unspecified hydronephrosis Status: Acute Assessment and Plan: Secondary to several obstructing stones. (5) Renal lesion: Code(s): N28.9 - Disorder of kidney and ureter, unspecified Status: Acute Assessment and Plan: Further workup after acute situation resolves. Additional Plan 08/06/2020 Tolerating stent well. Definitive mgmt. left ureteral stone (ESWL or ureteroscopy) once more medically stable. Repeat imaging 4-months for minimally atypical left renal cyst Subjective Subjective Date/Time Seen: 08/06/20 07:25 Tolerating stent with minimal dysuria Review of Systems Cardiovascular: Cardiovascular: Denies chest pain, Denies lightheadedness, Denies palpitations and Denies dyspnea Respiratory: Respiratory: Denies dyspnea Gastrointestinal: Gastrointestinal: Denies diarrhea, Denies nausea and Denies vomiting Genitourinary: Genitourinary: Denies hematuria and Denies dysuria Endocrine: Endocrine: Denies palpitations Exam Const: General: no acute distress Resp: Effort & Inspection: normal respiratory effort GI: Inspection: non-distended GI Palp: No abdominal tenderness and No Guarding due to palpation present (GI) Auscultation: normal bowel sounds Objective Data Vital Signs Vital Signs: Vital Signs - 24 hr 08/05/20 08:00 08/05/20 12:45 08/05/20 12:55 Temperature 97.2 F L 98.7 F Pulse Rate 73 128 H 113 H Respiratory Rate 22 H 22 H 24 H Blood Pressure 140/80 130/111 H Pulse Oximetry 97 99 98 08/05/20 13:10 08/05/20 13:25 08/05/20 13:40 Temperature Pulse Rate 114 H 111 H 110 H Respiratory Rate 20 20 16 Blood Pressure 135/97 H 128/92 H 137/90 Pulse Oximetry 95 92 96 08/05/20 14:10 08/05/20 16:00 08/05/20 17:33 Temperature 98.2 F 96.4 F L Pulse Rate 101 H 77 81 Respiratory Rate 24 H 24 H Blood Pressure 145/104 H 146/103 H Pulse Oximetry 98 99 08/05/20 18:00 08/05/20 20:00 08/05/20 22:00 Temperature Pulse Rate 88 76 62 Respiratory Rate Blood Pressure Pulse Oximetry 08/06/20 00:00 08/06/20 00:16 08/06/20 00:41 Temperature 97.7 F Pulse Rate 57 L 57 L 49 L Respiratory Rate 24 H 24 H Blood Pressure 140/84 Pulse Oximetry 100 100 08/06/20 02:00 08/06/20 04:00 08/06/20 05:39 Temperature 96.9 F L Pulse Rate 54 L 61 59 L Respiratory Rate 22 H Blood Pressure 124/74 Pulse Oximetry 100 08/06/20 06:00 Temperature Pulse Rate 64 Respiratory Rate Blood Pressure Pulse Oximetry Intake/Output Intake/Output: Intake & Output 08/03/20 08/04/20 08/05/20 08/06/20 23:59 23:59 23:59 23:59 Intake Total 4024 4063 3920 1557 Output Total 2877 658 4431 Balance 2574 4063 3030 557 Meds/Results Medications: Active Medications Generic Name Dose Route Start Last Admin Trade Name Freq PRN Reason Stop Dose Admin Artificial Tears 1 drop 08/04/20 16:57 08/04/20 18:09 Artificial Tears Op Soln 15 Ml Bottle EACH EYE 1 drop QID PRN Administration Dry Eye(s
--- NOTE | 2020-08-06 07:40 | WPDANESPN ---
Anes - Prog Note Post-Op Date/Time: 08/06/20 07:40 Cardiovascular status: normal Respiratory status: normal Airway patency: baseline Mental status: baseline Post-Op hydration status: normal Vital Signs: Last Vital Signs Temp 36.1 C L 08/06/20 04:00 Pulse 64 08/06/20 06:00 Resp 22 H 08/06/20 04:00 BP 124/74 08/06/20 04:00 Pulse Ox 100 08/06/20 04:00 Pain Score (VAS): 0/10. Patient resting in bed at time of assessment, appears comfortable. No additional issues or concerns identified by patient at time of assessment, all questions answered. I/O: Intake & Output 08/05/20 08/05/20 08/06/20 15:59 23:59 07:59 Intake Total 1670 1200 1557 Output Total 140 1000 Balance 1530 1200 557 Laboratory Tests 08/06/20 05:16 08/06/20 05:16 08/05/20 08/05/20 08/05/20 11:31 12:46 15:50 WBC RBC Hgb Hct MCV MCH MCHC RDW Plt Count MPV Sodium Potassium Chloride Carbon Dioxide Anion Gap BUN Creatinine Estim Creat Clear Calc Estimated GFR Glucose POC Capillary Glucose 200 H 136 H 144 H Calcium 08/06/20 08/06/20 08/06/20 00:05 05:16 05:16 WBC 7.5 RBC 3.38 L Hgb 10.3 L Hct 31.8 L MCV 94.1 MCH 30.5 MCHC 32.4 RDW 13.6 Plt Count 123 L MPV 11.1 H Sodium 144 Potassium 3.3 L Chloride 113 H Carbon Dioxide 29 Anion Gap 2 L BUN 14 Creatinine 0.70 Estim Creat Clear Calc 112 Estimated GFR > 60 Glucose 114 H POC Capillary Glucose 149 H Calcium 7.2 L 08/06/20 06:10 WBC RBC Hgb Hct MCV MCH MCHC RDW Plt Count MPV Sodium Potassium Chloride Carbon Dioxide Anion Gap BUN Creatinine Estim Creat Clear Calc Estimated GFR Glucose POC Capillary Glucose 99 Calcium Microbiology 07/31/20 06:10 Blood Blood Culture - Final Klebsiella pnemoniae 07/31/20 05:55 Blood Blood Culture - Final Klebsiella pnemoniae Post-procedural complaints: none Patient Feedback: Patient satisfied with anesthetic care.
[2020-08-06] MEDS: PANTOPRAZOLE SODIUM IV 40 MG VIAL IV PUSH ×2 (09:35→22:33)
[2020-08-06] MEDS: levETIRAcetam 1000MG/NACL100ML 1,000 MG/100 ML BAG 400 MG IVPB ×2 (09:43→22:36)
--- NOTE | 2020-08-06 11:25 | WPDINFPN2 ---
Progress Note: A&P Assessment and Plan (1) Gram negative septicemia: Code(s): A41.50 - Gram-negative sepsis, unspecified Status: Acute Assessment and Plan: 1. Klebsiella bacteremia with infection, urine source. POD # 1 stent . 2. Renal cyst, probably not infected 3. Kidney stones --> ureter 4. Recent UTI at his NH, per 5. PCN --> apnea REC Aztreonam # 7, continue at least 1 day more. Disc with patient and at bedside. Subjective Date/time seen: 08/06/20 11:25 Interval history: no abd pain no back pain no n/v Exam Narrative: Exam Narrative: afebrile, mild hypothermia at times Const: General: no acute distress Eyes: General: appearance normal, both eyes and all related structures Resp: Effort & Inspection: normal respiratory effort Auscultation: clear to auscultation bilaterally Cardio: Rate: regular rate Rhythm: regular rhythm Heart sounds: no gallops and no murmurs GI: Inspection: distended GI Palp: Yes Soft to palpation, No Tenderness to palpation present (GI) and No Guarding due to palpation present (GI) Auscultation: normal bowel sounds Urinary Catheter: Urinary Catheter: patent and draining and urine clear Skin: General skin exam: normal color and no rashes or lesions noted Objective Data Vital Signs Vital Signs: Vital Signs - 24 hr 08/05/20 12:45 08/05/20 12:55 08/05/20 13:10 Temperature 37.1 C Pulse Rate 128 H 113 H 114 H Respiratory Rate 22 H 24 H 20 Blood Pressure 130/111 H 135/97 H Pulse Oximetry 99 98 95 08/05/20 13:25 08/05/20 13:40 08/05/20 14:10 Temperature 36.8 C Pulse Rate 111 H 110 H 101 H Respiratory Rate 20 16 24 H Blood Pressure 128/92 H 137/90 145/104 H Pulse Oximetry 92 96 98 08/05/20 16:00 08/05/20 17:33 08/05/20 18:00 Temperature 35.8 C L Pulse Rate 77 81 88 Respiratory Rate 24 H Blood Pressure 146/103 H Pulse Oximetry 99 08/05/20 20:00 08/05/20 22:00 08/06/20 00:00 Temperature Pulse Rate 76 62 57 L Respiratory Rate 24 H Blood Pressure Pulse Oximetry 100 10/27/20 00:16 08/06/20 00:41 08/06/20 02:00 Temperature 36.5 C Pulse Rate 57 L 49 L 54 L Respiratory Rate 24 H Blood Pressure 140/84 Pulse Oximetry 100 08/06/20 04:00 08/06/20 05:39 08/06/20 06:00 Temperature 36.1 C L Pulse Rate 61 59 L 64 Respiratory Rate 22 H Blood Pressure 124/74 Pulse Oximetry 100 08/06/20 08:20 Temperature 35.9 C L Pulse Rate 66 Respiratory Rate 24 H Blood Pressure 130/71 Pulse Oximetry 99 Intake/Output Intake/Output: Intake & Output 08/03/20 08/04/20 08/05/20 08/06/20 23:59 23:59 23:59 23:59 Intake Total 4024 4063 3920 2800 Output Total 8267 200 6839 Balance 2574 4063 3030 1800 Meds/Results Medications: Active Medications Generic Name Dose Route Start Last Admin Trade Name Freq PRN Reason Stop Dose Admin Artificial Tears 1 drop 08/04/20 16:57 08/04/20 18:09 Artificial Tears Op Soln 15 Ml Bottle EACH EYE 1 drop QID PRN Administration Dry Eye(s) Fentanyl Citrate 25 mcg 08/05/20 11:13 Fentanyl Citrate Inj (*Crx) 100 Mcg/2 Ml Vial IV PUSH Q2M PRN Pain Hydromorphone HCl 0.25 mg 08/05/20 11:13 Hydromorphone Hcl Inj (*Crx) 1 Mg/Ml Syr IV PUSH Q5M PRN Pain Levetiracetam 1,000 mg in 100 mls @ 400 mls/hr 07/30/20 21:00 08/06/20 09:43 Keppra Iv IVPB 400 mls/hr Q12HR HUDSON Administration Sodium Chloride 1,000 mls @ 125 mls/hr 07/31/20 09:20 08/06/20 09:48 Normal Saline Iv IV CONT 125 mls/hr .Q8H HUDSON Administration Aztreonam 1 gm/ Dextrose 50 mls @ 100 mls/hr 08/04/20 14:00 08/06/20 09:36 IVPB Infused Q8HR HUDSON Infusion Lactated Ringer's 1,000 mls @ 30 mls/hr 08/05/20 11:15 08/05/20 13:58 Lr - Lactated Ringers Iv IV CONT Infused .Q24H HUDSON Infusion Lactated Ringer's 1,000 mls @ 30 mls/hr 08/05/20 11:15 08/05/20 15:55 Lr - Lactated Ringers Iv IV CONT Not Given .Q24H HUDSON Potassium
[2020-08-06 11:41] LABS: Glucose Point of Care 163 (65-105)
[2020-08-06] MEDS: AZTREONAM 1 GM in DEXTROSE 5% IN WATER 50 ML IVPB (13:15)
[2020-08-06 16:38] LABS: Glucose Point of Care 148 (65-105)
--- NOTE | 2020-08-06 17:47 | PM.IMPN ---
Progress Note: A&P Assessment and Plan (1) Seizure: Code(s): R56.9 - Unspecified convulsions Status: Acute Assessment and Plan: plan is below (2) HTN (hypertension): Code(s): I10 - Essential (primary) hypertension Status: Acute Assessment and Plan: continue home regimen and monitor (3) Generalized weakness: Code(s): R53.1 - Weakness Status: Acute Assessment and Plan: will have a PT OT evaluate the patient (4) Sepsis: Qualifiers: Sepsis acute organ dysfunction status: without acute organ dysfunction Sepsis type: sepsis due to unspecified organism Qualified Code(s): A41.9 - Sepsis, unspecified organism Code(s): A41.9 - Sepsis, unspecified organism Status: Acute Assessment and Plan: 08/06/20 17:47 Yair Philippe is a 64 year old male with a past medical history of recent stroke CT scan of the head showed significant injury. Stable appearance of large old infarct involving the right middle cerebral artery vascular distribution with secondary atrophy of the right thalamus and right cerebral peduncle. and patient has history of seizure had been taking Keppra 1000 mg t.i.d. patient is unable to provide any history or review of symptom, history is recorded from after discussing with the ER physician and patient's unfortunately she is a poor historian, [facility], his medications were changed. bacteriemia ? cause. believed intially to be related to aspiration, but now felt to be uti and renal abnormality. See ct abdo and pelvis for details. Sepsis most likely secondary to uti and renal abnormality - klebseilla in blood culture- pt is seen by ID pt is on Aztreonam Pt passed swallow test can start full liquid diet 08/06 interval history patient with Klebsiella bacteremia infection seen by Dr. sims suspect urinary source pt is on Aztreonam further evaluate patient had CT scan of the abdomen which showed 1. Bilateral nephrolithiasis with collection of obstructing stones in the distal left ureter steinstrasse resulting in moderate left hydroureteronephrosis and likely left pyelonephritis. Recommend urologic consultation. 2. 2.5 cm left renal lesion of concern without evident enhancement consistent with benign complex proteinaceous/hemorrhagic cyst. on 08/05 patient seen by Urology and was taken to urology lab for cystoscopy and further evaluation stent was placed and kidney was drained, patient is feeling much better, patient was seen by Dr. sims and patient will complete IV antibiotics tomorrow, in terms of seizure patient is seen by neurologist and continue Keppra 1000 mg b.i.d. patient remained stable while in the hospital, today patient is able to provide some history states not feeling very well, his is present room, states he is feeling much better compared to when he arrived, may possibly discharge the patient home tomorrow. Subjective Date/time seen: 08/06/20 17:47 Yair Philippe is a 64 year old male with a past medical history of recent stroke CT scan of the head showed significant injury. Stable appearance of large old infarct involving the right middle cerebral artery vascular distribution with secondary atrophy of the right thalamus and right cerebral peduncle. and patient has history of seizure had been taking Keppra 1000 mg t.i.d. patient is unable to provide any history or review of symptom, history is recorded from after discussing with the ER physician and patient's unfortunately she is a poor historian, [facility], his medications were changed. bacteriemia ? cause. believed intially to be related to aspiration, but now felt to be uti and renal abnormality. See ct abdo and pelvis for details. Sepsis most likely secondary to uti and renal abnormality - klebseilla in blood culture- pt is seen by ID pt is on Aztreonam Pt passed swallow
[2020-08-06 20:39] LABS: Glucose Point of Care 143 (65-105)
[2020-08-07] VITALS (19 sets, daily range): BP systolic 96–132; BP diastolic 53–73; PULSE 40–102; RESP 16–24; TEMP 35.6–36.2; O2SAT 95–98
[2020-08-07] MEDS: METOPROLOL TARTRATE INJ 5 MG/5 ML VIAL IV PUSH ×2 (00:42→05:34)
[2020-08-07] MEDS: AZTREONAM 1 GM in DEXTROSE 5% IN WATER 50 ML 100 ML IVPB (05:32)
[2020-08-07] MEDS: CENTRAL LINE FLUSH 10 ML IV PUSH ×4 (05:34→20:58)
[2020-08-07 07:50] LABS: Glucose Point of Care 111 (65-105)
[2020-08-07] MEDS: FUROSEMIDE INJ 40 MG/4 ML VIAL IV PUSH (08:49)
[2020-08-07] MEDS: levETIRAcetam 1000MG/NACL100ML 1,000 MG/100 ML BAG 400 MG IVPB (08:49)
[2020-08-07] MEDS: PANTOPRAZOLE SODIUM IV 40 MG VIAL IV PUSH ×2 (08:55→20:58)
[2020-08-07 11:59] LABS: Glucose Point of Care 160 (65-105)
[2020-08-07 12:18] LABS: Hematocrit 32.8 % (42.0-52.0); Hemoglobin 10.7 g/dL (14.0-18.0); Mean Corpuscular HGB Conc 32.6 g/dl (32-36); Mean Corpuscular Hemoglobin 30.5 pg (26-34); Mean Corpuscular Volume 93.4 fl (80-100); Platelet Count Result 171 k/mm3 (150-375); Red Blood Count 3.51 M/mm3 (4.6-6.20); Red Cell Distribution Width 13.4 % (11.5-14.5); White Blood Count 7.8 K/mm3 (4.5-10.0)
[2020-08-07 12:30] LABS: Anion Gap 3 mmol/L (8-16); Blood Urea Nitrogen 11 mg/dL (9-20); Calcium 7.2 mg/dL (8.4-10.2); Carbon Dioxide 28 mmol/L (22-30); Chloride 109 mmol/L (98-107); Estimated CRCL calculation 114 ml/min; Estimated Glomerular Filt Rate > 60; Glucose 164 mg/dL (75-110); Magnesium 1.5 mg/dL (1.6-2.3); Sodium 140 mmol/L (137-145)
--- NOTE | 2020-08-07 13:25 | WPDINFPN2 ---
Progress Note: A&P Assessment and Plan (1) Gram negative septicemia: Code(s): A41.50 - Gram-negative sepsis, unspecified Status: Acute Assessment and Plan: 1. Klebsiella bacteremia with infection, urine source. POD # 2 stent . 2. Renal cyst, probably not infected 3. Kidney stones --> ureter 4. Recent UTI at his NH, per 5. PCN --> apnea REC Aztreonam # 8, stop. Place on TMP-SMX DS x 5 days. Ok discharge. Subjective Date/time seen: 08/07/20 13:25 Interval history: eager for discharge Exam Narrative: Exam Narrative: afebrile Const: General: no acute distress Eyes: General: appearance normal, both eyes and all related structures Resp: Auscultation: clear to auscultation bilaterally Cardio: Rate: regular rate Rhythm: regular rhythm Heart sounds: no murmurs GI: Inspection: non-distended GI Palp: Yes Soft to palpation and No Tenderness to palpation present (GI) Skin: General skin exam: no rashes or lesions noted Extrem: General: edema Objective Data Vital Signs Vital Signs: Vital Signs - 24 hr 08/06/20 16:52 08/06/20 18:18 08/06/20 19:15 Temperature 35.9 C L 36.0 C L Pulse Rate 81 79 72 Respiratory Rate 24 H 21 H Blood Pressure 110/69 124/72 Pulse Oximetry 100 97 08/06/20 20:00 08/06/20 20:32 08/06/20 22:00 Temperature Pulse Rate 72 75 Respiratory Rate 21 H Blood Pressure Pulse Oximetry 96 96 08/06/20 23:53 08/07/20 00:00 08/07/20 00:42 Temperature 35.8 C L Pulse Rate 75 63 58 L Respiratory Rate 18 18 Blood Pressure 127/67 Pulse Oximetry 96 96 08/07/20 02:00 08/07/20 04:00 08/07/20 05:34 Temperature 35.6 C L Pulse Rate 40 L 73 52 L Respiratory Rate 16 Blood Pressure 118/65 Pulse Oximetry 95 08/07/20 06:00 08/07/20 08:40 08/07/20 12:05 Temperature 35.9 C L 36.1 C L Pulse Rate 60 70 91 Respiratory Rate 22 H 24 H Blood Pressure 132/73 105/53 L Pulse Oximetry 96 96 Intake/Output Intake/Output: Intake & Output 08/04/20 08/05/20 08/06/20 08/07/20 23:59 23:59 23:59 23:59 Intake Total 4063 3920 4460 2090 Output Total 890 2555 3730 Balance 4063 3030 1905 -1428 Meds/Results Medications: Active Medications Generic Name Dose Route Start Last Admin Trade Name Freq PRN Reason Stop Dose Admin Artificial Tears 1 drop 08/04/20 16:57 08/04/20 18:09 Artificial Tears Op Soln 15 Ml Bottle EACH EYE 1 drop QID PRN Administration Dry Eye(s) Fentanyl Citrate 25 mcg 08/05/20 11:13 Fentanyl Citrate Inj (*Crx) 100 Mcg/2 Ml Vial IV PUSH Q2M PRN Pain Glipizide 5 mg 08/08/20 08:00 Glipizide Xl 5 Mg Tabcr PO DAILY@0800 HUDSON Hydrochlorothiazide 25 mg 08/08/20 09:00 Hydrochlorothiazide 25 Mg Tablet PO DAILY HUDSON Hydromorphone HCl 0.25 mg 08/05/20 11:13 Hydromorphone Hcl Inj (*Crx) 1 Mg/Ml Syr IV PUSH Q5M PRN Pain Aztreonam 1 gm/ Dextrose 50 mls @ 100 mls/hr 08/04/20 14:00 08/07/20 06:05 IVPB Infused Q8HR HUDSON Infusion Lactated Ringer's 1,000 mls @ 30 mls/hr 08/05/20 11:15 08/07/20 08:16 Lr - Lactated Ringers Iv IV CONT Not Given .Q24H HUDSON Lactated Ringer's 1,000 mls @ 30 mls/hr 08/05/20 11:15 08/07/20 08:17 Lr - Lactated Ringers Iv IV CONT Not Given .Q24H HUDSON Levetiracetam 1,000 mg 08/07/20 18:00 Levetiracetam 500 Mg Tablet PO QPM HUDSON Levetiracetam 1,000 mg 08/08/20 09:00 Levetiracetam 500 Mg Tablet PO QAM HUDSON Metoprolol Tartrate 5 mg 08/07/20 08:30 Metoprolol Tartrate Inj 5 Mg/5 Ml Vial IV PUSH PRN PRN Heart Rate- High Ondansetron HCl 4 mg 08/05/20 11:13 Ondansetron Inj 4 Mg/2 Ml Vial IV PUSH ONCE PRN Nausea Pantoprazole Sodium 40 mg 07/30/20 21:00 08/07/20 08:55 Pantoprazole Sodium Iv 40 Mg Vial IV PUSH 40 mg Q12HR HUDSON Administration Sodium Chloride 10 ml 08/01/20 22:00 08/07/20 05:34 Central Line Flush IV PUSH 10 ml Q8HR HUDSON Administrat
[2020-08-07] MEDS: POTASSIUM CHLORIDE 20 MEQ PACKET (FOR LIQUID) 40 MEQ PO (16:07)
[2020-08-07 16:14] LABS: Glucose Point of Care 162 (65-105)
--- NOTE | 2020-08-07 17:39 | PM.IMPN ---
Progress Note: A&P Assessment and Plan (1) Seizure: Code(s): R56.9 - Unspecified convulsions Status: Acute Assessment and Plan: plan is below (2) HTN (hypertension): Code(s): I10 - Essential (primary) hypertension Status: Acute Assessment and Plan: continue home regimen and monitor (3) Generalized weakness: Code(s): R53.1 - Weakness Status: Acute Assessment and Plan: will have a PT OT evaluate the patient (4) Sepsis: Qualifiers: Sepsis acute organ dysfunction status: without acute organ dysfunction Sepsis type: sepsis due to unspecified organism Qualified Code(s): A41.9 - Sepsis, unspecified organism Code(s): A41.9 - Sepsis, unspecified organism Status: Acute Assessment and Plan: 08/07/20 17:39 Yair Philippe is a 64 year old male with a past medical history of recent stroke CT scan of the head showed significant injury. Stable appearance of large old infarct involving the right middle cerebral artery vascular distribution with secondary atrophy of the right thalamus and right cerebral peduncle. and patient has history of seizure had been taking Keppra 1000 mg t.i.d. patient is unable to provide any history or review of symptom, history is recorded from after discussing with the ER physician and patient's unfortunately she is a poor historian, [facility] his medications were changed. bacteriemia ? cause. believed intially to be related to aspiration, but now felt to be uti and renal abnormality. See ct abdo and pelvis for details. Sepsis most likely secondary to uti and renal abnormality - klebseilla in blood culture- pt is seen by ID pt is on Aztreonam Pt passed swallow test can start full liquid diet 08/07 interval history patient with Klebsiella bacteremia infection seen by Dr. sims suspect urinary source pt is on Aztreonam further evaluate patient had CT scan of the abdomen which showed 1. Bilateral nephrolithiasis with collection of obstructing stones in the distal left ureter steinstrasse resulting in moderate left hydroureteronephrosis and likely left pyelonephritis. Recommend urologic consultation. 2. 2.5 cm left renal lesion of concern without evident enhancement consistent with benign complex proteinaceous/hemorrhagic cyst. on 08/05 patient seen by Urology and was taken to urology lab for cystoscopy and further evaluation stent was placed and kidney was drained, patient is feeling much better, patient was seen by Dr. sims and patient will complete IV antibiotics tomorrow, in terms of seizure patient is seen by neurologist and continue Keppra 1000 mg b.i.d. patient remained stable while in the hospital, today 08/07 patient is able to provide some history states not feeling very well, his is not present room today , today patient was seen by Dr. sims and stop the IV antibiotic is started the patient on Bactrim for next 5 days, and is ready to be discharged, we waiting logistic from his possibly will discharge the patient tomorrow. Subjective Date/time seen: 08/07/20 17:39 Yair Philippe is a 64 year old male with a past medical history of recent stroke CT scan of the head showed significant injury. Stable appearance of large old infarct involving the right middle cerebral artery vascular distribution with secondary atrophy of the right thalamus and right cerebral peduncle. and patient has history of seizure had been taking Keppra 1000 mg t.i.d. patient is unable to provide any history or review of symptom, history is recorded from after discussing with the ER physician and patient's unfortunately she is a poor historian, [facility], his medications were changed. bacteriemia ? cause. believed intially to be related to aspiration, but now felt to be uti and renal abnormality. See ct abdo and pelvis for details. Sepsis
[2020-08-07] MEDS: levETIRAcetam 500 MG TABLET 1000 MG PO (18:49)
[2020-08-07 20:04] LABS: Glucose Point of Care 198 (65-105)
[2020-08-08] VITALS (8 sets, daily range): BP systolic 118–147; BP diastolic 54–100; PULSE 69–102; RESP 18–20; TEMP 35.6–36.6; O2SAT 95–98
[2020-08-08] MEDS: CENTRAL LINE FLUSH 10 ML IV PUSH (05:42)
[2020-08-08 08:33] LABS: Glucose Point of Care 114 (65-105)
[2020-08-08] MEDS: glipiZIDE XL 5 MG TABCR PO (09:49)
[2020-08-08] MEDS: levETIRAcetam 500 MG TABLET 1000 MG PO (09:49)
[2020-08-08] MEDS: hydroCHLOROthiazide 25 MG TABLET PO (09:49)
[2020-08-08] MEDS: PANTOPRAZOLE SODIUM IV 40 MG VIAL IV PUSH (09:49)
--- NOTE | 2020-08-08 12:21 | PM.DS ---
DS: Admitting Diagnosis Admitting Diagnosis Admitting Diagnosis: Sepsis/Aspiration/possible seizure DS: Discharge Diagnosis Discharge Diagnosis (1) Seizure: Code(s): R56.9 - Unspecified convulsions Status: Acute Assessment and Plan: plan is below (2) HTN (hypertension): Code(s): I10 - Essential (primary) hypertension Status: Acute Assessment and Plan: continue home regimen and monitor (3) Generalized weakness: Code(s): R53.1 - Weakness Status: Acute Assessment and Plan: will have a PT OT evaluate the patient (4) Sepsis: Qualifiers: Sepsis acute organ dysfunction status: without acute organ dysfunction Sepsis type: sepsis due to unspecified organism Qualified Code(s): A41.9 - Sepsis, unspecified organism Code(s): A41.9 - Sepsis, unspecified organism Status: Acute Assessment and Plan: 08/07/20 17:39 Yair Philippe is a 64 year old male with a past medical history of recent stroke CT scan of the head showed significant injury. Stable appearance of large old infarct involving the right middle cerebral artery vascular distribution with secondary atrophy of the right thalamus and right cerebral peduncle. and patient has history of seizure had been taking Keppra 1000 mg t.i.d. patient is unable to provide any history or review of symptom, history is recorded from after discussing with the ER physician and patient's unfortunately she is a poor historian, [facility], his medications were changed. bacteriemia ? cause. believed intially to be related to aspiration, but now felt to be uti and renal abnormality. See ct abdo and pelvis for details. Sepsis most likely secondary to uti and renal abnormality - klebseilla in blood culture- pt is seen by ID pt is on Aztreonam Pt passed swallow test can start full liquid diet 08/07 interval history patient with Klebsiella bacteremia infection seen by Dr. sims suspect urinary source pt is on Aztreonam further evaluate patient had CT scan of the abdomen which showed 1. Bilateral nephrolithiasis with collection of obstructing stones in the distal left ureter steinstrasse resulting in moderate left hydroureteronephrosis and likely left pyelonephritis. Recommend urologic consultation. 2. 2.5 cm left renal lesion of concern without evident enhancement consistent with benign complex proteinaceous/hemorrhagic cyst. on 08/05 patient seen by Urology and was taken to urology lab for cystoscopy and further evaluation stent was placed and kidney was drained, patient is feeling much better, patient was seen by Dr. sims and patient will complete IV antibiotics tomorrow, in terms of seizure patient is seen by neurologist and continue Keppra 1000 mg b.i.d. patient remained stable while in the hospital, today 08/07 patient is able to provide some history states not feeling very well, his is not present room today , today patient was seen by Dr. sims and stop the IV antibiotic is started the patient on Bactrim for next 5 days, and is ready to be discharged, we waiting logistic from his possibly will discharge the patient tomorrow. DS: Summary Hospital Course Reason for hospitalization: Chief complaint: Sepsis/Aspiration/possible seizure Narrative: Yair Philippe is a 64 year old male with a past medical history of recent stroke CT scan of the head showed significant injury. Stable appearance of large old infarct involving the right middle cerebral artery vascular distribution with secondary atrophy of the right thalamus and right cerebral peduncle. and patient has history of seizure had been taking Keppra 1000 mg t.i.d. patient is unable to provide any history or review of symptom, history is recorded from after discussing with the ER physician and patient's unfortunately she is a poor historian, patient was [facility],
[2020-08-08 12:52] LABS: Glucose Point of Care 137 (65-105)
[2020-08-08] MEDS: POTASSIUM CHLORIDE 20 MEQ TABLET 40 MEQ PO (15:07)
--- NOTE | 2020-08-08 16:24 | WPDINFPN2 ---
Progress Note: A&P Assessment and Plan (1) Gram negative septicemia: Code(s): A41.50 - Gram-negative sepsis, unspecified Status: Acute Assessment and Plan: 1. Klebsiella bacteremia with infection, urine source. POD # 3 stent . 2. Renal cyst, probably not infected 3. Kidney stones --> ureter 4. Recent UTI at his NH, per 5. PCN --> apnea REC TMP-SMX DS #2 / 5. Ok discharge. Call if Qs Subjective Date/time seen: 08/08/20 16:24 Interval history: states that he would feel better if he was at home Exam Narrative: Exam Narrative: afebrile Const: General: no acute distress Resp: Effort & Inspection: normal respiratory effort Auscultation: clear to auscultation bilaterally Cardio: Rate: regular rate Rhythm: regular rhythm Heart sounds: no murmurs Objective Data Vital Signs Vital Signs: Vital Signs - 24 hr 08/07/20 17:03 08/07/20 18:00 08/07/20 19:15 Temperature 36.1 C L 36.2 C L Pulse Rate 90 90 98 Respiratory Rate 20 20 Blood Pressure 122/70 96/61 L Pulse Oximetry 98 96 08/07/20 20:00 08/07/20 20:13 08/07/20 22:00 Temperature Pulse Rate 98 92 102 H Respiratory Rate 20 Blood Pressure Pulse Oximetry 97 97 08/08/20 00:00 08/08/20 02:00 08/08/20 04:00 Temperature 35.6 C L 36.1 C L Pulse Rate 76 72 85 Respiratory Rate 20 18 Blood Pressure 118/64 123/54 L Pulse Oximetry 97 95 08/08/20 06:00 08/08/20 08:00 08/08/20 10:00 Temperature 36.6 C Pulse Rate 69 88 77 Respiratory Rate 18 Blood Pressure 134/76 Pulse Oximetry 95 08/08/20 12:00 08/08/20 14:00 Temperature 36.6 C Pulse Rate 87 89 Respiratory Rate 18 Blood Pressure 147/100 H Pulse Oximetry 98 Intake/Output Intake/Output: Intake & Output 08/05/20 08/06/20 08/07/20 08/08/20 23:59 23:59 23:59 23:59 Intake Total 3920 4460 2870 224 Output Total 890 8155 4835 3355 Balance 3030 1905 -1965 -3131 Meds/Results Medications: Active Medications Generic Name Dose Route Start Last Admin Trade Name Freq PRN Reason Stop Dose Admin Hydrocodone Bitart/Acetaminophen 1 tab 08/08/20 01:33 Hydrocodone/Acetaminophen (*Crx) 5-325 Mg Tablet PO Q4H PRN Pain Rated 4-6 Artificial Tears 1 drop 08/04/20 16:57 08/04/20 18:09 Artificial Tears Op Soln 15 Ml Bottle EACH EYE 1 drop QID PRN Administration Dry Eye(s) Fentanyl Citrate 25 mcg 08/05/20 11:13 Fentanyl Citrate Inj (*Crx) 100 Mcg/2 Ml Vial IV PUSH Q2M PRN Pain Glipizide 5 mg 08/08/20 08:00 08/08/20 09:49 Glipizide Xl 5 Mg Tabcr PO 5 mg DAILY@0800 HUDSON Administration Hydrochlorothiazide 25 mg 08/08/20 09:00 08/08/20 09:49 Hydrochlorothiazide 25 Mg Tablet PO 25 mg DAILY HUDSON Administration Hydromorphone HCl 0.25 mg 08/05/20 11:13 Hydromorphone Hcl Inj (*Crx) 1 Mg/Ml Syr IV PUSH Q5M PRN Pain Levetiracetam 1,000 mg 08/07/20 18:00 08/07/20 18:49 Levetiracetam 500 Mg Tablet PO 1,000 mg QPM HUDSON Administration Levetiracetam 1,000 mg 08/08/20 09:00 08/08/20 09:49 Levetiracetam 500 Mg Tablet PO 1,000 mg QAM HUDSON Administration Metoprolol Tartrate 5 mg 08/07/20 08:30 Metoprolol Tartrate Inj 5 Mg/5 Ml Vial IV PUSH PRN PRN Heart Rate- High Ondansetron HCl 4 mg 08/05/20 11:13 Ondansetron Inj 4 Mg/2 Ml Vial IV PUSH ONCE PRN Nausea Pantoprazole Sodium 40 mg 07/30/20 21:00 08/08/20 09:49 Pantoprazole Sodium Iv 40 Mg Vial IV PUSH 40 mg Q12HR HUDSON Administration Sodium Chloride 10 ml 08/01/20 22:00 08/08/20 05:42 Central Line Flush IV PUSH 10 ml Q8HR HUDSON Administration Sodium Chloride 10 ml 08/01/20 18:00 08/07/20 18:49 Central Line Flush IV PUSH 10 ml DAILY@1800 HUDSON Administration Sodium Chloride 20 ml 08/01/20 15:13 08/04/20 05:23 Central Line Flush IV PUSH 20 ml PRN PRN Administration after blood draws Trimethoprim/Sulfamethoxazole 1 tab 08/07/20 21:00
== END 2020-08-08 16:38 | disposition home health service (06) | DRG 853 ==
LOC: ANHED 07:29 → ANHIMU 10:13 → ANH3MEDSUR 15:56 → ANHIMU 07-31 05:48 → ANH2MED 08-05 11:50 → ANHIMU 08-05 13:36
PROVIDERS: Physician Assistant; Student in an Organized Health Care Education/Training Program; Urology; Admitting Provider Family Medicine; Emergency Provider Emergency Medicine; Visit Provider Family Medicine
PROC: 0T778DZ Dilation of Left Ureter with Intraluminal Device, Via Natural or Artificial Opening Endoscopic (ICD-10-PCS; CPT 52352; principal; 2020-08-05 12:00)
DX: A41.59 Other Gram-negative sepsis (principal); J69.0 Pneumonitis due to inhalation of food and vomit; N13.6 Pyonephrosis; I69.354 Hemiplegia and hemiparesis following cerebral infarction affecting left non-dominant side; Z68.41 Body mass index [BMI] 40.0-44.9, adult; Z86.19 Personal history of other infectious and parasitic diseases; I69.398 Other sequelae of cerebral infarction; G93.89 Other specified disorders of brain; R56.9 Unspecified convulsions; I69.319 Unspecified symptoms and signs involving cognitive functions following cerebral infarction; I69.320 Aphasia following cerebral infarction; I10 Essential (primary) hypertension; R00.0 Tachycardia, unspecified; F41.8 Other specified anxiety disorders; E78.5 Hyperlipidemia, unspecified; E11.9 Type 2 diabetes mellitus without complications; G47.30 Sleep apnea, unspecified; N28.1 Cyst of kidney, acquired; E87.6 Hypokalemia; E66.9 Obesity, unspecified; N40.0 Benign prostatic hyperplasia without lower urinary tract symptoms
CPT/HCPCS: 36415; 36556; 36600; 51701; 70450; 70553; 71045; 71275; 74178; 74420; 80048; 80053; 80076; 81001; 82805; 83605; 83735; 83880; 84484; 85025; 85027; 85055; 85380; 85610; 85730; 86140; 87040; 87077; 87186; 87804; 92507; 92526; 92611; 93005; 93970; 94640; 96365; 96375; 97110; 97162; 97166; 97530; 97535; 99285; A9270; A9577; C1751; C1769; C2617; C9113; J0131; J0743; J1100; J1940; J1953; J1956; J2250; J2405; J2704; J3010; J3475; J3480; J7030; J7040; J7120; Q9966; Q9967

== ENCOUNTER 2020-09-02 10:55 | Outpatient (CLI) | payer MEDICARE, OTHER, SELFPAY ==
--- NOTE | ~2020-09-02 | XR_ITS ---
EXAMINATION: XR abdomen/kub 1V EXAM DATE: 09/02/2020 11:39 INDICATION: Left ureteral stone follow-up. TECHNIQUE: Frontal projection(s) of the abdomen for interpretation. Comparison is made to prior exami nation from 08/03/2020. FINDINGS: There is a left-sided double-J ureteral stent in position. There are multiple stone fragme nts suspected along the distal aspect of the stent. Some left calyceal stones. There is right nephrol ithiasis. There is moderate amount of colonic stool. There is no organomegaly. There are mild bony de generative changes. IMPRESSION: 1. Left distal ureteral stone fragments. Stent in position. 2. Bilateral nephrolithiasis. Reviewed, dictated and finalized at location B. 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
== END 2020-09-02 10:56 | disposition home or self-care (01) ==
LOC: ANHIMG 11:10
PROVIDERS: PCP Emergency Medicine; Visit Provider Urology
DX: N20.2 Calculus of kidney with calculus of ureter (principal); Z96.0 Presence of urogenital implants
CPT/HCPCS: 74018

== ENCOUNTER 2020-10-09 10:52 | Outpatient (CLI) | payer MEDICARE, OTHER, SELFPAY ==
--- NOTE | 2020-10-09 10:54 | ECG_ITS ---
Measurements Intervals [place] Rate: 96 P: 9 UT: 166 QRS: -48 QRSD: 113 T: 8 QT: 351 QTc: 445 Interpretive Statements SINUS RHYTHM LEFT ANTERIOR FASCICULAR BLOCK BASELINE ARTIFACT- I, II, III, AVR, AVL, AVF ABNORMAL ECG Electronically Signed On 10-09-2020 14:27:08 ANIMAL H[facility] OFFICE SUPERVISOR by Harsha Prieto D.O.
[2020-10-09 11:51] LABS: Anion Gap 7 mmol/L (8-16); Blood Urea Nitrogen 15 mg/dL (9-20); Calcium 9.2 mg/dL (8.4-10.2); Carbon Dioxide 30 mmol/L (22-30); Chloride 102 mmol/L (98-107); Estimated Glomerular Filt Rate > 60; Glucose 188 mg/dL (75-110); Potassium 3.8 mmol/L (3.4-5.0); Sodium 139 mmol/L (137-145)
== END 2020-10-09 10:53 | disposition home or self-care (01) ==
LOC: ANHSURGERY 10:54
PROVIDERS: Anesthesiology; PCP Emergency Medicine; Visit Provider Urology
DX: N20.1 Calculus of ureter (principal); I10 Essential (primary) hypertension; E11.9 Type 2 diabetes mellitus without complications; Z01.818 Encounter for other preprocedural examination
CPT/HCPCS: 36415; 80048; 87086; 93005

== ENCOUNTER 2020-10-12 01:23 | Outpatient (CLI) | payer MEDICARE, OTHER, SELFPAY ==
[2020-10-12 20:09] LABS: SARS-CoV-2 RNA PCR Negative
== END 2020-10-12 01:24 | disposition home or self-care (01) ==
LOC: ANHCOVIDDT 01:23
PROVIDERS: PCP Emergency Medicine; Visit Provider Urology
DX: Z01.818 Encounter for other preprocedural examination (principal); Z20.828 Contact with and (suspected) exposure to other viral communicable diseases
CPT/HCPCS: C9803; U0003

== ENCOUNTER 2020-10-15 01:59 | Day surgery (SDC) | payer MEDICARE, OTHER, SELFPAY ==
[2020-10-02 10:47] VITALS: BMI 35.2
--- NOTE | 2020-10-14 10:30 | WPDANESEPPF ---
Anes - Initial Pre Proc Eval Procedure: Operation Date: 10/15/20 11:00 Proposed Procedures p Cystoscopy, Left Ureteroscopy, Left Retrograde Pyelogram,Left Stone Extraction, Left Stent Exchange - Blane Ferrera MD s Holmium Laser Procedure - Blane Ferrera MD Date/Time: 10/14/20 10:30 Surgeon: Blane Ferrera MD Pre Op Diagnosis: Left Ureteral Stone Patient Data Age: 64 Gender: M Height: 1.7 m Weight: 102.1 kg Allergies Allergy/AdvReac Type Severity Reaction Status Date / Time Penicillins Allergy Severe Rash Verified 10/02/20 10:13 lorazepam [From Ativan] Allergy Mild Hallucinati Verified 10/15/20 09:13 ng Home Medications Medication Instructions Recorded Confirmed Type aspirin 81 mg PO QAM 05/16/20 10/15/20 History atorvastatin 80 mg PO HS 05/16/20 10/15/20 History esomeprazole magnesium 40 mg PO QAM 05/16/20 10/15/20 History gabapentin 300 mg PO HS 05/16/20 10/15/20 History metoprolol succinate 50 mg PO BID 05/16/20 10/15/20 History pramipexole 75 mg PO QPM 05/16/20 10/15/20 History cholecalciferol (vitamin D3) 25 mcg PO DAILY 05/17/20 10/15/20 History [Vitamin D3] cyanocobalamin (vitamin B-12) 1,000 mcg PO DAILY 05/17/20 10/15/20 History [Vitamin B-12] levetiracetam 1,000 mg PO BID 05/17/20 10/15/20 History clonazepam 0.5 mg PO QPM PRN 07/30/20 10/15/20 History glipizide 5 mg PO QAM 07/30/20 10/15/20 History hydrochlorothiazide 25 mg PO DAILY 07/30/20 10/15/20 History tamsulosin 0.4 mg PO DAILY 07/30/20 10/15/20 History venlafaxine 75 mg PO DAILY 07/30/20 10/15/20 History peg 180-[id number]-xlhdngcc 1 drp LEFTEYE QID PRN #10 ml 08/08/20 10/02/20 Rx [Artificial Tears([id number])] sulfamethoxazole-trimethoprim 1 tab PO Q12HR #10 tablet 08/08/20 10/15/20 Rx potassium chloride 10 meq PO DAILY 10/02/20 10/15/20 History Patient hx anesthesia problems: none Family hx anesthesia problems: none [facility] Past Medical History Medical History (Updated 08/05/20 @ 11:50 by Tino Caba MD) Anxiety Carcinoid tumor COVID-19 virus detected 05/12/20 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 Occurred on 09/30/17. 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 Rare alcohol use. No drug use. Lives at home with his and [id number]. Full code. He nominates his to be the individual would make medical decisions for him if he is not able. Smoking status: Unknown if ever smoked Second hand tobacco smoke exposure: Yes Alcohol intake: never Substance use: never Living arrangements: with family Gender identity (if verbalized by the patient): Male Spiritual care concerns: No Anes - Eval Final PreProcedure Day of Procedure 10/14/20 10:30 Patient weight: obese Heart: regular rate and rhythm Lungs: clear to auscultation and normal air movement Airway: Mallampati scale class III Neurological: alert and oriented Last oral intake: >/= 8 hours ASA classification: III Emergent: no Anesthetic plan: proceed Anesthesia type and monitoring: general LMA and standard monitoring Informed Consent: The patient's anesthetic plan and its attendant risks and benefits were discussed with the patient/family/POA. Questions were solicited and answers provided to the satisfaction of the patient/family/POA.
[2020-10-15] VITALS (7 sets, daily range): BP systolic 106–128; BP diastolic 74–87; PULSE 81–93; RESP 14–18; TEMP 36.8–37.1; O2SAT 98–100
--- NOTE | ~2020-10-15 | XR_ITS ---
EXAMINATION: XR retrograde pyelogram LT DATE: 10/15/2020 11:39 INDICATION: Left internal ureteral stent removal TECHNIQUE: Fluoroscopic images from a left stent removal are submitted for review. 25 seconds of fluo roscopy time. 6 fluoroscopic images FINDINGS: There is a left double-J internal ureteral stent projecting in expected position, with proximal Tillman loop at the level of the renal pelvis and distal loop in the pelvis within the bladder lumen. Subsequ ent images demonstrate removal of the stent. IMPRESSION: 1. Left internal ureteral stent removal. Please refer to real-time procedural findings for details. 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
[2020-10-15] MEDS: LACTATED RINGERS 1,000 ML 30 ML IV CONT (09:30)
--- NOTE | 2020-10-15 09:47 | WPDHPUPDATE1 ---
History and Physical Update Update Date/Time: 10/15/20 09:47 History and Physical has been reviewed, including an updated exam of the patient. There are NO changes in the patient's condition. Risks, benefits, and alternatives have been discussed and questions answered. Patient agrees to proceed with procedure.
--- NOTE | 2020-10-15 10:05 | WPDHPUPDATE1 ---
History and Physical Update Update Date/Time: 10/15/20 10:05 History and Physical has been reviewed, including an updated exam of the patient. There are NO changes in the patient's condition. Risks, benefits, and alternatives have been discussed and questions answered. Patient agrees to proceed with procedure. Proceed wth cysto, left retrograde, left ureteroscopy with stone extraction, possible laser and stent exchange.
--- NOTE | 2020-10-15 10:53 | SUR.PREOP ---
Patient found leaning on right rail. Repositioned for comfort. Pads on rails.
[2020-10-15] MEDS: levoFLOXacin 500 MG/D5W 100 ML 500 MG/100 ML BAG 100 MG IVPB (11:04)
[2020-10-15] MEDS: LIDOCAINE HCL 2% GEL UROJET 10 ML PKG MUCOUS MEM (11:21)
--- NOTE | 2020-10-15 11:43 | PM.PROC ---
Procedure Note - Detailed Date of procedure: 10/15/20 Pre-op diagnosis: Left Ureteral Stone Post-op diagnosis: same Procedure performed: Cysto left retrograde pyelogram left ureteroscopy with stone extraction left ureteral stent removal Description of procedure: Patient is taken the operative suite correctly identified. Once anesthesia was obtained he was placed in dorsal lithotomy position and prepped and draped usual sterile fashion. Twenty-two Upper Sorbian scope was inserted the bladder there is no tumors noted the left ureteral orifice was visualized with the stent coming out of it. This was grasped and brought out to the meatus. Bentson wire was then placed through the stent up into the renal pelvis. Rigid ureteral scope was inserted. There was approximately 7 or 8 stones which were retrieved using an escape basket with minimal difficulty. I then placed a mini flexible ureteral scope all the way up to the kidney. There was only some small little tiny fragments there which were too small to grasp at this point time. Since there was very little manipulation I did not replace the stent. 2% viscous lidocaine was inserted into the urethra patient is taken recovery stable condition. obtain a renal ultrasound approximately 2-3 weeks time Anesthesia: GLMA Surgeon: Blane Ferrera MD Drains: No Packing: No Pathology: yes Complications: No immediate complications Condition: stable Disposition: PACU
[2020-10-15 12:18] LABS: Glucose Point of Care 142 (65-105)
--- NOTE | 2020-10-15 13:33 | SUR.PHASEII ---
PT ASSISTED WITH DRESSING BY 2 STAFF. TRANSFERRED TO WHEELCHAIR VIA [employer]. TOLERATED WELL.
== END 2020-10-15 13:30 | disposition home or self-care (01) ==
PROVIDERS: PCP Emergency Medicine; Visit Provider Urology
PROC: (CPT 52352; principal; 2020-10-15 11:00)
DX: N20.1 Calculus of ureter (principal); I10 Essential (primary) hypertension; E78.5 Hyperlipidemia, unspecified; E11.9 Type 2 diabetes mellitus without complications; F41.8 Other specified anxiety disorders; G47.30 Sleep apnea, unspecified; Z86.16 Personal history of COVID-19; Z79.82 Long term (current) use of aspirin; Z85.038 Personal history of other malignant neoplasm of large intestine; Z90.49 Acquired absence of other specified parts of digestive tract; E66.9 Obesity, unspecified; Z68.36 Body mass index [BMI] 36.0-36.9, adult
CPT/HCPCS: 52352; 74420; 82365; 88300; A9270; C1758; C1769; C2617; J1100; J1956; J2405; J2704; J3010; J7120; Q9966

== ENCOUNTER 2020-11-01 11:22 | Emergency (ER) | payer MEDICARE, OTHER, SELFPAY ==
[2020-11-01] VITALS (15 sets, daily range): BP systolic 124–146; BP diastolic 64–99; PULSE 90–100; RESP 12–20; TEMP 36.9; O2SAT 96–100
[2020-11-01 12:01] LABS: Add Urine Microscopic? YES; Appearance Urine Cloudy (Clear); Bilirubin Urine Negative (Negative); Blood Urine 3+ (Negative); Color Urine Red (Yellow); Glucose Urine UA 2+ mg/dL (Negative); Ketones Urine Negative (Negative); Leukocyte Esterase Ur 1+ LEU/UL (Negative); Nitrate Urine Negative (Negative); Protein Urine 2+ mg/dL (Negative); RBC Urine >75 /hpf (0-2); Urobilinogen Urine Negative mg/dL (<2.0); WBC Urine >75 /hpf
--- NOTE | 2020-11-01 13:08 | ED.MALEGU ---
HPI - Male Genitourinary General Chief complaint: Urogenital-Male Stated complaint: BLOOD IN URINE Time Seen by Provider: 11/01/20 12:09 Source: patient and family Limitations: no limitations History of Present Illness HPI Narrative: Patient brought to the emergency room by his because of blood in the urine noticed this morning. Patient denies any fever, chills, nausea, vomiting, chest pain, abdominal pain, back pain, sore throat, headache. Patient on baby aspirin. Related Data Home Medications Medication Instructions Recorded Confirmed aspirin 81 mg PO QAM 05/16/20 10/15/20 atorvastatin 80 mg PO HS 05/16/20 10/15/20 esomeprazole magnesium 40 mg PO QAM 05/16/20 10/15/20 gabapentin 300 mg PO HS 05/16/20 10/15/20 metoprolol succinate 50 mg PO BID 05/16/20 10/15/20 pramipexole 75 mg PO QPM 05/16/20 10/15/20 cholecalciferol (vitamin D3) 25 mcg PO DAILY 05/17/20 10/15/20 [Vitamin D3] cyanocobalamin (vitamin B-12) 1,000 mcg PO DAILY 05/17/20 10/15/20 [Vitamin B-12] levetiracetam 1,000 mg PO BID 05/17/20 10/15/20 clonazepam 0.5 mg PO QPM PRN 07/30/20 10/15/20 glipizide 5 mg PO QAM 07/30/20 10/15/20 hydrochlorothiazide 25 mg PO DAILY 07/30/20 10/15/20 tamsulosin 0.4 mg PO DAILY 07/30/20 10/15/20 venlafaxine 75 mg PO DAILY 07/30/20 10/15/20 potassium chloride 10 meq PO DAILY 10/02/20 10/15/20 Allergies Allergy/AdvReac Type Severity Reaction Status Date / Time Penicillins Allergy Severe Rash Verified 10/02/20 10:13 lorazepam [From Ativan] Allergy Mild Hallucinati Verified 10/15/20 09:13 ng Review of Systems Review of Systems: Narrative: CONSTITUTIONAL: Denies fever, chills, or sweats. EYES: Denies visual changes, redness, or discharge. ENT: Denies rhinorrhea, congestion, sore throat, or otalgia. CARDIOVASCULAR: Denies chest pain, palpitations, or edema. RESPIRATORY: Denies cough or dyspnea. GASTROINTESTINAL: Denies abdominal pain, nausea, vomiting, or diarrhea. GENITOURINARY: Hematuria SKIN: Denies rash or itching. MUSCULOSKELETAL: Denies back pain, joint pain, or myalgia. NEUROLOGIC: Denies headache, numbness, or weakness. PSYCHIATRIC: Denies anxiety or depression. 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 Occurred on 09/30/17. 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 Rare alcohol use. No drug use. Lives at home with his and [id number]. Full code. He nominates his to be the individual would make medical decisions for him if he is not able. Smoking status: Unknown if ever smoked Second hand tobacco smoke exposure: Yes Alcohol intake: never Substance use: never Gender identity (if verbalized by the patient): Male Spiritual care concerns: No Exam Narrative: Exam Narrative: General appearance: Well-developed, well-nourished Skin: Normal color Head: Normocephalic, nontraumatic Neck: Supple, nontender Chest and respiratory: Airway patent, no respiratory distress, no accessory muscle use Heart: Regular rate/rhythm Abdomen: Soft, nontender, no organomegaly, quiet bowel sounds Vascular: Normal peripheral pulses, normal capillary refill. Musculoskeletal: Left hemiplegia Neurologic: Alert and oriented ?3, left hemiplegia
[2020-11-01] MEDS: levoFLOXacin 500 MG/D5W 100 ML 500 MG/100 ML BAG 100 MG IVPB (13:26)
== END 2020-11-01 15:08 | disposition home or self-care (01) ==
PROVIDERS: Emergency Provider Emergency Medicine; PCP Emergency Medicine
DX: N39.0 Urinary tract infection, site not specified (principal); R31.9 Hematuria, unspecified; I69.954 Hemiplegia and hemiparesis following unspecified cerebrovascular disease affecting left non-dominant side; F41.8 Other specified anxiety disorders; I10 Essential (primary) hypertension; E78.5 Hyperlipidemia, unspecified; G47.30 Sleep apnea, unspecified; E11.9 Type 2 diabetes mellitus without complications; Z79.82 Long term (current) use of aspirin; Z86.16 Personal history of COVID-19; Z90.49 Acquired absence of other specified parts of digestive tract; Z79.84 Long term (current) use of oral hypoglycemic drugs
CPT/HCPCS: 51702; 81001; 87077; 87086; 87088; 87186; 96365; 99284; J1956

== ENCOUNTER 2021-06-15 20:28 | Emergency (ER) | payer MEDICARE, OTHER, SELFPAY ==
--- NOTE | ~2021-06-15 | XR_ITS ---
EXAMINATION: XR chest 1V portable DATE: 06/15/2021 20:51 INDICATION: Seizure. TECHNIQUE: A single frontal view of the chest was obtained on 2 radiographs. COMPARISON: Chest single view 08/01/2020, chest CT 07/31/2020 FINDINGS: The chest demonstrates clear lungs without pneumonia, pleural effusion, or pneumothorax. Th e heart size is normal. Mediastinal lipomatosis is noted. IMPRESSION: 1. No acute cardiopulmonary disease. Reviewed, dictated and finalized at location A.
[2021-06-15 20:26] VITALS: BP 162/116; PULSE 127; RESP 14; TEMP 36.6; O2SAT 93
--- NOTE | 2021-06-15 20:33 | ECG_ITS ---
Measurements Intervals [place] Rate: 121 P: 37 ID: [id number] QRS: -48 QRSD: 110 T: 35 QT: 334 QTc: 474 Interpretive Statements SINUS TACHYCARDIA INTRAVENTRICULAR CONDUCTION DELAY POOR R WAVE PROGRESSION, ANTERIOR LEADS BORDERLINE T WAVE ABNORMALITY- INFERIOR LEADS BASELINE ARTIFACT- I, II, III, AVR, AVL, AVF ABNORMAL ECG Electronically Signed On 06-18-2021 13:54:25 CDT by Harsha Prieto D.O.
--- NOTE | 2021-06-15 20:36 | ED.GENADULT ---
HPI - General Adult General Chief complaint: Seizure Stated complaint: syncopal Source: RN notes reviewed History of Present Illness HPI narrative: Patient presents to emergency department from home via EMS for seizure. History is per the patient as well as his the patient had approximately 2-1/2-minute tonic-clonic seizure at home he was sitting when that happened he did not fall patient is back to baseline and ANO x3 he has a history of previous CVA with left-sided deficits and has a history of seizures he is on Keppra 1000 mg twice a day he had just taken his evening Keppra for the seizure occurred his last seizure was at the beginning of May and is followed by neurology in [place] he states his blood sugars have been running high over the past several days he denies any chest pain shortness of breath abdominal pain nausea vomiting diarrhea or any other symptoms Related Data Home Medications Medication Instructions Recorded Confirmed aspirin 81 mg PO QAM 05/16/20 10/15/20 atorvastatin 80 mg PO HS 05/16/20 10/15/20 esomeprazole magnesium 40 mg PO QAM 05/16/20 10/15/20 gabapentin 300 mg PO HS 05/16/20 10/15/20 metoprolol succinate 50 mg PO BID 05/16/20 10/15/20 pramipexole 75 mg PO QPM 05/16/20 10/15/20 cholecalciferol (vitamin D3) 25 mcg PO DAILY 05/17/20 10/15/20 [Vitamin D3] cyanocobalamin (vitamin B-12) 1,000 mcg PO DAILY 05/17/20 10/15/20 [Vitamin B-12] levetiracetam 1,000 mg PO BID 05/17/20 10/15/20 clonazepam 0.5 mg PO QPM PRN 07/30/20 10/15/20 glipizide 5 mg PO QAM 07/30/20 10/15/20 hydrochlorothiazide 25 mg PO DAILY 07/30/20 10/15/20 tamsulosin 0.4 mg PO DAILY 07/30/20 10/15/20 venlafaxine 75 mg PO DAILY 07/30/20 10/15/20 potassium chloride 10 meq PO DAILY 10/02/20 10/15/20 Allergies Allergy/AdvReac Type Severity Reaction Status Date / Time Penicillins Allergy Severe Rash Verified 06/15/21 20:37 lorazepam [From Ativan] AdvReac Mild Hallucinati Verified 06/15/21 20:37 ng Review of Systems Review of Systems: Gen.: Denies fevers or chills Eyes: Denies eye pain or visual change ENT: Denies congestion Respiratory: Denies shortness of breath or cough CV: Denies chest pain or palpitations GI: Denies abdominal pain nausea, emesis or diarrhea Musculoskeletal: Denies back pain or muscle pain Neuro: See HPI Skin: Denies rash Endocrine: See HPI Except as documented, all other systems reviewed and negative [facility] Past Medical History Medical History Anxiety Carcinoid tumor COVID-19 virus detected 05/12/20 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 Occurred on 09/30/17. 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 Rare alcohol use. No drug use. Lives at home with his and [id number]. Full code. He nominates his to be the individual would make medical decisions for him if he is not able. Smoking status: Unknown if ever smoked Second hand tobacco smoke exposure: Yes Alcohol intake: never Substance use: never Gender identity (if verbalized by the patient): Male Spiritual care concerns: No Exam Narrative: APPEARANCE: No acute distress, nontoxic, resting in bed EYES: EOMI, PERRL HEENT: Normocephalic, atraumatic, OMM RESPIRATORY: No respiratory distress Clear to auscultation bilaterally with no rhonchi wheezing or rales. CARDIOVASCULAR: Tachycardic and regular without murmurs rubs o
[2021-06-15 20:37] VITALS: PULSE 120
--- NOTE | 2021-06-15 20:48 | PC.NURSE ---
Pt. stuck x2 for Iv no access at this time.
[2021-06-15 21:02] VITALS: BP 162/116; PULSE 122; RESP 34; O2SAT 99
[2021-06-15 21:15] LABS: Basophils Percent Auto 0.4 % (0.2-1.2); Eosinophils Absolute Auto 0.1 K/mm3 (0-0.3); Eosinophils Percent Auto 1.2 % (0-4.4); Hematocrit 50.5 % (42.0-52.0); Hemoglobin 17.8 g/dL (14.0-18.0); Immature Granulocyte Absolute 0.08 K/mm3 (0.00-0.031); Immature Granulocyte Percent A 0.9 % (0-0.5); Lymphocytes Absolute Auto 1.64 K/mm3 (0.9-3.2); Lymphocytes Percent Auto 18.2 % (18.3-44.2); Mean Corpuscular HGB Conc 35.2 g/dl (32-36); Mean Corpuscular Volume 90.7 fl (80-100); Mean Platelet Volume 10.3 fl (7.4-10.4); Monocytes Absolute Auto 0.8 K/mm3 (0.1-0.6); Monocytes Percent Auto 8.8 % (2.6-8.5); Neutrophils Absolute Auto 6.4 K/mm3 (1.3-6.7); Neutrophils Percent Auto 70.5 % (45.5-73.1); Platelet Count Result 233 k/mm3 (150-375); Red Blood Count 5.57 M/mm3 (4.6-6.20)
[2021-06-15 21:20] LABS: Add Urine Microscopic? YES; Appearance Urine Clear (Clear); Bilirubin Urine Negative (Negative); Blood Urine 1+ (Negative); Color Urine Straw (Yellow); Glucose Urine UA 3+ mg/dL (Negative); Ketones Urine Negative (Negative); Leukocyte Esterase Ur Negative LEU/UL (Negative); Mucus Urine Rare /lpf; Nitrate Urine Negative (Negative); Protein Urine 2+ mg/dL (Negative); RBC Urine 0-2 /hpf (0-2); Specific Grav Ur 1.026 (1.001-1.035); Squamous Epithelial Cell Urine Rare /hpf (Few); Urobilinogen Urine Negative mg/dL (<2.0)
[2021-06-15 21:27] LABS: Alanine Aminotransferase 31 U/L (4-50); Albumin Level 4.2 g/dL (3.5-5.1); Alkaline Phosphatase 94 U/L (38-126); Anion Gap 13 mmol/L (8-16); Aspartate Amino Transferase 25 U/L (17-59); Bilirubin,Total 0.9 mg/dL (0.2-1.3); Blood Urea Nitrogen 21 mg/dL (9-20); Calcium 9.5 mg/dL (8.4-10.2); Carbon Dioxide 21 mmol/L (22-30); Chloride 103 mmol/L (98-107); Estimated Glomerular Filt Rate > 60; Glucose 370 mg/dL (65-110); Potassium 3.7 mmol/L (3.4-5.0); Sodium 137 mmol/L (137-145)
[2021-06-15] MEDS: SODIUM CHLORIDE 0.9% IV 1,000 ML 999 ML IV CONT ×2 (21:31→22:09)
[2021-06-15 22:11] VITALS: BP 139/107; PULSE 109; RESP 23; O2SAT 92
[2021-06-15 23:33] LABS: Glucose Point of Care 252 mg/dl (65-105)
[2021-06-16 00:25] VITALS: BP 168/110; PULSE 102; RESP 22; O2SAT 93
[2021-06-16 00:52] VITALS: PULSE 95
[2021-06-16 00:59] VITALS: BP 162/98; PULSE 97; RESP 22; O2SAT 96
[2021-06-16 01:34] VITALS: BP 140/102; PULSE 92; RESP 25; O2SAT 92
== END 2021-06-16 01:34 | disposition home or self-care (01) ==
PROVIDERS: Emergency Provider Emergency Medicine; PCP Emergency Medicine
DX: G40.909 Epilepsy, unspecified, not intractable, without status epilepticus (principal); I69.998 Other sequelae following unspecified cerebrovascular disease; I69.954 Hemiplegia and hemiparesis following unspecified cerebrovascular disease affecting left non-dominant side; I10 Essential (primary) hypertension; E78.5 Hyperlipidemia, unspecified; E11.9 Type 2 diabetes mellitus without complications; Z86.16 Personal history of COVID-19; G47.30 Sleep apnea, unspecified; F41.8 Other specified anxiety disorders; Z79.82 Long term (current) use of aspirin; Z79.84 Long term (current) use of oral hypoglycemic drugs; Z90.49 Acquired absence of other specified parts of digestive tract; R00.0 Tachycardia, unspecified; I45.9 Conduction disorder, unspecified; R94.31 Abnormal electrocardiogram [ECG] [EKG]
CPT/HCPCS: 36415; 71045; 80053; 81001; 82948; 85025; 93005; 96360; 96361; 99283; J7030

== ENCOUNTER 2021-08-31 02:15 | Emergency (ER) | payer MEDICARE, OTHER, SELFPAY ==
--- NOTE | ~2021-08-31 | CT_ITS ---
EXAMINATION: CT abdomen pelvis w con EXAM DATE: 08/31/2021 03:54 INDICATION: L sided abd pain prior surgery r/o SBO. TECHNIQUE: Spiral CT of the abdomen and pelvis was performed following intravenous injection of 100 m L Omnipaque 350. Axial, coronal and sagittal images of the abdomen and pelvis were reviewed. The do se-length product (DLP) for this examination was 1340.37 mGy-cm. The exposure was tailored according to patient size (auto mA exposure control), and iterative reconstruction (ASIR) was used as addition al dose reduction technique. Comparison is made to prior examination from 08/03/2020. FINDINGS: Left liver lobe low density lesion in, 3.6 cm cyst. Several other smaller liver lesions con sistent with cysts. Spleen, pancreas are unremarkable. Adrenal glands unremarkable. There is choleli thiasis within an otherwise unremarkable gallbladder. No evidence of obstructive biliary disease. There is 2.4 cm lesion in the anterior cortex of the left kidney, hemorrhagic cyst or less likely kota al cell cancer. A follow-up nonemergent ultrasound is recommended. There is no hydronephrosis. Bilate ral nephrolithiasis up to 8 mm in the right kidney. The prostate is unremarkable. The bladder is unr emarkable. There is no retroperitoneal or pelvic lymphadenopathy. There is mild scattered arterios clerotic disease. Cecal resection. The stomach and small bowel are unremarkable. There is moderate amount of colonic stool. No free intraperitoneal gas. The heart is normal in size. There are no pericardial or ple ural effusions. Linear right basilar atelectasis. There are no osteoblastic or osteolytic lesions i dentified. IMPRESSION: 1. Moderate colonic stool. 2. Indeterminate right renal 2.4 cm lesion. Hemorrhagic cyst or possibly renal cell cancer; kidney u ltrasound might be enough to distinguish between. 3. Bilateral nephrolithiasis. Reviewed, dictated and finalized at location A. [employer] EXAMINER IMPRESSION: 1. Moderate colonic stool. 2. Indeterminate right renal 2.4 cm lesion. Hemorrhagic cyst or possibly renal cell cancer; kidney ultrasound might be enough to distinguish between. 3. Bilateral nephrolithiasis.
[2021-08-31 02:18] VITALS: BP 130/95; PULSE 108; RESP 18; TEMP 36.3; O2SAT 98
[2021-08-31 02:40] VITALS: BP 144/108; PULSE 113; RESP 22; O2SAT 98
[2021-08-31] MEDS: SODIUM CHLORIDE 0.9% IV 1,000 ML 999 ML IV CONT (03:02)
[2021-08-31 03:03] LABS: Basophils Absolute Auto 0.1 K/mm3 (0.0-0.1); Basophils Percent Auto 0.5 % (0.2-1.2); Eosinophils Absolute Auto 0.1 K/mm3 (0-0.3); Eosinophils Percent Auto 1.2 % (0-4.4); Hemoglobin 17.6 g/dL (14.0-18.0); Immature Granulocyte Absolute 0.03 K/mm3 (0.00-0.031); Immature Granulocyte Percent A 0.3 % (0-0.5); Lymphocytes Absolute Auto 2.29 K/mm3 (0.9-3.2); Lymphocytes Percent Auto 22.8 % (18.3-44.2); Mean Corpuscular HGB Conc 35.9 g/dl (32-36); Mean Corpuscular Hemoglobin 31.9 pg (26-34); Mean Corpuscular Volume 88.9 fl (80-100); Monocytes Absolute Auto 0.7 K/mm3 (0.1-0.6); Monocytes Percent Auto 7.3 % (2.6-8.5); Neutrophils Absolute Auto 6.8 K/mm3 (1.3-6.7); Neutrophils Percent Auto 67.9 % (45.5-73.1); Platelet Count Result 255 k/mm3 (150-375); Red Blood Count 5.51 M/mm3 (4.6-6.20); White Blood Count 10.1 K/mm3 (4.5-10.0)
[2021-08-31 03:25] LABS: Alanine Aminotransferase 22 U/L (4-50); Albumin Level 4.3 g/dL (3.5-5.1); Alkaline Phosphatase 93 U/L (38-126); Anion Gap 12 mmol/L (8-16); Aspartate Amino Transferase 26 U/L (17-59); Blood Urea Nitrogen 19 mg/dL (9-20); Calcium 9.5 mg/dL (8.4-10.2); Carbon Dioxide 23 mmol/L (22-30); Chloride 101 mmol/L (98-107); Estimated Glomerular Filt Rate > 60; Glucose 247 mg/dL (65-110); Lipase 1961 U/L (23-300); Potassium 3.6 mmol/L (3.4-5.0); Sodium 136 mmol/L (137-145)
[2021-08-31 04:37] VITALS: BP 166/86; PULSE 103; RESP 18; O2SAT 96
[2021-08-31 05:02] LABS: Add Urine Microscopic? YES; Appearance Urine Clear (Clear); Bacteria Urine Trace /hpf; Bilirubin Urine Negative (Negative); Blood Urine Negative (Negative); Color Urine Yellow (Yellow); Glucose Urine UA 2+ mg/dL (Negative); Ketones Urine Negative (Negative); Leukocyte Esterase Ur Negative LEU/UL (Negative); Mucus Urine Rare /lpf; Nitrate Urine Negative (Negative); Protein Urine Negative (Negative); RBC Urine 0-2 /hpf (0-2); Squamous Epithelial Cell Urine Rare /hpf (Few); Urobilinogen Urine Negative mg/dL (<2.0); WBC Urine 0-3 /hpf
--- NOTE | 2021-08-31 05:47 | ED.ABDPAIN ---
HPI - Abdominal Pain General Chief Complaint: Abdominal Pain Stated Complaint: Constipation Time Seen by Provider: 08/31/21 02:35 Source: patient and family History of Present Illness HPI narrative: Patient presents with difficulty with bowel movements. Patient reports a history of the same as history of prior partial colectomy due to colon cancer. Patient ports not been able abdominal for the past 2 days he attempts to use the restroom but nothing comes out. This morning he woke up with abdominal pain and nausea so he came to the ER for evaluation. On arrival to the ER reports his pain and nausea have resolved. Denies recent fevers, cough, congestion denies any urinary symptoms. Related Data Home Medications Medication Instructions Recorded Confirmed aspirin 81 mg PO QAM 05/16/20 10/15/20 atorvastatin 80 mg PO HS 05/16/20 10/15/20 esomeprazole magnesium 40 mg PO QAM 05/16/20 10/15/20 gabapentin 300 mg PO HS 05/16/20 10/15/20 metoprolol succinate 50 mg PO BID 05/16/20 10/15/20 pramipexole 75 mg PO QPM 05/16/20 10/15/20 cholecalciferol (vitamin D3) 25 mcg PO DAILY 05/17/20 10/15/20 [Vitamin D3] cyanocobalamin (vitamin B-12) 1,000 mcg PO DAILY 05/17/20 10/15/20 [Vitamin B-12] levetiracetam 1,000 mg PO BID 05/17/20 10/15/20 clonazepam 0.5 mg PO QPM PRN 07/30/20 10/15/20 glipizide 5 mg PO QAM 07/30/20 10/15/20 hydrochlorothiazide 25 mg PO DAILY 07/30/20 10/15/20 tamsulosin 0.4 mg PO DAILY 07/30/20 10/15/20 venlafaxine 75 mg PO DAILY 07/30/20 10/15/20 potassium chloride 10 meq PO DAILY 10/02/20 10/15/20 Allergies Allergy/AdvReac Type Severity Reaction Status Date / Time Penicillins Allergy Severe Rash Verified 08/31/21 02:40 lorazepam [From Ativan] AdvReac Mild Hallucinati Verified 08/31/21 02:40 ng Review of Systems Review of Systems: CONSTITUTIONAL: Denies fever, chills, or sweats. EYES: Denies visual changes, redness, or discharge. ENT: Denies rhinorrhea, congestion, sore throat, or otalgia. CARDIOVASCULAR: Denies chest pain, palpitations, or edema. RESPIRATORY: Denies cough or dyspnea. GASTROINTESTINAL: Denies vomiting, or diarrhea. GENITOURINARY: Denies dysuria or hematuria. SKIN: Denies rash or itching. MUSCULOSKELETAL: Denies back pain, joint pain, or myalgia. NEUROLOGIC: Denies headache, numbness, dizziness, or weakness. PSYCHIATRIC: Denies anxiety or depression. All systems reviewed & are unremarkable except as noted in HPI and below PMFSH Past Medical History Medical History Anxiety Carcinoid tumor COVID-19 virus detected 05/12/20 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 Occurred on 09/30/17. 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 Rare alcohol use. No drug use. Lives at home with his and [id number]. Full code. He nominates his to be the individual would make medical decisions for him if he is not able. Smoking status: Unknown if ever smoked Second hand tobacco smoke exposure: Yes Alcohol intake: never Substance use: never Gender identity (if verbalized by the patient): Male Spiritual care concerns: No Exam Narrative: GENERAL: Well-appearing, well-nourished, and in no acute distress. HEAD: Normocephalic, atraumatic. EYES: PERRLA and EOMI. ENT: Nares clear, no rhinorrhea or epistaxis. Mucous membranes moist. NECK: Supple. No masses. No JVD CHEST: Clear to aus
[2021-08-31 05:51] VITALS: BP 139/93; PULSE 103; RESP 20; O2SAT 96
[2021-08-31 06:10] VITALS: BP 154/98; PULSE 94; RESP 20; O2SAT 97
[2021-08-31 06:19] LABS: Lactic Acid Reflex 2.3 mmol/L (0.7-2.1)
[2021-08-31 09:02] LABS: Reflex Lactic Acid Yes or No Add Lactic
== END 2021-08-31 06:10 | disposition home or self-care (01) ==
PROVIDERS: Emergency Provider Emergency Medicine; PCP Emergency Medicine
DX: K59.00 Constipation, unspecified (principal); N28.89 Other specified disorders of kidney and ureter; R74.8 Abnormal levels of other serum enzymes; I69.954 Hemiplegia and hemiparesis following unspecified cerebrovascular disease affecting left non-dominant side; I10 Essential (primary) hypertension; E78.5 Hyperlipidemia, unspecified; G47.30 Sleep apnea, unspecified; E11.9 Type 2 diabetes mellitus without complications; F41.8 Other specified anxiety disorders; Z90.49 Acquired absence of other specified parts of digestive tract; Z86.16 Personal history of COVID-19; Z85.038 Personal history of other malignant neoplasm of large intestine; Z79.82 Long term (current) use of aspirin; N20.0 Calculus of kidney; Z79.84 Long term (current) use of oral hypoglycemic drugs
CPT/HCPCS: 36415; 74177; 80053; 81001; 83605; 83690; 85025; 96360; 99284; J7030; Q9967

== ENCOUNTER 2022-05-15 12:32 | Outpatient (CLI) | payer MEDICARE, OTHER, SELFPAY ==
--- NOTE | ~2022-05-15 | CT_ITS ---
EXAMINATION: CT abdomen pelvis wo con DATE: 05/15/2022 13:14 INDICATION: Left abdominal pain. Left ureteral stone. TECHNIQUE: Computed tomography (CT) of the abdomen and pelvis was performed without intravenous contr ast. Automated exposure control and iterative reconstruction technique were employed. Exam dose: 924 .33 mGy-cm total exam DLP. COMPARISON: 05/15/2022 KUB 08/31/2021 CT abdomen pelvis with IV contrast material 03/13/2019 CT abdomen pelvis FINDINGS: There is chronic discoid scarring at the lung bases, primarily involving the right lower lo be, unchanged since 08/31/2021. Normal heart size. No pericardial or pleural effusion. There are multiple hypoattenuating hepatic lesions, measuring up to 3.5 cm, likely multiple hepatic c ysts. Normal splenic size. No pancreatic mass lesion or ductal dilatation. There are scattered pancreatic c alcifications consistent with chronic pancreatitis. There are multiple stones in the gallbladder. No gallbladder wall thickening or pericholecystic fluid or fat stranding. No bile duct dilatation. The adrenal glands are unchanged since , including small right adrenal adenoma. There is a 2.5 cm rounded exophytic hyperdense cyst or mass anteromedial aspect of the upper pole of the right kidney. This is stable in size since 08/31/2021, mildly enlarged from approximately 1.9 cm dimension on 03/13/2019. This may be a hyperdense cyst, but slow growing renal neoplasm is not excluded . Consider renal MRI examination. Approximately 7 x 10.8 mm right renal calculus and multiple scattered very small nonobstructing right renal calculi. No right ureteral calculus or right hydronephrosis. Left renal atrophy and scarring. Up to at least 7 left renal calculi, increased in number and size si nce 08/31/2021 the largest measuring up to proxy 6 x 9.9 mm. No left ureteral calculus or left hydron ephrosis is noted. Calcification but normal caliber of the abdominal aorta. No intraperitoneal or retroperitoneal or pel susi mass lesion or adenopathy or ascites. Prostatomegaly. The urinary bladder is unremarkable. Small fat-containing inguinal hernias. Status post right colectomy. No bowel obstruction. Diffuse idiopathic skeletal hyperostosis of the thoracic spine. Mild degenerative change of the lumba r spine. Bilateral hip osteoarthritis. No suspicious osteolytic or osteoblastic lesions are noted. IMPRESSION: Indeterminate 2.5 cm upper pole right renal mass; consider MRI renal examination for fur ther evaluation Bilateral nephrolithiasis, increased in number and size since 08/31/2021. No ureteral calculus or hyd roureteronephrosis Hepatic cysts Cholelithiasis Chronic pancreatitis Status post right colectomy Prostatomegaly Reviewed, dictated and finalized at Location A. Reviewed, dictated and finalized at location B. IMPRESSION: Indeterminate 2.5 cm upper pole right renal mass; consider MRI kota al examination for further evaluation Bilateral nephrolithiasis, increased in number and size since 08/31/2021. No ur eteral calculus or hydroureteronephrosis Hepatic cysts Cholelithiasis Chronic pancreatitis Status post right colectomy Prostatomegaly
--- NOTE | ~2022-05-15 | XR_ITS ---
XR abdomen/kub 1V 05/15/2022 13:08 INDICATION: Left ureteral stone TECHNIQUE: KUB COMPARISON: Comparison to multiple prior studies sequentially, with oldest reviewed study dated 12/2018. FINDINGS: Bowel gas pattern is normal. There is no evidence of free air, mass, organomegaly, ascites or obstruction. There are bilateral renal stones. The bones appear intact. There is lumbar spondylos is with levocurvature of the lumbar spine. IMPRESSION: 1: Bilateral nephrolithiasis.. Reviewed, dictated and finalized at location A.
== END 2022-05-15 12:33 | disposition home or self-care (01) ==
PROVIDERS: PCP Student in an Organized Health Care Education/Training Program; Visit Provider Urology
DX: N20.1 Calculus of ureter (principal); N20.0 Calculus of kidney; N28.89 Other specified disorders of kidney and ureter; K76.89 Other specified diseases of liver; K86.1 Other chronic pancreatitis; Z90.49 Acquired absence of other specified parts of digestive tract; N40.0 Benign prostatic hyperplasia without lower urinary tract symptoms
CPT/HCPCS: 74018; 74176

== ENCOUNTER 2022-05-22 15:33 | Emergency (ER) | payer MEDICARE, OTHER, SELFPAY ==
--- NOTE | ~2022-05-22 | CT_ITS ---
EXAMINATION: CT lumbar spine wo con DATE: 05/22/2022 16:42 INDICATION: Low back pain TECHNIQUE: Computed tomography (CT) of the lumbar spine was performed without intravenous contrast. T he dose-length product was 1240.76 mGy-cm. Automated exposure control and iterative reconstruction [place] were employed. COMPARISON: None FINDINGS: Vertebral body heights are maintained. There is mild disc narrowing at L1-2 and L2-3. No ac [place] fracture, subluxation or spondylolisthesis. There are mild facet degenerative changes at L4-5 and L5-S1. No significant disc bulges or focal herniations. No significant spinal stenosis. There are no nobstructing right renal stones. No significant vascular abnormality. No retroperitoneal lymphadenopa thy. IMPRESSION: 1. No acute abnormality of the lumbar spine. 2: Mild lumbar spondylosis. 3: Nonobstructing right nephrolithiasis. Reviewed, dictated and finalized at location A.
[2022-05-22 15:35] VITALS: BP 136/93; PULSE 97; RESP 20; TEMP 36.2; O2SAT 97
--- NOTE | 2022-05-22 15:55 | PC.NURSE ---
C/O LOW BACK WHEN LAYING DOWN X 2 WEEKS. REPORTS WAS EVALUATED FOR POSSIBLE KIDNEY STONES 1 WEEK AND TOLD NONE NOTED
[2022-05-22 16:03] LABS: Appearance Urine Clear (Clear); Bilirubin Urine Negative (Negative); Blood Urine Negative (Negative); Color Urine Yellow (Yellow); Glucose Urine UA 3+ mg/dL (Negative); Ketones Urine Negative (Negative); Leukocyte Esterase Ur Negative LEU/UL (Negative); Nitrate Urine Negative (Negative); Protein Urine Negative (Negative); Urobilinogen Urine 0.2 mg/dL (<2.0)
[2022-05-22 16:12] LABS: Mucus Urine Rare /lpf; RBC Urine 0-2 /hpf (0-2); WBC Urine 0-3 /hpf
--- NOTE | 2022-05-22 16:25 | ED.BACK ---
HPI - Back Pain/Injury General Chief Complaint: Back Pain/Injury Stated Complaint: back pain Time Seen by Provider: 05/22/22 15:51 History of Present Illness HPI Narrative: This is a 66M w/history of CVA with left side weakness, kidney stones who presents to the emergency department for low back pain for 1 to 2 weeks. Pain is described as sharp, 3 out of 10, rating from the left side of the low back to the right side, aggravated by movement and prolonged positioning in bed. This is not associated with fevers, chills or new weakness/numbness. He states he has persistent left leg paresthesias that have not changed. He denies falls or other trauma. Related Data Home Medications Medication Instructions Recorded Confirmed aspirin 81 mg chewable tablet 81 mg PO QAM 05/16/20 10/15/20 atorvastatin 80 mg tablet 80 mg PO HS 05/16/20 10/15/20 esomeprazole magnesium 40 mg 40 mg PO QAM 05/16/20 10/15/20 capsule,delayed release gabapentin 300 mg tablet,extended 300 mg PO HS 05/16/20 10/15/20 release 24 hr metoprolol succinate 25 mg 50 mg PO BID 05/16/20 10/15/20 tablet,extended release 24 hr pramipexole 0.25 mg tablet 75 mg PO QPM 05/16/20 10/15/20 cholecalciferol (vitamin D3) 50 25 mcg PO DAILY 05/17/20 10/15/20 mcg (2,000 unit) tablet (Vitamin D3) cyanocobalamin (vitamin B-12) 1,000 mcg PO DAILY 05/17/20 10/15/20 1,000 mcg tablet (Vitamin B-12) levetiracetam 1,000 mg tablet 1,000 mg PO BID 05/17/20 10/15/20 clonazepam 0.5 mg tablet 0.5 mg PO QPM PRN Anxiety 07/30/20 10/15/20 glipizide 5 mg tablet, extended 5 mg PO QAM 07/30/20 10/15/20 release 24 hr hydrochlorothiazide 25 mg tablet 25 mg PO DAILY 07/30/20 10/15/20 tamsulosin 0.4 mg capsule 0.4 mg PO DAILY 07/30/20 10/15/20 venlafaxine 75 mg tablet 75 mg PO DAILY 07/30/20 10/15/20 potassium chloride 10 mEq 10 meq PO DAILY 10/02/20 10/15/20 capsule,extended release Allergies Allergy/AdvReac Type Severity Reaction Status Date / Time Penicillins Allergy Severe Rash Verified 08/31/21 02:40 lorazepam [From Ativan] AdvReac Mild Hallucinati Verified 08/31/21 02:40 ng Review of Systems Review of Systems: CONSTITUTIONAL: Denies fever, chills, or sweats. EYES: Denies visual changes, redness, or discharge. ENT: Denies rhinorrhea, congestion, sore throat, or otalgia. CARDIOVASCULAR: Denies chest pain, palpitations, or edema. RESPIRATORY: Denies cough or dyspnea. GASTROINTESTINAL: Denies abdominal pain, nausea, vomiting, or diarrhea. GENITOURINARY: Denies dysuria or hematuria. SKIN: Denies rash or itching. MUSCULOSKELETAL: +back pain, Denies joint pain, or myalgia. NEUROLOGIC: Denies headache, numbness, dizziness, or weakness. PSYCHIATRIC: Denies anxiety or depression. [facility] Past Medical History Medical History Anxiety Carcinoid tumor COVID-19 virus detected 05/12/20 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 Occurred on 09/30/17. 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 Rare alcohol use. No drug use. Lives at home with his and [id number]. Full code. He nominates his to be the individual would make medical decisions for him if he is not able. Smoking status: Unknown if ever smoked Second hand tobacco smoke exposure: Yes Alcohol intake: never Substance use: never Gender identity (if verbalized by the patient): Male Spiritual care concerns: No
[2022-05-22 16:26] LABS: Add Urine Microscopic? YES
[2022-05-22] MEDS: ACETAMINOPHEN 500 MG TABLET 1000 MG PO (16:52)
[2022-05-22] MEDS: LIDOCAINE 5% PATCH 1 PATCH TRANSDERM (16:52)
[2022-05-22 17:28] VITALS: BP 110/77; PULSE 96; RESP 18; TEMP 36.6; O2SAT 96
== END 2022-05-22 17:31 | disposition home or self-care (01) ==
PROVIDERS: Emergency Provider Preventive Medicine Aerospace Medicine; PCP Student in an Organized Health Care Education/Training Program
DX: M47.816 Spondylosis without myelopathy or radiculopathy, lumbar region (principal); I69.954 Hemiplegia and hemiparesis following unspecified cerebrovascular disease affecting left non-dominant side; I10 Essential (primary) hypertension; E11.9 Type 2 diabetes mellitus without complications; E78.5 Hyperlipidemia, unspecified; G47.30 Sleep apnea, unspecified; F41.8 Other specified anxiety disorders; Z86.16 Personal history of COVID-19; Z87.442 Personal history of urinary calculi; Z79.84 Long term (current) use of oral hypoglycemic drugs; Z79.82 Long term (current) use of aspirin; Z90.49 Acquired absence of other specified parts of digestive tract; Z85.030 Personal history of malignant carcinoid tumor of large intestine; Z77.22 Contact with and (suspected) exposure to environmental tobacco smoke (acute) (chronic)
CPT/HCPCS: 72131; 81001; 99284; A9270

== ENCOUNTER 2022-06-05 12:43 | Outpatient (CLI) | payer MEDICARE, OTHER, SELFPAY ==
--- NOTE | ~2022-06-05 | MR_ITS ---
EXAMINATION: MR abdomen wo/w con DATE: 06/05/2022 14:31 INDICATION: Renal mass TECHNIQUE: Magnetic resonance imaging (MRI) of the abdomen was performed without and with 20 mL Multi remington intravenous contrast. Sequences included coronal T2-weighted SS-FSE, coronal and axial FS 2D-F IESTA, axial STIR FSE, axial T2-weighted SS-FSE, axial T2-weighted FS SS-FSE, axial diffusion-weighte d SE, axial dual-echo T1-weighted FSPGR, and axial and coronal T1-weighted LAVA. Postcontrast axial T 1-weighted LAVA images were obtained in a time course. Postcontrast coronal T1-weighted LAVA images w ere obtained. COMPARISON: The abdomen and pelvis dated 05/15/2022 and 08/31/2021 FINDINGS: Cardiomegaly. No pericardial effusion. Very small bilateral posterior layering pleural effusions. T2 hyperintense nonenhancing hepatic cysts, the largest in the left hepatic lobe measuring up to 3.5 cm. Indeterminate 3.0 cm T2 hyperintense, T1 hypointense mass with restricted diffusion in segment 6 of the liver. The lesion enhances to a slightly greater degree than the liver, initially hypointense to the surrounding liver on the precontrast LAVA images becoming nearly indiscernible from the surroundi ng enhancing perihepatic parenchyma on the postcontrast images. Low signal intensity filling defects at the neck of the partially decompressed normal-appearing gallbladder with corresponding high attenu ation on CT consistent with small gallstones. There are few tiny T2 hyperintense likely dilated pancr eatic ductal side branches at the head, body and tail of the pancreas likely sequela of chronic pancr eatitis which is also suggested by a few punctate parenchymal calcifications on prior noncontrast CT. Slightly larger 1.2 cm cystic lesion at the uncinate process of the pancreas without evident enhanci ng soft tissue component likely representing a small pseudocyst. Spleen, bilateral adrenal glands are normal. 2.5 cm lesion at the anterior upper pole of the right kidney which is slightly hyperintense to skeletal muscle on both T1 and T2-weighted imaging and which is without evident enhancement on pos tcontrast imaging consistent with a proteinaceous/hemorrhagic cyst. There are several additional more T2 hyperintense nonenhancing cysts in both kidneys. 10 mm low signal intensity renal stone in a midd le calyx of the right kidney. Postoperative change of prior right hemicolectomy with ileocolic anasto mosis in the right abdomen and with midline abdominal wall scar. No bowel obstruction. No pathologica lly enlarged abdominal lymphadenopathy. Mild lumbar and moderate thoracic spondylosis. IMPRESSION: 1. 2.5 cm nonenhancing likely complex proteinaceous/hemorrhagic right renal cyst. 2. Indeterminate 3.0 cm enhancing mass in segment 6 of the liver. In the absence of known liver disea se or primary malignancy this most likely benign however would consider ultrasound-guided biopsy for more definitive determination. 3. Cholelithiasis. 4. 10 mm right renal stone. 5. Cardiomegaly. 6. Very small bilateral pleural effusions. 7. 1.2 cm nonenhancing cystic lesion at the posterior process of the pancreas with several additional tiny cystic lesions along the main pancreatic duct, the former likely representing a small pseudocys t in the latter likely representing dilated side branches related to chronic pancreatitis. Reviewed, dictated and finalized at location A. IMPRESSION: 1. 2.5 cm nonenhancing likely complex proteinaceous/hemorrhagic right renal cys t. 2. Indeterminate 3.0 cm enhancing mass in segment 6 of the liver. In the absenc e of known liver disease or primary malignancy this most likely benign however would consider ultrasound-guided biopsy for more definitive determination. 3. Cholelithiasis. 4. 10 mm rig
== END 2022-06-05 12:44 | disposition home or self-care (01) ==
PROVIDERS: PCP Student in an Organized Health Care Education/Training Program; Visit Provider Urology
DX: N28.89 Other specified disorders of kidney and ureter (principal); N28.1 Cyst of kidney, acquired; K80.20 Calculus of gallbladder without cholecystitis without obstruction; N20.0 Calculus of kidney; I51.7 Cardiomegaly; J90 Pleural effusion, not elsewhere classified
CPT/HCPCS: 74183; A9577

== ENCOUNTER 2024-04-03 11:36 | Outpatient (CLI) | payer MEDICARE, OTHER, SELFPAY ==
[2024-04-03 12:39] LABS: Anion Gap 7 mmol/L (4-12); Blood Urea Nitrogen 20 mg/dL (9-20); Calcium 9.4 mg/dL (8.4-10.2); Carbon Dioxide 29 mmol/L (22-30); Chloride 102 mmol/L (98-107); Estimated Glomerular Filt Rate 60; Glucose 350 mg/dL (65-110); Potassium 3.6 mmol/L (3.4-5.0); Sodium 138 mmol/L (137-145)
== END 2024-04-03 11:37 | disposition home or self-care (01) ==
LOC: ANHSURGERY 11:45
PROVIDERS: Anesthesiology; PCP Student in an Organized Health Care Education/Training Program; Visit Provider Urology
DX: R97.20 Elevated prostate specific antigen [PSA] (principal); E11.9 Type 2 diabetes mellitus without complications; Z01.818 Encounter for other preprocedural examination
CPT/HCPCS: 36415; 80048; 87086; 87088

== ENCOUNTER 2024-04-11 01:00 | Day surgery (SDC) | payer MEDICARE, OTHER, SELFPAY ==
[2024-03-31 14:00] VITALS: BMI 39.3
--- NOTE | 2024-03-31 14:33 | PC.NURSE ---
Report to the Outpatient Waiting Room, entrance under the green pavilion located off [facility], at time __6:15AM on date ___04/11/24____. Planned Procedure Time: __8:15AM . Time changes happen often and if your time is changed the preop area will call you the afternoon before. - You and your visitor will be asked to self-screen and do not enter if you have any COVID symptoms. - A mask is optional within the hospital at this time. Patients may have clear liquids (water, carbonated beverages, clear teas, apple juice) until 3 hours prior to surgery with a maximum of 20 ounces. - No food from midnight until time of surgery. Take the following medications with a SIP of water the morning of surgery: __KEPPRA, METOPROLOL. TAKE CIPRO PER INSTRUCTIONS FROM DR RAY DO NOT STOP ANY OF YOUR OTHER PRESCRIPTION MEDICATIONS PRIOR TO SURGERY ?EXCEPT THE FOLLOWING Medications to discontinue per physician __HOLD ASPIRIN PER DR RAY- PT'S CALLING OFFICE TO VERIFY. HOLD ALL VITAMINS/SUPPLEMENTS 3 DAYS PRE-OP PER ANESTHESIA- LAST DOSE 04/07/24 Please no make-up, nail togolese, hairspray, perfume, deodorant, or body powder the day of surgery. No jewelry (including any body piercings) or valuables the day of surgery, leave them at home. Please take a shower or bath the night before, or the morning of, surgery with an antibacterial soap. Wear comfortable, loose fitting clothing. - Jewelry must be removed prior to entering the operating room. Rings and piercings that are not removed may be cut off. - The hospital will not accept responsibility for valuables. - Please leave all valuables, including medications, at home the day of surgery. If you are going home after surgery, a licensed wagon driver salesperson must drive you home. - NO public transportation without another adult if you receive anesthesia. - We recommend that an adult stay with you for 24 hours following discharge. - We also recommend that you do not drive, make important decision, drink alcoholic beverages, or take any drugs that were not prescribed by your health care provider for at least 24 hours after your discharge time. Follow any additional instructions given to you from your surgeon. If you or anyone in your household have experienced Covid symptoms in the past week, please notify your surgeon or the nurse liaison at the phone number below for possible testing. Telephone instructions given to __PATIENT & -MAGGIE____and asked if any additional questions and then verbalized understanding. Patient advised to call surgeon office or pre surgery nurse liaison [phone] if any additional questions.
[2024-04-11] VITALS (7 sets, daily range): BP systolic 121–143; BP diastolic 70–83; PULSE 65–83; RESP 14–18; TEMP 36.4–36.6; O2SAT 96–100
[2024-04-11] MEDS: LACTATED RINGERS 1,000 ML 30 ML IV CONT (07:30)
--- NOTE | 2024-04-11 07:32 | PM.IMHP ---
H&P: HPI History of Present Illness Date/Time: 04/11/24 07:32 Chief Complaint: elevated psa Narrative: 68 year old male with elevated psa and abnormal mri Review of Systems Review of Systems: All systems reviewed & are unremarkable except as noted in HPI and below PMFSH Past Medical History Medical History Anxiety Carcinoid tumor COVID-19 virus detected 05/12/20 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 Occurred on 09/30/17. 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 Rare alcohol use. No drug use. Lives at home with his and [id number]. Full code. He nominates his to be the individual would make medical decisions for him if he is not able. Smoking status: Never smoker Second hand tobacco smoke exposure: Yes Alcohol intake: never Substance use: never Living arrangements: with family Additional living arrangements comments: [facility]- Gender identity (if verbalized by the patient): Male Spiritual care concerns: No Meds Home Medications and Allergies Home Medications Medication Instructions Recorded Confirmed Type atorvastatin 80 mg tablet 80 mg PO HS 05/16/20 04/11/24 History gabapentin 300 mg tablet,extended 300 mg PO HS 05/16/20 04/11/24 History release 24 hr metoprolol succinate 25 mg 25 mg PO BID 05/16/20 04/11/24 History tablet,extended release 24 hr pramipexole 0.25 mg tablet 75 mg PO QPM 05/16/20 04/11/24 History cholecalciferol (vitamin D3) 50 25 mcg PO DAILY 05/17/20 04/11/24 History mcg (2,000 unit) tablet (Vitamin D3) cyanocobalamin (vitamin B-12) 1,000 mcg PO DAILY 05/17/20 04/11/24 History 1,000 mcg tablet (Vitamin B-12) levetiracetam 1,000 mg tablet See Rx Instructions .Route .COMPLEX 05/17/20 04/11/24 History hydrochlorothiazide 25 mg tablet 25 mg PO QAM 07/30/20 04/11/24 History tamsulosin 0.4 mg capsule 0.4 mg PO DAILY 07/30/20 04/11/24 History peg [id number] 1 1 drp LEFT EYE QID PRN Dry Eye(S) 08/08/20 04/11/24 Rx %-0.2 %-0.2 % eye drops #10 mL (Artificial Tears ([id number])) potassium chloride 10 mEq 20 meq PO DAILY 10/02/20 04/11/24 History capsule,extended release acetaminophen 500 mg capsule 500 mg PO Q8H PRN pain #60 caps 05/22/22 04/11/24 Rx aspirin 81 mg tablet,delayed 81 mg PO DAILY 03/31/24 04/11/24 History release ciprofloxacin HCl 500 mg 500 mg PO DIRECTED 03/31/24 04/11/24 History tablet,extended release 24 hr dapagliflozin propanediol 10 mg 10 mg PO DAILY 03/31/24 04/11/24 History tablet (Farxiga) folic acid 1 mg tablet 1 mg PO DAILY 03/31/24 04/11/24 History insulin glargine 100 unit/mL (3 40 unit subcut QAM 03/31/24 04/11/24 History mL) subcutaneous pen (Lantus Solostar U-100 Insulin) insulin lispro 100 unit/mL 12 sliding scale dose subcut 03/31/24 04/11/24 History subcutaneous pen (Humalog KwikPen DIRECTED (U-100) Insulin) pantoprazole 40 mg tablet,delayed 40 mg PO DAILY 03/31/24 04/11/24 History release sennosides 8.6 mg tablet (Senokot) 8.6 mg PO DAILY 03/31/24 04/11/24 History venlafaxine 225 mg tablet,extended 225 mg PO HS 03/31/24 04/11/24 History release 24 hr Allergies Allergy/AdvReac Type Severity Reaction Status Date / Time Penicillins Allergy Severe Rash Verified 04/11/24 07:11 lorazepam [From Ativan] AdvReac Mild Hallu
[2024-04-11 07:33] LABS: Glucose Point of Care 279 mg/dl (65-105)
--- NOTE | 2024-04-11 07:34 | WPDHPUPDATE1 ---
History and Physical Update Update Date/Time: 04/11/24 07:34 History and Physical has been reviewed, including an updated exam of the patient. There are NO changes in the patient's condition. Risks, benefits, and alternatives have been discussed and questions answered. Patient agrees to proceed with procedure.
--- NOTE | 2024-04-11 08:02 | WPDANESEPPF ---
Anes - Initial Pre Proc Eval Procedure: Operation Date: 04/11/24 08:15 Proposed Procedures p Transrectal Ultrasound Fusion Guided Prostate Biopsy - Blane Ferrera MD Date/Time: 04/11/24 08:02 Surgeon: Blane Ferrera MD Pre Op Diagnosis: elevated psa Patient Data Age: 68 Gender: M Height: 1.7 m Weight: 111.1 kg Last Vital Signs Temp 97.8 F 04/11/24 06:33 Pulse 76 04/11/24 06:33 Resp 18 04/11/24 06:33 BP 138/83 04/11/24 06:33 Pulse Ox 97 04/11/24 06:33 O2 Del Method Room Air 04/11/24 06:33 Allergies Allergy/AdvReac Type Severity Reaction Status Date / Time Penicillins Allergy Severe Rash Verified 04/11/24 07:11 lorazepam [From Ativan] AdvReac Mild Hallucinati Verified 04/11/24 07:11 ng Home Medications Medication Instructions Recorded Confirmed Type atorvastatin 80 mg tablet 80 mg PO HS 05/16/20 04/11/24 History gabapentin 300 mg tablet,extended 300 mg PO HS 05/16/20 04/11/24 History release 24 hr metoprolol succinate 25 mg 25 mg PO BID 05/16/20 04/11/24 History tablet,extended release 24 hr pramipexole 0.25 mg tablet 75 mg PO QPM 05/16/20 04/11/24 History cholecalciferol (vitamin D3) 50 25 mcg PO DAILY 05/17/20 04/11/24 History mcg (2,000 unit) tablet (Vitamin D3) cyanocobalamin (vitamin B-12) 1,000 mcg PO DAILY 05/17/20 04/11/24 History 1,000 mcg tablet (Vitamin B-12) levetiracetam 1,000 mg tablet See Rx Instructions .Route .COMPLEX 05/17/20 04/11/24 History hydrochlorothiazide 25 mg tablet 25 mg PO QAM 07/30/20 04/11/24 History tamsulosin 0.4 mg capsule 0.4 mg PO DAILY 07/30/20 04/11/24 History peg [id number] 1 1 drp LEFT EYE QID PRN Dry Eye(S) 08/08/20 04/11/24 Rx %-0.2 %-0.2 % eye drops #10 mL (Artificial Tears ([id number])) potassium chloride 10 mEq 20 meq PO DAILY 10/02/20 04/11/24 History capsule,extended release acetaminophen 500 mg capsule 500 mg PO Q8H PRN pain #60 caps 05/22/22 04/11/24 Rx aspirin 81 mg tablet,delayed 81 mg PO DAILY 03/31/24 04/11/24 History release ciprofloxacin HCl 500 mg 500 mg PO DIRECTED 03/31/24 04/11/24 History tablet,extended release 24 hr dapagliflozin propanediol 10 mg 10 mg PO DAILY 03/31/24 04/11/24 History tablet (Farxiga) folic acid 1 mg tablet 1 mg PO DAILY 03/31/24 04/11/24 History insulin glargine 100 unit/mL (3 40 unit subcut QAM 03/31/24 04/11/24 History mL) subcutaneous pen (Lantus Solostar U-100 Insulin) insulin lispro 100 unit/mL 12 sliding scale dose subcut 03/31/24 04/11/24 History subcutaneous pen (Humalog KwikPen DIRECTED (U-100) Insulin) pantoprazole 40 mg tablet,delayed 40 mg PO DAILY 03/31/24 04/11/24 History release sennosides 8.6 mg tablet (Senokot) 8.6 mg PO DAILY 03/31/24 04/11/24 History venlafaxine 225 mg tablet,extended 225 mg PO HS 03/31/24 04/11/24 History release 24 hr Laboratory Tests 04/11/24 07:29 POC Capillary Glucose 279 H mg/dl (65-105) Patient hx anesthesia problems: none Family hx anesthesia problems: none Results Review: All pre-operative results and documents have been reviewed as part of the pre-operative evaluation. [facility] Past Medical History Medical History Anxiety Carcinoid tumor COVID-19 virus detected 05/12/20 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 Occurred on 09/30/17. Depression with anxiety HTN (hypertension) Hyperlipidemia Ruptured aneurysm of intracranial region Seizure since his CVA Sepsis Sleep apnea Type II diabetes mellitus Surgical History Surgical History History of colon resection 18 inches due to carcinoid tumor Hx of tonsillectomy Family History Family History Mother Hypertension Social History Social History (Reviewed
[2024-04-11] MEDS: ceFAZolin 2 GM/D5W 50 ML 2 GM/50 ML BAG IVPB (08:17)
--- NOTE | 2024-04-11 08:48 | W.PM.PROC2 ---
Procedure Note - Detailed Date of Procedure 04/11/24 Pre-op Diagnosis elevated psa Post-op Diagnosis Same Procedure Performed uronav us and prostate biopsy Surgeon Blane Ferrera MD Anesthesia MAC Description of Procedure Patient was taken to the operative suite correctly identified. Once anesthesia was obtained he was in the lateral decubitus position. Transrectal ultrasound was performed in the MRI image was fused to the ultrasound machine. Three cores were taken from the region of interest. Twelve standard cores were then taken in addition. Patient tolerated procedure well without any complications and was taken recovery stable condition. Instructed to call for path results in 1 week. This completes dictation. Please send a copy of op note to my office. Estimated Blood Loss 5 Drains No Packing No Pathology Yes Complications No immediate complications Condition Stable Disposition PACU
[2024-04-11 09:02] LABS: Glucose Point of Care 246 mg/dl (65-105)
== END 2024-04-11 10:30 | disposition home or self-care (01) ==
PROVIDERS: PCP Student in an Organized Health Care Education/Training Program; Visit Provider Urology
PROC: (CPT 55700; principal; 2024-04-11 08:15)
DX: C61 Malignant neoplasm of prostate (principal); I10 Essential (primary) hypertension; E78.5 Hyperlipidemia, unspecified; E11.9 Type 2 diabetes mellitus without complications; F41.9 Anxiety disorder, unspecified; F41.8 Other specified anxiety disorders; G47.30 Sleep apnea, unspecified; E66.9 Obesity, unspecified; Z68.38 Body mass index [BMI] 38.0-38.9, adult; Z79.82 Long term (current) use of aspirin; Z79.4 Long term (current) use of insulin; Z98.890 Other specified postprocedural states; Z90.49 Acquired absence of other specified parts of digestive tract; Z86.79 Personal history of other diseases of the circulatory system; Z85.030 Personal history of malignant carcinoid tumor of large intestine
CPT/HCPCS: 76872; 55700; 82948; 88342; G0416; J0690; J2250; J2704; J3010; J7120

== ENCOUNTER 2025-01-02 17:37 | Emergency (ER) | payer MEDICARE, OTHER, SELFPAY ==
[2025-01-02 17:38] VITALS: BP 151/88; PULSE 88; RESP 24; TEMP 36.6; O2SAT 100
[2025-01-02 17:49] LABS: Glucose Point of Care 262 mg/dl (65-105)
--- NOTE | 2025-01-02 18:09 | ED_ITS ---
HPI - Recheck/Abnormal Lab/Rx General Chief Complaint: Recheck/Abnormal Lab/Rx Stated Complaint: hyperglycemia Time Seen by Provider: 01/02/25 17:40 Source: patient Mode of arrival: EMS Limitations: no limitations History of Present Illness HPI narrative: This is a 69-year-old male with PMH of CVA, intracranial aneurysm, T2 dm, HTN who presents to the ED via EMS for chief complaint of hyperglycemia. Patient's is here and supplementing history. Patient states that he has a bit of a headache but has not been feeling sick. Denies fevers, chills, chest pain, shortness of breath, urinary symptoms or flank pain. Patient's states that over the weekend patient had multiple meals with high levels of carbs. Since then she has had a lot of trouble with trying to get his blood glucose under control. She helps to manage his medications due to his history of stroke with deficits. States that they just saw a new endocrinology provider yesterday gave them a sliding scale. Patient was unsure of how to use the sliding scale. His states that his sugar has been marked as ?high on the glucometer and today was staying elevated in the 300s. Denies any recent lows. Last Humalog dose was around 1630 and on arrival to the ER room, blood sugar is in the 220s. Related Data Home Medications ?Medication ?Instructions ?Recorded ?Confirmed ?Last Taken ?Type atorvastatin 80 mg tablet 80 mg PO HS 05/16/20 04/11/24 10/14/20 History gabapentin 300 mg tablet,extended 300 mg PO HS 05/16/20 04/11/24 10/14/20 History release 24 hr metoprolol succinate 25 mg 25 mg PO BID 05/16/20 04/11/24 04/11/24 History tablet,extended release 24 hr pramipexole 0.25 mg tablet 75 mg PO QPM 05/16/20 04/11/24 10/14/20 History cholecalciferol (vitamin D3) 50 25 mcg PO DAILY 05/17/20 04/11/24 10/08/20 History mcg (2,000 unit) tablet (Vitamin D3) cyanocobalamin (vitamin B-12) 1,000 mcg PO DAILY 05/17/20 04/11/24 10/08/20 History 1,000 mcg tablet (Vitamin B-12) levetiracetam 1,000 mg tablet See Rx Instructions .Route .COMPLEX 05/17/20 04/11/24 04/11/24 History hydrochlorothiazide 25 mg tablet 25 mg PO QAM 07/30/20 04/11/24 10/14/20 History tamsulosin 0.4 mg capsule 0.4 mg PO DAILY 07/30/20 04/11/24 10/14/20 History potassium chloride 10 mEq 20 meq PO DAILY 10/02/20 04/11/24 10/08/20 History capsule,extended release aspirin 81 mg tablet,delayed 81 mg PO DAILY 03/31/24 04/11/24 Unknown History release ciprofloxacin HCl 500 mg 500 mg PO DIRECTED 03/31/24 04/11/24 Unknown History tablet,extended release 24 hr dapagliflozin propanediol 10 mg 10 mg PO DAILY 03/31/24 04/11/24 Unknown History tablet (Farxiga) folic acid 1 mg tablet 1 mg PO DAILY 03/31/24 04/11/24 Unknown History insulin glargine 100 unit/mL (3 40 unit subcut QAM 03/31/24 04/11/24 Unknown History mL) subcutaneous pen (Lantus Solostar U-100 Insulin) insulin lispro 100 unit/mL 12 sliding scale dose subcut 03/31/24 04/11/24 Unknown History subcutaneous pen (Humalog KwikPen DIRECTED (U-100) Insulin) pantoprazole 40 mg tablet,delayed 40 mg PO DAILY 03/31/24 04/11/24 Unknown History release sennosides 8.6 mg tablet (Senokot) 8.6 mg PO DAILY 03/31/24 04/11/24 Unknown History venlafaxine 225 mg tablet,extended 225 mg PO HS 03/31/24 04/11/24 Unknown History release 24 hr Allergies Allergy/AdvReac Type Severity Reaction Status Date / Time Penicillins Allergy Severe Rash Verified 01/02/25 17:47 lorazepam (From Ativan) AdvReac Mild Hallucinati Verified 01/02/25 17:47 ng Review of Systems 2 Review of Systems: All systems as dictated in [facility] Past Medical History Medical History Anxiety Carcinoid tumor COVID-19 virus detected 05/12/20 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 Occurred on 09/30/17. 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 Rare alcohol use. No drug use. Lives at home with his and [id number]. Full code. He nominates his to be the individual would make medical decisions for him if he is not able. Smoking status: Never smoker Second hand tobacco smoke exposure: Yes Alcohol intake: never Substance use: never Living arrangements: with family Additional living arrangements comments: AN[facility]INE- Gender identity (if verbalized by the patient): Male Spiritual care concerns: No Exam 2 Narrative: GENERAL: Well-appearing, well-nourished, and in no acute distress. HEAD: Normocephalic, atraumatic. EYES: PERRLA and EOMI. ENT: Nares clear, no rhinorrhea or epistaxis. Mucous membranes moist. Oropharynx without tonsillar hypertrophy exudate or other lesions. NECK: Supple. No adenopathy or masses. CHEST: No respiratory distress. Clear to auscultation. No wheezes rales or rhonchi HEART: Regular rate and rhythm. No murmur heard. Normal peripheral pulses. ABDOMEN: Soft, nontender, nondistended, normal active bowel sounds. MSK: Normal range of motion. No edema. SKIN: Warm, dry, no rash. NEURO: Alert and oriented x4. No focal deficits. PSYCH: Normal mood and affect. Course Vital Signs Vital signs: Vital Signs Temperature 97.9 F 01/02/25 17:38 Pulse Rate 88 01/02/25 17:38 Respiratory Rate 24 H 01/02/25 17:38 Blood Pressure 151/88 H 01/02/25 17:38 Pulse Oximetry 100 01/02/25 17:38 Oxygen Delivery Room Air 01/02/25 17:38 Temperature 97.9 F 01/02/25 17:38 Pulse Rate 80 01/02/25 20:22 Respiratory Rate 19 01/02/25 20:22 Blood Pressure 125/85 01/02/25 20:22 Pulse Oximetry 95 01/02/25 20:22 Oxygen Delivery Room Air 01/02/25 17:38 MDM - Recheck/Abnormal Lab/Rx MDM Narrative Medical decision making narrative: This is a 69-year-old male who presents to the ED for chief complaint of elevated blood sugars over the past few days. Vitals are normal. Exam is unremarkable. Point of care blood sugar on arrival is in the 260s. Blood sugar is trending down appropriately in the 220s upon my examination. He was given L of fluids and repeat blood sugars at 180. Lab work is otherwise relatively unremarkable. Certainly no evidence of DKA today. Potassium was 3.2 so he was given oral repletion. Urinalysis shows 3+ glucose but no infection. Is well-appearing on re-evaluation. Feel that this elevated blood sugar is likely due to not being fully compliant with diabetic diet as well as sliding scale for Humalog. Patient will be discharged in stable condition. Supportive measures discussed and return precautions given. Patient is understanding and agreeable with plan for discharge with PCP follow-up. Lab Data 01/02/25 18:00 01/02/25 18:49 Labs: Lab Results 01/02/25 01/02/25 01/02/25 Range/Units 17:47 18:00 18:19 WBC 7.9 (4.5-10.0) K/mm3 RBC 5.68 (4.6-6.20) M/mm3 Hgb 17.9 (14.0-18.0) g/dL Hct 51.9 (42.0-52.0) % MCV 91.4 (80-100) fl MCH 31.5 (26-34) pg MCHC 34.5 (32-36) g/dl RDW 13.8 (11.5-14.5) % Plt Count 215 (150-375) k/mm3 MPV 11.0 H (7.4-10.4) fl Immature Gran % (Auto) 0.5 (0-0.5) % Neut % (Auto) 69.0 (45.5-73.1) % Lymph % (Auto) 20.8 (18.3-44.2) % [place] % (Auto) 6.3 (2.6-8.5) % Eos % (Auto) 2.9 (0-4.4) % Baso % (Auto) 0.5 (0.2-1.2) % Lymph # (Auto) 1.65 (0.9-3.2) K/mm3 [place] # (Auto) 0.5 (0.1-0.6) K/mm3 Eos # (Auto) 0.2 (0-0.3) K/mm3 Baso # (Auto) 0.0 (0.0-0.1) K/mm3 Abs Immat Gran (auto) 0.04 H (0.00-0.031) K/mm3 Absolute Neuts (auto) 5.5 (1.3-6.7) K/mm3 Absolute Nucleated RBC 0.000 (0.0-0.012) K/mm3 Nucleated RBC % 0.0 (0.0-0.2) % Sodium (137-145) mmol/L Potassium (3.4-5.0) mmol/L Chloride (98-107) mmol/L Carbon Dioxide (22-30) mmol/L Anion Gap (4-12) mmol/L BUN (9-20) mg/dL Creatinine (0.7-1.3) mg/dL Estim Creat Clear Calc ml/min Estimated GFR (59 - ) Glucose (65-110) mg/dL POC Capillary Glucose 262 H 220 H (65-105) mg/dl Calcium (8.4-10.2) mg/dL Phosphorus (2.5-4.5) mg/dL Magnesium (1.6-2.3) mg/dL Total Bilirubin (0.2-1.3) mg/dL AST (17-59) U/L ALT (6-50) U/L Alkaline Phosphatase (38-126) U/L Total Protein (6.3-8.2) g/dL Albumin (3.5-5.1) g/dL Beta-Hydroxybutyrate/Acetoacetate 0.26 (0.02-0.27) mmol/L Urine Color (Yellow) Urine Appearance (Clear) Urine pH (5.0-9.0) Ur Specific [place] (1.001-1.035) Urine Protein (Negative) mg/dL Urine Glucose (UA) (Negative) mg/dL Urine Ketones (Negative) mg/dL Ur Blood (Man) (Negative) Urine Nitrate (Negative) Urine Bilirubin (Negative) Urine Urobilinogen (<2.0) mg/dL Leukocyte Esterase Rfl (Negative) CHANDU/UL 01/02/25 01/02/25 Range/Units 18:49 19:29 WBC (4.5-10.0) K/mm3 RBC (4.6-6.20) M/mm3 Hgb (14.0-18.0) g/dL Hct (42.0-52.0) % MCV (80-100) fl MCH (26-34) pg MCHC (32-36) g/dl RDW (11.5-14.5) % Plt Count (150-375) k/mm3 MPV (7.4-10.4) fl Immature Gran % (Auto) (0-0.5) % Neut % (Auto) (45.5-73.1) % Lymph % (Auto) (18.3-44.2) % [place] % (Auto) (2.6-8.5) % Eos % (Auto) (0-4.4) % Baso % (Auto) (0.2-1.2) % Lymph # (Auto) (0.9-3.2) K/mm3 [place] # (Auto) (0.1-0.6) K/mm3 Eos # (Auto) (0-0.3) K/mm3 Baso # (Auto) (0.0-0.1) K/mm3 Abs Immat Gran (auto) (0.00-0.031) K/mm3 Absolute Neuts (auto) (1.3-6.7) K/mm3 Absolute Nucleated RBC (0.0-0.012) K/mm3 Nucleated RBC % (0.0-0.2) % Sodium 139 (137-145) mmol/L Potassium 3.2 L (3.4-5.0) mmol/L Chloride 104 (98-107) mmol/L Carbon Dioxide 26 (22-30) mmol/L Anion Gap 9 (4-12) mmol/L BUN 21 H (9-20) mg/dL Creatinine 0.92 (0.7-1.3) mg/dL Estim Creat Clear Calc 79 ml/min Estimated GFR > 60 (59 - ) Glucose 188 H (65-110) mg/dL POC Capillary Glucose 179 H (65-105) mg/dl Calcium 8.7 (8.4-10.2) mg/dL Phosphorus 2.8 (2.5-4.5) mg/dL Magnesium 1.8 (1.6-2.3) mg/dL Total Bilirubin 0.7 (0.2-1.3) mg/dL AST 21 (17-59) U/L ALT 25 (6-50) U/L Alkaline Phosphatase 92 (38-126) U/L Total Protein 6.0 L (6.3-8.2) g/dL Albumin 3.5 (3.5-5.1) g/dL Beta-Hydroxybutyrate/Acetoacetate (0.02-0.27) mmol/L Urine Color Yellow (Yellow) Urine Appearance Clear (Clear) Urine pH 5.0 (5.0-9.0) Ur Specific [place] 1.030 (1.001-1.035) Urine Protein Negative (Negative) mg/dL Urine Glucose (UA) 3+ H (Negative) mg/dL Urine Ketones Negative (Negative) mg/dL Ur Blood (Man) Negative (Negative) Urine Nitrate Negative (Negative) Urine Bilirubin Negative (Negative) Urine Urobilinogen 0.2 (<2.0) mg/dL Leukocyte Esterase Rfl Negative (Negative) CHANDU/UL Discharge Plan Discharge Clinical Impression: Hyperglycemia Patient Disposition: Home, Self-Care Condition: Stable Instructions: Antibiotic Form Additional Instructions: Exam and workup today are reassuring. Please follow the sliding scale as directed by your mobile equipment servicer. Follow-up closely with Endocrinology regarding blood sugars. Please make sure the your watching your carb intake. If you have any new or worsening symptoms please return to the ER for further evaluation. Patient Language: Fijian Prescriptions: No Action atorvastatin 80 mg Tablet 80 mg PO HS pramipexole 0.25 mg Tablet 75 mg PO QPM Rx Instructions: PT TAKES AT 1800 gabapentin 300 mg Tablet Extended Release 24 Hr 300 mg PO HS metoprolol succinate 25 mg Tablet Extended Release 24 Hr 25 mg PO BID cyanocobalamin (vitamin B-12) [Vitamin B-12] 1,000 mcg Tablet 1,000 mcg PO DAILY levetiracetam 1,000 mg Tablet See Rx Instructions .ROUTE .COMPLEX Rx Instructions: 1000MG IN AM AND 1500MG IN PM cholecalciferol (vitamin D3) [Vitamin D3] 50 mcg (2,000 unit) Tablet 25 mcg PO DAILY hydrochlorothiazide 25 mg tablet 25 mg PO QAM tamsulosin 0.4 mg capsule 0.4 mg PO DAILY Artificial Tears([id number]) 1-0.2-0.2 % Drops 1 drp LEFTEYE QID PRN (Reason: Dry Eye(S)) Qty: 10 0RF acetaminophen 500 mg capsule 500 mg PO Q8H PRN (Reason: pain) Qty: 60 0RF Rx Instructions: Take 2 caps every 8 hours for 3 days, followed by 1-2 caps as needed for pain potassium chloride 10 mEq Capsule, Extended Release 20 meq PO DAILY aspirin 81 mg Tablet,Delayed Release (Dr/Ec) 81 mg PO DAILY ciprofloxacin HCl 500 mg Tablet Extended Release 24 Hr 500 mg PO DIRECTED Rx Instructions: DIRECTED FOR PRE-OP venlafaxine 225 mg tablet extended release 24hr 225 mg PO HS folic acid 1 mg tablet 1 mg PO DAILY dapagliflozin propanediol [Farxiga] 10 mg tablet 10 mg PO DAILY sennosides [Senokot] 8.6 mg Tablet 8.6 mg PO DAILY pantoprazole 40 mg tablet,delayed release (DR/EC) 40 mg PO DAILY insulin glargine [Lantus Solostar U-100 Insulin] 100 unit/mL (3 mL) insulin pen 40 unit SUBCUT QAM insulin lispro [Humalog KwikPen Insulin] 100 unit/mL insulin pen 12 sliding scale dose SUBCUT DIRECTED Rx Instructions: 12 UNITS BEFORE MEALS, SLIDING SCALE Follow-up/Referrals: Yinka,DO Jovan [Primary Care Provider] - Time of Disposition: 19:34
[2025-01-02 18:16] LABS: Basophils Percent Auto 0.5 % (0.2-1.2); Eosinophils Absolute Auto 0.2 K/mm3 (0-0.3); Eosinophils Percent Auto 2.9 % (0-4.4); Hematocrit 51.9 % (42.0-52.0); Hemoglobin 17.9 g/dL (14.0-18.0); Immature Granulocyte Absolute 0.04 K/mm3 (0.00-0.031); Immature Granulocyte Percent A 0.5 % (0-0.5); Lymphocytes Absolute Auto 1.65 K/mm3 (0.9-3.2); Lymphocytes Percent Auto 20.8 % (18.3-44.2); Mean Corpuscular HGB Conc 34.5 g/dl (32-36); Mean Corpuscular Hemoglobin 31.5 pg (26-34); Mean Corpuscular Volume 91.4 fl (80-100); Monocytes Absolute Auto 0.5 K/mm3 (0.1-0.6); Monocytes Percent Auto 6.3 % (2.6-8.5); Neutrophils Absolute Auto 5.5 K/mm3 (1.3-6.7); Platelet Count Result 215 k/mm3 (150-375); Red Blood Count 5.68 M/mm3 (4.6-6.20); Red Cell Distribution Width 13.8 % (11.5-14.5); White Blood Count 7.9 K/mm3 (4.5-10.0)
[2025-01-02] MEDS: LACTATED RINGERS 1,000 ML 999 ML IV CONT (18:17)
[2025-01-02 18:36] LABS: Beta-Hydroxybutyrate/Acetoacetate 0.26 mmol/L (0.02-0.27)
[2025-01-02 18:39] LABS: Glucose Point of Care 220 mg/dl (65-105)
[2025-01-02] MEDS: ACETAMINOPHEN 500 MG TABLET 1000 MG PO (18:54)
[2025-01-02 18:57] VITALS: RESP 18; O2SAT 95
[2025-01-02 18:58] LABS: Add Urine Microscopic? NO; Appearance Urine Clear (Clear); Bilirubin Urine Negative (Negative); Blood Urine Negative (Negative); Color Urine Yellow (Yellow); Glucose Urine UA 3+ mg/dL (Negative); Ketones Urine Negative (Negative); Leukocyte Esterase Ur Negative LEU/UL (Negative); Nitrate Urine Negative (Negative); Protein Urine Negative (Negative); Urobilinogen Urine 0.2 mg/dL (<2.0)
[2025-01-02 19:00] VITALS: BP 139/63; PULSE 80; RESP 18; O2SAT 94
--- OUTSIDE RECORDS SUMMARY | 2025-01-02 19:01 | XMS_ITS | Clinical Summary ---
Author Organization [facility] Address [address] [place] [address] Care Team Providers Care Drywall Professional Name Role Phone ManjeetangelaDannyfranklyn Clinton DO Primary Care Provide r Allergies Active Allergy Reactions Criticality Noted Date Comments Lorazepam Hallucinations High Penicillins Hives Medium 07/02/2018 Medications aspirin 81 mg tablet daily. Active atorvastatin (LIPITOR) 80 mg tablet daily. Active cyanocobalamin , vitamin B-12, 1,000 mcg capsule every 12 hours. Ac tive metoprolol XL (TOPROL-XL) 50 mg 24 hr tablet daily. Active nystatin powder nystatin 100,000 unit/gram topical powder APPLY TO THE AFFECTED AREA(S) BY TOPICAL ROUTE 2 TIMES PER DAY Active pramipexole (MIRAPEX) 0.25 mg tablet pramipexole 0.25 mg tablet 1 at hs Active gabapentin (NEURONTIN) 300 mg capsuleIndicat ions:Cerebrova scular accident (CVA) due to occlusion of right middle cerebral artery (HCC) Take 1 capsule (300 mg total) by mouth nightly Active acetaminophen 500 mg capsule Take 2 capsules (1,000 mg total) by mouth 3 (three) times a day. 90 tablet 8 Active venlafaxine XR (EFFEXOR-XR) 75 mg 24 hr capsule Take with food.1 daily 30 capsule 3 0 Active tamsulosin (FLOMAX) 0.4 mg extended release capsule 1 daily 30 capsule 3 0 Active levETIRAcetam (KEPPRA) 1,000 mg tablet Take 1 tablet (1,000 mg total) by mouth daily AND 1.5 tablets (1,500 mg total) nightly. 225 tablet 1 3 Active FreeStyle Aris 2 Sensor kit FOLLOW PACKAGE DIRECTIONS 4 Active HYDROCHLOROTHI AZIDE ORAL 0 Active potassium chloride ER 10 mEq CR tablet Take 2 tablet/capsule (20 mEq total) by mouth daily 4 Active BD Ultra-Fine Short Pen Needle 31 gauge x 5/16 needle INJECT 1 NEEDLE UNDER THE SKIN FOUR TIMES DAILY [address] (PROTONIX) 40 mg EC tablet Take 1 tablet (40 mg total) by mouth daily 4 Active folic acid (FOLVITE) 1 mg tablet Take 1 tablet (1 mg total) by mouth daily 4 Active Farxiga 10 mg tablet Take 1 tablet (10 mg total) by mouth daily 4 Active metoprolol tartrate (LOPRESSOR) 50 mg immediate release tablet 4 Active hydroCHLOROthi azide (HYDRODIURIL) 25 mg tablet 5 Active venlafaxine 225 mg tablet extended release 24hr 24 hr tablet Take 1 tablet (225 mg total) by mouth nightly 5 Active HumaLOG 100 unit/mL pen for injectionIndic ations:type 2 diabetes mellitus Inject 14-24 Units under the skin 3 (three) times a day before meals INJECT 14-16 UNITS THREE TIMES DAILY WITH MEALS ALONG WITH SLIDING SCALE 75 mL 3 5 026 Active LANTUS 100 unit/mL (3 mL) pen for injectionIndic ations:Type 2 diabetes mellitus with hyperglycemia, without long-term current use of insulin (HCC) Inject 40 Units under the skin daily 40 units subQ daily 45 mL 3 5 026 Active Mounjaro 2.5 mg/0.5 mL pen injectorIndica tions:type 2 diabetes mellitus Inject 0.5 mL (2.5 mg total) under the skin once a week 6 mL 4 025 tirzepatide (Mounjaro) 2.5 mg/0.5 mL pen injector Inject 0.5 mL (2.5 mg total) under the skin once a week 2 mL 4 025 Discontinu ed(Therapy completed) LANTUS 100 unit/mL (3 mL) pen for injection 40 units subQ daily 15 mL 1 4 025 Discontinu ed(Reorder ) HumaLOG 100 unit/mL pen for injection INJECT 14-16 UNITS THREE TIMES DAILY WITH MEALS ALONG WITH SLIDING SCALE 18 mL 1 5 025 Discontinu ed(Reorder ) azithromycin (ZITHROMAX) 250 mg tablet 5 025 Discontinu ed(Therapy completed) Active Problems Problem Noted Date Diagnosed Date Type 2 diabetes mellitus wit h hyperglycemia, without long-term current use of insulin 09/04/2024 Assessment & Plan (01/01/2025 2:01 PM CDT): Chronic problem. A1c uncontrolled but improved slightly from 9.9% 09/04/24 to now 9.5%. Taking humalog 12 units tid--which is not enough to get his blood sugars down per below SSI. Did not change SSI per LON. Will change at this time. Aware that SSI will be on AVS that she gets at checkout. Will keep with the insulin at home. Stressed that she needs to scan FSL every 6-8 hours. Current medications: Farxiga 10mg daily Lantus 40 units every morning Humalog 14-16 units 3 times daily with meals If blood sugar is <150, take 14-16 units. If blood sugar is between 151-200, add 2 units. If blood sugar is between 201-250, add 4 units. If blood sugar is between 251-300, add 6 units. If blood sugar is between 301-350, add 8 units. If blood sugar is between >351, add 10 units. UTD on DM eye exam (04/21/24 no DMR/DME [facility]). Had eye exam 11/2024; letter sent to get copy of report. UTD on labs. Discussed with Yair Ruiz: Strive for regular exercise (30min most days) and diet (get at least 4-5 servings of fruit and veggies daily, avoid processed foods, increase lean protein intake and decrease carb portions as well as fruit juices, regular soda & desserts). Watch carbs and simple sugars. Check the blood sugar: Freestyle aris 2. Check the feet daily for skin breakdown and infection. Assessment & Plan (09/04/2024 3:03 PM INTAKE WORKER): Chronic, uncontrolled, worsening A1c today 9.9%, goal A1c at least less than 7.5-7% To download freestyle Aris as patient did not bring his reader Advised to bring freestyle Aris reader with each office visit Counseled on diet Exercises and limitation Advised to avoid unhealthy snacking in between meals Discussed about portion control with snacking and meal sizes Discussed about GLP 1 agonist as an option Start patient on Mounjaro 2.5 mg subQ weekly Continue current dose of Lantus 40 units subQ daily Continue Farxiga 10 mg oral daily Recommend to take Humalog 12 units t.i.d. with meals along with a correction sliding scale as below 151 - 200 + 2 units 201 -250 + 4 units 251 - 300 + 6 units 301 - 350 + 8 units Over 351 + 10 units Educated on hypoglycemia We will try to obtain patient's recent eye exam copy follow-up in 4 months Hyperlipidemia associated with type 2 diabetes sudheer conde 09/04/2024 Assessment & Plan (01/01/2025 1:12 PM CDT): Chronic problem. Currently taking Atorvastatin 80mg. Last lipid panel: 02/14/24 LDL=40, MD=589. Assessment & Plan (09/04/2024 3:00 PM INTAKE WORKER): Continue Statin therapy Class 2 severe obesity due t o excess calories with serious comorbidity and body mass index (BMI) of 37.0 to 37.9 in adult 09/04/2024 Assessment & Plan (09/04/2024 3:00 PM INTAKE WORKER): Counseled on diet Exercise is a limitation Homonymous hemianopia, left 07/05/2019 Overview (07/05/2019): Left superior visual field deficit. CÉSAR (obstructive sleep apnea) 07/31/2018 Assessment & Plan (07/31/2018 7:42 AM CDT): Continue CPAP overnight Cellulitis 07/29/2018 Assessment & Plan (07/31/2018 7:41 AM CDT): Patient reports 1.5 weeks of pain in RLE with development of erythema yesterday c/f cellulitis. He denies drainage or pus. 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 Controlled on current metoprolol XL 50mg daily, HCTZ 25mg daily Assessment & Plan (09/04/2024 3:01 PM INTAKE WORKER): Chronic overall well controlled Continue current dose of hydrochlorothiazide and metoprolol XL Assessment & Plan (07/31/2018 7:42 AM CDT): Continue home metoprolol Restless leg syndrome 07/29/2018 Assessment & Plan (07/29/2018 4:45 AM CDT): Will continue home pramipexole Anxiety 07/29/2018 Assessment & Plan (07/29/2018 4:46 AM CDT): Will continue home lexapro 20 mg daily Cognitive change 07/08/2018 Impaired mobility and ADLs 07/05/2018 Spasticity 07/05/2018 Assessment & Plan (07/31/2018 7:40 AM CDT): will increase baclofen per neurology recommendations. Will provide family with stroke neurology phone number for outpatient management Continue home gabapentin. Scheduled tylenol. Ibuprofen and tizanidine prn. Cerebrovascular accident (CV A) due to occlusion of right middle cerebral artery 07/05/2018 Complex partial epilepsy Assessment & Plan (07/29/2018 4:44 AM CDT): keppra 250 mg AM, 500 mg PM Encounters Date Type Department Care Team Description 01/02/2025 Orders Only [facility] Medical [facility] Diabetes and Endocrinology [address] [place], [place] [id number] Provider, MD Jonnathan 01/01/2025 1:00 PM CDT Office Visit [facility] Diabetes and Endocrinology [address] [place] [phone] Iza Salas, DEICER INSPECTOR PNEUMATIC Type 2 diabetes mellitus with hyperglycemia, without long-term current use of insulin (HCC) (Primary Dx); Hypertension associated with diabetes (HCC); Hyperlipidemia associated with type 2 diabetes mellitus (HCC) from Last 3 Months Surgical History Surgery Date Site/Laterality Comments COLON SURGERY HERNIA REPAIR with mesh SKIN TAG REMOVAL Medical History Medical History Date Comments CVA (cerebral vascular accident) (HCC) Colon cancer (HCC) Hypertension Kidney stones History of prostate biopsy Family History Medical History Relation Name Comments Coronary artery disease Brother Hypertension Father Cholelithiasis Mother Hypertension Mother Relation Name Status Comments Brother Father Mother Social History Tobacco Use Types Packs/Day Years Used Date Smoking Tobacco: Never Smokeless Tobacco: Never Alcohol Use Standard Drinks/Week Comments No 0 (1 standard drink = 0.6 oz pur e alcohol) Sex and Gender Information Value Date Recorded Sex Assigned at Not on file Legal Sex Male 11:23 AM CDT Gender Identity Male 11/03/2020 10:28 AM INTAKE WORKER Sexual Orientation Straight 11/03/2020 10 :28 AM INTAKE WORKER Obstetrics History Last Filed Vital Signs Vital Sign Reading Time Taken Comments Blood Pressure 124/76 01/01/2025 1:08 PM CDT Pulse 80 01/01/2025 1:08 PM CDT Temperature 36.9 C (98.4 F) 01/13/2019 7:40 PM CDT Respiratory Rate 16 01/01/2025 1:08 PM CDT Oxygen Saturation 95% 01/13/2019 7:40 PM CDT Inhaled Oxygen Concentration - - Weight 109.8 kg (242 lb) 09/04/2024 1:26 PM INTAKE WORKER wheelchair Height 170.2 cm (5' 7.01 ) 01/01/2025 1:08 PM CD T Body Mass Index 37.9 09/04/2024 1:26 PM INTAKE WORKER Plan of Treatment Health Maintenance Due Date Last Done Comments Colon Cancer Screening-Colonoscopy 1955 Depression Screening 1955 Fall Risk Assessment 1955 Hepatitis C Screening 1954 Hepatitis B Screening 1972 Zoster Vaccine (1 of 2) 2004 Well Visit 65+ 2019 eGFR 02/13/2025 02/14/2024 Albumin Creatinine Ratio, Urine 02/17/2025 Hemoglobin A1C 07/04/2025 01/01/2025, 09/04/2024 Lipid Panel 11/22/2025 11/22/2024, 05/0 03/2024, 02/14/2024, Additional history exists Foot Exam 01/01/2026 01/01/2025 Dilated Eye Exam 04/21/2026 04/21/2024, 07/05/2019 DTaP/Tdap/Td Vaccine (2 - Td or Tdap) 05/25/2027 05/25/2017 Pneumococcal vaccine 65+ Completed 022, 12/13/2020, 08/11/2019 Influenza Vaccine Completed 11/07/2024, , 08/30/2019, Additional history exists Procedures Procedure Name Priority Date/Time Associated Diagnosis Comments POCT GLUCOSE Routine 01/01/2025 1:11 PM CDT Type 2 diabetes mellitus with hyperglycemia, without long-term current use of insulin (HCC) POCT HEMOGLOBIN A1C Routine 01/01/2025 1 :11 PM CDT Type 2 diabetes mellitus with hyperglycemia, without long-term current use of insulin (HCC) HM DIABETES EYE EXAM Routine 04/21/2024 8:24 AM CDT ALBUMIN CREATININE RATIO, URINE Routine 02/18/2024 12:10 PM CDT COMPREHENSIVE METABOLIC PANEL Routine 02/14/2024 10:16 AM CDT LIPID PANEL Routine 02/14/2024 10:16 AM CDT from Last 3 Months or Most Recently Relevant to Health Maintenance Results * (ABNORMAL) POCT hemoglobin A1c (01/01/2025 1:11 PM CDT) Hemoglobin A1C, POC 9.5 4.0 - 5.6 % Blood 01/01/2025 1:11 PM CDT Iza Salas NP POINT OF CARE TEST ORDERA BLES Final Result * (ABNORMAL) POCT glucose (01/01/2025 1:11 PM CDT) Glucose Blood, POC 286 mg/dL Blood 01/01/2025 1:11 PM CDT Iza Salas NP POINT OF CARE TEST ORDERA BLES Final Result * HM DIABETES EYE EXAM (04/21/2024 8:24 AM CDT) Historical Provider HEALTH MAINTENANCE Final Result * Albumin Creatinine Ratio, Urine (02/18/2024 12:10 PM CDT) SCRIBED Creatinine, Urine 89 NA - NA EXTERNAL LAB SCRIBED Microalbumin 9.3 <20 - NA EXTERNAL LAB SCRIBED Microalb/Creat Ratio 10.4 <30 - NA EXTERNAL LAB Urine 02/18/2024 12:1 0 PM CDT Historical Provider LAB URINE ORDERABLES Edit ed Result - Final EXTERNAL LAB * (ABNORMAL) Lipid panel (02/14/2024 10:16 AM CDT) SCRIBED Cholesterol, Total 111 <200 - NA EXTERNAL LAB SCRIBED HDL 41 >40 - NA EXTERNAL LAB SCRIBED LDL 40 <100 - NA EXTERNAL LAB SCRIBED Triglycerides 150 <150 - NA EXTERNAL LAB Blood 02/14/2024 10:1 6 AM CDT Historical Provider MD LAB BLOOD ORDERABLES Edit ed Result - Final EXTERNAL LAB * (ABNORMAL) Comprehensive metabolic panel (02/14/2024 10:16 AM CDT) SCRIBED Sodium 143 136 - 145 mmol/L EXTERNAL LAB SCRIBED Potassium 3.7 3.5 - 5.1 mmol/L EXTERNAL LAB SCRIBED Chloride 105 98 - 107 mmol/L EXTERNAL LAB SCRIBED Carbon Dioxide 30.5 21 - 32 mmol/L EXTERNAL LAB SCRIBED Anion Gap 7.5 5 - 15 mmol/L EXTERNAL LAB SCRIBED Urea Nitrogen (BUN) 20(A) 7 - 18 mg/dl EXTERNAL LAB SCRIBED Creatinine 1.07 0.70 - 1.30 mg/dl EXTERNAL LAB SCRIBED Glucose 214(A) 70 - 99 mg/dl EXTERNAL LAB SCRIBED Calcium 9.5 8.4 - 10.5 mg/dl EXTERNAL LAB SCRIBED Bilirubin 0.8 0.2 - 1.0 mg/dl EXTERNAL LAB SCRIBED Plasma Protein 7 6.4 - 8.2 g/dl EXTERNAL LAB SCRIBED Albumin 3.7 3.4 - 5.0 g/dl EXTERNAL LAB SCRIBED Alkaline Phosphatase 98 45 - 115 Units/L EXTERNAL LAB SCRIBED Alanine Transaminase (ALT) 28 16 - 63 Units/L EXTERNAL LAB SCRIBED Aspartate Transaminase (AST) 15 15 - 37 Units/L EXTERNAL LAB SCRIBED eGFR in NonAfrican Nepalese 75 >90 - NA EXTERNAL LAB Blood 02/14/2024 10:1 6 AM CDT Historical Provider LAB BLOOD ORDERABLES Edit ed Result - Final EXTERNAL LAB from Last 3 Months or Most Recently Relevant to Health Maintenance [facility] Advance Directives For more information, please contact: [phone] * Full Code (Latest Code Status on File) Date Activated Date Inactivated Comments 07/29/2018 1:09 AM 08/03/2018 7:36 PM Care Teams Drywall Professional Relationship Specialty Start Date End Date Jovan Honeycutt DO [address] [place] [id number] PCP - General Family Medicine 12/02/21
--- OUTSIDE RECORDS SUMMARY | 2025-01-02 19:01 | XMS_ITS ---
Author Organization [facility] Care Team Providers Care Deckhand Oyster Dredge Name Role Phone Gilbert Bonilla Unavailable Unavailable Chad, Nena Unavailable Unavailable Allergies and adverse reactions Code CodeSystem Substance Reaction Severity StartDate Concern Status 7984 RXNORM Penicillin Nausea (code- 4 [id number], SNOMED CT) Mild 05/24/2020 active Care Team Name Role Address Phone Organization Dates Gilbert Bonilla PCP [address] [place] [address], [id number], [facility] (Office): : : [facility] 05/24/2020 - 06/04/2020 Nena Bonilla Attending Physician [phone], [address], [facility] (Office): : [facility] 05/24/2020 - 06/04/2020 Goals Section Description Status Target Date Mr. Philippe will remain free of respiratory infection signs and symptoms through next review Active 08/27/2020 Resident will remain free from falls through nex t review date Active 08/27/2020 Staff will anticipate and me et all of residents needs on a daily basis through next review ie: clean, dry, groomed, turned and positioned Active 08/27/2020 Will accept family and staff support with nutrition and consume at least 50% of two meals served per day throughout next review. Active 08/27/2020 Will be able to complete bed mobility utilizing (specify) assist of (specify) staff member once per week throughout next review. Active 08/27/2020 Will be able to complete upp er dressing using (specify) staff member once per week by next review. Active 08/27/2020 Will maintain adequate skin integrity throughout next review. Active 08/27/2020 Will remain free from compli cations of immobility in bed such as pressure sores, discomfort, etc. throughout next review. Active 08/27/2020 Will remain free of complica tions and reviewed for possible decrease throughout next review. Active 08/27/2020 Immunizations Immunization Status Vaccine Details Vaccine Code CodeSystem Boni e Notes Influenza completed Influenza, high-dose, split virus, quadrivalent, injectable, preservative free 197 CVX created date: 05/24/2020 administered date: 08/11/2019 Prevnar 13 (Pneumonia) completed pneumococcal conjugate vaccine, 13 valent 133 CVX created date: 05/24/2020 administered date: 08/11/2019 Mental Status Section Date Assessment Total Score Description 06/04/2020 CAM 2 Delirium indica rodo 05/31/2020 BIMS 13 cognitively int act CAM 0 No delirium ind icated PHQ-9 10 moderate depres bert Problems Problem # Description Date of onset Resolved Date Code CodeSystem Concern Status 1 ABNORMAL POSTURE 05/24/[address] a ctive 2 APHASIA 05/24/[address] active 3 COGNITIVE COMMUNICATION DEFICIT 05/24/[address] active 4 COVID-19 05/24/[address] active 5 ESSENTIAL (PRIMARY) HYPERTENSION 05/24/[address] active 6 LOCALIZATION-RELATE D (FOCAL) (PARTIAL) SYMPTOMATIC EPILEPSY AND EPILEPTIC SYNDROMES WITH COMPLEX PARTIAL SEIZURES, NOT INTRACTABLE, WITHOUT STATUS EPILEPTICUS 05/24/[address] active 7 MAJOR DEPRESSIVE DISORDER, RECURRENT, UNSPECIFIED 05/24/[address] active 8 MUSCLE WEAKNESS (GENERALIZED) 05/24/[address] active 9 OTHER SLEEP APNEA 05/24/[address] active 10 TYPE 2 DIABETES MELLITUS WITH DIABETIC POLYNEUROPATHY 05/24/[address] active 11 UNSPECIFIED SEQUELAE OF CEREBRAL INFARCTION 05/24/[address] active 12 WEAKNESS 05/24/[address] active Reason for Referral No Reasons for Referral Entered Social History Social History Observation Description Start Date End Date Code Code System Current Smoking Status Tobacco smoking consumption unknown 670983807 SNOMED CT Sex Assigned At Male 1955 [address]405-3 [facility] Vital Signs Code Code System Vitals Name Values and Units Timing Information 9279-1 [facility] Respiratory Rate Value=18.0 Units=/m in 06/04/2020 8462-4 [facility] Blood Pressure-Diastolic Value=72 Un its=mmHg 06/04/2020 8480-6 [facility] Blood Pressure-Systolic Sxfab=986 Un its=mmHg 06/04/2020 8310-5 [facility] Body Temperature Value=97.9 Units= F 06/04/2020 8867-4 [facility] Heart rate Value=80.0 Units=/min 84587-6 [facility] O2 % BldC Oximetry Value=95.0 Units= % 06/04/2020 11692-5 [facility] Pain Level Value=0.0 06/04/2020 78098-3 [facility] Weight Trewh=272.0 Units=Lbs 8302-2 [facility] Height Value=66.0 Units=Inches 06/03/2020
--- OUTSIDE RECORDS SUMMARY | 2025-01-02 19:01 | XMS_ITS | Clinical Summary ---
Author Organization [facility] Address [address] [place] [address] Care Team Providers Care Flight Kitchen Manager Name Role Phone Gilbert Bonilla MD Primary Care Provider + [phone] Source Comments [facility] Affiliates and Associated Physician Practices is amultiple site organization consisting of ambulatory clinics and hospital sitesin [place], [place], [place] and [place]. This disclosure is being madepursuant to the Care Everywhere program and may not contain all information available regarding this patient. Last updated 18.[facility] Allergies Active Allergy Reactions Criticality Noted Date Comments Penicillins Urticaria Medium 06/05/2020 Medications * Be aware that medications may not be up to date on this document. Alwaysverify current medications with the patient. Medication Sig Dispensed Refills Start Date End Date Status aspirin EC (ECOTRIN) 81 MG tablet Take 81 mg by mouth once daily Active atorvastatin (LIPITOR) 80 MG tablet Take 80 mg by mouth once daily Active vitamin D3 (CHOLECALCIFEROL) (25 MCG) 1000 UNIT capsule Take 2,000 Units by mouth once daily Active cyanocobalamin (VITAMIN B-12) 500 MCG tablet Take 1,000 mcg by mouth 2 times daily Active gabapentin (NEURONTIN) 300 MG capsule Take 300 mg by mouth once daily Active glipiZIDE (GLUCOTROL) 5 MG tablet Take 5 mg by mouth daily before breakfast Active metoprolol tartrate (LOPRESSOR) 50 MG tablet Take 50 mg by mouth 2 times daily Active PRAMIPEXOLE DIHYDROCHLORIDE PO Take 0.75 mg by mouth once daily Active levETIRAcetam (KEPPRA) 750 MG tabletIndications:Josi arzate Take 1 tablet by mouth 2 times daily Reasons: Seizure 30 tablet 06/14/2020 Active venlafaxine XR 24hr (EFFEXOR XR) 75 MG capsuleIndications:Antonio pringle Depressive Disorder Take 1 capsule by mouth daily with breakfast Reasons: Major Depressive Disorder 30 capsule 06/15/2020 Active Active Problems Problem Noted Date Diagnosed Date Severe recurrent major depre ssion without psychotic features 06/06/2020 MDD (major depressive disorder), severe 06/05/20 20 Social History Tobacco Use Types Packs/Day Years Used Date Smoking Tobacco: Never Smokeless Tobacco: Never Alcohol Use Standard Drinks/Week Comments Never 0 (1 standard drink = 0.6 oz pur e alcohol) AUDIT-C Answer Date Recorded Q1: How often do you have a drink containing alc ohol? Never 06/05/2020 Average Number of Drinks Not on file 020 Frequency of Binge Drinking Not on file 05/12 Sex and Gender Information Value Date Recorded Sex Assigned at Not on file Gender Identity Not on file Sexual Orientation Not on file Last Filed Vital Signs Vital Sign Reading Time Taken Comments Blood Pressure 124/81 06/19/2020 1:27 PM CDT Pulse 96 06/19/2020 1:27 PM CDT Temperature 36.9 C (98.4 F) 06/19/2020 1:27 PM CDT Respiratory Rate 17 06/19/2020 1:27 PM CDT Oxygen Saturation 93% 06/19/2020 1: 27 PM CDT Inhaled Oxygen Concentration 21% 06/17/2020 10:00 PM CDT Weight 105.7 kg (233 lb) 06/12/2020 2:5 1 PM CDT re entered Height 157.5 cm (5' 2 ) 06/12/2020 2:51 PM CDT per pt approximation, he is bed/chair bound following stroke Body Mass Index 42.62 06/12/2020 2:51 PM CDT Plan of Treatment Health Maintenance Due Date Last Done Comments COLOGUARD (AGES 45-75) - COL ON CA SCREENING 1954 COLON MONITORING 1954 COLONOSCOPY - COLON CA SCREENING 1954 CT COLONOGRAPHY - COLON CA SCREENING 1955 Colorectal Cancer Screening 1954 FIT - COLON CA SCREENING 1954 FLEX SIG - COLON CA SCREENING 1955 MEDICARE AWV 12 MONTHS 1954 HEPATITIS C SCREENING 10/23/1972 DTAP/TDAP/TD VACCINES (1 - Tdap) 1973 PNEUMOCOCCAL VACCINE 50+ (1 of 1 - PCV) 2004 ZOSTER VACCINE (1 of 2) 2004 Respiratory Syncytial Virus (RSV) Vaccine Pt: or over 60 yrs (1 - Risk 60-74 years 1-dose series) 2014 COVID-19 VACCINE (1 - 2023-2 5 season) 2024 INFLUENZA VACCINE (#1) 2024 DEPRESSION SCREENING 10/11/2024 HEPATITIS B VACCINE Aged Out No longe r eligible based on patient's age to complete this topic HIB VACCINE Aged Out No longer eligi ble based on patient's age to complete this topic HPV VACCINE Aged Out No longer eligi ble based on patient's age to complete this topic MENINGOCOCCAL (Group B) VACC INE SHARED DECISION-MAKING Aged Out No longer eligibl e based on patient's age to complete this topic MENINGOCOCCAL GROUPS A/C/Y/W VACCINE Aged Out No longer eligible b ased on patient's age to complete this topic Advance Directives Documents on File Type Date Recorded Patient Manager Combination Expl anation Adv Directive/Living Will/POA 06/24/2020 12:27 PM Adv Directive/Living Will/POA 06/05/2020 11:24 AM * Full Code (Latest Code Status on File) Date Activated Date Inactivated Comments 06/06/2020 7:47 AM 06/19/2020 8:23 PM Care Teams Flight Kitchen Manager Relationship Specialty Start Date End Date Gilbert Bonilla MD PCP - General Internal Medicine 06/04/20
--- OUTSIDE RECORDS SUMMARY | 2025-01-02 19:01 | XMS_ITS | Encounter Summary ---
Author Organization [facility] Address [address] [place] [address] Phone Care Team Providers Care Health Aid Name Role Phone Dwaine Soria MD Primary Care Provider [phone] Jovan Honeycutt DO Primary Care Provide r Encounter Details Date Type Department Care Team (Latest Contact Info) Description 12/08/2018 Orders Only [facility] Scanning, Provider Social History Tobacco Use Types Packs/Day Years Used Date Smoking Tobacco: Never Smokeless Tobacco: Never Alcohol Use Standard Drinks/Week Comments No 0 (1 standard drink = 0.6 oz pur e alcohol) Sex and Gender Information Value Date Recorded Sex Assigned at Not on file Legal Sex Male 11:23 AM CDT Gender Identity Male 11/03/2020 10:28 AM SERVICES EXECUTIVE Sexual Orientation Straight 11/03/2020 10 :28 AM SERVICES EXECUTIVE documented as of this encounter Plan of Treatment Not on file documented as of this encounter Procedures Procedure Name Priority Date/Time Associated Diagnosis Comments SCAN - RADIOLOGY/IMAGING 12/08/2018 documented in this encounter Results * SCAN - RADIOLOGY/IMAGING (12/08/2018) Anatomical Region Laterality Modality Other us Provider Scanning Final Result documented in this encounter Visit Diagnoses Not on filedocumented in this encounter Care Teams Health Aid Relationship Specialty Start Date End Date Dwaine Soria MD [address] [facility] [address] [place] [address] PCP - General Endocrinology Diabetes & Metabolism 08/22/18 12/01/21 Jovan Honeycutt DO [address] [place] [id number] PCP - General Family Medicine 12/02/21 documented as of this encounter
--- OUTSIDE RECORDS SUMMARY | 2025-01-02 19:01 | XMS_ITS | Referral Summary ---
Author Organization [facility] Address [address] [place] [address] Care Team Providers Care Marble Chip Terrazzo Worker Name Role Phone Jovan Honeycutt Primary Care Provide r Encounters Date Type Department Care Team Description 01/02/2025 Orders Only [facility] Diabetes and Endocrinology [address] [place] [phone] ProviderJonnathan MD 01/01/2025 1:00 PM CDT Office Visit [facility] Medical [facility] Diabetes and Endocrinology [address] [place] [phone] Iza Salas, MARLEEN Type 2 diabetes mellitus with hyperglycemia, without long-term current use of insulin (HCC) (Primary Dx); Hypertension associated with diabetes (HCC); Hyperlipidemia associated with type 2 diabetes mellitus (HCC) from Last 3 Months Allergies Active Allergy Reactions Criticality Noted Date [...] infection. Assessment & Plan (09/04/2024 3:03 PM CARPET TILE LAYER): Chronic, uncontrolled, worsening A1c today 9.9%, goal [...] Hyperlipidemia associated with type 2 diabetes sudheer sorensontha 09/04/2024 Assessment & Plan (01/01/2025 1:12 PM CDT): Chronic problem. Currently taking Atorvastatin 80mg. Last lipid panel: 02/14/24 LDL=40, YS=632. Assessment & Plan (09/04/2024 3:00 PM CARPET TILE LAYER): Continue Statin therapy Class 2 severe obesity due t o excess calories with serious comorbidity and body mass index (BMI) of 37.0 to 37.9 in adult 09/04/2024 Assessment & Plan (09/04/2024 3:00 PM CARPET TILE LAYER): Counseled on diet Exercise is a limitation [...] daily Assessment & Plan (09/04/2024 3:01 PM CARPET TILE LAYER): Chronic overall well controlled Continue current dose [...] keppra 250 mg AM, 500 mg PM Social History Tobacco Use Types Packs/Day Years Used Date Smoking Tobacco: Never Smokeless Tobacco: Never Alcohol Use Standard Drinks/Week Comments No 0 (1 standard drink = 0.6 oz pur e alcohol) Sex and Gender Information Value Date Recorded Sex Assigned at Not on file Legal Sex Male 11:23 AM CDT Gender Identity Male 11/03/2020 10:28 AM CARPET TILE LAYER Sexual Orientation Straight 11/03/2020 10 :28 AM CARPET TILE LAYER Last Filed Vital Signs Vital Sign Reading Time Taken Comments Blood Pressure 124/76 01/01/2025 1:08 PM CDT Pulse 80 01/01/2025 1:08 PM CDT Temperature 36.9 C (98.4 F) 01/13/2019 7:40 PM CDT Respiratory Rate 16 01/01/2025 1:08 PM CDT Oxygen Saturation 95% 01/13/2019 7:40 PM CDT Inhaled Oxygen Concentration - - Weight 109.8 kg (242 lb) 09/04/2024 1:26 PM CARPET TILE LAYER wheelchair Height 170.2 cm (5' 7.01 ) 01/01/2025 1:08 PM CD T Body Mass Index 37.9 09/04/2024 1:26 PM CARPET TILE LAYER Plan of Treatment Not on file Procedures Procedure Name Priority Date/Time Associated Diagnosis Comments POCT GLUCOSE Routine 01/01/2025 1:11 PM CDT Type 2 diabetes mellitus with hyperglycemia, without long-term current use of insulin (HCC) POCT HEMOGLOBIN A1C Routine 01/01/2025 1 :11 PM CDT Type 2 diabetes mellitus with hyperglycemia, without long-term current use of insulin (HCC) DIABETES EYE EXAM Routine 04/21/2024 8:24 AM [...] 5.6 % Blood 01/01/2025 1:11 PM CDT us Iza Salas NP POINT OF CARE TEST ORDERA BLES Final Result * (ABNORMAL) POCT glucose (01/01/2025 1:11 PM CDT) Glucose Blood, POC 286 mg/dL Blood 01/01/2025 1:11 PM CDT us Iza Salas NP POINT OF CARE TEST ORDERA BLES Final Result * DIABETES EYE EXAM (04/21/2024 8:24 AM CDT) us Historical Provider HEALTH MAINTENANCE Final Result * Albumin Creatinine Ratio, Urine (02/18/2024 12:10 PM CDT) SCRIBED Creatinine, Urine 89 NA - NA EXTERNAL LAB SCRIBED Microalbumin 9.3 <20 - NA EXTERNAL LAB SCRIBED Microalb/Creat Ratio 10.4 <30 - NA EXTERNAL LAB Urine 02/18/2024 12:1 0 PM CDT Historical Provider MD LAB URINE ORDERABLES Edit ed Result - Final EXTERNAL LAB * (ABNORMAL) Lipid panel (02/14/2024 10:16 AM CDT) SCRIBED Cholesterol, Total 111 <200 - NA EXTERNAL LAB SCRIBED HDL 41 >40 - NA EXTERNAL LAB SCRIBED LDL 40 <100 - NA EXTERNAL LAB SCRIBED Triglycerides 150 <150 - NA EXTERNAL LAB Blood 02/14/2024 10:1 6 AM CDT [facility] Provider MD LAB BLOOD ORDERABLES Edit ed Result - Final Performing Organization Address [facility]/ZIP Co de Phone Number EXTERNAL LAB * (ABNORMAL) Comprehensive metabolic panel [...] Units/L EXTERNAL LAB SCRIBED eGFR in NonAfrican Indonesian 75 >90 - NA EXTERNAL LAB Blood 02/14/2024 10:1 6 AM CDT us Historical Provider LAB BLOOD ORDERABLES Edit ed Result - Final EXTERNAL LAB from Last 3 Months or Most Recently Relevant to Health Maintenance Insurance MEDICARE [facility] Address: [address] [address] [place] [address] [facility] Advance Directives For more information, please contact: [phone] * Full Code (Latest Code Status on File) Date Activated Date Inactivated Comments 07/29/2018 1:09 AM 08/03/2018 7:36 PM Care Teams Marble Chip Terrazzo Worker Relationship Specialty Start Date End Date Jovan Honeycutt DO [address] [place] [id number] PCP - General Family Medicine 12/02/21
--- OUTSIDE RECORDS SUMMARY | 2025-01-02 19:01 | XMS_ITS | Encounter Summary ---
Author Organization [facility] Address [address] [place] [address] Care Team Providers Care Production Worker Name Role Phone Jovan Honeycutt Primary Care Provide r Reason for Visit * Reason Comments Diabetes Type 2 Encounter Details Date Type Department Care Team (Late st Contact Info) Description 01/01/2025 1:00 PM CDT Office Visit [facility] Medical Group Diabetes and Endocrinology [address] [place] [phone] Iza Salas, BENDER HELPER [id number] [facility] [address] [place], [place] [id number] Type 2 diabetes mellitus with hyperglycemia, without long-term current use of insulin (HCC) (Primary Dx); Hypertension associated with diabetes (HCC); Hyperlipidemia associated with type 2 diabetes mellitus (HCC) Social History Tobacco Use Types Packs/Day Years Used Date Smoking Tobacco: Never Smokeless Tobacco: Never Alcohol Use Standard Drinks/Week Comments No 0 (1 standard drink = 0.6 oz pur e alcohol) Sex and Gender Information Value Date Recorded Sex Assigned at Not on file Legal Sex Male 11:23 AM CDT Gender Identity Male 11/03/2020 10:28 AM MEAT SELECTOR Sexual Orientation Straight 11/03/2020 10 :28 AM MEAT SELECTOR documented as of this encounter Last Filed Vital Signs Vital Sign Reading Time Taken Comments Blood Pressure 124/76 01/01/2025 1:08 PM CDT Pulse 80 01/01/2025 1:08 PM CDT Temperature - - Respiratory Rate 16 01/01/2025 1:08 PM CDT Oxygen Saturation - - Inhaled Oxygen Concentration - - Weight - - Height 170.2 cm (5' 7.01 ) 01/01/2025 1:08 PM CD T Body Mass Index - - documented in this encounter Patient Instructions * Patient Instructions* Iza Salas NP - 01/01/2025 1:00 PM CDT Please keep your appointment with Dr Wilde 04/09/25 Scan the Repliconstyle stas at least every 6-8 hours (before bed, when you get up, 1-2x during the day) Blood sugars are running too high. Please follow sliding scale with insulin: Current medications: Farxiga 10mg daily Lantus 40 [...] sugar is between >351, add 10 units. documented in this encounter Ordered Prescriptions Prescription Sig Dispense Quantity Refills Last Filled Start Date End Date LANTUS 100 unit/mL (3 mL) pen for injectionIndicatio ns:Type 2 diabetes mellitus with hyperglycemia, without long-term current use of insulin (HCC) Inject 40 Units under the skin daily 40 units subQ daily 45 mL 3 01/01/2025 HumaLOG 100 unit/mL pen for injectionIndicatio ns:type 2 diabetes mellitus Inject 14-24 Units under the skin 3 (three) times a day before meals INJECT 14-16 UNITS THREE TIMES DAILY WITH MEALS ALONG WITH SLIDING SCALE 75 mL 3 01/01/2025 documented in this encounter Progress Notes * Iza Salas, BENDER HELPER - 01/01/2025 1:00 PM CDT Images from the original note were not included. [facility] Diabetes Follow Up Visit Subjective/Objective Patient ID: Yair Philippe is a 69 y.o. male who comes in today to our Endocrinology clinic to follow up for DM management. Chief Complaint Diabetes Type 2 HPI Diabetes complications and/or comorbidity include: T2DM dx'd 2019, HTN, HLD, CVA w L hemiparesis 2016 Current medications: Farxiga 10mg daily Lantus 40 units every morning Humalog 14-16 units 3 times daily with meals (typically getting 12 units TID now) If blood sugar is <150, take 14-16 units. If blood sugar is between 151-200, add 2 units. If blood sugar is between 201-250, add 4 units. If blood sugar is between 251-300, add 6 units. If blood sugar is between 301-350, add 8 units. If blood sugar is between >351, add 10 units. Intolerance to: metformin (GI), Mounjaro (diarrhea) Dietary habits: 3 meals/day. Does occasionally snack in evening on something little. Occasionally has cookies. Exercise routine: L hemiparesis d/t CVA 2016. Can stand to transfer, dress & clean. Home CBG monitoring results: Freestyle stas 2. No hypoglycemia. BG Average: 167 mg/dl with: 11% very high 36% high 64% in target range 0% low. Overnight pattern: in range Postprandial pattern: missing data, variable from what is available Neuropathy: no complaints. Gabapentin 300mg qhs-LLE spasticity & seizure. Last foot exam: Today Statin therapy: Yes. Atorvastatin 80mg. Last lipid panel: 02/14/24 LDL=40, LR=720. Nephropathy: On BENNY-I / ARB???s: No. Last MA: 02/18/24 (10.4). Last creat/GFR: 02/14/24 GFR=75, CR=1.07. Retinopathy: Date of last eye examination: 04/21/24 no DMR/DME [facility]. Had appt 11/2024 Wt Readings from Last 3 Encounters: 09/04/24 109.8 kg (242 lb) 11/06/19 126.6 kg (279 lb) 02/14/19 120.7 kg (266 lb) Labs: Last A1c: Recent Labs Lab Units 01/01/25 1311 HEMOGLOBIN A1C POC % 9.5 Component Latest Ref Rng 09/04/2024 Hgb A1C, POC 4.0 - 5.6 % 9.9 SODIUM S/P/B 136 - 145 MMOL/L 143 POTASSIUM S/P/B 3.5 - 5.1 MMOL/L 3.7 CHLORIDE S/P/B 98 - 107 MMOL/L 105 CO2 21 - 32 MMOL/L 30.5 GLUCOSE 70 - 99 MG/DL 214 High BUN 7 - 18 MG/DL 20 High CREATININE S/P/B 0.70 - 1.30 MG/DL 1.07 CALCIUM S/P/B 8.4 - 10.5 MG/DL 9.5 BILIRUBIN TOTAL S/P/B 0.2 - 1.0 MG/DL 0.8 ALKALINE PHOSPHATASE S/P/B 45 - 115 U/L 98 AST 15 - 37 U/L 15 ALT 16 - 63 U/L 28 TOTAL PROTEIN S/P/B 6.4 - 8.2 G/DL 7 ALBUMIN S/P/B 3.4 - 5.0 G/DL 3.7 ANION GAP 5 - 15 MMOL/L 7.5 Comment: REFERENCE RANGE NOT ESTABLISHED OSMOLALITY (CALC) MOSM/KG 305 Comment: REFERENCE RANGE NOT ESTABLISHED GFR ESTIMATE >90 ML/MIN/1.73 M2 75 Low GFR NOTES GFR REFERENCES: Resulting [facility] Specimen Collected: 02/14/24 10:16 No results found for: MICROALBUR , [id number] No results found for: ALBCREATRATU No results found for: MALBCRTRAT MICROALBUMIN (U) <20 MG/L 9.3 CREATININE RANDOM (U) MG/DL 89 ALBUMIN/CREAT RATIO <30 MG/G 10.4 Resulting Agency [facility] Specimen Collected: 02/18/24 12:10 Lipid profile within the last year: CHOLESTEROL <200 MG/DL 111 TRIGLYCERIDES <150 MG/DL 150 High HDL >40 MG/DL 41 LDL-C <100 MG/DL 40 VLDL CALCULATION 5 - 28 MG/DL 30 High CHOL/HDL RATIO 0.0 - 4.0 2.7 LDL/HDL 0.41 - 2.13 1 NON HDL CHOLESTEROL <140 MG/DL [address] [facility] Specimen Collected: 02/14/24 10:16 Vitals: 01/01/25 1308 BP: 124/76 BP Location: Right arm Patient Position: Sitting Pulse: 80 Resp: 16 Height: 170.2 cm (5' 7.01 ) Physical Exam Vitals and nursing note reviewed. Constitutional: Appearance: Normal appearance. He is well-developed. HENT: Head: Normocephalic. Right Ear: Hearing normal. Left Ear: Hearing normal. Eyes: General: Lids are normal. Gaze aligned appropriately. Neck: Thyroid: No thyromegaly. Trachea: Trachea and phonation normal. No tracheal deviation. Cardiovascular: Rate and Rhythm: Normal rate and regular rhythm. No extrasystoles are present. Heart sounds: Normal heart sounds, S1 normal and S2 normal. No murmur heard. Pulmonary: Effort: Pulmonary effort is normal. Breath sounds: Normal breath sounds and air entry. Musculoskeletal: Right foot: Normal range of motion. No deformity. Comments: In wheelchair. L hemiparesis. Feet: Right Foot: Monofilament exam: normal. Protective Sensation: 6 sites tested. 6 sites sensed. Skin Integrity: Negative for ulcer, blister, skin breakdown, erythema, warmth, callus or dry skin. Skin: General: Skin is warm and dry. Neurological: Mental Status: He is alert and oriented to person, place, and time. Mental status is at baseline. Psychiatric: Mood and Affect: Mood normal. Behavior: Behavior normal. Assessment/Plan Diagnoses and all orders for this visit: Type 2 diabetes mellitus with hyperglycemia, without long-term current use of insulin (HCC) (Primary) Assessment & Plan: Chronic problem. A1c uncontrolled but improved slightly from 9.9% 09/04/24 to now 9.5%. Taking humalog 12 units tid--which is not enough to get his blood sugars down per below SSI. Did not change SSIper LON. Will change at this time. Aware [...] on DM eye exam (04/21/24 no DMR/DME [facility]). Had eye exam 11/2024; letter sent to get copy of report. UTD on labs. Discussed with Yair Philippe: Strive for regular exercise (30min most days) and diet (get at least 4-5 servings of fruit and veggies daily, avoid processed foods, increase lean protein intake and decrease carb portions as well asfruit juices, regular soda & desserts). Watch carbs and simple sugars. Check the blood sugar: Freestyle stas 2. Check the feet daily for skin breakdown and infection. Orders: - POCT hemoglobin A1c - POCT glucose - HumaLOG 100 unit/mL pen for injection; Inject 14-24 Units under the skin 3 (three) times a day before meals INJECT 14-16 UNITS THREE TIMES DAILY WITH MEALS ALONG WITH SLIDING SCALE - LANTUS 100 unit/mL (3 mL) pen for injection; Inject 40 Units under the skin daily 40 units subQ daily Hypertension associated with diabetes (HCC) Assessment & Plan: Chronic problem. Controlled on current metoprolol XL 50mg daily, HCTZ 25mg daily Hyperlipidemia associated with type 2 diabetes mellitus (HCC) Assessment & Plan: Chronic problem. Currently taking Atorvastatin 80mg. Last lipid panel: 02/14/24 LDL=40, WK=262. Iza Salas NP documented in this encounter Miscellaneous Notes * Assessment & Plan Note - Iza Salas NP - 01/01/2025 1:14 PM CDT Associated Problem(s): Type 2 diabetes mellitus with hyperglycemia, without long-term current use of insulin (HCC) Chronic problem. A1c uncontrolled but improved slightly from 9.9% 09/04/24 to now 9.5%. Taking humalog 12 units tid--which is not enough to get his blood sugars down per below SSI. Did not change SSIper LON. Will change at this time. Aware [...] report. UTD on labs. Discussed with Yair Philippe: Strive for regular exercise (30min most days) and diet (get at least 4-5 servings of fruit and veggies daily, avoid processed foods, increase lean protein intake and decrease carb portions as well asfruit juices, regular soda & desserts). Watch carbs and simple sugars. Check the blood sugar: Freestyle stas 2. Check the feet daily for skin breakdown and infection. * Assessment & Plan Note - Iza Salas NP - 01/01/2025 1:13 PM CDT Associated Problem(s): Hypertension associated with diabetes (HCC) Chronic problem. Controlled on current metoprolol XL 50mg daily, HCTZ 25mg daily * Assessment & Plan Note - Iza Salas NP - 01/01/2025 1:12 PM CDT Associated Problem(s): Hyperlipidemia associated with type 2 diabetes mellitus (HCC) Chronic problem. Currently taking Atorvastatin 80mg. Last lipid panel: 02/14/24 LDL=40, FH=947. documented in this encounter Plan of Treatment Not on file documented as of this encounter Procedures Procedure Name Priority Date/Time Associated Diagnosis Comments POCT HEMOGLOBIN A1C Routine 01/01/2025 1 :11 PM CDT Type 2 diabetes mellitus with hyperglycemia, without long-term current use of insulin (HCC) POCT GLUCOSE Routine 01/01/2025 1:11 PM CDT Type 2 diabetes mellitus with hyperglycemia, without long-term current use of insulin ([facility]) documented in this encounter Results * (ABNORMAL) POCT glucose (01/01/2025 1:11 PM CDT) [facility] Glucose Blood, POC 286 mg/dL Blood 01/01/2025 1:11 PM CDT Iza Salas NP POINT OF CARE TEST ORDERA BLES Final Result * (ABNORMAL) POCT hemoglobin A1c (01/01/2025 1:11 PM CDT) Hemoglobin A1C, POC 9.5 4.0 - 5.6 % Blood 01/01/2025 1:11 PM CDT Iza Salas BENDER HELPER POINT OF CARE TEST ORDERA BLES Final Result documented in this encounter Visit Diagnoses Diagnosis Type 2 diabetes mellitus with hyperglycemia, without long-term current use of insulin (HCC)- Primary Hypertension associated with diabetes (HCC) Unspecified essential hypertension Hyperlipidemia associated with type 2 diabetes mellitus (HCC) documented in this encounter Discontinued Medications Medication Sig Discontinue Reason Start Date End Da te azithromycin (ZITHROMAX) 250 mg tablet Therapy completed 11/27/2024 01/01/2025 tirzepatide (Mounjaro) 2.5 mg/0.5 mL pen injector Inject 0.5 mL (2.5 mg total) under the skin once a week Therapy completed 09/04/2024 01/01/2025 LANTUS 100 unit/mL (3 mL) pen for injection 40 units subQ daily Reorder 09/26/20242024 HumaLOG 100 unit/mL pen for injection INJECT 14-16 UNITS THREE TIMES DAILY WITH MEALS ALONG WITH SLIDING SCALE Reorder 11/03/2024 01/01/2025 documented as of this encounter Historical Medications * This list may reflect changes made after this encounter. venlafaxine 225 mg tablet extended release 24hr 24 hr tablet Take 1 tablet (225 mg total) by mouth nightly 11/02/2024 hydroCHLOROthiazi de (HYDRODIURIL) 25 mg tablet 12/19/2024 metoprolol tartrate (LOPRESSOR) 50 mg immediate release tablet 10/10/2024 azithromycin (ZITHROMAX) 250 mg tablet 11/27/2024 01/01/2025 added in this encounter Care Teams Production Worker Relationship Specialty Start Date End Date Jovan Honeycutt DO [address] [place] [id number] PCP - General Family Medicine 12/02/21 documented as of this encounter
--- OUTSIDE RECORDS SUMMARY | 2025-01-02 19:01 | XMS_ITS | Clinical Summary ---
Author Organization [facility] Address [facility] [place] [address] Care Team Providers Care Entry Level Staff Accountant Name Role Phone Blane Ferrera MD Unavailable [phone] Benton Rees MD Unavailable [phone] Jovan Honeycutt DO Primary Care Provider + Allergies Active Allergy Reactions Criticality Noted Date Comments Lorazepam Hallucinations 08/15/2018 Penicillins Hives,Rash High 08/15/2018 Other reaction(s): Stopped Breathing; tolerated rocephin 09/21/20 Medications acetaminophen 500 MG tabletIndications :Pain Take 1 tablet (500 mg total) by mouth 2 (two) times a day. Indications: Pain 021 Active aspirin EC 81 MG EC tabletIndications :Aspirin Therapy Take 1 tablet (81 mg total) by mouth daily. Indications: Treatment with Aspirin 020 Active vitamin B-12 (CYANOCOBALAMIN) 1000 mcg tabletIndications :Supplement Take 1 tablet (1,000 mcg total) by mouth daily. Indications: Supplement 020 Active Cholecalciferol (VITAMIN D3) 25 MCG (1000 UT) CapIndications:Vi tamin Deficiency Take 1 tablet by mouth daily. Indications: Vitamin Deficiency 022 Active lidocaine (LIDODERM) 5 % Prn 022 Active Glucagon (GVOKE HYPOPEN 2-PACK) 1 MG/0.2ML Solution Auto-injectorIndi cations:Type 2 diabetes mellitus with hyperglycemia, without long-term current use of insulin ([facility]) Inject 1 mg into the skin as needed. 0.4 mL 3 023 Active ketoconazole (NIZORAL) 2 % creamIndications: Tinea corporis APPLY TOPICALLY TO THE AFFECTED AREA DAILY FOR RASH, SKIN ERUPTION 60 g 2 023 Active insulin lispro, 1 Unit Dial, (HUMALOG) 100 UNIT/ML injection (PEN)Indications: Type 2 diabetes mellitus with hyperglycemia, without long-term current use of insulin ([facility]) Inject 12 Units into the skin 3 (three) times daily before meals. 32.4 mL 3 024 2024 Active Continuous Glucose Sensor (FREESTYLE ANNETTE 2 SENSOR) MiscIndications:T ype 2 diabetes mellitus with hyperglycemia, with long-term current use of insulin ([facility]) Use as directed 2 each 12 024 Active tiZANidine (ZANAFLEX) 2 MG tabletIndications :Night muscle spasms TAKE 1 TABLET(2 MG) BY MOUTH EVERY 6 HOURS NEEDED 30 tablet 024 Active hydroCHLOROthiazi de (HYDRODIURIL) 25 MG tabletIndications :Essential hypertension TAKE 1 TABLET(25 MG) BY MOUTH EVERY MORNING FOR HIGH BLOOD PRESSURE 90 tablet 024 Active levETIRAcetam (KEPPRA) 1000 MG tabletIndications :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 ([facility]) TAKE 1 TABLET BY MOUTH IN THE MORNING AND 1 AND 1/2 TABLETS IN THE EVENING 90 tablet 2 024 Active potassium chloride CR (KLOR-CON M) 10 MEQ tabletIndications :Hypokalemia TAKE 2 TABLETS BY MOUTH DAILY 180 tablet 025 Active atorvastatin (LIPITOR) 80 MG tabletIndications :Hyperlipidemia, unspecified hyperlipidemia type TAKE 1 TABLET(80 MG) BY MOUTH EVERY NIGHT AT BEDTIME 90 tablet 025 Active metoprolol tartrate (LOPRESSOR) 50 MG tabletIndications :Essential hypertension TAKE 1 TABLET(50 MG) BY MOUTH TWICE DAILY 180 tablet 1 025 Active tamsulosin (FLOMAX) 0.4 MG CapIndications:Ne phrolithiasis TAKE 1 CAPSULE(0.4 MG) BY MOUTH DAILY 90 capsule 025 Active FARXIGA 10 MG tabletIndications :Uncontrolled type 2 diabetes mellitus with hyperglycemia ([facility]) TAKE 1 TABLET BY MOUTH DAILY 90 tablet 025 Active folic acid (FOLVITE) 1 MG tabletIndications :Folic acid deficiency TAKE 1 TABLET(1 MG) BY MOUTH DAILY 90 tablet 025 Active Venlafaxine HCl (VENLAFAXINE XR) 225 MG TABLET SR 24 HR 24 hr tabletIndications :Recurrent major depressive disorder, in partial remission TAKE 1 TABLET BY MOUTH EVERY NIGHT AT BEDTIME 90 tablet 025 Active pramipexole (MIRAPEX) 0.25 MG tabletIndications :Restless leg syndrome TAKE 5 TABLETS BY MOUTH EVERY NIGHT AT BEDTIME, IF NOT WORKING SUFFICIENTLY AFTER ONE WEEK CAN INCREASE TO 6 TABLETS BY MOUTH EVERY NIGHT AT BEDTIME 540 tablet 025 Active pantoprazole EC (PROTONIX) 40 MG tabletIndications :Gastroesophageal reflux disease, unspecified whether esophagitis present Take 1 tablet (40 mg total) by mouth 2 (two) times a day. 180 tablet 1 025 Active nystatin (MYCOSTATIN) powderIndications :Tinea corporis APPLY TO THE AFFECTED AREA TWICE DAILY NEEDED FOR FUNGAL RASH 60 g 025 Active gabapentin (NEURONTIN) 300 MG capsuleIndication s:Restless leg syndrome TAKE 1 CAPSULE BY MOUTH EVERY AFTERNOON AND 2 CAPSULES IN THE EVENING 90 capsule 025 Active B-D ULTRAFINE III SHORT PEN 31G X 8 MM MiscIndications:T ype 2 diabetes mellitus with hyperglycemia, without long-term current use of insulin ([facility]) INJECT 1 NEEDLE UNDER THE SKIN FOUR TIMES DAILY 400 each 3 025 Active melatonin 5 MG tabletIndications :Insomnia Take 5 mg by mouth nightly as needed. Indications: Trouble Sleeping 020 2021 Discontinued(E xpired (Clinician Removed from Med list)) Insulin Pen Needle (B-D ULTRAFINE III SHORT PEN) 31G X 8 MM MiscIndications:T ype 2 diabetes mellitus with hyperglycemia, without long-term current use of insulin ([facility]) Inject 1 Needle into the skin 4 (four) times daily. 400 each 3 023 2024 Discontinued gabapentin (NEURONTIN) 300 MG capsuleIndication s:Restless leg syndrome TAKE 1 CAPSULE BY MOUTH EVERY AFTERNOON AND 2 CAPSULES IN THE EVENING 90 capsule 025 2024 Discontinued Active Problems Problem Noted Date Diagnosed Date Prostate cancer ([facility]) 11/07/2024 Morbid (severe) obesity due to excess calories 0 02/24/2024 Body mass index (BMI) 40.0-44.9, adult Chest pain in adult 04/09/2023 Hypogonadism in male 02/02/2023 Hyperlipidemia associated wi th type 2 diabetes mellitus ([facility]) 07/01/2022 Hematuria 05/29/2022 Low back pain 05/29/2022 Lumbar spondylosis 05/29/2022 Urinary tract infection 05/29/2022 Constipation 05/29/2022 Mass of kidney 05/29/2022 Medication management 10/05/2020 Kidney lesion 09/12/2020 Type 2 diabetes mellitus wit h hyperglycemia, without long-term current use of insulin ([facility]) 09/12/2020 Hypokalemia 09/12/2020 Hydronephrosis 09/12/2020 Cerebrovascular disease 08/15/2020 Nonintractable epilepsy with complex partial seizures ([facility]) 08/15/2020 Overview (08/15/2020): Last Assessment & Plan: keppra 250 mg AM, 500 mg PM Severe recurrent major depre ssion without psychotic features ([facility]) 06/06/2020 COVID-19 05/24/2020 Homonymous hemianopia, left 07/05/2019 Overview (08/15/2020): Left superior visual field deficit. Nephrolithiasis 08/15/2018 Assessment & Plan (08/19/2018 10:54 AM FASTENER TECHNOLOGIST): Patient septic on presentation due to kidney stone. Lactic acid 11.1 at admission most recent one 1.8 status post fluids, and Rocephin - Urology consulted from ED -as per recs, pt to have Cystoscopy with RRPG/ Right Ureteroscopy and Holmium Laser Lithotripsy with stone extraction and possible right ureteral stent insertion done 08/18 with no acute complications. - Rocephin daily. Day 5 08/19. As per urology recs, p.o. antibiotics recommended will follow up with urology in 7-10 days - BC no growth to date - Pain control: None as patient complains of no pain - SLIV History of stroke 08/15/2018 Assessment & Plan (08/19/2018 10:55 AM FASTENER TECHNOLOGIST): - History of stroke approximately 1 year ago - Continue home aspirin 81 mg, atorvastatin 80 mg - Continue home primary pramipexole and gabapentin. Stopped Baclofen and started flexiril for leg spasms (due to h/o seizures). Pt has h/o UTIs with Tizanidine - PT/ OT ordered - SNF recommended. However patient's 's would like patient would like to do outpatient physical therapy. Essential hypertension 08/15/2018 Assessment & Plan (08/19/2018 11:55 AM FASTENER TECHNOLOGIST): - BP 151/117 at admission. Most recent 150/80. Consider Labetalol 10mg IV PRN for systolic >180 or diastolic >110 - BP this morning 125/85. Blood pressure is very labile. Will need close follow- up with his PCP upon discharge for blood pressure monitoring - Stop metoprolol 2.5 mg IV 4 times daily and restart her home dose of metoprolol 50 mg daily - Amlodipine given during admission but will stop. Will not start hydrochlorothiazide as patient has recurrent kidney stones Generalized anxiety disorder 07/29/2018 Restless leg syndrome 07/29/2018 Overview (08/15/2020): Last Assessment & Plan: Will continue home pramipexole Cognitive change 07/08/2018 Spasticity 07/05/2018 Overview (08/15/2020): Last Assessment & Plan: will increase baclofen per neurology recommendations. Will provide family with stroke neurology phone number for outpatient management Continue home gabapentin. Scheduled tylenol. Ibuprofen and tizanidine prn. 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 ([facility]) 10/11/2017 Resolved Problems Problem Noted Date Diagnosed Date Resolved Date Bilateral kidney stones 05/29/202205/12 Sepsis ([facility]) 09/21/202002/2021 Weakness 09/12/2020 06/22/2021 Severe acute respiratory syn drome coronavirus 2 (SARS-CoV-2) detected 09/12/2020 09/12/2020 Septicemia due to gram-negat dayanara organism ([facility]) 09/12/2020 09/12/2020 Sepsis ([facility]) 09/12/202012/2019 Encounter for deep vein thro mbosis (DVT) prophylaxis 09/12/2020 09/12/2020 Calculus of left ureter 09/12/202006/11 Aspiration pneumonia due to gastric secretions ([facility]) 09/12/2020 12/13/2020 BOB (acute kidney injury) 08/16/2018 Assessment & Plan (08/19/2018 11:04 AM FASTENER TECHNOLOGIST): - Creatinine 1.5 at admission. Cr 0.99. Resolved - As per EMR review, baseline approximately 0.8. - SLIV Seizure ([facility]) 08/15/2018 Assessment & Plan (08/19/2018 10:58 AM FASTENER TECHNOLOGIST): - Noted to have a seizure in the ED was given 1 g of Keppra loading dose. Continue home regimen of Keppra 250 mg in a.m. and 500 mg at night - Consider neurology consult if patient has recurrent seizures - Seizure precautions in place - Study done by speech therapy. Pt passed and placed on general diet. Will convert IV medications back to orals Elevated lipase 08/15/2018 08/18/2018 Assessment & Plan (08/17/2018 12:13 PM FASTENER TECHNOLOGIST): - Lipase noted to be 8274 admission repeat 3592. Lipase 110 today. - Patient denies any abdominal pain - CT abdomen unremarkable for pancreatic etiology of elevated lipase. Records from [facility] reviewed. No lipase was done in the outpatient setting. - Elevated lipase can be due to seizure at admission. - Lipid panel unremarkable Cellulitis 07/29/2018 08/15/2020 Overview (08/15/2020): Last Assessment & Plan: Patient reports 1.5 weeks of pain in RLE with development of erythema yesterday c/f cellulitis. He denies drainage or pus. WBC 10.5, CRP 70 on admission LE doppler negative for DVT Still able to wear weight on ankle, no significant pain with active or passive ROM Evaluated by ortho in ED, unlikely to have septic joint Clinda PO for one week Cerebrovascular accident (CV A) due to occlusion of right middle cerebral artery ([facility]) 07/05/2018 08/15/2020 Acute ischemic right MCA str [place] ([facility]) 10/11/2017 08/15/2020 Dysarthria 10/11/2017 08/15/2020 Internal carotid artery dissection ([facility]) 8 10/05/2020 Overview (08/15/2020): Right side Oropharyngeal dysphagia 10/11/201702/2020 Encounters Date Type Department Care Team Description 12/07/2024 Telephone [facility] Family & Internal Medicine - [address] [phone] Jovan Honeycutt, DO Lab Results 11/29/2024 8:52 PM FASTENER TECHNOLOGIST - 11/29/2024 11:59 PM FASTENER TECHNOLOGIST Hospital Encounter [facility] [address] [place] [address] Blane Ferrera MD Discharge Disposition: Home or Self Care (Routine Discharge) 11/29/2024 1:00 PM FASTENER TECHNOLOGIST Laboratory Only [address] [phone] Jovan Honeycutt, DO 11/29/2024 Travel 11/28/2024 Scan [employer] INFO SRVCS Scanned, [facility] 11/24/[address] [phone] Jovan Honeycutt, DO Results 11/22/2024 10:00 AM FASTENER TECHNOLOGIST Laboratory Only [address] [address] Jovan Honeycutt, DO 11/22/2024 Travel 11/07/2024 11:20 AM FASTENER TECHNOLOGIST Office Visit [address] [phone] Jovan Honeycutt, DO Diabetes (3 month follow. ) 11/07/2024 Travel from Last 3 Months Immunizations Name Administration Dates Next Due Fluad influenza vaccine, Chucky drivalent (aIIV4), Inactivated, adjuvanted, preservative free, 0.5 mL,IM use 08/08/2021 Fluzone High Dose (IIV, triv alent, 0.5mL) 11/07/2024 Fluzone High Dose - >Age 65 (Prefilled Syringe) 08/23/2023,08/12/2022,08/15/2020 Influenza (Generic) 08/10/2019 Influenza Adult (Generic) 08/08/2021,,06/03/2018,2016 PFIZER COVID-19 (CUEVAS CAP), MRNA, LNP-S, PF, 30 MCG/0.3 ML SANDY-SUCROSE, IM 03/13/2022 PFIZER COVID-19 (ORIGINAL FORMULATION, PURPLE CAP) mRNA, LNP-S, PF, 30 MCG/0.3 ML DOSE 08/08/2021 Pneumococcal (Pneumovax 23) 03/13/2022 Pneumococcal (Prevnar 13) 12/13/2020,08/10/2019 Tdap (Generic) 05/25/2017 Family History Medical History Relation Comments Edema Father urinary problems Mother Relation Status Comments Brother Alive Father 90's Mother Alive Sister Alive Social History Tobacco Use Types Packs/Day Years Used Date Smoking Tobacco: Never Smokeless Tobacco: Never Tobacco Cessation:Counseling Given: Not Answered Alcohol Use Standard Drinks/Week Comments Never 0 (1 standard drink = 0.6 oz pur e alcohol) Humiliation, Afraid, Rape, and Kick questionnair e Answer Date Recorded Within the last year, have y ou been afraid of your partner or ex-partner? No 04/09/2023 Within the last year, have y ou been humiliated or emotionally abused in other ways by your partner or ex-partner? No Within the last year, have y ou been kicked, hit, slapped, or otherwise physically hurt by your partner or ex-partner? No 04/09/2023 Within the last year, have y ou been raped or forced to have any kind of sexual activity by your partner or ex-partner? No 04/09/2023 Social Connection and Isolation Panel [NHANES] A nswer Date Recorded In a typical week, how many times do you talk on the phone with family, friends, or neighbors? Patient declined 04/09/2023 How often do you get togethe r with friends or relatives? Patient declined 04/09/2023 How often do you attend adventist or alevism serv ices? Patient declined 04/09/2023 Do you belong to any clubs o r organizations such as adventist groups, unions, fraternal or athletic groups, or school groups? Patient declined 04/09/2023 How often do you attend meet ings of the clubs or organizations you belong to? Patient declined 04/09/2023 Are you , , di vorced, , never , or living with a partner? Patient declined 04/09/2023 AUDIT-C Answer Date Recorded Q1: How often do you have a drink containing alc ohol? Never 08/15/2020 Average Number of Drinks Not on file 020 Frequency of Binge Drinking Not on file 02/2020 Overall Financial Resource Strain (CARDIA) Answe r Date Recorded How hard is it for you to pa y for the very basics like food, housing, medical care, and heating? Not hard at all 04/09/2023 PHQ-2 Answer Date Recorded Patient Health Questionnaire-2 Score 1 11/07/2024 [facility] - Occupational Stress Questionnaire Answer Date Recorded Do you feel stress - tense, restless, nervous, or anxious, or unable to sleep at night because your mind is troubled all the time - these days? Not at all 04/09/2023 Hunger Vital Sign Answer Date Recorded Within the past 12 months, y ou worried that your food would run out before you got the money to buy more. Never true 04/09/20 23 Within the past 12 months, t he food you bought just didn't last and you didn't have money to get more. Never true 04/09/2023 PRAPARE - Transportation Answer Date Re corded In the past 12 months, has l ack of transportation kept you from medical appointments or from getting medications? No 03/13 In the past 12 months, has l ack of transportation kept you from meetings, work, or from getting things needed for daily living? No 04/09/2023 Housing Stability Vital Sign Answer Boni e Recorded In the last 12 months, was t here a time when you were not able to pay the mortgage or rent on time? No 04/09/2023 In the last 12 months, how many places have you lived? 1 04/09/2023 In the last 12 months, was t here a time when you did not have a steady place to sleep or slept in a senior living (including now)? 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 Not on file Not on f ile Not on file Last Filed Vital Signs Vital Sign Reading Time Taken Comments Blood Pressure 114/70 11/07/2024 12:05 PM FASTENER TECHNOLOGIST Pulse 78 11/07/2024 12:05 PM FASTENER TECHNOLOGIST Temperature 36.8 C (98.2 F) 11/07/2024 12:05 PM FASTENER TECHNOLOGIST Respiratory Rate 16 11/07/2024 12:0 5 PM FASTENER TECHNOLOGIST Oxygen Saturation 98% 11/07/2024 12: 05 PM FASTENER TECHNOLOGIST Inhaled Oxygen Concentration - - Weight 128.6 kg (283 lb 9.6 oz) 025 12:05 PM FASTENER TECHNOLOGIST Height 170.2 cm (5' 7 ) 11/07/2024 12:0 5 PM FASTENER TECHNOLOGIST Body Mass Index 44.42 11/07/2024 12:05 PM FASTENER TECHNOLOGIST Plan of Treatment Upcoming Encounters Date Type Department Care Team (Late st Contact Info) Description 02/05/2025 2:20 PM CDT Office Visit [facility] Family & Internal Medicine - [address] [phone] Jovan Honeycutt, [address] [place] [id number] 03/12/2025 3:20 PM CDT Office Visit [facility] - [facility] [address], [address] [place] [address] Lew David MD [address] [place] [address] Health Maintenance Due Date Last Done Comments Annual Medicare Wellness Visit 2019 Hemoglobin A1C 02/05/2025 11/07/2024, 06/12, 02/24/2024, Additional history exists RSV Immunization or 60+ Years (1 - Risk 60-74 years 1-dose series) 02/23/2025 Postponed fro m 2014 (Going to Outside Clinic) Zoster Vaccines (1 of 2) 02/23/2025 Pos tponed from 2004 (Going to Outside Clinic) Colorectal Cancer Screening FIT-DNA (3 Years) 08/25/2025 08/25/2022, 08/25/2022 COVID-19 Vaccine ( season) 2025 03/13/2022, 08/08/2021, 12/29/2020, Additional history exists Postponed from 06/11/2024 (Patient Refused) Kidney Health Evaluation 11/07/2025 11/07/2024 Lipid Panel 11/22/2025 11/22/2024, 05/0 03/2024, 04/10/2023, Additional history exists Diabetes: Retinopathy Eye Exam 04/21/2026 04/21/2024, 12/17/2020 DTaP, Tdap and Td Vaccines (2 - Td or Tdap) 05/25/2027 05/25/2017 Pneumococcal Vaccine: 65+ Years Completed 03/13/2022, 12/13/2020, 08/10/2019 Hepatitis C Completed 12/29/2022 Influenza Adult Completed 11/07/2024, 08/11, 08/12/2022, Additional history exists PHQ-2 (Physician [place]) Completed 11/07/2024 Meningococcal B Vaccine Aged Out No l onger eligible based on patient's age to complete this topic Meningococcal Vaccine Aged Out No swati leticia eligible based on patient's age to complete this topic RSV Immunizations Under 20 Months Aged Out No longer eligible based on patient's age to complete this topic Medical Devices Implanted Type Area Finance Accounting Internship Device Identifier Shelf Expiration Date Model / Serial / Lot Mesh Mesh Abdomen Stent Uret 6fr 26cm Pigtl Crv Taper Tip Bldr Mrk - [id number] Implanted:Qty: 1 on 09/21/2020 by Pa Galvin MD at [facility] Stent Left: [employer] 05/23/2023 [id number] / / [id number] Procedures Procedure Name Priority Date/Time Associated Diagnosis Comments COLLECTION VENOUS BLOOD VENIPUNCTURE Routine 11/29/2024 2:19 PM FASTENER TECHNOLOGIST Hypokalemia Malignant neoplasm of prostate ([facility]/HCC HHS/HCC) COMPREHENSIVE METABOLIC PANEL Routine 11/29/2024 2:18 PM FASTENER TECHNOLOGIST Hypokalemia PROSTATE SPECIFIC ANTIGEN,TOTAL Routine 11/29/2024 1:09 PM FASTENER TECHNOLOGIST COLLECTION VENOUS BLOOD VENIPUNCTURE Routine 11/22/2024 10:26 AM FASTENER TECHNOLOGIST Uncontrolled type 2 diabetes mellitus with hyperglycemia (CMS/HCC HHS/HCC) Hyperlipidemia associated with type 2 diabetes mellitus (CMS/HCC HHS/HCC) CBC W/DIFF AUTOMATED Routine 11/22/2024 10:26 AM FASTENER TECHNOLOGIST Uncontrolled type 2 diabetes mellitus with hyperglycemia (CMS/HCC HHS/HCC) Hyperlipidemia associated with type 2 diabetes mellitus (CMS/HCC HHS/HCC) COMPREHENSIVE METABOLIC PANEL Routine 11/22/2024 10:26 AM FASTENER TECHNOLOGIST Uncontrolled type 2 diabetes mellitus with hyperglycemia (CMS/HCC HHS/HCC) Hyperlipidemia associated with type 2 diabetes mellitus (CMS/HCC HHS/HCC) TSH W/REFLEX Routine 11/22/2024 10:26 AM FASTENER TECHNOLOGIST Uncontrolled type 2 diabetes mellitus with hyperglycemia (CMS/HCC HHS/HCC) Hyperlipidemia associated with type 2 diabetes mellitus (CMS/HCC HHS/HCC) LIPID PANEL Routine 11/22/2024 10:26 AM FASTENER TECHNOLOGIST Uncontrolled type 2 diabetes mellitus with hyperglycemia (CMS/HCC HHS/HCC) Hyperlipidemia associated with type 2 diabetes mellitus (CMS/HCC HHS/HCC) ALBUMIN URINE RANDOM W/CREATININE Routine 11/07/2024 1:27 PM FASTENER TECHNOLOGIST Uncontrolled type 2 diabetes mellitus with hyperglycemia (CMS/HCC HHS/HCC) Hyperlipidemia associated with type 2 diabetes mellitus (CMS/HCC HHS/HCC) COLLECT.CAPILLARY (FNGR,HEEL,EAR) Routine 11/07/2024 11:56 AM FASTENER TECHNOLOGIST Uncontrolled type 2 diabetes mellitus with hyperglycemia (CMS/HCC HHS/HCC) URINALYSIS AUTO DIP Routine 11/07/2024 Visual hallucinations HEMOGLOBIN, GLYCOSYLATED Routine 11/07/2024 Uncontrolled type 2 diabetes mellitus with hyperglycemia (CMS/HCC HHS/HCC) DIABETIC RETINOPATHY EXAM (NEGATIVE)(SCAN ORDER) Routine 04/21/2024 HEPATITIS C ANTIBODY Routine 12/29/2022 9:55 AM CDT Need for hepatitis C screening test COLOGUARD (EXACT SCIENCE) Routine 08/25/2022 1:00 PM FASTENER TECHNOLOGIST Screen for colon cancer from Last 3 Months or Most Recently Relevant to Health Maintenance Results * (ABNORMAL) COMPREHENSIVE METABOLIC PANEL (11/29/2024 2:18 PM FASTENER TECHNOLOGIST) Only the most recent of2 resultswithin the time period is included. Pathologist [facility] SODIUM S/P/B 142 136 - 145 MMOL/L 11/30/2024 9:39 AM [facility] [facility] POTASSIUM S/P/B 3.6 3.5 - 5.1 MMOL/L 11/30/2024 9:39 AM [facility] CHLORIDE S/P/B 103 98 - 107 MMOL/L 11/30/2024 9:39 AM [facility] CO2 30.7 21 - 32 MMOL/L 11/30/2024 9:39 AM [facility] GLUCOSE 332(H) 70 - 99 MG/DL 11/30/2024 9:39 AM [facility] BUN 17 7 - 18 MG/DL 11/30/2024 9:39 AM [facility] CREATININE S/P/B 1.36(H) 0.70 - 1.30 MG/DL 11/30/2024 9:39 AM [facility] CALCIUM S/P/B 9.4 8.4 - 10.5 MG/DL 11/30/2024 9:39 AM [facility] BILIRUBIN TOTAL S/P/B 0.8 0.2 - 1.0 MG/DL 11/30/2024 9:39 AM [facility] ALKALINE PHOSPHATASE S/P/B 118(H) 45 - 115 U/L 11/30/2024 9:39 AM [facility] AST 15 15 - 37 U/L 11/30/2024 9:39 AM [facility] ALT 29 16 - 63 U/L 11/30/2024 9:39 AM [facility] [place] TOTAL PROTEIN S/P/B 6.8 6.4 - 8.2 G/DL 11/30/2024 9:39 AM FASTENER TECHNOLOGIST [facility], [place] ALBUMIN S/P/B 3.6 3.4 - 5.0 G/DL 11/30/2024 9:39 AM FASTENER TECHNOLOGIST [facility] [place] ANION GAP 8.3 5 - 15 MMOL/L 11/30/2024 9:39 AM FASTENER TECHNOLOGIST [facility] [place] Comment:REFERENCE RANGE NOT ESTABLISHED OSMOLALITY (CALC) 309 MOSM/KG 025 9:39 AM FASTENER TECHNOLOGIST [facility] [place] Comment:REFERENCE RANGE NOT ESTABLISHED GFR ESTIMATE 56(L) >90 ML/MIN/1. 73 M2 11/30/2024 9:39 AM FASTENER TECHNOLOGIST [facility] [place] GFR NOTES GFR REFERENCE S: 11/30/2024 9:39 AM FASTENER TECHNOLOGIST [facility] [place] Comment: THE ESTIMATED GFR IS CALCULATED USING THE 2020 CKD-EPI EQUATION. THE FOLLOWING CATEGORIES FOR GRADING RENAL FUNCTION ARE RECOMMENDED BY THE INTERNATIONAL SOCIETY OF NEPHROLOGY (KDIGO 2012 CLINICAL PRACTICE GUIDELINE). G1,NORMAL OR HIGH: >89 ml/min/1.73 m2 G2,MILDLY DECREASED: 60-89 ml/min/1.73 m2 G3A,MILDLY TO MODERATELY DECREASED: 45-59 ml/min/1.73 m2 G3B,MODERATELY TO SEVERELY DECREASED: 30-44 ml/min/1.73 m2 G4,SEVERELY DECREASED: 15-29 ml/min/1.73 m2 G5,KIDNEY FAILURE: <15 ml/min/1.73 m2 11/29/2024 2:18 PM FASTENER TECHNOLOGIST us Jovan Honeycutt DO LABORATORY Final Re sult [facility] [address] [place] [address], [place] [phone] * (ABNORMAL) PROSTATE SPECIFIC ANTIGEN, TOTAL ( PSA DIAGNOSTIC) (11/29/2024 1:09 PM FASTENER TECHNOLOGIST) Pathologist [facility] PSA 5.19(H) <4.00 NG/ML 11/29/2024 9:55 PM FASTENER TECHNOLOGIST [facility] Comment: ASSAY PERFORMED BY CHEMILUMINESCENCE METHODOLOGY USING SIEM[employer]IST[employer]. PATIENT RESULTS DETERMINED BY ASSAYS USING DIFFERENT MANUFACTURERS FOR METHODS MAY NOT BE COMPARABLE. 11/29/2024 1:09 PM FASTENER TECHNOLOGIST Blane Ferrera MD LABORATORY Final Re sult [facility] [address] [place] [address], [place] [phone] [phone] * TSH W/REFLEX (11/22/2024 10:26 AM FASTENER TECHNOLOGIST) [facility] TSH 1.722 0.358 - 3.740 uIU/ML 11/22/2024 3:44 PM FASTENER TECHNOLOGIST [facility] 11/22/2024 10:2 6 AM FASTENER TECHNOLOGIST Jovan Honeycutt DO LABORATORY Final Re sult Performing Organization Address City/[facility]/ZIP Co de Phone Number [facility] [address] [place] [address], [place] [phone] * LIPID PANEL (11/22/2024 10:26 AM FASTENER TECHNOLOGIST) [facility] CHOLESTEROL 120 <200 MG/DL 11/22/2024 3:44 PM FASTENER TECHNOLOGIST [facility] TRIGLYCERIDES 142 <150 MG/DL 11/22/2024 3:44 PM FASTENER TECHNOLOGIST [facility] HDL 44 >40 MG/DL 11/22/2024 3:44 PM FASTENER TECHNOLOGIST [facility] LDL-C 48 <100 MG/DL 11/22/2024 3:44 PM FASTENER TECHNOLOGIST [facility] VLDL CALCULATION 28 5 - 28 MG/DL 11/22/2024 3:44 PM FASTENER TECHNOLOGIST [facility] CHOL/HDL RATIO 2.7 0.0 - 4.0 11/22/2024 3:44 PM [facility] LDL/HDL 1.1 0.41 - 2.13 11/22/2024 3:44 PM FASTENER TECHNOLOGIST [facility] NON HDL CHOLESTEROL 76 <140 MG/DL 11/22/2024 3:44 PM FASTENER TECHNOLOGIST [facility] 11/22/2024 10:2 6 AM FASTENER TECHNOLOGIST us Jovan Honeycutt DO LABORATORY Final Re sult [facility] [address] [place] [address], * (ABNORMAL) CBC W/DIFF AUTOMATED (11/22/2024 10:26 AM FASTENER TECHNOLOGIST) WBC 6.81 4.00 - 10.80 x10'3/uL 11/22/2024 3:03 PM [facility] RBC 6.06 4.50 - 6.10 x10'6/uL 11/22/2024 3:03 PM [facility] HGB 18.9(H) 13.0 - 18.0 G/DL 11/22/2024 3:03 PM [facility] HCT 54.9(H) 37.0 - 52.0 % 11/22/2024 3:03 PM [facility] MCV 90.6 78.0 - 100.0 FL 11/22/2024 3:03 PM [facility] MCH 31.2(H) 27.0 - 31.0 PG 11/22/2024 3:03 PM [facility] MCHC 34.4 33.0 - 36.0 G/DL 11/22/2024 3:03 PM [facility] RDW 13.0 11.5 - 14.5 % 11/22/2024 3:03 PM [facility] PLT 198 150 - 350 x10'3/uL 11/22/2024 3:03 PM [facility] MPV 10.7(H) 7.4 - 10.4 FL 11/22/2024 3:03 PM [facility] DIFFERENTIAL TYPE AUTOMATED DIFFERENTIAL 11/22/2024 3:03 PM [facility] NEUTROPHILS % 75.1 % 11/22/2024 3:03 PM [facility] LYMPHOCYTES % 15.6 % 11/22/2024 3:03 PM [facility] MONOCYTES % 6.5 % 11/22/2024 3:03 PM [facility] EOSINOPHILS % 2.2 % 11/22/2024 3:03 PM [facility] BASOPHILS % 0.3 % 11/22/2024 3:03 PM [facility] IMMATURE GRANS % 0.3 % 11/22/2024 3:03 PM [facility] ABS. NEUTROPHILS 5.12 1.60 - 8.30 x10'3/uL 11/22/2024 3:03 PM [facility] ABS. LYMPHOCYTES 1.06 0.80 - 4.70 x10'3/uL 11/22/2024 3:03 PM [facility] ABS. MONOCYTES 0.44 0.00 - 1.50 x10'3/uL 11/22/2024 3:03 PM [facility] ABS. EOSINOPHILS 0.15 0.00 - 0.40 x10'3/uL 11/22/2024 3:03 PM [facility] ABS. BASOPHILS 0.02 0.00 - 0.20 x10'3/uL 11/22/2024 3:03 PM [facility] ABS. IMMATURE GRANULOCYTES 0.02 0.00 - 0.03 x10'3/uL 11/22/2024 3:03 PM FASTENER TECHNOLOGIST [facility] 11/22/2024 10:2 6 AM FASTENER TECHNOLOGIST Jovan Honeycutt DO LABORATORY Final Re sult Performing Organization Address [facility] Co de Phone Number [facility] [address] [place] [address], * ALBUMIN URINE RANDOM W/CREATININE (11/07/2024 1:27 PM FASTENER TECHNOLOGIST) MICROALBUMIN (U) 3.2 <20 MG/L 11/07/19 7:39 PM FASTENER TECHNOLOGIST [facility] CREATININE RANDOM (U) 50.6 MG/DL 11/07/2024 7:39 PM FASTENER TECHNOLOGIST [facility] ALBUMIN/CREAT RATIO 6.3 <30 MG/G 11/07/2024 7:39 PM FASTENER TECHNOLOGIST [facility] URINE SPECIMEN / Unknown 11/07/2024 1:27 PM FASTENER TECHNOLOGIST Jovan Honeycutt DO URINE ORDERABLES Final R esult Performing Organization Address [facility] Co de Phone Number [place] [id number] [place] [address], * HEMOGLOBIN, GLYCOSYLATED (11/07/2024) HGB A1C 9.3 % [facility] 11/07/2024 Jovan Honeycutt DO LABORATORY Final Re sult Performing Organization Address City/[facility]/ZIP Co de Phone Number [facility] [address] [place] [address], [place] * (ABNORMAL) URINALYSIS AUTO DIP (11/07/2024) COLOR (U) YELLOW YELLOW [facility] TRANSPARENCY CLEAR CLEAR [facility] GLUCOSE (U) 500 mg/dl(A) NEGATIVE MG/DL [facility] BILIRUBIN (U) NEGATIVE NEGATIVE [facility] KETONES MG/DL (U) NEGATIVE NEGATIVE MG/DL [facility] SPECIFIC GRAVITY (U) 1.010 1.001 - 1.035 [facility] BLOOD (U) NEGATIVE NEGATIVE [facility] U PH 5.5 5.0 - 9.0 [facility] PROTEIN (U) NEGATIVE NEGATIVE mg/dL [facility] UROBILINOGEN 0.2 0.2 - 1.0 EU/dL = mg/dL [facility] NITRITES NEGATIVE NEGATIVE MG/DL [facility] LEUKOCYTES (U) NEGATIVE NEGATIVE [facility] URINE SPECIMEN OBTAINED BY CLEAN CATCH PROCEDURE / Unknown 11/07/2024 Jovan Honeycutt DO URINE ORDERABLES Final R esult Performing Organization Address [facility] Co de Phone Number [facility] [address] [place] [address], * DIABETIC RETINOPATHY EXAM (NEGATIVE) (04/21/2024) [facility] Scanned SCANNING Final Resu lt Performing Organization Address [facility] Co de Phone Number [facility] * HEPATITIS C ANTIBODY ([facility] ONLY) (12/29/2022 9:55 AM CDT) HEPATITIS C AB NON-REACTI VE NON-REACT DAYANARA 12/29/2022 7:29 PM CDT [facility] Comment: ANTIBODIES TO HCV NOT DETECTED. DOES NOT EXCLUDE THE POSSIBILITY OF EXPOSURE TO HCV. 12/29/2022 9:55 AM CDT us Jovan Honeycutt DO LABORATORY Final Re sult [facility] [address] [place] [address], [id number] * COLOGUARD (EXACT SCIENCE) (08/25/2022 1:00 PM FASTENER TECHNOLOGIST) COLOGUARD RESULT Negative Negative [facility] (CLIA #:[id number]) Comment: NEGATIVE TEST RESULT. A negative Cologuard result indicates a low likelihood that a colorectal cancer (CRC) or advanced adenoma (adenomatous polyps with more advanced pre-malignant features) is present. The chance that a person with a negative Cologuard test has a colorectal cancer is less than 1 in 1500 (negative predictive value >99.9%) or has an advanced adenoma is less than 5.3% (negative predictive value 94.7%). These data are based on a prospective cross-sectional study of 10,000 individuals at average risk for colorectal cancer who were screened with both Cologuard and colonoscopy. (Carmen Flowers al, N Engl J Med 2014;370(14):1710-4014) The normal value (reference range) for this assay is negative. COLOGUARD RE-SCREENING RECOMMENDATION: Periodic colorectal cancer screening is an important part of preventive healthcare for asymptomatic individuals at average risk for colorectal cancer. Following a negative Cologuard result, the [employer] [employer] Society and U.S. Multi-Society Task Force screening guidelines recommend a Cologuard re-screening interval of 3 years. References: [place] [employer] Guideline for Colorectal Cancer Screening: https://www.cancer.org/cancer/opbhn-lsscxz-elxolf/swrrxkzvd-meerhafuc-eytacvc/ac s-rec ommendations.html.; John DK, Kylah CR, Rickie SalehK, Colorectal Cancer Screening: Recommendations for Physicians and Patients from the U.S. Multi-Society Task Force on Colorectal Cancer Screening , Am J Gastroenterology 2017; 112:4832-9748. TEST DESCRIPTION: Composite algorithmic analysis of stool DNA-biomarkers with hemoglobin immunoassay. Quantitative values of individual biomarkers are not reportable and are not associated with individual biomarker result reference ranges. Cologuard is intended for colorectal cancer screening of adults of either sex, 45 years or older, who are at average-risk for colorectal cancer (CRC). Cologuard has been approved for use by the U.S. FDA. The performance of Cologuard was established in a cross sectional study of average-risk adults aged 50-84. Cologuard performance in patients ages 45 to 49 years was estimated by sub-group analysis of near-age groups. Colonoscopies performed for a positive result may find as the most clinically significant lesion: colorectal cancer [4.0%], advanced adenoma (including sessile serrated polyps greater than or equal to 1cm diameter) [20%] or non- advanced adenoma [31%]; or no colorectal neoplasia [45%]. These estimates are derived from a prospective cross-sectional screening study of 10,000 individuals at average risk for colorectal cancer who were screened with both Cologuard and colonoscopy. (Carmen Flowers al, N Engl J Med 2014;370(14):7342-8239.) Cologuard may produce a false negative or false positive result (no colorectal cancer or precancerous polyp present at colonoscopy follow up). A negative Cologuard test result does not guarantee the absence of CRC or advanced adenoma (pre-cancer). The current Cologuard screening interval is every 3 years. ([place] [employer] Society and U.S. Multi-Society Task Force). Cologuard performance data in a 10,000 patient pivotal study using colonoscopy as the reference method can be accessed at the following location: www.Copperfasten.Peppercorn/results. Additional description of the Cologuard test process, warnings and precautions can be found at www.cologOneStopWebrd.com. STOOL STOOL SPECIMEN / Unknown 08/25/2022 1:00 PM FASTENER TECHNOLOGIST 08/26/2022 12:31 PM FASTENER TECHNOLOGIST us Luis Alfredo Bush MD BODY FLUIDS AND STOOLS ORDERABLE S Final Result [facility] ([employer] [address] [facility]) [address] [place] [place] [address], [facility] (CLIA #:[id number]) [address] [place] [address] from Last 3 Months or Most Recently Relevant to Health Maintenance Insurance AETNA MEDICARE Advance Directives Documents on File Type Date Recorded Patient Pattern Filer Expl anation Power of Building Tech * Full Code (Latest Code Status on File) Date Activated Date Inactivated Comments 11/07/2021 7:08 PM 04/09/2023 1:47 PM * Full Code Date Activated Date Inactivated Comments 04/07/2021 10:56 PM 11/07/2021 7:08 PM * Full Code Date Activated Date Inactivated Comments 10/07/2020 8:22 PM 04/07/2021 10:56 PM * Full Code Date Activated Date Inactivated Comments 09/21/2020 11:02 PM 09/26/2020 6:00 PM * Full Code Date Activated Date Inactivated Comments 08/11/2020 8:01 PM 09/21/2020 1:42 PM Care Teams Entry Level Staff Accountant Relationship Specialty Start Date End Date Jovan Honeycutt DO [address] [place] [address] PCP - General FAMILY PRACTICE 09/22/21 Blane Ferrera MD [address] [place] [address] Consulting Physician UROLOGY 09/10/20 Benton Rees MD [address] [facility] [address] [place] [address] Consulting Physician NEUROLOGY 10/05/20
--- OUTSIDE RECORDS SUMMARY | 2025-01-02 19:01 | XMS_ITS | Encounter Summary ---
Author Organization [facility] Healthcare Address [address] [place] [address] Care Team Providers Care Automobile Brake Bonder Name Role Phone Jovan Honeycutt Primary Care Provide r Encounter Details Date Type Department Care Team (Late st Contact Info) Description 01/02/[address] [facility] Medical Group Diabetes and Endocrinology [facility] [place] [address] ProviderJonnathan MD [address] [place], [place] [id number] Social History Tobacco Use Types Packs/Day Years Used Date Smoking Tobacco: Never Smokeless Tobacco: Never Alcohol Use Standard Drinks/Week Comments No 0 (1 standard drink = 0.6 oz pur e alcohol) Sex and Gender Information Value Date Recorded Sex Assigned at Not on file Legal Sex Male 11:23 AM CDT Gender Identity Male 11/03/2020 10:[address] CLERK Sexual Orientation Straight 11/03/2020 10 :[address] CLERK documented as of this encounter Plan of Treatment Not on file documented as of this encounter Procedures Procedure Name Priority Date/Time Associated Diagnosis Comments ALBUMIN CREATININE RATIO, URINE Routine 02/18/2024 12:10 PM CDT LIPID PANEL Routine 02/14/2024 10:16 AM CDT COMPREHENSIVE METABOLIC PANEL Routine 02/14/2024 10:16 AM CDT documented in this encounter Results * Albumin Creatinine Ratio, Urine (02/18/2024 12:10 PM CDT) SCRIBED Creatinine, Urine 89 NA - NA EXTERNAL LAB SCRIBED Microalbumin 9.3 <20 - NA EXTERNAL LAB SCRIBED Microalb/Creat Ratio 10.4 <30 - NA EXTERNAL LAB Urine 02/18/2024 12:1 0 PM CDT us Historical Provider LAB URINE ORDERABLES Edit ed [...] Units/L EXTERNAL LAB SCRIBED eGFR in NonAfrican [place] Verdean 75 >90 - NA EXTERNAL LAB Blood [...] Edit ed Result - Final EXTERNAL LAB documented in this encounter Visit Diagnoses Not on filedocumented in this encounter Care Teams Automobile Brake Bonder Relationship Specialty Start Date End Date Jovan Honeycutt DO [address] [place] [address] PCP - General Family Medicine 12/02/21 documented as of this encounter
[2025-01-02 19:06] LABS: Alanine Aminotransferase 25 U/L (6-50); Albumin Level 3.5 g/dL (3.5-5.1); Alkaline Phosphatase 92 U/L (38-126); Anion Gap 9 mmol/L (4-12); Aspartate Amino Transferase 21 U/L (17-59); Bilirubin,Total 0.7 mg/dL (0.2-1.3); Blood Urea Nitrogen 21 mg/dL (9-20); Calcium 8.7 mg/dL (8.4-10.2); Carbon Dioxide 26 mmol/L (22-30); Chloride 104 mmol/L (98-107); Estimated CRCL calculation 79 ml/min; Estimated Glomerular Filt Rate > 60; Glucose 188 mg/dL (65-110); Magnesium 1.8 mg/dL (1.6-2.3); Phosphorus 2.8 mg/dL (2.5-4.5); Potassium 3.2 mmol/L (3.4-5.0); Sodium 139 mmol/L (137-145)
[2025-01-02 19:33] LABS: Glucose Point of Care 179 mg/dl (65-105)
[2025-01-02] MEDS: POTASSIUM CHLORIDE 20 MEQ ER TABLET 40 MEQ PO (19:35)
[2025-01-02 19:40] VITALS: BP 125/80; PULSE 79; RESP 15; O2SAT 95
[2025-01-02 20:22] VITALS: BP 125/85; PULSE 80; RESP 19; O2SAT 95
== END 2025-01-02 20:25 | disposition home or self-care (01) ==
PROVIDERS: Emergency Provider Physician Assistant; PCP Student in an Organized Health Care Education/Training Program
DX: E11.65 Type 2 diabetes mellitus with hyperglycemia (principal); F41.9 Anxiety disorder, unspecified; F32.A Depression, unspecified; I10 Essential (primary) hypertension; I69.354 Hemiplegia and hemiparesis following cerebral infarction affecting left non-dominant side; G47.30 Sleep apnea, unspecified; Z79.4 Long term (current) use of insulin
CPT/HCPCS: 36415; 80053; 81003; 82010; 82948; 83735; 84100; 85025; 96360; 99283; A9270; J7120

== ENCOUNTER 2025-06-30 17:09 | Emergency (ER) | payer MEDICARE, OTHER, SELFPAY ==
[2025-06-30 17:11] VITALS: BP 145/96; PULSE 95; RESP 16; TEMP 37; O2SAT 99
--- OUTSIDE RECORDS SUMMARY | 2025-06-30 17:11 | XMS_ITS | Clinical Summary ---
Author Organization [facility] Address [address] [facility] [place] [address] Care Team Providers Care Genetic Physician Name Role Phone Gilbert Bonilla MD Primary Care Provider + [phone] Source Comments [facility],non-[facility] Affiliates and Associated Physician Practices is amultiple site organization consisting of ambulatory clinics and hospital sitesin [place], [place], [place] and [place]. This disclosure is being madepursuant to the Care Everywhere program and may not contain all information available regarding this patient. Last updated 18.[facility] [employer] Allergies Active Allergy Reactions Criticality Noted Date Comments Penicillins Urticaria Medium 06/05/2020 Medications * This document contains information received from the source organization and may not represent a complete record from that organization. * Be aware that medications may not be up to date on this document. Alwaysverify current medications with the patient. aspirin EC (ECOTRIN) 81 MG tablet Take [...] once daily Active levETIRAcetam (KEPPRA) 750 MG tabletIndications:Sandrine corral Take 1 tablet by mouth 2 times daily Reasons: Seizure 30 tablet 06/14/20 20 Active venlafaxine XR 24hr (EFFEXOR XR) 75 MG capsuleIndications: Major Depressive Disorder Take 1 capsule by mouth daily with breakfast Reasons: Major Depressive Disorder 30 capsule 06/15/20 20 Active Active Problems Problem Noted Date Diagnosed Date Severe recurrent major depre ssion without psychotic features 06/06/2020 MDD (major depressive disorder), severe 06/05/20 Social History Tobacco Use Types Packs/Day Years [...] at Not on file Legal Sex Male 12:01 PM CDT Gender Identity Not on file Sexual Orientation Not on file Last Filed Vital Signs Vital Sign Reading Time Taken Comments Blood Pressure 124/81 06/19/2020 1:27 PM CDT Pulse 96 06/19/2020 1:27 PM CDT Temperature 36.9 C (98.4 F) 06/19/2020 1:27 PM CDT Respiratory Rate 17 06/19/2020 1:27 PM CDT Oxygen Saturation 93% 06/19/2020 1:2 7 PM CDT Inhaled Oxygen Concentration 21% 06/17/2020 10:00 PM CDT Weight 105.7 kg (233 lb) 06/12/2020 2:5 1 PM CDT re entered Height 157.5 cm (5' 2) 06/12/2020 2:51 PM CDT per pt approximation, [...] - Risk 60-74 years 1-dose series) 2014 DEPRESSION SCREENING 10/11/2024 COVID-19 VACCINE ( - 2023-2 5 season) 2025 INFLUENZA VACCINE (#1) 2025 HEPATITIS B VACCINE Aged Out No longe [...] on patient's age to complete this topic Insurance AETNA MEDICARE MEDICARE AETNA AETNA * Guarantor: JD RUIZ Account Type Relation to Patient Date of Phone Billing Address Personal/Family [address] [place] [address] MEDICARE AETNA * Guarantor: JD RUIZ Account Type Relation to Patient Date of Phone Billing Address Personal/Family [address] [place] [phone] MEDICARE AETNA * Guarantor: JD RUIZ Account Type Relation to Patient Date of Phone Billing Address Personal/Family [address] [place] [address] MEDICARE TNA MEDICARE AETNA AETNA AETNA Advance Directives Documents on File Type Date Recorded Patient Adon Expl anation Adv Directive/Living Will/POA 06/24/2020 12:27 PM Adv Directive/Living Will/POA 06/05/2020 11:24 AM * Full Code (Latest Code Status on File) Date Activated Date Inactivated Comments 06/06/2020 7:47 AM 06/19/2020 8:23 PM Care Teams Genetic Physician Relationship Specialty Start Date End Date Gilbert Bonilla MD PCP - General Internal Medicine 06/04/20
--- OUTSIDE RECORDS SUMMARY | 2025-06-30 17:11 | XMS_ITS | Clinical Summary ---
Author Organization [facility] Address [address] [place] [address] Care Team Providers Care Decision Analyst Name Role Phone Jovan Honeycutt Primary Care Provide r Allergies Active Allergy Reactions Criticality Noted Date Comments Lorazepam Hallucinations High Penicillins Hives Medium 07/02/2018 Medications aspirin 81 mg tablet daily. Active atorvastatin (LIPITOR) 80 mg tablet daily. Active cyanocobalamin, vitamin B-12, 1,000 mcg capsule every 12 hours. Acti ve metoprolol XL (TOPROL-XL) 50 mg 24 hr tablet daily. 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 225 tablet 1 3 Active HYDROCHLOROTHIA ZIDE ORAL 0 Active potassium chloride ER 10 [...] 50 mg immediate release tablet 4 Active hydroCHLOROthia zide (HYDRODIURIL) 25 mg tablet 5 Active venlafaxine 225 mg tablet extended release 24hr 24 hr tablet Take 1 tablet (225 mg total) by mouth nightly 5 Active LANTUS 100 unit/mL (3 mL) pen for injectionIndica tions:Type 2 diabetes mellitus with hyperglycemia, without long-term current use of insulin ([facility]) Inject 40 Units under the skin daily 40 units subQ daily 45 mL 3 5 01/02/20 26 Active HumaLOG 100 unit/mL pen for injectionIndica tions:type 2 diabetes mellitus Inject 20-30 Units under the skin 3 (three) times a day before meals ( max daily dose 90 units) 81 mL 3 5 04/09/20 26 Active blood-glucose sensor (Dexcom G7 Sensor) deviceIndicatio ns:Type 2 diabetes mellitus with hyperglycemia, without long-term current use of insulin ([facility]) Change sensor every 10 days 3 each 3 5 Active blood-glucose,r eceiver,cont (Dexcom G7 Bundles Hanger) miscIndications :Type 2 diabetes mellitus with hyperglycemia, without long-term current use of insulin ([facility]) Use to check blood glucose 1 each 5 Active Active Problems Problem Noted Date Diagnosed [...] infection. Assessment & Plan (09/04/2024 3:03 PM LEAD SEWAGE PLANT OPERATOR): Chronic, uncontrolled, worsening A1c today 9.9%, goal [...] Atorvastatin 80mg. Last lipid panel: 02/14/24 LDL=40, WX=386. Assessment & Plan (09/04/2024 3:00 PM LEAD SEWAGE PLANT OPERATOR): Continue Statin therapy Class 2 severe obesity due t o excess calories with serious comorbidity and body mass index (BMI) of 37.0 to 37.9 in adult 09/04/2024 Assessment & Plan (09/04/2024 3:00 PM LEAD SEWAGE PLANT OPERATOR): Counseled on diet Exercise is a limitation [...] daily Assessment & Plan (09/04/2024 3:01 PM LEAD SEWAGE PLANT OPERATOR): Chronic overall well controlled Continue current dose [...] Encounters Date Type Department Care Team Description 05/18/2025 Telephone [facility] of [address] [phone] Willie Denise MD Med Refill 04/27/2025 Results Follow-Up [facility] [address] [phone] Willie Denise MD Albumin Creatinine Ratio, Urine 04/25/2025 11:15 AM CDT Lab [facility] Outpatient Lab at [address] [phone] 04/25/2025 11:11 AM CDT - 04/25/2025 11:59 PM CDT Hospital Encounter [address] [address] Type 2 diabetes mellitus with hyperglycemia, without long-term current use of insulin (HCC) Discharge Disposition: Discharge to home or self care 04/24/2025 Telephone [facility] of [address] [phone] Willie Denise MD [place] [address] [place] 04/09/2025 1:00 PM CDT Office Visit [facility] Diabetes and Endocrinology [address] [place] [phone] Willie Denise MD Type 2 diabetes mellitus with hyperglycemia, without long-term current use of insulin (HCC) (Primary Dx); Hypertension associated with diabetes (HCC); Hyperlipidemia associated with type 2 diabetes mellitus (HCC); Class 2 severe obesity due to excess calories with serious comorbidity and body mass index (BMI) of 37.0 to 37.9 in adult (HCC) 03/30/2025 Telephone [facility] of [address] [phone] Willie Denise MD from Last 3 Months Surgical History Surgery [...] CDT Gender Identity Male 11/03/2020 10:28 AM LEAD SEWAGE PLANT OPERATOR Sexual Orientation Straight 11/03/2020 10 :28 AM LEAD SEWAGE PLANT OPERATOR Obstetrics History Last Filed Vital Signs Vital Sign Reading Time Taken Comments Blood Pressure 128/78 04/09/2025 1:03 PM CDT Pulse 85 04/09/2025 1:03 PM CDT Temperature 36.9 C (98.4 F) 01/13/2019 7:40 PM CDT Respiratory Rate 16 04/09/2025 1:03 PM CDT Oxygen Saturation 95% 01/13/2019 7:40 PM CDT Inhaled Oxygen Concentration - - Weight 109.8 kg (242 lb) 09/04/2024 1:26 PM LEAD SEWAGE PLANT OPERATOR wheelchair Height 170.2 cm (5' 7) 04/09/2025 1:03 PM CDT Body Mass Index 37.9 09/04/2024 1:26 PM LEAD SEWAGE PLANT OPERATOR Plan of Treatment Health Maintenance Due Date Last Done Comments Colon Cancer Screening-Colonoscopy 1954 Depression Screening 1954 Fall Risk Assessment 1954 Hepatitis C Screening 1954 Hepatitis B Screening 1972 Zoster Vaccine (1 of 2) 2004 Well Visit 65+ 2019 eGFR 02/13/2025 02/14/2024 Influenza Vaccine (#1) 2025 , 08/08/2021, 08/30/2019, Additional history exists Hemoglobin A1C 10/09/2025 04/09/2025, 03/2 01/2025, 09/04/2024 Lipid Panel 11/22/2025 11/22/2024, 05/0 03/2024, 02/14/2024, Additional history exists Foot Exam 01/01/2026 01/01/2025 Dilated Eye Exam 04/21/2026 04/21/2024, 07/05/2019 Albumin Creatinine Ratio, Urine 04/25/2026 , 02/18/2024 DTaP/Tdap/Td Vaccine (2 - Td or Tdap) 05/25/2027 05/25/2017 Pneumococcal vaccine 65+ Completed 022, 12/13/2020, 08/11/2019 Procedures Procedure Name Priority Date/Time Associated Diagnosis Comments ALBUMIN CREATININE RATIO, URINE Routine 04/25/2025 11:11 AM CDT Type 2 diabetes mellitus with hyperglycemia, without long-term current use of insulin (HCC) POCT HEMOGLOBIN A1C Routine 04/09/2025 1 :06 PM CDT Type 2 diabetes mellitus with hyperglycemia, without long-term current use of insulin (HCC) POCT GLUCOSE Routine 04/09/2025 1:05 PM CDT Type 2 diabetes mellitus with hyperglycemia, without long-term current use of insulin (HCC) HM DIABETES EYE EXAM Routine 04/21/2024 8:24 AM CDT COMPREHENSIVE METABOLIC PANEL Routine 02/14/2024 10:16 AM CDT LIPID PANEL Routine 02/14/2024 10:16 AM CDT from Last 3 Months or Most Recently Relevant to Health Maintenance Results * Albumin Creatinine Ratio, Urine (04/25/2025 11:11 AM CDT) Albumin Ur <12.0 mg/L Comment: Interpretive Data No reference range established. Current interpretive data was last revised 2019. Creatinine Ur 64.4 mg/dL TODD AGUIRRE Comment: Interpretive Data No reference range established. Current interpretive data was last revised 2019. Albumin Creatinine Ratio, Ur <19 1 - 29 mg/g TODD AGUIRRE Urine 04/25/2025 11:1 1 AM CDT 04/25/2025 10:06 PM CDT us Willie Wilde MD LAB URINE ORDERABLE S Final Result [facility] [address] [address] [place] [address] * (ABNORMAL) POCT hemoglobin A1c (04/09/2025 1:06 PM CDT) [facility] Hemoglobin A1C, POC 9.2(A) 4.0 - 5.6 % Blood 04/09/2025 1:06 PM CDT Willie Wilde MD POINT OF CARE TEST ORDERABLES Final Result * POCT glucose (04/09/2025 1:05 PM CDT) [facility] Glucose Blood, POC 354 Normal Fasting 70 - 100, Random <200 mg/dL Blood 04/09/2025 1:05 PM CDT Result [facility] Willie Wilde MD POINT OF CARE TEST ORDERABLES Final Result * HM DIABETES EYE EXAM (04/21/2024 8:24 AM CDT) Historical Provider HEALTH MAINTENANCE Final Result * (ABNORMAL) Lipid panel (02/14/2024 10:16 AM CDT) [facility] SCRIBED Cholesterol, Total 111 <200 - NA EXTERNAL LAB SCRIBED HDL 41 >40 - NA EXTERNAL LAB SCRIBED LDL 40 <100 - NA EXTERNAL LAB SCRIBED Triglycerides 150 <150 - NA EXTERNAL LAB Blood 02/14/2024 10:1 6 AM CDT Historical Provider LAB BLOOD ORDERABLES Edit ed Result - Final EXTERNAL LAB * (ABNORMAL) Comprehensive metabolic panel (02/14/2024 10:16 AM CDT) [facility] SCRIBED Sodium 143 136 - 145 mmol/L [...] - 37 Units/L EXTERNAL LAB SCRIBED eGFR 75 >90 - NA EXTERNAL LAB Blood 02/14/2024 10:1 6 AM CDT us Historical Provider LAB BLOOD ORDERABLES Edit ed Result - Final EXTERNAL LAB from Last 3 Months or Most Recently Relevant to Health Maintenance Insurance MEDICARE [facility] Address: [address] [place] [id number] [facility] Advance Directives For more information, please contact: [phone] * Full Code (Latest Code Status on File) Date Activated Date Inactivated Comments 07/29/2018 1:09 AM 08/03/2018 7:36 PM Care Teams Decision Analyst Relationship Specialty Start Date End Date Jovan Honeycutt DO [address] [place] [id number] PCP - General Family Medicine 12/02/21
--- OUTSIDE RECORDS SUMMARY | 2025-06-30 17:11 | XMS_ITS | Encounter Summary ---
Author Organization [facility] Address [address] [place] [address] Phone Care Team Providers Care Tower Supervisor Name Role Phone Dwaine Soria MD Primary Care Provider [phone] Jovan Honeycutt DO Primary Care Provide r [...] CDT Gender Identity Male 11/03/2020 10:28 AM CORONER TECHNICIAN Sexual Orientation Straight 11/03/2020 10 :28 AM CORONER TECHNICIAN documented as of this encounter Plan of Treatment Not on file documented as of this encounter Procedures Procedure Name Priority Date/Time Associated Diagnosis Comments SCAN - RADIOLOGY/IMAGING 12/08/2018 documented in this encounter Results * SCAN - RADIOLOGY/IMAGING (12/08/2018) Anatomical Region Laterality Modality Other us Provider Scanning Final Result documented in this encounter Visit Diagnoses Not on filedocumented in this encounter Care Teams Tower Supervisor Relationship Specialty Start Date End Date Dwaine Soria MD [address] [facility] [address] [place] [address] PCP - General Endocrinology Diabetes & Metabolism 08/22/18 12/01/21 Jovan Honeycutt DO [address] [place] [id number] PCP - General Family Medicine 12/02/21 documented as of this encounter
--- OUTSIDE RECORDS SUMMARY | 2025-06-30 17:11 | XMS_ITS | Encounter Summary ---
Author Organization [facility] Address [address] [place] [address] Care Team Providers Care Labor Relations Worker Name Role Phone Blane Ferrera MD Unavailable [phone] Benton Rees MD Unavailable [phone] Jovan Honeycutt DO Primary Care Provider + Encounter Details Date Type Department Care Team (Latest Contact Info) Description 05/05/2025 Results Follow-Up [facility] Multispecialty Care - [facility] [address], [address] [place] [address] Lew David MD [address] [place], [place] [id number] EEG awake or drowsy routine Social History Tobacco Use Types Packs/Day Years [...] declined 04/09/2023 How often do you attend nondenominational or rastafarian serv ices? Patient declined 04/09/2023 Do you belong to any clubs o r organizations such as nondenominational groups, unions, fraternal or athletic groups, or [...] Recorded Patient Health Questionnaire-2 Score 1 11/07/2024 [facility] - Occupational Stress [...] place to sleep or slept in a chcf (including now)? 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 Answer Date of Assessment Author Status No 04/09/2023 5:31 PM Mateo Rico RN Active * Do you have serious difficulty walking or climbing stairs? Answer Date of Assessment Author Status Yes 04/09/2023 5:31 PM Mateo Rico RN Active * Do you have difficulty dressing or bathing? Answer Date of Assessment Author Status Yes 04/09/2023 5:31 PM Mateo Rico RN Active * Because of a physical, mental, or emotional condition, do you have difficulty doing errands alone such as visiting a doctor's office or shopping? Answer Date of Assessment Author Status Yes 04/09/2023 5:31 PM Mateo Rico RN Active documented as of this encounter Mental Status * Because of a physical, mental, or emotional condition, do you have serious difficulty concentrating, remembering, or making decisions? Answer Entry Date Author Status No 04/09/2023 5:31 PM CDT Mateo Fay RN Active documented in this encounter Plan of Treatment Upcoming Encounters Date Type Department Care Team (Late st Contact Info) Description 08/22/2025 1:20 PM ELIGIBILITY COUNSELOR Office Visit [facility] Family & Internal Medicine - [place] [address] [place] [address] Jovan Honeycutt DO [address] [place] [address] 09/11/2025 2:00 PM ELIGIBILITY COUNSELOR Office Visit [facility] Multispecialty [facility] - [address], [address] [place] [phone] Lew David MD [address] [place] [address] documented as of this encounter Visit Diagnoses Not on filedocumented in this encounter Care Teams Labor Relations Worker Relationship Specialty Start Date End Date Jovan Honeycutt DO [address] [place] [address] PCP - General FAMILY PRACTICE 09/22/21 Blane Ferrera MD [address] [place] [address]. [place] [address] Consulting Physician UROLOGY 09/10/20 Benton Rees MD [address] [place] [address] Consulting Physician NEUROLOGY 10/05/20 documented as of this encounter
--- OUTSIDE RECORDS SUMMARY | 2025-06-30 17:11 | XMS_ITS | Clinical Summary ---
Author Organization [facility] Address [facility] [place] [address] Care Team Providers Care Ladle Filler Name Role Phone Blane Ferrera MD Unavailable [phone] Benton Rees MD Unavailable [phone] Jovan Honeycutt DO Primary Care Provider + Allergies Active Allergy Reactions Criticality Noted Date Comments Lorazepam Hallucinations 08/15/2018 Penicillin G Nausea Only Low 05/24/2020 Penicillins Hives,Rash High 08/15/2018 Other reaction(s): Stopped [...] hyperglycemia, without long-term current use of insulin ([facility]) Inject 1 mg into the skin as needed. 0.4 mL 3 023 Active ketoconazole (NIZORAL) 2 % creamIndications: Tinea corporis APPLY TOPICALLY TO THE AFFECTED AREA DAILY FOR RASH, SKIN ERUPTION 60 g 2 023 Active FARXIGA 10 MG tabletIndications :Uncontrolled type 2 diabetes mellitus with hyperglycemia ([facility]) Take 1 tablet (10 mg total) by mouth daily. 90 tablet 025 Active insulin lispro, 1 Unit Dial, (HUMALOG KWIKPEN) 100 UNIT/ML injection (PEN) Inject 14-24 Units into the skin 3 (three) times daily. 025 2025 Active LANTUS SOLOSTAR 100 UNIT/ML injection (PEN) INJECT 40 UNITS UNDER THE SKIN DAILY Active nystatin (MYCOSTATIN) powderIndications :Tinea corporis APPLY TO THE AFFECTED AREA TWICE DAILY NEEDED FOR FUNGAL RASH 60 g 025 Active tamsulosin (FLOMAX) 0.4 MG CapIndications:Ne phrolithiasis Take 1 capsule (0.4 mg total) by mouth daily. 90 capsule 025 Active BD PEN NEEDLE SHORT ULTRAFINE 31G X 8 MM MiscIndications:T ype 2 diabetes mellitus with hyperglycemia, without long-term current use of insulin ([facility]) INJECT 1 NEEDLE UNDER THE SKIN FOUR TIMES DAILY 400 each 3 025 Active metoprolol tartrate (LOPRESSOR) 50 MG tabletIndications :Essential hypertension TAKE 1 TABLET(50 MG) BY MOUTH TWICE DAILY 180 tablet 1 025 Active folic acid (FOLVITE) 1 MG tabletIndications :Folic acid deficiency TAKE 1 TABLET(1 MG) BY MOUTH DAILY 90 tablet 025 Active atorvastatin (LIPITOR) 80 MG tabletIndications :Hyperlipidemia, unspecified hyperlipidemia type TAKE 1 TABLET(80 MG) BY MOUTH EVERY NIGHT AT BEDTIME 90 tablet 1 025 Active potassium chloride CR (KLOR-CON M) 10 MEQ tabletIndications :Hypokalemia TAKE 2 TABLETS BY MOUTH DAILY 180 tablet 1 025 Active Venlafaxine HCl (VENLAFAXINE XR) 225 MG TABLET SR 24 HR 24 hr tabletIndications :Recurrent major depressive disorder, in partial remission TAKE 1 TABLET BY MOUTH EVERY NIGHT AT BEDTIME 90 tablet 1 025 Active pramipexole (MIRAPEX) 0.25 MG tabletIndications :Restless leg syndrome IF NOT WORKING SUFFICIENTLY, CAN TAKE UP TO 6 TABLETS EVERY NIGHT AT BEDTIME 540 tablet 025 Active gabapentin (NEURONTIN) 300 MG capsuleIndication s:Restless leg syndrome TAKE 1 CAPSULE BY MOUTH EVERY AFTERNOON AND 2 CAPSULES IN THE EVENING 90 capsule 025 Active pantoprazole EC (PROTONIX) 40 MG tabletIndications :Gastroesophageal reflux disease, unspecified whether esophagitis present TAKE 1 TABLET(40 MG) BY MOUTH TWICE DAILY 180 tablet 3 025 Active hydroCHLOROthiazi de (HYDRODIURIL) 25 MG tabletIndications :Essential hypertension TAKE 1 TABLET(25 MG) BY MOUTH EVERY MORNING FOR HIGH BLOOD PRESSURE 90 tablet 3 025 Active levETIRAcetam (KEPPRA) 1000 MG tabletIndications :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 Indications: Trouble Sleeping 020 2021 Discontinued(E xpired (Clinician Removed from Med list)) pantoprazole EC (PROTONIX) 40 MG tabletIndications :Gastroesophageal reflux disease, unspecified whether esophagitis present Take 1 tablet (40 mg total) by mouth 2 (two) times a day. 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 (CMS/HCC HHS/HCC) TAKE 1 TABLET BY MOUTH IN THE MORNING AND 1 AND 1/2 TABLETS IN THE EVENING 90 tablet 2 025 2024 Discontinued gabapentin (NEURONTIN) 300 MG capsuleIndication s:Restless leg syndrome TAKE 1 CAPSULE BY MOUTH EVERY AFTERNOON AND 2 CAPSULES IN THE EVENING 90 capsule 025 2024 Discontinued Active Problems Problem Noted Date Diagnosed Date Prostate cancer ([facility]) 11/07/2024 Morbid (severe) obesity due to excess calories 0 02/24/2024 Body mass index (BMI) 40.0-44.9, adult Chest pain in adult 04/09/2023 Hypogonadism in male 02/02/2023 Hyperlipidemia associated wi th type 2 diabetes mellitus ([facility]) 07/01/2022 Hematuria 05/29/2022 Low back pain 05/29/2022 Lumbar spondylosis 05/29/2022 Constipation 05/29/2022 Mass of kidney 05/29/2022 Medication management 10/05/2020 Kidney lesion 09/12/2020 Type 2 diabetes mellitus wit h hyperglycemia, without long-term current use of insulin ([facility]) 09/12/2020 Hypokalemia 09/12/2020 Hydronephrosis 09/12/2020 Cerebrovascular disease 08/15/2020 Nonintractable epilepsy with complex partial seizures ([facility]) 08/15/2020 Overview (08/15/2020): Last Assessment & Plan: keppra 250 mg AM, 500 mg PM Severe recurrent major depre ssion without psychotic features ([facility]) 06/06/2020 Homonymous hemianopia, left 07/05/2019 Overview (08/15/2020): Left superior visual field deficit. Nephrolithiasis 08/15/2018 Assessment & Plan (08/19/2018 10:54 AM PIPE FITTER SUPERVISOR): Patient septic on presentation due to kidney [...] 08/15/2018 Assessment & Plan (08/19/2018 10:55 AM PIPE FITTER SUPERVISOR): - History of stroke approximately 1 year ago - Continue home aspirin 81 mg, atorvastatin 80 mg - Continue home primary pramipexole and gabapentin. Stopped Baclofen and started flexiril for leg spasms (due to h/o seizures). Pt has h/o UTIs with Tizanidine - PT/ OT ordered - SNF recommended. However patient's 's would like patient would like to do outpatient physical therapy. Hypertension associated with type 2 diabetes mellitus ([facility]) 08/15/2018 Assessment & Plan (08/19/2018 11:55 AM PIPE FITTER SUPERVISOR): - BP 151/117 at admission. 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 ([facility]) 10/11/2017 Resolved Problems Problem Noted Date Diagnosed Date Resolved Date Bilateral kidney stones 05/29/202205/12 Sepsis ([facility]) 09/21/202002/2021 Weakness 09/12/2020 06/22/2021 Severe acute respiratory syn drome coronavirus 2 (SARS-CoV-2) detected 09/12/2020 09/12/2020 Septicemia due to gram-negat dayanara organism ([facility]) 09/12/2020 09/12/2020 Sepsis ([facility]) 09/12/202012/2019 Encounter for deep vein thro mbosis (DVT) prophylaxis 09/12/2020 09/12/2020 Calculus of left ureter 09/12/202006/11 Aspiration pneumonia due to gastric secretions ([facility]) 09/12/2020 12/13/2020 COVID-19 05/24/2020 02/05/2025 BOB (acute kidney injury) 08/16/2018 Assessment & Plan (08/19/2018 11:04 AM PIPE FITTER SUPERVISOR): - Creatinine 1.5 at admission. Cr 0.99. Resolved - As per EMR review, baseline approximately 0.8. - SLIV Seizure ([facility]) 08/15/2018 Assessment & Plan (08/19/2018 10:58 AM PIPE FITTER SUPERVISOR): - Noted to have a seizure in [...] 08/18/2018 Assessment & Plan (08/17/2018 12:13 PM PIPE FITTER SUPERVISOR): - Lipase noted to be 8274 admission repeat 3592. Lipase 110 today. - Patient denies any abdominal pain - CT abdomen unremarkable for pancreatic etiology of elevated lipase. Records from [facility] reviewed. No lipase was done [...] to occlusion of right middle cerebral artery ([facility]) 07/05/2018 08/15/2020 Acute ischemic right MCA str [place] ([facility]) 10/11/2017 08/15/2020 Dysarthria 10/11/2017 08/15/2020 Internal carotid artery dissection ([facility]) 8 10/05/2020 Overview (08/15/2020): Right side Oropharyngeal dysphagia 10/11/201702/2020 Encounters Date Type Department Care Team Description 06/13/2025 Telephone [facility] Medical [facility] Family & Internal Medicine [address] [phone] Jovan Honeycutt, DO Advice 05/16/2025 11:20 AM CDT Office Visit [facility] Family & Internal Medicine [address] [phone] Jovan Honeycutt, DO Follow Up (Patient is here for a 3 month follow up.); Diabetes (Patient's would like to discuss the necessity of continuing to see endocrinology. Last OV note with endo on 04/09/2025, A1c 9.2%.); Hyperlipidemia; Hypertension 05/16/2025 Telephone [facility] Family & Internal Medicine - [address] [phone] Jovan Honeycutt, Question 05/16/2025 Travel 05/05/2025 Results Follow-Up [facility] - [facility] [address] [facility] [address], [address] [place] [address] Lew David MD EEG awake or drowsy routine 05/02/2025 11:46 AM CDT - 05/02/2025 11:59 PM CDT Hospital Encounter [facility] [place] [address] Lew David MD Discharge Disposition: Home or Self Care (Routine Discharge) 05/02/2025 Travel 04/27/2025 [place] [facility] Scanned, Doc [facility] (SCAN) from Last 3 Months Immunizations Immunization Administration Dates Next Due Fluad influenza vaccine, [...] History Medical History Relation Comments Edema Father Kidney Disease Father urinary problems Mother Relation Status Comments Brother Father 90's Mother Alive Sister Alive Social History Tobacco Use Types Packs/Day Years Used Date Smoking Tobacco: Never Smokeless Tobacco: Never Tobacco Cessation:Counseling Given: No Alcohol Use Standard Drinks/Week Comments Never 0 [...] declined 04/09/2023 How often do you attend anglican or jehovah's witness serv ices? Patient declined 04/09/2023 Do you belong to any clubs o r organizations such as anglican groups, unions, fraternal or athletic groups, or [...] place to sleep or slept in a fdc (including now)? No 04/09/2023 Sex and Gender Information Value Date Recorded Sex Assigned at Male 11/07/2024 12:05 PM PIPE FITTER SUPERVISOR Legal Sex Male 9:14 AM PIPE FITTER SUPERVISOR Gender Identity Male 11/07/2024 12:05 PM PIPE FITTER SUPERVISOR Sexual Orientation Not on file Occupation Industry Job Start Date Job End Date disabled [employer] Not on file Not on f ile Not on file Last Filed Vital Signs Vital Sign Reading Time Taken Comments Blood Pressure 112/82 05/16/2025 11:14 AM CDT Pulse 85 05/16/2025 11:14 AM CDT Temperature 36.9 C (98.4 F) 05/16/2025 11:14 AM CDT Respiratory Rate 16 02/05/2025 2:03 PM CDT Oxygen Saturation 95% 05/16/2025 11: 14 AM CDT Inhaled Oxygen Concentration - - Weight 115.8 kg (255 lb 6.4 oz) 025 11:14 AM CDT Height 170.2 cm (5' 7) 05/16/2025 11:1 4 AM CDT Body Mass Index 40 05/16/2025 11:14 AM CDT Plan of Treatment Upcoming Encounters Date Type Department Care Team (Late st Contact Info) Description 08/22/2025 1:20 PM PIPE FITTER SUPERVISOR Office Visit [facility] Family & Internal Medicine [address] [phone] Jovan Honeycutt, [address] [place] [address] 09/11/2025 2:00 PM PIPE FITTER SUPERVISOR Office Visit [facility] - [address], [address] [place] [address] Lew David MD [address] [place] [address] Health Maintenance Due Date Last Done Comments Zoster Vaccines (1 of 2) 2004 RSV Immunization or 60+ Years (1 - Risk 60-74 years 1-dose series) 2014 Annual Medicare Wellness Visit 2019 COVID-19 Vaccine ( season) 2025 03/13/2022, 08/08/2021, 12/29/2020, Additional history exists Hemoglobin A1C 08/07/2025 02/05/2025, 10/12, 07/07/2024, Additional history exists Colorectal Cancer Screening FIT-DNA (3 Years) 08/25/2025 08/25/2022, 08/25/2022 Kidney Health Evaluation 11/07/2025 11/07/2024 Lipid Panel 11/22/2025 11/22/2024, 05/0 03/2024, 04/10/2023, Additional history exists Diabetes: Retinopathy Eye Exam 04/21/2026 04/21/2024, 12/17/2020 DTaP, Tdap and Td Vaccines (2 - Td or Tdap) 05/25/2027 05/25/2017 Pneumococcal Vaccine: 50+ Years Completed 03/13/2022, 12/13/2020, 08/10/2019 Hepatitis C Completed 12/29/2022 PHQ-2 (Physician Cando) Completed 11/07/2024 Meningococcal B Vaccine Aged Out No l onger eligible based on patient's age to complete this topic Meningococcal Vaccine Aged Out No swati leticia eligible based on patient's age to complete this topic RSV Immunizations Under 20 Months Aged Out No longer eligible based on patient's age to complete this topic Medical Devices Implanted Type Area Flight Service Specialist Device Identifier Shelf Expiration Date Model / Serial / Lot Mesh Mesh Abdomen Stent Uret 6fr 26cm Pigtl Crv Taper Tip Bldr Mrk - [id number] Implanted:Qty: 1 on 09/21/2020 by Pa Galvin MD at [facility] Stent Left: Ureter [employer] 05/23/2023 [id number] / / [id number] Procedures Procedure Name Priority Date/Time Associated Diagnosis Comments EEG SLEEP DEPRIVED Routine 05/02/2025 12 :00 PM CDT Transient alteration of awareness OUTSIDE LAB (SCAN ORDER) 04/27/2025 HEMOGLOBIN, GLYCOSYLATED Routine 02/05/2025 Uncontrolled type 2 diabetes mellitus with hyperglycemia ([facility] HHS/HCC) LIPID PANEL Routine 11/22/2024 10:26 AM PIPE FITTER SUPERVISOR Uncontrolled type 2 diabetes mellitus with hyperglycemia ([facility]/HCC HHS/HCC) Hyperlipidemia associated with type 2 diabetes mellitus ([facility] HHS/HCC) DIABETIC RETINOPATHY EXAM (NEGATIVE)(SCAN ORDER) Routine 04/21/2024 HEPATITIS C ANTIBODY Routine 12/29/2022 9:55 AM CDT Need for hepatitis C screening test COLOGUARD (EXACT SCIENCE) Routine 08/25/2022 1:00 PM PIPE FITTER SUPERVISOR Screen for colon cancer from Last 3 Months or Most Recently Relevant to Health Maintenance Results * EEG awake or drowsy routine (05/02/2025 12:00 PM CDT) Narrative [facility] - 05/02/2025 12:00 PM CDT eLw David MD 05/05/2025 1:50 PM EEG REPORT Type of EEG study: Extended EEG with video (>60min). Requesting Provider: Dr. David Date of Study: 05/02/2025 Reason for EEG: Mr. Philippe has history of carotid stenosis, artery artery embolus, with a right MCA infarction and left hemiplegia, currently wheelchair-bound and dependent upon his for most of his ADLs. While his stroke symptoms are remained stable, family has noticed more cognitive decline, with difficulty shorter memory, processing and multitasking. Technical Description and EEG Findings This is a 21-channel EEG recording utilizing the standard international 10-20 electrode placement along with additional electrodes to monitor eye movements; a single ECG channel was also utilized to record ECG. Bipolar and referential montages were utilized for analysis. EEG description: Awake: In the waking state, a continuous generalized medium-amplitude mixed-frequency background was noted; a symmetric posterior dominant rhythm of 9 Hz was recorded in the occipital regions bilaterally. The posterior dominant rhythm attenuated with eye opening and enhanced with eye closure. Drowsiness: There was waxing and waning of posterior dominant rhythm with appearance of diffuse synchronous and asynchronous theta-alpha activity during drowsiness. Provocative maneuvers: Photic stimulation: Intermittent photic stimulation produced Provocative maneuvers photic stimulation: symmetrical bi-occipital response ECG: Single ECG channel showed regular cardiac rhythm. Impression/Clinical Correlation This extended EEG (>60) recorded in awake and drowsy states is normal. Of note, a normal EEG does not rule out seizure/epilepsy. us Lew David MD NEUROLOGY ORDERABLES Dixie treadwell Result [facility] [address] [place] [address], [place] [phone] * OUTSIDE LAB (SCAN ORDER) (04/27/2025) 04/27/2025 us Doc Med Group Scanned SCANNING Final Resu lt * HEMOGLOBIN, GLYCOSYLATED (02/05/2025) HGB A1C 8.7 % [facility] 02/05/2025 Jovan Honeycutt DO LABORATORY Final Re sult Performing Organization Address City/[facility]/ZIP Co de Phone Number [facility] [address] [place] [address], [place] * LIPID PANEL (11/22/2024 10:26 AM PIPE FITTER SUPERVISOR) CHOLESTEROL 120 <200 MG/DL 11/22/2024 3:44 PM [facility] TRIGLYCERIDES 142 <150 MG/DL 11/22/2024 3:44 PM PIPE FITTER SUPERVISOR [facility] HDL 44 >40 MG/DL 11/22/2024 3:44 PM PIPE FITTER SUPERVISOR [facility] LDL-C 48 <100 MG/DL 11/22/2024 3:44 PM [facility] VLDL CALCULATION 28 5 - 28 MG/DL 11/22/2024 3:44 PM [facility] CHOL/HDL RATIO 2.7 0.0 - 4.0 11/22/2024 3:44 PM [facility] LDL/HDL 1.1 0.41 - 2.13 11/22/2024 3:44 PM [facility] NON HDL CHOLESTEROL 76 <140 MG/DL 11/22/2024 3:44 PM PIPE FITTER SUPERVISOR [facility] 11/22/2024 10:2 6 AM PIPE FITTER SUPERVISOR Jovan Honeycutt DO LABORATORY Final Re sult Performing Organization Address [facility]/ZIP Co de Phone Number [facility] [place] [address] [place] [address], * DIABETIC RETINOPATHY EXAM (NEGATIVE) (04/21/2024) Doc Med Group Scanned SCANNING Final Resu lt Performing Organization Address City/[facility] Co de Phone Number [facility] ONBASE * HEPATITIS C ANTIBODY ([facility] ONLY) (12/29/2022 9:55 AM CDT) Pathologist [facility] HEPATITIS C AB NON-REACTI VE NON-REACT DAYANARA 12/29/2022 7:29 PM CDT [facility] Comment: ANTIBODIES TO HCV NOT DETECTED. DOES NOT EXCLUDE THE POSSIBILITY OF EXPOSURE TO HCV. 12/29/2022 9:55 AM CDT Jovan Honeycutt DO LABORATORY Final Re sult Performing Organization Address [facility] Co de Phone Number [facility] [address] [place] [address], [id number] * COLOGUARD (EXACT SCIENCE) (08/25/2022 1:00 PM PIPE FITTER SUPERVISOR) COLOGUARD RESULT Negative Negative [employer] (CLIA #:[id number]) Comment: NEGATIVE TEST RESULT. A negative Cologuard [...] screened with both Cologuard and colonoscopy. (Carmen Wesley, N Engl J Med 2014;370(14):7893-6221) The normal value (reference range) for this assay is negative. COLOGUARD RE-SCREENING RECOMMENDATION: Periodic colorectal cancer screening is an important part of preventive healthcare for asymptomatic individuals at average risk for colorectal cancer. Following a negative Cologuard result, the [place] Cancer Society and U.S. Multi-Society Task Force screening guidelines recommend a Cologuard re-screening interval of 3 years. References: [employer] Cancer Society Guideline for Colorectal Cancer Screening: https://www.cancer.org/cancer/pqweg-vekkrl-txatmp/ettmyyqbg-efdiurazb-olhvnck/ac s-rec ommendations.html.; John DK, Kylah GREEN, Rickie SalehK, Colorectal Cancer Screening: Recommendations for Physicians and Patients from the U.S. Multi-Society Task Force on Colorectal Cancer Screening , Am J Gastroenterology 2017; 112:7330-0747. TEST DESCRIPTION: Composite algorithmic analysis of stool [...] were screened with both Cologuard and colonoscopy. (Imperiale T. et al, N Engl J Med 2014;370(14):0545-0750.) Cologuard may produce a false negative or false positive result (no colorectal cancer or precancerous polyp present at colonoscopy follow up). A negative Cologuard test result does not guarantee the absence of CRC or advanced adenoma (pre-cancer). The current Cologuard screening interval is every 3 years. ([employer] Cancer Society and U.S. Multi-Society Task Force). Cologuard performance data in a 10,000 patient pivotal study using colonoscopy as the reference method can be accessed at the following location: www.Hotelicopter.Charitybuzz/results. Additional description of the Cologuard test process, warnings and precautions can be found at www.cologSponsorHubrd.Charitybuzz. STOOL STOOL SPECIMEN / Unknown 08/25/2022 1:00 PM PIPE FITTER SUPERVISOR 08/26/2022 12:31 PM PIPE FITTER SUPERVISOR Luis Alfredo Bush MD BODY FLUIDS AND STOOLS ORDERABLE S Final Result Performing Organization Address City/State/[facility] Co de Phone Number [place] ([address] [facility]) [address] [place] [address], [employer] (CLIA #:[id number]) [address] [place] [address] from Last 3 Months or Most Recently Relevant to Health Maintenance Insurance [employer] MEDICARE Advance Directives Documents on File Type Date Recorded Patient Sawyer [employer] Expl anation Power of Floral Design Teacher * Full Code (Latest Code Status on [...] 8:01 PM 09/21/2020 1:42 PM Care Teams Ladle Filler Relationship Specialty Start Date End Date Jovan Honeycutt DO [facility] [place] [address] PCP - General FAMILY PRACTICE 09/22/21 Blane Ferrera MD [address] [place] [address] Consulting Physician UROLOGY 09/10/20 Benton Rees MD [facility] [address] [facility] [address] [place] [address] Consulting Physician NEUROLOGY 10/05/20
--- OUTSIDE RECORDS SUMMARY | 2025-06-30 17:11 | XMS_ITS | Patient Health Record ---
Author Organization [facility] Information Assurance Address [address] [facility] [address] [place] [address] Care Team Providers Care Disbursing Agent Name Role Phone Uche Ureña Unavailable [phone] Reason For Referral No Information Medications Medication SIG (Take, Route, Frequency, Duration) Notes Start Date End Date Status METOPROLOL SUCCINATE ER 50 MG TB24 *Reorder from Medispan for eRx and Interaction Alerts* Active GLIPIZIDE ER 5 MG TB24 *Reorder from Medispan for eRx and Interaction Alerts* Active LEVETIRACETAM 1000 MG TABS *Reorder from Medispan for eRx and Interaction Alerts* Active PRAMIPEXOLE DIHYDROCHLORIDE .25 MGTABS *Reorder from Medispan for eRx and Interaction Alerts* Active Plan Of Treatment No Information Insurance Providers Payer Name Payer Address Payer Phone Subscriber Number Group Number Insured Name Patient Relationship to Insured Coverage Start Date Coverage End Date [employer] Ppo [address] [place] [address] [id number] CAYDEN RUIZ Spouse - patient is the spouse of the insured
--- NOTE | 2025-06-30 18:52 | PC.NURSE ---
Pt to the intake desk and states he doesn't want to wait any longer. Pt taken to vehicle by wheelchair
--- OUTSIDE RECORDS SUMMARY | 2025-06-30 19:01 | XMS_ITS | Encounter Summary ---
Author Organization [facility] Address [address] [place] [address] Phone Care Team Providers Care Ct Mri Technologist Name Role Phone Dwaine Soria MD Primary Care Provider [phone] Jovan Honeycutt DO Primary Care Provide r [...] CDT Gender Identity Male 11/03/2020 10:28 AM CASHIER COURTESY BOOTH Sexual Orientation Straight 11/03/2020 10 :28 AM CASHIER COURTESY BOOTH documented as of this encounter Plan of Treatment Not on file documented as of this encounter Procedures Procedure Name Priority Date/Time Associated Diagnosis Comments SCAN - RADIOLOGY/IMAGING 12/08/2018 documented in this encounter Results * SCAN - RADIOLOGY/IMAGING (12/08/2018) Anatomical Region Laterality Modality Other us Provider Scanning Final Result documented in this encounter Visit Diagnoses Not on filedocumented in this encounter Care Teams Ct Mri Technologist Relationship Specialty Start Date End Date Dwaine Soria MD [address] [facility] [address] [place] [address] PCP - General Endocrinology Diabetes & Metabolism 08/22/18 12/01/21 Jovan Honeycutt DO [address] [place] [address] PCP - General Family Medicine 12/02/21 documented as of this encounter
--- OUTSIDE RECORDS SUMMARY | 2025-06-30 19:01 | XMS_ITS | Encounter Summary ---
Author Organization [facility] Address [address] [place] [address] Care Team Providers Care Orthopedic Surgeon Name Role Phone Blane Ferrera MD Unavailable [phone] Benton Rees MD Unavailable Jovan Honeycutt DO Primary Care Provider + Encounter Details Date Type Department Care Team (Latest Contact Info) Description 05/05/2025 Results Follow-Up [facility] Medical Group Multispecialty Care - [facility] [address] [facility], [address] [place] [address] Lew David MD [address] [place], [place] [id number] EEG awake or drowsy routine Social History [...] declined 04/09/2023 How often do you attend samaritan or jehovah's witness serv ices? Patient declined 04/09/2023 Do you belong to any clubs o r organizations such as samaritan groups, unions, fraternal or athletic groups, or [...] Recorded Patient Health Questionnaire-2 Score 1 11/07/2024 [facility] - [...] place to sleep or slept in a skilled nursing (including now)? 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 Family & Internal Medicine - [place] [address] [place] [address] Jovan Honeycutt DO [address] [place] [address] 09/11/2025 2:00 PM PATIENT INFORMATION COORDINATOR Office Visit [facility] Multispecialty [facility] - [address], [address] [place] [phone] Lew David MD [address] [place] [address] documented as of this encounter Visit Diagnoses Not on filedocumented in this encounter Care Teams Orthopedic Surgeon Relationship Specialty Start Date End Date Jovan Honeycutt DO [address] [place] [address] PCP - General FAMILY PRACTICE 09/22/21 Blane Ferrera MD [address] [place] [address]. [place] [address] Consulting Physician UROLOGY 09/10/20 Benton Rees MD [address] [place] [address] Consulting Physician NEUROLOGY 10/05/20 documented as of this encounter
--- OUTSIDE RECORDS SUMMARY | 2025-06-30 19:01 | XMS_ITS | Clinical Summary ---
Author Organization [facility] Address [facility] [place] [address] Care Team Providers Care Supervisor Marble Name Role Phone Blane Ferrera MD Unavailable [phone] Benton Rees MD Unavailable [phone] Jovan Honeycutt DO Primary Care Provider + [...] hyperglycemia, without long-term current use of insulin ([facility]) Inject 1 mg into the skin as needed. 0.4 mL 3 023 Active ketoconazole (NIZORAL) 2 % creamIndications: Tinea corporis APPLY TOPICALLY TO THE AFFECTED AREA DAILY FOR RASH, SKIN ERUPTION 60 g 2 023 Active FARXIGA 10 MG tabletIndications :Uncontrolled type 2 diabetes mellitus with hyperglycemia ([facility]) Take 1 tablet (10 mg total) by [...] hyperglycemia, without long-term current use of insulin ([facility]) INJECT 1 NEEDLE UNDER THE SKIN FOUR [...] Problem Noted Date Diagnosed Date Prostate cancer ([facility]) 11/07/2024 Morbid (severe) obesity due to excess calories 0 02/24/2024 Body mass index (BMI) 40.0-44.9, adult Chest pain in adult 04/09/2023 Hypogonadism in male 02/02/2023 Hyperlipidemia associated wi th type 2 diabetes mellitus ([facility]) 07/01/2022 Hematuria 05/29/2022 Low back pain 05/29/2022 Lumbar spondylosis 05/29/2022 Constipation 05/29/2022 Mass of kidney 05/29/2022 Medication management 10/05/2020 Kidney lesion 09/12/2020 Type 2 diabetes mellitus wit h hyperglycemia, without long-term current use of insulin ([facility]) 09/12/2020 Hypokalemia 09/12/2020 Hydronephrosis 09/12/2020 Cerebrovascular disease 08/15/2020 Nonintractable epilepsy with complex partial seizures ([facility]) 08/15/2020 Overview (08/15/2020): Last Assessment & Plan: keppra 250 mg AM, 500 mg PM Severe recurrent major depre ssion without psychotic features ([facility]) 06/06/2020 Homonymous hemianopia, left 07/05/2019 Overview (08/15/2020): Left superior visual field deficit. Nephrolithiasis 08/15/2018 Assessment & Plan (08/19/2018 10:54 AM SITE LEASING AGENT): Patient septic on presentation due to kidney [...] 08/15/2018 Assessment & Plan (08/19/2018 10:55 AM SITE LEASING AGENT): - History of stroke approximately 1 year [...] Hypertension associated with type 2 diabetes mellitus ([facility]) 08/15/2018 Assessment & Plan (08/19/2018 11:55 AM SITE LEASING AGENT): - BP 151/117 at admission. 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 ([facility]) 10/11/2017 Resolved Problems Problem Noted Date Diagnosed Date Resolved Date Bilateral kidney stones 05/29/202205/12 Sepsis ([facility]) 09/21/202002/2021 Weakness 09/12/2020 06/22/2021 Severe acute respiratory syn drome coronavirus 2 (SARS-CoV-2) detected 09/12/2020 09/12/2020 Septicemia due to gram-negat dayanara organism ([facility]) 09/12/2020 09/12/2020 Sepsis ([facility]) 09/12/202012/2019 Encounter for deep vein thro mbosis (DVT) prophylaxis 09/12/2020 09/12/2020 Calculus of left ureter 09/12/202006/11 Aspiration pneumonia due to gastric secretions ([facility]) 09/12/2020 12/13/2020 COVID-19 05/24/2020 02/05/2025 BOB (acute kidney injury) 08/16/2018 Assessment & Plan (08/19/2018 11:04 AM SITE LEASING AGENT): - Creatinine 1.5 at admission. Cr 0.99. Resolved - As per EMR review, baseline approximately 0.8. - SLIV Seizure ([facility]) 08/15/2018 Assessment & Plan (08/19/2018 10:58 AM SITE LEASING AGENT): - Noted to have a seizure in [...] 08/18/2018 Assessment & Plan (08/17/2018 12:13 PM SITE LEASING AGENT): - Lipase noted to be 8274 admission repeat 3592. Lipase 110 today. - Patient denies any abdominal pain - CT abdomen unremarkable for pancreatic etiology of elevated lipase. Records from [facility] reviewed. No lipase was done in the [...] to occlusion of right middle cerebral artery ([facility]) 07/05/2018 08/15/2020 Acute ischemic right MCA [address] [place] ([facility]) 10/11/2017 08/15/2020 Dysarthria 10/11/2017 08/15/2020 Internal carotid artery dissection ([facility]) 8 10/05/2020 Overview (08/15/2020): Right side Oropharyngeal dysphagia 10/11/201702/2020 Encounters Date Type Department Care Team Description 06/13/2025 Telephone [facility] Medical [facility] Family & Internal Medicine [address] [phone] Jovan Honeycutt, DO Advice 05/16/2025 11:20 AM CDT Office Visit [facility] Family & Internal Medicine [address] [phone] Jovan Honeycutt, DO Follow Up (Patient is here for a 3 month follow up.); Diabetes (Patient's would like to discuss the necessity of continuing to see endocrinology. Last OV note with endo on 04/09/2025, A1c 9.2%.); Hyperlipidemia; Hypertension 05/16/2025 Telephone [facility] Family & Internal Medicine - [address] [address] Jovan Honeycutt, Question 05/16/2025 Travel 05/05/2025 Results Follow-Up [facility] Multispecialty Care - [facility] [address] [facility], [address] [place] [address] Lew David MD EEG awake or drowsy routine 05/02/2025 11:46 AM CDT - 05/02/2025 11:59 PM CDT Hospital Encounter [facility] [place] [address] Lew David MD Discharge Disposition: Home or Self Care (Routine Discharge) 05/02/2025 Travel 04/27/2025 Scan [employer] INFO SRVCS Scanned, Doc [facility] (SCAN) from Last 3 Months [...] declined 04/09/2023 How often do you attend islam or baptism serv ices? Patient declined 04/09/2023 Do you belong to any clubs o r organizations such as islam groups, unions, fraternal or athletic groups, or [...] Recorded Patient Health Questionnaire-2 Score 1 11/07/2024 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 Not on f ile [...] st Contact Info) Description 08/22/2025 1:20 PM SITE LEASING AGENT Office Visit [facility] Family & Internal Medicine [address] [address] Jovan Honeycutt, [address] [place] [address] 09/11/2025 2:00 PM SITE LEASING AGENT Office Visit [facility] Multispecialty Care - [address], [address] [place] [address] Lew David MD [address] [place] [address] Health Maintenance Due Date Last Done Comments [...] 08/10/2019 Hepatitis C Completed 12/29/2022 PHQ-2 (Physician [place]) Completed 11/07/2024 Meningococcal B Vaccine Aged Out No l onger eligible based on patient's age to complete this topic Meningococcal Vaccine Aged Out No swati leticia eligible based on patient's age to complete this topic RSV Immunizations Under 20 Months Aged Out No longer eligible based on patient's age to complete this topic Medical Devices Implanted Type Area Software Developer Intern Device Identifier Shelf Expiration Date Model / Serial / Lot Mesh Mesh Abdomen Stent Uret 6fr 26cm Pigtl Crv Taper Tip Bldr Mrk - [id number] Implanted:Qty: 1 on 09/21/2020 by Pa Galvin MD at [facility] Stent Left: Ureter [employer] DUKE 05/23/2023 [id number] / / [id number] Procedures Procedure Name Priority Date/Time Associated Diagnosis Comments EEG SLEEP DEPRIVED Routine 05/02/2025 12 :00 PM CDT Transient alteration of awareness OUTSIDE LAB (SCAN ORDER) 04/27/2025 HEMOGLOBIN, GLYCOSYLATED Routine 02/05/2025 Uncontrolled type 2 diabetes mellitus with hyperglycemia ([facility]) LIPID PANEL Routine 11/22/2024 10:26 AM SITE LEASING AGENT Uncontrolled type 2 diabetes mellitus with hyperglycemia ([facility]) Hyperlipidemia associated with type 2 diabetes mellitus ([facility]) DIABETIC RETINOPATHY EXAM (NEGATIVE)(SCAN ORDER) Routine 04/21/2024 HEPATITIS C ANTIBODY Routine 12/29/2022 9:55 AM CDT Need for hepatitis C screening test COLOGUARD (EXACT SCIENCE) Routine 08/25/2022 1:00 PM SITE LEASING AGENT Screen for colon cancer from Last 3 Months or Most Recently Relevant to Health Maintenance Results * EEG awake or drowsy routine (05/02/2025 12:00 PM CDT) Narrative [facility] - 05/02/2025 12:00 PM CDT Lew David MD 05/05/2025 1:50 PM EEG REPORT [...] David MD NEUROLOGY ORDERABLES Dixie treadwell Result [facility] [address] [place] [address], [place] [phone] * OUTSIDE LAB (SCAN ORDER) (04/27/2025) 04/27/2025 us Doc Med Group Scanned SCANNING Final Resu lt * HEMOGLOBIN, GLYCOSYLATED (02/05/2025) HGB A1C 8.7 % [facility] 02/05/2025 Jovan Honeycutt DO LABORATORY Final Re sult Performing Organization Address City/[facility]/ZIP Co de Phone Number [facility] [address] [place] [address], [place] * LIPID PANEL (11/22/2024 10:26 AM SITE LEASING AGENT) CHOLESTEROL 120 <200 MG/DL 11/22/2024 3:[address] [facility] TRIGLYCERIDES 142 <150 MG/DL 11/22/2024 3:44 PM SITE LEASING AGENT [facility] HDL 44 >40 MG/DL 11/22/2024 3:44 PM SITE LEASING AGENT [facility] LDL-C 48 <100 MG/DL 11/22/2024 3:[address] [facility] VLDL CALCULATION 28 5 - 28 MG/DL 11/22/2024 3:[address] [facility] CHOL/HDL RATIO 2.7 0.0 - 4.0 11/22/2024 3:[address] [facility] LDL/HDL 1.1 0.41 - 2.13 11/22/2024 3:[address] [facility] NON HDL CHOLESTEROL 76 <140 MG/DL 11/22/2024 3:44 PM SITE LEASING AGENT [facility] 11/22/2024 10:2 6 AM SITE LEASING AGENT Jovan Honeycutt DO LABORATORY Final Re sult Performing Organization Address [facility]/ZIP Co de Phone Number [facility] CHL[facility] [address] [facility] [place] [address], * DIABETIC RETINOPATHY EXAM (NEGATIVE) (04/21/2024) Doc [facility] Scanned SCANNING Final Resu lt Performing Organization Address City/[facility] Co de Phone Number [facility] ONBASE * HEPATITIS C ANTIBODY ([facility] ONLY) (12/29/2022 9:55 AM CDT) Pathologist [facility] HEPATITIS C AB NON-REACTI VE NON-REACT DAYANARA 12/29/2022 7:29 PM CDT [facility] Comment: ANTIBODIES TO HCV NOT DETECTED. DOES NOT EXCLUDE THE POSSIBILITY OF EXPOSURE TO HCV. 12/29/2022 9:55 AM CDT Jovan Honeycutt DO LABORATORY Final Re sult Performing Organization Address [facility] Co de Phone Number [facility] [address] [place] [address], [id number] * COLOGUARD (EXACT SCIENCE) (08/25/2022 1:00 PM SITE LEASING AGENT) COLOGUARD RESULT Negative Negative [facility] (CLIA #:[id number]) Comment: NEGATIVE TEST RESULT. A negative Cologuard [...] colonoscopy. (Carmen Wesley, N Engl J Med 2014;370(14):7060-4724) The normal value (reference range) for this assay is negative. COLOGUARD RE-SCREENING RECOMMENDATION: Periodic colorectal cancer screening is an important part of preventive healthcare for asymptomatic individuals at average risk for colorectal cancer. Following a negative Cologuard result, the [place] Cancer Society and U.S. Multi-Society Task Force screening guidelines recommend a Cologuard re-screening interval of 3 years. References: [place] Cancer Society Guideline for Colorectal Cancer Screening: https://www.cancer.org/cancer/wcuyw-wulmov-ytvate/tcttircsb-obcsdkgfg-wgltcrf/ac s-rec ommendations.html.; John DK, Kylah GREEN, Rickie SalehK, Colorectal Cancer Screening: Recommendations for Physicians and Patients from the U.S. Multi-Society Task Force on Colorectal Cancer Screening , Am J Gastroenterology 2017; 112:8667-2918. TEST DESCRIPTION: Composite algorithmic analysis of stool [...] T. et al, N Engl J Med 2014;370(14):7952-0996.) Cologuard may produce a false negative or false positive result (no colorectal cancer or precancerous polyp present at colonoscopy follow up). A negative Cologuard test result does not guarantee the absence of CRC or advanced adenoma (pre-cancer). The current Cologuard screening interval is every 3 years. ([place] Cancer Society and U.S. Multi-Society Task Force). Cologuard performance data in a 10,000 patient pivotal study using colonoscopy as the reference method can be accessed at the following location: www.[employer]results. Additional description of the Cologuard test process, warnings and precautions can be found at www.cologbMobilizedrd.[employer] STOOL STOOL SPECIMEN / Unknown 08/25/2022 1:00 PM SITE LEASING AGENT 08/26/2022 12:31 PM SITE LEASING AGENT Luis Alfredo Bush MD BODY FLUIDS AND STOOLS ORDERABLE S Final Result Performing Organization Address City/State/[facility] Co de Phone Number [facility] [facility]) [address] [place] [address], [employer] (CLIA #:[id number]) [address] [place] [place] [address] from Last 3 Months or Most Recently Relevant to Health Maintenance Insurance AETNA MEDICARE Advance Directives Documents on File Type Date Recorded Patient Spring Encaser Expl anation Power of Teacher Resource * Full Code (Latest Code Status on [...] 8:01 PM 09/21/2020 1:42 PM Care Teams Supervisor Marble Relationship Specialty Start Date End Date Jovan Honeycutt DO [facility] [place] [address] PCP - General FAMILY PRACTICE 09/22/21 Blane Ferrera MD [address] [place] [address] Consulting Physician UROLOGY 09/10/20 Benton Rees MD [facility] [address] [facility] [address] [place] [address] Consulting Physician NEUROLOGY 10/05/20
--- OUTSIDE RECORDS SUMMARY | 2025-06-30 19:01 | XMS_ITS | Clinical Summary ---
Author Organization [facility] Address [address] [place] [address] Care Team Providers Care Electrolysis Operator Name Role Phone Gilbert Bonilla MD Primary Care Provider + [phone] Source Comments [facility] Affiliates and Associated Physician Practices is amultiple site organization consisting of ambulatory clinics and hospital sitesin [place], [place], [place] and [place]. This disclosure is being madepursuant to the Care Everywhere program and may not contain all information available regarding this patient. Last updated 18.[facility] [employer] Allergies Active Allergy Reactions Criticality Noted Date [...] Date of Phone Billing Address Personal/Family [address] [place] [address] MEDICARE AETNA * Guarantor: JD RUIZ Account Type Relation to Patient Date of Phone Billing Address Personal/Family [address] [place] [phone] MEDICARE AETNA * Guarantor: JD RUIZ Account Type Relation to Patient Date of Phone Billing Address Personal/Family [address] [place] [address] MEDICARE TNA MEDICARE AETNA AETNA AETNA Advance Directives Documents on File Type Date Recorded Patient Refinery Operator Assistant Expl anation Adv Directive/Living Will/POA 06/24/2020 12:27 PM Adv Directive/Living Will/POA 06/05/2020 11:24 AM * Full Code (Latest Code Status on File) Date Activated Date Inactivated Comments 06/06/2020 7:47 AM 06/19/2020 8:23 PM Care Teams Electrolysis Operator Relationship Specialty Start Date End Date Gilbert Bonilla MD PCP - General Internal Medicine 06/04/20
--- OUTSIDE RECORDS SUMMARY | 2025-06-30 19:01 | XMS_ITS | Clinical Summary ---
Author Organization [facility] Address [address] [place] [address] Care Team Providers Care Turn Out Name Role Phone Jovan Honeycutt Primary Care [...] without long-term current use of insulin ([facility]) Inject 40 Units under the [...] without long-term current use of insulin ([facility]) Change sensor every 10 days 3 each 3 5 Active blood-glucose,r eceiver,cont (Dexcom G7 Beam Dyer Recessed Vat) miscIndications :Type 2 diabetes mellitus with hyperglycemia, without long-term current use of insulin ([facility]) Use to check blood glucose [...] infection. Assessment & Plan (09/04/2024 3:03 PM COMPUTER ARCHITECT): Chronic, uncontrolled, worsening A1c today 9.9%, goal [...] Atorvastatin 80mg. Last lipid panel: 02/14/24 LDL=40, KZ=089. Assessment & Plan (09/04/2024 3:00 PM COMPUTER ARCHITECT): Continue Statin therapy Class 2 severe obesity due t o excess calories with serious comorbidity and body mass index (BMI) of 37.0 to 37.9 in adult 09/04/2024 Assessment & Plan (09/04/2024 3:00 PM COMPUTER ARCHITECT): Counseled on diet Exercise is a limitation [...] daily Assessment & Plan (09/04/2024 3:01 PM COMPUTER ARCHITECT): Chronic overall well controlled Continue current dose [...] Type Department Care Team Description 05/18/2025 Telephone [facility] [address] [phone] Willie Denise MD Med Refill 04/27/2025 Results Follow-Up [facility] [address] [phone] Willie Denise MD Albumin Creatinine Ratio, Urine 04/25/2025 11:15 AM CDT Lab [facility] Out[facility] Lab at [address] [phone] 04/25/2025 11:11 AM CDT - 04/25/2025 11:59 PM CDT Hospital Encounter [address] [address] Type 2 diabetes mellitus with hyperglycemia, without long-term current use of insulin (HCC) Discharge Disposition: Discharge to home or self care 04/24/2025 Telephone [facility] [address] [phone] Willie Denise MD [address] [place] 04/09/2025 1:00 PM CDT Office Visit [facility] Diabetes [facility] Endocrinology [address] [place] [phone] Willie Denise MD Type 2 diabetes mellitus with hyperglycemia, without long-term current use of insulin (HCC) (Primary Dx); Hypertension associated with diabetes (HCC); Hyperlipidemia associated with type 2 diabetes mellitus (HCC); Class 2 severe obesity due to excess calories with serious comorbidity and body mass index (BMI) of 37.0 to 37.9 in adult (HCC) 03/30/2025 Telephone [facility] [address] [phone] Willie Denise MD from Last 3 Months [...] CDT Gender Identity Male 11/03/2020 10:28 AM COMPUTER ARCHITECT Sexual Orientation Straight 11/03/2020 10 :28 AM COMPUTER ARCHITECT Obstetrics History Last Filed Vital Signs Vital Sign Reading Time Taken Comments Blood Pressure 128/78 04/09/2025 1:03 PM CDT Pulse 85 04/09/2025 1:03 PM CDT Temperature 36.9 C (98.4 F) 01/13/2019 7:40 PM CDT Respiratory Rate 16 04/09/2025 1:03 PM CDT Oxygen Saturation 95% 01/13/2019 7:40 PM CDT Inhaled Oxygen Concentration - - Weight 109.8 kg (242 lb) 09/04/2024 1:26 PM COMPUTER ARCHITECT wheelchair Height 170.2 cm (5' 7) 04/09/2025 1:03 PM CDT Body Mass Index 37.9 09/04/2024 1:26 PM COMPUTER ARCHITECT Plan of Treatment Health Maintenance Due Date [...] LAB URINE ORDERABLE S Final Result [address] [id number] [address] [place] [address] * (ABNORMAL) POCT hemoglobin A1c (04/09/2025 1:06 PM CDT) [facility] Hemoglobin A1C, POC 9.2(A) 4.0 - 5.6 % Blood 04/09/2025 1:06 PM CDT Willie Wilde MD POINT OF CARE TEST ORDERABLES Final Result * POCT glucose (04/09/2025 1:05 PM CDT) [facility] Glucose Blood, POC 354 Normal Fasting 70 - 100, Random <200 mg/dL Blood 04/09/2025 1:05 PM CDT Result [facility] Willie Wilde MD POINT OF CARE TEST ORDERABLES Final Result * HM DIABETES EYE EXAM (04/21/2024 8:24 AM CDT) Historical Provider HEALTH MAINTENANCE Final Result * (ABNORMAL) Lipid panel (02/14/2024 10:16 AM CDT) [facility] SCRIBED Cholesterol, Total 111 <200 - NA EXTERNAL LAB SCRIBED HDL 41 >40 - NA EXTERNAL LAB SCRIBED LDL 40 <100 - NA EXTERNAL LAB SCRIBED Triglycerides 150 <150 - NA EXTERNAL LAB Blood 02/14/2024 10:1 6 AM CDT Historical Provider LAB BLOOD ORDERABLES Edit ed Result - Final EXTERNAL LAB * (ABNORMAL) Comprehensive metabolic panel (02/14/2024 10:16 AM CDT) [facility] SCRIBED Sodium 143 136 - 145 mmol/L [...] to Health Maintenance Insurance MEDICARE [facility] Address: [phone] [place] [id number] [facility] Advance Directives For more information, please contact: [phone] * Full Code (Latest Code Status on File) Date Activated Date Inactivated Comments 07/29/2018 1:09 AM 08/03/2018 7:36 PM Care Teams Turn Out Relationship Specialty Start Date End Date Jovan Honeycutt DO [address] [place] [id number] PCP - General Family Medicine 12/02/21
== END 2025-06-30 19:08 | disposition left against medical advice (07) ==
LOC: ANHED 18:59
PROVIDERS: PCP Student in an Organized Health Care Education/Training Program
DX: R51.9 Headache, unspecified (principal)
CPT/HCPCS: 99199